=== PATIENT | male | born 1955 ===

== ENCOUNTER → 2020-08-15 14:14 | Outpatient (BNVA) | payer OTHER, SELFPAY | PROVIDERS: PCP Physician Assistant; Referring Provider Physician Assistant; Visit Provider Internal Medicine | DX: E11.65 Type 2 diabetes mellitus with hyperglycemia (principal); E78.5 Hyperlipidemia, unspecified; I10 Essential (primary) hypertension; Z88.6 Allergy status to analgesic agent; Z91.013 Allergy to seafood; Z91.018 Allergy to other foods; Z79.4 Long term (current) use of insulin; Z79.899 Other long term (current) drug therapy | CPT/HCPCS: 82947; 99212 ==

== ENCOUNTER 2020-09-03 14:00 | Outpatient (RCR) | payer OTHER, SELFPAY | END 2020-10-11 09:14 | disposition home or self-care (01) | LOC: HO.OT 14:00 | PROVIDERS: Visit Provider Physician Assistant | DX: M19.041 Primary osteoarthritis, right hand (principal) | CPT/HCPCS: 97110; 97140; 97165; 97530 ==

== ENCOUNTER 2020-09-25 10:14 | Outpatient (REF) | payer OTHER, SELFPAY ==
[2020-09-26 07:47] LABS: Syphilis Screen Nonreactive (Nonreactive)
[2020-09-26 08:18] LABS: HBc Num1 2.31 S/CO (0.00-0.79); Hepatitis B Surface Antigen Negative (Negative)
[2020-09-26 08:35] LABS: HBS Num1 11.41 mIU/mL (0-7.99); HIV AB/AG Nonreactive (Nonreactive); HIV Num 1 0.15 S/CO (0.00-0.99); ~HepC Num1 14.37 S/CO (0.00-0.79); ~Hepatitis C Antibody Reactive (Nonreactive)
[2020-09-26 11:20] LABS: HBS Num2 10.88 mIU/mL (0-7.99); HBS Num3 10.42 mIU/mL (0-7.99); ~Hepatitis B Surface Antibody GRAYZONE (Nonreactive)
[2020-09-26 11:31] LABS: HBc Num2 2.27 S/CO; HBc Num3 2.52 S/CO; Hepatitis B Core Antibody Reactive (Nonreactive)
[2020-09-27 03:27] LABS: Herpes Simplex Type 1 IgG >58.00 index; Herpes Simplex Type 2 IgG >23.00 index
[2020-09-27 17:08] LABS: Hepatitis B Core Antibody IgM NON-REACTIVE (NON-REACTIVE)
[2020-10-01 15:33] LABS: Chlamydia Pneumoniae IgA <1:16 titer (<1:16); Chlamydia Pneumoniae IgG <1:64 titer (<1:64); Chlamydia Pneumoniae IgM <1:10 titer (<1:10); Chlamydia Psittaci IgA <1:16 titer (<1:16); Chlamydia Psittaci IgG <1:64 titer (<1:64); Chlamydia Psittaci IgM <1:10 titer (<1:10); Chlamydia Trachomatis IgA <1:16 titer (<1:16); Chlamydia Trachomatis IgG <1:64 titer (<1:64); Chlamydia Trachomatis IgM <1:10 titer (<1:10)
== END 2020-09-25 10:15 | disposition home or self-care (01) ==
LOC: HO.LAB 10:14
PROVIDERS: PCP Physician Assistant; Visit Provider Physician Assistant
DX: Z11.3 Encounter for screening for infections with a predominantly sexual mode of transmission (principal); Z87.19 Personal history of other diseases of the digestive system
CPT/HCPCS: 86631; 86632; 86695; 86696; 86704; 86705; 86706; 86780; 86803; 87340; 87389

== ENCOUNTER 2020-11-10 10:25 | Outpatient (REF) | payer OTHER, SELFPAY | END 2020-11-10 10:26 | disposition home or self-care (01) | LOC: HO.LAB 10:25 | PROVIDERS: PCP Physician Assistant; Visit Provider Internal Medicine | DX: Z20.822 Contact with and (suspected) exposure to COVID-19 (principal) | CPT/HCPCS: 36415; C9803; U0003 ==

== ENCOUNTER 2020-11-14 15:19 | Outpatient (REF) | payer OTHER, SELFPAY ==
[2020-11-14 16:33] LABS: Estimated Average Glucose 140 mg/dL; Hemoglobin A1c % 6.5 %
[2020-11-14 16:52] LABS: Alanine Aminotransferase 45 U/L (0-40); Albumin Level 4.6 g/dL (3.5-5.0); Alkaline Phosphatase 94 U/L (39-117); Anion Gap 11 (12-20); Aspartate Amino Transferase 28 U/L (5-37); Bilirubin Total 0.7 mg/dL (0.0-1.0); Blood Urea Nitrogen 21 mg/dL (9-16); Calcium 9.6 mg/dL (8.4-10.2); Carbon Dioxide 34 mmol/L (22-29); Chloride 100 mmol/L (96-108); Cholesterol 141 mg/dL; Estimated Glomerular Filt Rate > 60; Glucose Random 118 mg/dL (60-115); HDL Cholesterol 40 mg/dL; LDL Cholesterol Calculated 80 mg/dl; Potassium 4.8 mmol/l (3.3-5.1); Sodium 140 mmol/L (135-145); Total Protein 7.3 g/dL (6.5-8.0); Triglycerides 105 mg/dL
[2020-11-14 16:53] LABS: Creatinine Urine 124.08 mg/dL; Microalbumin Urine < 5.0 mg/L
[2020-11-14 17:17] LABS: Vitamin D 25-OH Total 40.3 ng/mL (>30)
[2020-11-15 02:13] LABS: LDL Cholesterol Direct 83 mg/dL (<100)
== END 2020-11-14 15:20 | disposition home or self-care (01) ==
LOC: HO.LAB 15:19
PROVIDERS: PCP Physician Assistant; Visit Provider Internal Medicine
DX: E11.65 Type 2 diabetes mellitus with hyperglycemia (principal); Z79.4 Long term (current) use of insulin; E78.5 Hyperlipidemia, unspecified; I10 Essential (primary) hypertension; Z79.899 Other long term (current) drug therapy
CPT/HCPCS: 36415; 80053; 80061; 82043; 82306; 82947; 83036; 83721; 99212

== ENCOUNTER → 2021-02-14 12:58 | Outpatient (BNVA) | payer OTHER, SELFPAY | PROVIDERS: PCP Physician Assistant; Visit Provider Internal Medicine | DX: Z13.89 Encounter for screening for other disorder (principal) | CPT/HCPCS: Q3014 ==

== ENCOUNTER 2021-05-27 13:14 | Outpatient (REF) | payer OTHER, SELFPAY ==
[2021-05-27 15:40] LABS: Estimated Average Glucose 194 mg/dL; Hemoglobin A1c % 8.4 %
[2021-05-27 15:57] LABS: Alanine Aminotransferase 45 U/L (0-40); Albumin Level 4.7 g/dL (3.5-5.0); Alkaline Phosphatase 102 U/L (39-117); Anion Gap 10 (12-20); Aspartate Amino Transferase 32 U/L (5-37); Bilirubin Total 0.6 mg/dL (0.0-1.0); Blood Urea Nitrogen 15 mg/dL (9-16); Calcium 9.8 mg/dL (8.4-10.2); Carbon Dioxide 34 mmol/L (22-29); Chloride 104 mmol/L (96-108); Estimated Glomerular Filt Rate > 60; Glucose Random 135 mg/dL (60-115); Sodium 143 mmol/L (135-145); Total Protein 7.6 g/dL (6.5-8.0)
[2021-05-27 16:20] LABS: Vitamin D 25-OH Total 26.7 ng/mL (>30)
[2021-05-28 16:51] LABS: LDL Cholesterol Direct 120 mg/dL (<100)
== END 2021-05-27 13:15 | disposition home or self-care (01) ==
LOC: HO.LAB 13:14
PROVIDERS: PCP Physician Assistant; Visit Provider Internal Medicine
DX: E11.65 Type 2 diabetes mellitus with hyperglycemia (principal); E78.5 Hyperlipidemia, unspecified; E55.9 Vitamin D deficiency, unspecified; I10 Essential (primary) hypertension; Z79.4 Long term (current) use of insulin; Z71.3 Dietary counseling and surveillance
CPT/HCPCS: 36415; 80053; 82306; 82947; 83036; 83721; 99212

== ENCOUNTER 2021-06-03 15:54 | Outpatient (REF) | payer OTHER, SELFPAY ==
--- NOTE | ~2021-06-03 | XR_ITS ---
EXAMINATION: XR KNEE, RIGHT CLINICAL INFORMATION: Right knee pain. COMPARISON: Most recent bilateral knee radiographs dated 11/03/2019. TECHNIQUE: Four views of the right knee. FINDINGS: Mild medial compartment joint space narrowing. Tiny tricompartmental marginal osteophytes. Patellofemoral subchondral cystic change. Trace joint effusion. No acute fracture. No abnormal soft tissue calcification. XR/XR knee RT 3V IMPRESSION: Mild tricompartmental osteoarthritis, similar when compared to the most recent radiographs. Trace joint effusion.
== END 2021-06-03 15:55 | disposition home or self-care (01) ==
LOC: HO.XRAY 15:54
PROVIDERS: PCP Physician Assistant; Visit Provider Physician Assistant
DX: M25.561 Pain in right knee (principal)
CPT/HCPCS: 73562

== ENCOUNTER → 2021-06-10 09:45 | Outpatient (BNVA) | payer OTHER, SELFPAY | PROVIDERS: PCP Physician Assistant; Visit Provider Orthopaedic Surgery | DX: M70.41 Prepatellar bursitis, right knee (principal) | CPT/HCPCS: 20610; 99212; J1100 ==

== ENCOUNTER → 2021-10-21 13:00 | Outpatient (BNVA) | payer OTHER, SELFPAY | PROVIDERS: PCP Physician Assistant; Visit Provider Nurse Practitioner Gerontology | DX: E11.65 Type 2 diabetes mellitus with hyperglycemia (principal); E78.5 Hyperlipidemia, unspecified; I10 Essential (primary) hypertension; Z79.4 Long term (current) use of insulin | CPT/HCPCS: 82947; 83036; 99212 ==

== ENCOUNTER 2021-12-24 13:10 | Outpatient (REF) | payer MEDICARE, SELFPAY ==
[2021-12-24 14:13] LABS: Hematocrit 44.8 % (42.0-52.0); Hemoglobin 14.8 g/dl (14.0-18.0); Mean Corpuscular Hemoglobin 29.5 pg (27.0-33.0); Mean Corpuscular Volume 89.4 fL (80.0-98.0); Mean Platelet Volume 9.6 fL (9.4-12.4); Platelet Count 210 X10*3/uL (160-400); Red Blood Count 5.01 X10*6/uL (4.60-5.80); Red Cell Distribution Width 12.2 % (11.0-16.0); White Blood Count 8.8 X10*3/uL (4.8-10.8)
[2021-12-24 14:45] LABS: Alanine Aminotransferase 31 U/L (0-40); Albumin Level 4.3 g/dL (3.5-5.0); Alkaline Phosphatase 102 U/L (39-117); Anion Gap 13 (12-20); Aspartate Amino Transferase 22 U/L (5-37); Bilirubin Total 0.8 mg/dL (0.0-1.0); Blood Urea Nitrogen 13 mg/dL (9-16); Calcium 9.9 mg/dL (8.4-10.2); Carbon Dioxide 30 mmol/L (22-29); Chloride 102 mmol/L (96-108); Cholesterol 162 mg/dL; Estimated Glomerular Filt Rate > 60; Glucose Fasting 116 mg/dL (60-99); HDL Cholesterol 44 mg/dL; LDL Cholesterol Calculated 98 mg/dl; Potassium 4.9 mmol/L (3.3-5.1); Sodium 140 mmol/L (135-145); Total Protein 7.1 g/dL (6.5-8.0); Triglycerides 101 mg/dL
[2021-12-24 14:57] LABS: Creatinine Urine 167.58 mg/dL; Microalbum/Creatinine Ratio Ur 6.5 ug/mg cr
[2021-12-24 15:07] LABS: Prostate Specific Antigen Scr 0.98 ng/mL (<0.05-4.0)
== END 2021-12-24 13:11 | disposition home or self-care (01) ==
LOC: HO.LAB 13:10
PROVIDERS: PCP Physician Assistant; Visit Provider Physician Assistant
DX: Z12.5 Encounter for screening for malignant neoplasm of prostate (principal); E11.65 Type 2 diabetes mellitus with hyperglycemia; I10 Essential (primary) hypertension; Z79.4 Long term (current) use of insulin
CPT/HCPCS: 36415; 80053; 80061; 82043; 84153; 84443; 85027

== ENCOUNTER → 2022-01-21 12:05 | Outpatient (BNVA) | payer OTHER, SELFPAY | PROVIDERS: PCP Physician Assistant; Visit Provider Nurse Practitioner Gerontology | DX: E11.65 Type 2 diabetes mellitus with hyperglycemia (principal); E78.5 Hyperlipidemia, unspecified; I10 Essential (primary) hypertension; L60.0 Ingrowing nail; Z79.4 Long term (current) use of insulin | CPT/HCPCS: 82947; Q3014 ==

== ENCOUNTER 2022-04-17 12:31 | Outpatient (REF) | payer OTHER, SELFPAY ==
--- NOTE | ~2022-04-17 | XR_ITS ---
EXAMINATION: XR FOOT, LEFT CLINICAL INFORMATION: Pain in left toe(s). COMPARISON: Radiographs left foot 11/03/2019, 07/25/2019. TECHNIQUE: AP, lateral, and oblique views of the left foot. FINDINGS: There are dorsal plates again seen dorsal aspect 2nd and 3rd toes crossing the PIP joints. The 2nd toe hardware is intact. The hardware 3rd toe has fractured distal medial and lateral limbs, lateral limb hardware fracture new since 11/03/2019. There is no PIP bony ankylosis. No destructive process or osteolysis around the hardware. Again, there is osteoarthritis 1st MTP with joint narrowing and subchondral sclerosis and spurring. There is a hallux valgus of approximately 30 degrees, increased from prior study. There are bulky posterior and plantar calcaneal spurs. Retrocalcaneal recess is preserved. Mild dorsal spurring distal talus again seen. Bony mineralization normal. No fracture or dislocation or destructive process. XR/XR foot LT min 3V IMPRESSION: -Prominent osteoarthritis 1st MTP. Increased hallux valgus. -Postsurgical changes 2nd and 3rd toe. Hardware 3rd toe fractured, lateral limb fracture new from prior imaging, medial limb fracture present previously. -Bulky posterior and plantar calcaneal spurs. -No bony fracture, dislocation, or destructive process.
== END 2022-04-17 12:32 | disposition home or self-care (01) ==
LOC: HO.XRAY 12:31
PROVIDERS: PCP Physician Assistant; Visit Provider Physician Assistant
DX: M79.675 Pain in left toe(s) (principal)
CPT/HCPCS: 73630

== ENCOUNTER 2022-07-10 16:05 | Outpatient (REF) | payer OTHER, SELFPAY ==
[2022-07-10 17:50] LABS: Hematocrit 41.2 % (42.0-52.0); Hemoglobin 14.2 g/dl (14.0-18.0); Mean Corpuscular HGB Conc 34.5 g/dl (31.0-36.0); Mean Corpuscular Hemoglobin 30.5 pg (27.0-33.0); Mean Corpuscular Volume 88.4 fL (80.0-98.0); Mean Platelet Volume 10.5 fL (9.4-12.4); Platelet Count 191 X10*3/uL (160-400); Red Blood Count 4.66 X10*6/uL (4.60-5.80); Red Cell Distribution Width 12.5 % (11.0-16.0); White Blood Count 8.2 X10*3/uL (4.8-10.8)
[2022-07-10 18:03] LABS: Estimated Average Glucose 163 mg/dL; Hemoglobin A1c % 7.3 %
[2022-07-10 18:07] LABS: Creatinine Urine 48.88 mg/dL; Microalbumin Urine < 5.0 mg/L
[2022-07-10 18:08] LABS: Cholesterol 153 mg/dL; HDL Cholesterol 39 mg/dL; LDL Cholesterol Calculated 69 mg/dl; Triglycerides 228 mg/dL
[2022-07-10 18:28] LABS: TSH reflex Free T4 1.28 uIU/mL (0.32-4.0)
== END 2022-07-10 16:06 | disposition home or self-care (01) ==
LOC: HO.LAB 16:05
PROVIDERS: PCP Physician Assistant; Visit Provider Physician Assistant
DX: Z12.5 Encounter for screening for malignant neoplasm of prostate (principal); E11.65 Type 2 diabetes mellitus with hyperglycemia; E78.5 Hyperlipidemia, unspecified; I10 Essential (primary) hypertension; Z79.4 Long term (current) use of insulin
CPT/HCPCS: 36415; 80061; 82043; 83036; 84153; 84443; 85027

== ENCOUNTER 2022-07-21 05:50 | Emergency (ER) | payer OTHER, SELFPAY ==
--- NOTE | ~2022-07-21 | XR_ITS ---
EXAMINATION: XR LUMBOSACRAL SPINE CLINICAL INFORMATION: Lower back pain COMPARISON: None TECHNIQUE: Three views of the lumbosacral spine. FINDINGS: No acute fracture or subluxation. Grade 1 retrolisthesis of L2 on L3. Grade 1 anterolisthesis of L4 on L5. Vertebral body heights are maintained. Diffuse disc space narrowing greatest at L2-L3 and L5-S1. Diffuse facet arthropathy. The sacroiliac joints are symmetric. The visualized portion of the sacrum is intact. XR/XR lumbar spine 2-3V IMPRESSION: No acute abnormality. Moderate degenerative changes of the lumbar spine.
[2022-07-21 05:54] VITALS: BP 137/87; PULSE 84; RESP 18; TEMP 36.1; O2SAT 99; BMI 26.9
[2022-07-21 06:33] VITALS: BP 122/72; PULSE 73; RESP 20; TEMP 36.8; O2SAT 94
--- NOTE | 2022-07-21 06:36 | ED.BACK ---
HPI - Back Pain/Injury General Chief Complaint: Back Pain/Injury Stated Complaint: Back pain radiating down leg Time Seen by Provider: 07/21/22 06:36 Source: patient Mode of arrival: ambulatory Limitations: no limitations History of Present Illness HPI Narrative: 66 yo male with hx of DM, HTN, HLD, arthritis here with 8 days of R sided low back pain radiating into R leg denies trauma. No response to tylenol or motrin. Woke up like this one AM. He denies b/b incontinense, saddle anesthesia, AC therapy, IVDA. MD elicited complaint: back pain Onset (ago): day(s) (8) Timing: constant Severity: moderate Similar Symptoms Previously: No Quality: sharp Location: lumbar spine Radiation: buttocks and right upper leg Exacerbating factors: movement and walking Relieving factors: immobilization Context: unknown Associated symptoms: denies other symptoms Treatments prior to arrival: NSAIDS and acetaminophen Work related injury: No Related Data Previous Rx's Medication Instructions Recorded cholecalciferol (vitamin D3) 50 50 mcg PO BEDTIME #30 caps 11/15/21 mcg (2,000 unit) capsule dulaglutide 3 mg/0.5 mL 3 mg (0.5 mL) subcut QWEEK 28 days 01/21/22 [facility] lisinopril 20 mg tablet 20 mg PO DAILY #30 caps 03/19/22 atorvastatin 80 mg tablet 80 mg PO DAILY 30 days #30 tabs 06/20/22 blood sugar diagnostic (FreeStyle #60 ea 07/10/22 Lite Strips) lancets 28 gauge (FreeStyle #100 ea 07/10/22 Lancets) pen needle, diabetic 32 gauge x #50 ea 07/10/2232 insulin glargine 100 unit/mL (3 10 unit (0.1 mL) subcut QPM 30 07/18/22 mL) subcutaneous pen ( days #15 mL Solostar U-100 Insulin) diazepam 5 mg tablet (Valium) 5 mg PO TID PRN muscle spasm #10 07/21/22 tabs hydrocodone 5 mg-acetaminophen 325 1 tab PO Q6H PRN pain #10 tabs 07/21/22 mg tablet lidocaine 5 % topical patch 1 patch topical DAILY #30 ea 07/21/22 ondansetron 4 mg disintegrating 4 mg PO Q8H PRN nausea and 07/21/22 tablet vomiting #20 tabs Allergies Allergy/AdvReac Type Severity Reaction Status Date / Time shrimp [SHRIMP] Allergy Severe SWELLING/SEVERE Verified 07/10/22 15:36 VOMITING oxycodone [OXYCODONE] Allergy Intermediate GI UPSET, Verified 07/10/22 15:36 upset stomach Fresh fruit and nuts Allergy Unknown hives Uncoded 04/16/22 15:46 Review of Systems Review of Systems: Constitutional : No Weight loss, No Fever, No Chills, ENT/Mouth : No Hearing loss, No Ear Pain, No Nasal Congestion, No Sinus Pain, No Hoarseness, No sore throat, No Rhinorrhea, No Swallowing Difficulty Cardiovascular : No Chest Pain, No SOB Respiratory : No Cough, No Dyspnea Gastrointestinal : No Nausea, No Vomiting, No Diarrhea, No abdominal Pain, No Hematochezia, No Melena Genitourinary : No Dysuria, No Urinary Frequency, No Hematuria, No Urinary Incontinence, Musculoskeletal : positive back pain Skin : No Skin Lesions, No rash Neuro : No Weakness, No Numbness, No Paresthesias, no loss of bowel or bladder incontinence, no saddle anesthesia All other systems reviewed and are negative PMFSH Past Medical History Attestation statement: The following information was validated with the patient. Medical History HLD (hyperlipidemia) HTN (hypertension) T2DM (type 2 diabetes mellitus) Type 2 diabetes mellitus Vitamin D deficiency Surgical History History of bunionectomy History of hand surgery Hx of arthroscopy of left knee Hx of colonoscopy Family History Family History Father Cancer Mother Diabetes mellitus Social History Social History Household Members: None Housing: Apartment Alcohol intake: former Patient Tobacco Use Status: Never used Tobacco e-Cigarette/Vaping Use: Never Used Second Hand Smoke Exposure: No Advance Directives: No service: No Current occupational status: disabled Cognitive needs: No Hearing needs: No Vision needs: Yes (glasses) Physical Exam Vital Signs: Vital Signs: Last Vital Signs Temp 98.2 F 07/21/22 06:33 Pulse 73 07/21/22 06:33 Resp 20 07/21/22 06:33 BP 122/72 07/21/22 06:33 Pulse Ox 94 07/21/22 06:33 O2 Del Method 07/21/22 06:33 BMI result Body Mass Index 26.9 Appearance: Alert. Oriented X3. No acute distress. Eyes: Pupils equal, round and reactive to light. ENT: Pharynx normal. Neck: Normal inspection. Neck supple. CVS: Normal heart rate and rhythm. Pulses normal. Respiratory: No respiratory distress. Breath sounds normal. Abdomen: Soft and nontender. Back: ttp along R lower lumbar spine Skin: Skin warm and dry. Normal skin color. Normal skin turgor. Extremities: No lower extremity edema. No calf ttp Neuro: Oriented X 3. No motor deficit. No sensory deficit. SILT grossly intact, 2+ DTR in patella and achilles, L5 strength intact Course Course Course Narrative: patient feels much better, given precautions to return plan is to follow up with PCP this AM MDM - Back Pain/Injury MDM Narrative Medical decision making narrative: 66 yo male with hx of DM, HTN, HLD, arthritis here with atraumatic back pain without b/b incontinence or saddle anesthesia. No neuro deficits at this time. Will need UA, xray, PO pain control. Symptoms concerning for herniated disc but no CE symptoms. Lab Data Labs: Lab Results 07/21/22 Range/Units 07:13 Urine Color Yellow Urine Appearance Clear Urine pH 6.0 (5.0-9.0) Ur Specific [place] 1.020 (1.005-1.025) Urine Protein Negative (Neg-Trace) mg/dL Urine Glucose (UA) Negative (Negative) mg/dL Urine Ketones Negative (Negative) mg/dL Urine Blood Negative (Negative) Urine Nitrite Negative (Negative) Ur Leukocyte Esterase Negative (Negative) Discharge Plan Discharge Clinical Impression: Lumbar radiculopathy Strain of lumbar region Qualifiers: Encounter type: initial encounter Qualified Code(s): S39.012A - Strain of muscle, fascia and tendon of lower back, initial encounter Patient Disposition: Home, Self-Care Instructions: Low Back Strain (ED), Lumbar Radiculopathy (ED) Additional Instructions: return to ED for any worsening symptoms or concerns urine study was normal please see your doctor this week for physical therapy and possible MRI if this does not improve FINDINGS: No acute fracture or subluxation. Grade 1 retrolisthesis of L2 on L3. Grade 1 anterolisthesis of L4 on L5. Vertebral body heights are maintained. Diffuse disc space narrowing greatest at L2-L3 and L5-S1. Diffuse facet arthropathy. The sacroiliac joints are symmetric. The visualized portion of the sacrum is intact. XR/XR lumbar spine 2-3V IMPRESSION: No acute abnormality. Moderate degenerative changes of the lumbar spine. Prescriptions: New hydrocodone-acetaminophen 5-325 mg tablet 1 tab PO Q6H PRN (Reason: pain) Qty: 10 0RF Rx Instructions: partial fill okay; Partial Fill upon patient request. lidocaine 5 % adhesive patch,medicated 1 patch topical DAILY Qty: 30 0RF Rx Instructions: leave on most painful area for up to 12 hrs ondansetron 4 mg tablet,disintegrating 4 mg PO Q8H PRN (Reason: nausea and vomiting) Qty: 20 0RF diazepam [Valium] 5 mg tablet 5 mg PO TID PRN (Reason: muscle spasm) Qty: 10 0RF Rx Instructions: partial fill is okay No Action cholecalciferol (vitamin D3) 50 mcg (2,000 unit) capsule 50 mcg PO BEDTIME Qty: 30 11RF lisinopril 20 mg tablet 20 mg PO DAILY Qty: 30 4RF atorvastatin 80 mg tablet 80 mg PO DAILY 30 Days Qty: 30 4RF insulin glargine [Lantus Solostar U-100 Insulin] 100 unit/mL (3 mL) insulin pen 10 unit subcut QPM 30 Days Qty: 15 0RF (DME) FreeStyle Lite Strips Strip See Rx Instructions .Route Qty: 60 11RF Rx Instructions: As directed test blood sugar at least 2 times a day (DME) lancets [FreeStyle Lancets] 28 gauge misc See Rx Instructions .ROUTE .MEDSUPPLY Qty: 100 11RF Rx Instructions: Three times a day testing (DME) pen needle, diabetic 32 gauge x 5/32 needle See Rx Instructions subcut DAILY Qty: 50 3RF Rx Instructions: As directed Trulicity 3 mg/0.5 mL pen injector 3 mg subcut QWEEK 28 Days Qty: 2 6RF Referrals: Jean-Claude Anaya PA-C [Primary Care Provider] - 3 days
[2022-07-21] MEDS: diazePAM 2 MG TABLET 5 MG PO (07:09)
[2022-07-21] MEDS: Ondansetron ODT 4 MG TAB.RAPDIS TRANSLINGU (07:09)
[2022-07-21] MEDS: HYDROcodone Bit/Acetam 5/325 TABLET 1 TAB PO (07:09)
[2022-07-21] MEDS: Ketorolac Tromethamine 30 MG/ML VIAL IM (07:09)
[2022-07-21] MEDS: Famotidine 20 MG TABLET PO (07:10)
[2022-07-21 07:21] LABS: Appearance Urine Clear; Color Urine Yellow; Glucose Urine UA Negative (Negative); Leukocyte Esterase Urine Negative (Negative); Nitrite Urine Negative (Negative); Urine Blood Negative (Negative); Urine Ketones Negative (Negative); Urine Protein Negative (Neg-Trace)
== END 2022-07-21 09:49 | disposition home or self-care (01) ==
PROVIDERS: Emergency Provider Emergency Medicine; PCP Physician Assistant
DX: M54.16 Radiculopathy, lumbar region (principal); S39.012A Strain of muscle, fascia and tendon of lower back, initial encounter; X58.XXXA Exposure to other specified factors, initial encounter; E11.9 Type 2 diabetes mellitus without complications; I10 Essential (primary) hypertension; E78.5 Hyperlipidemia, unspecified; Z79.02 Long term (current) use of antithrombotics/antiplatelets; Z79.899 Other long term (current) drug therapy; Z79.4 Long term (current) use of insulin; Y93.9 Activity, unspecified; Y92.9 Unspecified place or not applicable; Y99.9 Unspecified external cause status
CPT/HCPCS: 72100; 81003; 96372; 99283; 99284; J1885

== ENCOUNTER 2022-07-27 11:22 | Emergency (ER) | payer OTHER, SELFPAY ==
[2022-07-27 11:32] VITALS: BP 122/72; BP 148/88; PULSE 107; PULSE 96; RESP 22; TEMP 36.6; O2SAT 97; O2SAT 99; BMI 26.2
[2022-07-27] MEDS: Ketorolac Tromethamine 30 MG/ML VIAL IM (12:08)
[2022-07-27] MEDS: predniSONE 20 MG TABLET 60 MG PO (12:09)
[2022-07-27] MEDS: Cyclobenzaprine HCl 10 MG TABLET PO (12:09)
--- NOTE | 2022-07-27 12:25 | ED_ITS ---
HPI - General Adult General Chief complaint: Back Pain/Injury Stated complaint: LEG AND BACK PAIN,-TRAUMA Time Seen by Provider: 07/27/22 11:26 Source: patient Mode of arrival: ambulatory Limitations: no limitations History of Present Illness HPI narrative: 66-year-old male presents to ED for chronic back pain exacerbation going down right leg. Patient denies any recent trauma, nausea, vomiting, fever, chills, a bdominal pain, dysuria, hematuria, or any urinary/bowel incontinence. Patient denies any IV drug use or immunocompromised diseases. patient states no improvement with pain meds. Related Data Previous Rx's Medication Instructions Recorded cholecalciferol (vitamin D3) 50 50 mcg PO BEDTIME #30 caps 11/15/21 mcg (2,000 unit) capsule dulaglutide 3 mg/0.5 mL 3 mg (0.5 mL) subcut QWEEK 28 days 01/21/22 subcutaneous pen injector #2 mL (Trulicity) lisinopril 20 mg tablet 20 mg PO DAILY #30 caps 03/19/22 atorvastatin 80 mg tablet 80 mg PO DAILY 30 days #30 tabs 06/20/22 blood sugar diagnostic (FreeStyle #60 ea 07/10/22 Lite Strips) lancets 28 gauge (FreeStyle #100 ea 07/10/22 Lancets) pen needle, diabetic 32 gauge x #50 ea 07/10/22 insulin glargine 100 unit/mL (3 10 unit (0.1 mL) subcut QPM 30 07/18/22 mL) subcutaneous pen (us days #15 mL Solostar U-100 Insulin) hydrocodone 5 mg-acetaminophen 325 1 tab PO Q6H PRN pain #10 tabs 07/21/22 mg tablet lidocaine 5 % topical patch 1 patch topical DAILY #30 ea 07/21/22 ondansetron 4 mg disintegrating 4 mg PO Q8H PRN nausea and 07/21/22 tablet vomiting #20 tabs cyclobenzaprine 10 mg tablet 10 mg PO TID PRN muscle spasm #14 07/22/22 tabs diclofenac sodium 1 % topical gel 2 g topical QID PRN pain #100 grams 07/22/22 (Arthritis Pain (diclofenac)) meloxicam 15 mg tablet 15 mg PO DAILY #10 tabs 07/22/22 prednisone 20 mg tablet 40 mg PO DAILY 5 days #10 tabs 07/22/22 morphine 15 mg immediate release 15 mg PO Q6H PRN pain 3 days #12 07/27/22 tablet tabs Allergies Allergy/AdvReac Type Severity Reaction Status Date / Time shrimp [SHRIMP] Allergy Severe SWELLING/SEVERE Verified 07/22/22 10:47 VOMITING oxycodone [OXYCODONE] Allergy Intermediate GI UPSET, Verified 07/22/22 10:47 upset stomach Fresh fruit and nuts Allergy Unknown hives Uncoded 07/22/22 10:47 Review of Systems Review of Systems: Back pain. Yes all other systems are reviewed and are ne [facility] Past Medical History Medical History HLD (hyperlipidemia) HTN (hypertension) T2DM (type 2 diabetes mellitus) Type 2 diabetes mellitus Vitamin D deficiency Surgical History History of bunionectomy History of hand surgery Hx of arthroscopy of left knee Hx of colonoscopy Family History Family History Father Cancer Mother Diabetes mellitus Social History Social History Household Members: None Housing: Apartment Alcohol intake: never Patient Tobacco Use Status: Never used Tobacco Smoked in Last 30 Days: No e-Cigarette/Vaping Use: Never Used Second Hand Smoke Exposure: No Use of substances other than those prescribed or required for medical reasons: No Advance Directives: No Advance Directives Information Provided: Yes service: No Current occupational status: disabled Cognitive needs: No Hearing needs: No Vision needs: Yes (glasses) Physical Exam ED Vital Signs: Vital Signs - 24 hr 07/27/22 11:32 07/27/22 13:37 Temperature 97.8 F 97.8 F Pulse Rate 96 89 Respiratory Rate 22 H 16 Blood Pressure 122/72 110/75 Pulse Oximetry 97 97 Oxygen Delivery Method Room Air Room Air BMI result Body Mass Index 26.2 Const General: cooperative, healthy appearing, comfortable, no acute distress, well developed, alert, awake and Physically active Orientation/consciousness: oriented to time and patient oriented x3 HENMT Head: Yes normal to inspection, Yes No palpable skull fracture present, Yes normocephalic, Yes atraumatic and No abrasion Eyes General: appearance normal, both eyes and all related structures Neck Neck: Yes normal visual inspection, Yes full ROM, Yes no lymphadenopathy, Yes no meningeal signs, Yes trachea midline, Yes supple, No anterior neck swelling and No tender Chest Chest palpation & inspection: normal inspection of the chest and normal palpation of entire chest wall Resp Effort & Inspection: normal respiratory effort and able to speak in complete sentences Auscultation: clear to auscultation bilaterally Cardio Jugular venous distension: no JVD Heart sounds: S1 normal heart sound present and S2 normal heart sound present GI Inspection: Yes normal to inspection and No abdominal wall ecchymosis Palpation (GI): Soft to palpation, not firm, nontender, no guarding and not rigid General: Yes CVA tenderness Back/Spine/Pelvis Back: CVA tenderness and back tenderness (lumbar) Skin General skin exam: no rashes or lesions noted and elasticity normal Neuro General: oriented to time, patient oriented x3, gait normal, no meningeal signs and CN's II-XI intact bilaterally Cranial nerves: Yes CN's II-XII intact bilaterally Extrem General: Yes normal to inspection and Yes full ROM Psych Appearance: grossly normal, well kempt and not disheveled Course Course Course Narrative: Patient had x-ray which showed severe lumbar radiculopathy on the 21 of July. Patient has seen primary care on the given pain vicodin. Presently not suspecting cauda equina syndrome or epidural abscess Reevaluation(s) Reevaluation #1: No need for repeat x-ray. Patient had x-ray on July 21 which showed lumbar radiculopathy. Patient received Toradol and steroid and pain did not improve. Patient then was given morphine and then pain resolved. Patient at baseline ambulates with a crutches. Patient able to ambulate with crutches around the ER which is baseline gait. patient moved both lower extremities ( walking). patient just used crutches for support. Patient states he finished hydrocodone prescription and it did not help his pain. Will discharge with morphine. Presently not suspecting caudina equinal or epidural abscess. Time: 16:03 Medical Decision Making [facility] Narrative Medical decision making narrative: Lumbar radiculopathy Discharge Plan Discharge Clinical Impression: Chronic lumbar radiculopathy Patient Disposition: Home, Self-Care Instructions: Lumbar Radiculopathy (ED) Additional Instructions: Return to the ED immediately for any urinary/bowel incontinence, numbness of lower extremities, paralysis of extremities, inability to walk, fever, chills, abdominal pain, nausea, vomiting, hematuria, dysuria, testicular pain, or any other concerning symptoms. Please follow the primary care provider Prescriptions: New morphine 15 mg tablet 15 mg PO Q6H PRN (Reason: pain) 3 Days Qty: 12 0RF Rx Instructions: Partial Fill upon patient request. No Action cholecalciferol (vitamin D3) 50 mcg (2,000 unit) capsule 50 mcg PO BEDTIME Qty: 30 11RF lisinopril 20 mg tablet 20 mg PO DAILY Qty: 30 4RF atorvastatin 80 mg tablet 80 mg PO DAILY 30 Days Qty: 30 4RF insulin glargine [Lantus Solostar U-100 Insulin] 100 unit/mL (3 mL) insulin pen 10 unit subcut QPM 30 Days Qty: 15 0RF hydrocodone-acetaminophen 5-325 mg tablet 1 tab PO Q6H PRN (Reason: pain) Qty: 10 0RF Rx Instructions: partial fill okay; Partial Fill upon patient request. lidocaine 5 % adhesive patch,medicated 1 patch topical DAILY Qty: 30 0RF Rx Instructions: leave on most painful area for up to 12 hrs ondansetron 4 mg tablet,disintegrating 4 mg PO Q8H PRN (Reason: nausea and vomiting) Qty: 20 0RF (DME) FreeStyle Lite Strips Strip See Rx Instructions .Route Qty: 60 11RF Rx Instructions: As directed test blood sugar at least 2 times a day (DME) lancets [FreeStyle Lancets] 28 gauge misc See Rx Instructions .ROUTE .MEDSUPPLY Qty: 100 11RF Rx Instructions: Three times a day testing (DME) pen needle, diabetic 32 gauge x 5/32 needle See Rx Instructions subcut DAILY Qty: 50 3RF Rx Instructions: As directed prednisone 20 mg tablet 40 mg PO DAILY 5 Days Qty: 10 0RF meloxicam 15 mg tablet 15 mg PO DAILY Qty: 10 0RF cyclobenzaprine 10 mg tablet 10 mg PO TID PRN (Reason: muscle spasm) Qty: 14 0RF diclofenac sodium [Arthritis Pain (diclofenac)] 1 % gel 2 g topical QID PRN (Reason: pain) Qty: 100 0RF Rx Instructions: apply to single elbow, wrist or hand; for hand includes palm/fingers/back of hand Trulicity 3 mg/0.5 mL pen injector 3 mg subcut QWEEK 28 Days Qty: 2 6RF Stand Alone Forms: Work/School Release Discharge Date/Time: 07/27/22 17:13 Print Language: [place]
[2022-07-27 13:37] VITALS: BP 110/75; PULSE 89; RESP 16; TEMP 36.6; O2SAT 97
[2022-07-27] MEDS: Morphine Sulfate 4 MG/ML CARTRIDGE IM (13:43)
== END 2022-07-27 17:13 | disposition home or self-care (01) ==
PROVIDERS: Emergency Provider Emergency Medicine; PCP Physician Assistant
DX: M54.16 Radiculopathy, lumbar region (principal); M54.50 Low back pain, unspecified; Z79.899 Other long term (current) drug therapy
CPT/HCPCS: 96372; 99284; J1885; J2270

== ENCOUNTER → 2022-08-26 12:29 | Outpatient (BNVA) | payer OTHER, SELFPAY | PROVIDERS: PCP Physician Assistant; Visit Provider Nurse Practitioner Family | DX: M47.816 Spondylosis without myelopathy or radiculopathy, lumbar region (principal); M54.16 Radiculopathy, lumbar region; M51.36 Other intervertebral disc degeneration, lumbar region; E11.42 Type 2 diabetes mellitus with diabetic polyneuropathy | CPT/HCPCS: 99202 ==

== ENCOUNTER 2022-08-27 12:52 | Outpatient (REF) | payer OTHER, SELFPAY ==
--- NOTE | ~2022-08-27 | MR_ITS ---
EXAMINATION: MR LUMBAR SPINE WITHOUT CONTRAST CLINICAL INFORMATION: Radiculopathy, lumbar region. COMPARISON: Plain films of the lumbar spine 07/21/2022. TECHNIQUE: MRI of the lumbar spine was obtained using routine sequences without contrast. FINDINGS: VERTEBRAL BODIES AND PARASPINAL STRUCTURES: There is a mild levoscoliosis. There is a grade 1 anterolisthesis of L4 on L5. There is marked narrowing of intervertebral disc height at L5-S1 milder narrowing at L2-L3. There are degenerative endplate contour changes with predominantly fatty signal at L2-L3 and L5-S1. Vertebral body heights are maintained and no fractures are demonstrated. Overall, marrow signal is homogenous. The visualized retroperitoneal and pelvic structures are unremarkable. CONUS MEDULLARIS AND CAUDA EQUINA: Normal, terminating at the level of L1. The lower thoracic spinal cord appears normal. The cauda equina nerve roots and filum terminale appear normal. SPINAL LEVELS: T11-T12: There is mild bilateral facet arthropathy. There is mild diffuse disc bulge but there is no central stenosis or foraminal narrowing. T12-L1: There is mild bilateral facet arthropathy. There is a small disc protrusion posteriorly with an annular fissure but there is no central stenosis and the neural foramina patent bilaterally. L1-L2: There is moderate bilateral facet arthropathy. Disc contour is normal. There is no central stenosis or foraminal narrowing. L2-L3: There is moderate bilateral facet arthropathy. There is a posterior disc protrusion with mild flattening of the ventral thecal sac which is most prominent to the right of midline and there is mild narrowing of the right subarticular recess. There is a right foraminal disc protrusion with impingement on the exiting right L2 nerve root. There is no central stenosis. L3-L4: There is markedly severe right and severe left facet arthropathy with ligamenta flava hypertrophy and facet joint effusions. There is a broad-based posterior disc protrusion extending into the neural foramina bilaterally, more prominently on the right and extending far laterally with impingement on the extraforaminal right L3 nerve root. There is narrowing of the bilateral subarticular recesses, more severe on the right and there is moderate to severe central stenosis. L4-L5: There is markedly severe right and severe left facet arthropathy. There is unroofing of the disc is a result of the anterolisthesis. There are bilateral foraminal disc protrusions, more prominent on the right with mass effect on the exiting L4 nerve roots bilaterally. There is narrowing of the bilateral subarticular recesses. There is no central stenosis. L5-S1: There is severe bilateral facet arthropathy. There are equivocal nondisplaced pars defects bilaterally. There is a right foraminal disc protrusion with impingement on the exiting right L5 nerve root. This protrusion also extends into the right subarticular recess with impingement on the traversing right S1 nerve root and with mild distortion of the thecal sac. There is no central stenosis. MR/MR lumbar spine wo con IMPRESSION: 1. There is markedly severe facet arthropathy at L4-L5 with a grade 1 anterolisthesis. There are bilateral foraminal disc protrusions with mass effect on the exiting L4 nerve roots. There is no central stenosis. 2. At L5-S1 there is severe facet arthropathy. There are equivocal nondisplaced pars defects. There is a right foraminal disc protrusion with impingement on the exiting right L5 nerve root, and there is also narrowing of the right subarticular recess with impingement on the traversing right S1 nerve root. There is no central stenosis. 3. At L3-L4 there is severe facet arthropathy and there is a posterior disc protrusion extending far laterally on the right with impingement on the extraforaminal right L3 nerve root. There is moderate to severe central stenosis. 4. At L2-L3 there is moderate bilateral facet arthropathy. There is a posterior disc protrusion extending into the right neural foramen with impingement on the exiting right L2 nerve root. There is no central stenosis.
== END 2022-08-27 12:53 | disposition home or self-care (01) ==
LOC: HO.MRI 12:52
PROVIDERS: Visit Provider Physician Assistant
DX: M54.16 Radiculopathy, lumbar region (principal)
CPT/HCPCS: 72148

== ENCOUNTER → 2022-09-01 15:10 | Outpatient (BNVA) | payer OTHER, SELFPAY | PROVIDERS: PCP Physician Assistant; Visit Provider Nurse Practitioner Family | DX: M54.16 Radiculopathy, lumbar region (principal); M47.816 Spondylosis without myelopathy or radiculopathy, lumbar region; M51.36 Other intervertebral disc degeneration, lumbar region; M48.061 Spinal stenosis, lumbar region without neurogenic claudication | CPT/HCPCS: Q3014 ==

== ENCOUNTER 2023-03-27 08:08 | Outpatient (REF) | payer OTHER, SELFPAY ==
--- NOTE | ~2023-03-27 | XR_ITS ---
EXAMINATION: XR KNEE, RIGHT CLINICAL INFORMATION: Reason for Exam M25.561 - Pain in right knee COMPARISON: Knee radiographs 06/03/2021 TECHNIQUE: 3 views of the knee FINDINGS: No acute fracture or dislocation. Mild degenerative changes of the knee with spurring of the tibial spines, small medial and patellofemoral compartment osteophytes and quadriceps tendon enthesopathy. Question of a small possible osseous fragment in the medial tibiofemoral compartment joint space possibly reflective of a loose body. Trace suprapatellar joint effusion. Soft tissues are unremarkable. XR/XR knee RT 3V IMPRESSION: * No acute osseous abnormality. * Mild degenerative changes of the knee similar to prior. Trace suprapatellar joint effusion. Question of a small possible osseous fragment in the medial tibiofemoral compartment joint space possibly reflective of a loose body.
[2023-03-27 09:26] LABS: Hemoglobin 14.5 g/dl (14.0-18.0); Mean Corpuscular HGB Conc 33.7 g/dl (31.0-36.0); Mean Corpuscular Hemoglobin 29.8 pg (27.0-33.0); Mean Corpuscular Volume 88.3 fL (80.0-98.0); Mean Platelet Volume 9.4 fL (9.4-12.4); Platelet Count 215 X10*3/uL (160-400); Red Blood Count 4.87 X10*6/uL (4.60-5.80); Red Cell Distribution Width 12.1 % (11.0-16.0)
[2023-03-27 10:08] LABS: Creatinine Urine 257.34 mg/dL; Microalbum/Creatinine Ratio Ur 3.1 ug/mg cr
[2023-03-27 10:19] LABS: Alanine Aminotransferase 32 U/L (0-40); Albumin Level 4.2 g/dL (3.5-5.0); Alkaline Phosphatase 117 U/L (39-117); Anion Gap 12 (12-20); Aspartate Amino Transferase 21 U/L (5-37); Bilirubin Total 0.8 mg/dL (0.0-1.0); Blood Urea Nitrogen 18 mg/dL (9-16); Calcium 9.4 mg/dL (8.4-10.2); Carbon Dioxide 30 mmol/L (22-29); Chloride 101 mmol/L (96-108); Cholesterol 131 mg/dL; Estimated Glomerular Filt Rate > 60; Glucose Fasting 210 mg/dL (60-99); HDL Cholesterol 41 mg/dL; LDL Cholesterol Calculated 76 mg/dl; Potassium 4.6 mmol/L (3.3-5.1); Sodium 138 mmol/L (135-145); Total Protein 6.6 g/dL (6.5-8.0); Triglycerides 70 mg/dL
[2023-03-27 10:21] LABS: TSH reflex Free T4 1.38 uIU/mL (0.32-4.0)
== END 2023-03-27 08:09 | disposition home or self-care (01) ==
LOC: HO.XRAY 08:08
PROVIDERS: PCP Physician Assistant; Visit Provider Physician Assistant
DX: M25.561 Pain in right knee (principal); E11.65 Type 2 diabetes mellitus with hyperglycemia; I10 Essential (primary) hypertension; E78.5 Hyperlipidemia, unspecified; Z79.4 Long term (current) use of insulin
CPT/HCPCS: 36415; 73562; 80053; 80061; 82043; 84443; 85027

== ENCOUNTER 2023-06-01 12:56 | Outpatient (AMB) | payer OTHER, SELFPAY ==
--- NOTE | 2023-06-01 13:00 | MHC.PC.OV ---
Vital Signs 06/01/23 13:01 Height 5 ft 10 in Weight 179 lb 2 oz BMI 25.7 BP 114/74 Blood Pressure Location Lt brachial Position Sitting Pulse 79 Pulse Source Pulse Oximeter Pulse Oximetry (%) 95 Oxygen Delivery Method Room Air Intake Visit Reasons: Hardware removal 1,2,3 digits etc.-06/05 Allergies shrimp [SHRIMP] Allergy (Severe, Verified 06/01/23 13:25) SWELLING/SEVERE VOMITING oxycodone [OXYCODONE] Allergy (Intermediate, Verified 06/01/23 13:25) GI UPSET, upset stomach Fresh fruit and nuts Allergy (Unknown, Uncoded 06/01/23 13:04) hives Medication List - Last Reconciled 06/01/23 by OLMAN Almonte atorvastatin 80 mg PO DAILY 30 days blood sugar diagnostic (FreeStyle Lite Strips) As directed test blood sugar at least 2 times a day cholecalciferol (vitamin D3) 50 mcg PO BEDTIME dulaglutide (Trulicity) 3 mg (0.5 mL) subcut QWEEK 28 days insulin glargine (Lantus Solostar U-100 Insulin) 14 units (0.14 mL) subcut QPM 30 days lancets (FreeStyle Lancets) Three times a day testing lisinopril 20 mg PO DAILY pen needle, diabetic As directed Tobacco use date assessed: 03/26/23 HPI HPI Comments History of Present Illness Details 67-year-old male past medical history significant for lumbar spinal stenosis, hyperlipidemia, hypertension type 2 diabetes mellitus.Patient of [place] presents today for pre-op. Patient for left foot hardware removal with Dr. Colin under general anesthesia. Denies previous complications anesthesia. Denies CP, palpitations, shortness of breath and syncope. EKG in office shows normal sinus rhythm, left axis deviation, ECG without significant abnormalities Hemoglobin A1C: 8.4%, Goal < 8.0% to under go scheduled surgery. Laboratory Tests 03/27/23 03/27/23 08:35 08:35 WBC 8.0 RBC 4.87 Hgb 14.5 Hct 43.0 MCV 88.3 MCH 29.8 MCHC 33.7 RDW 12.1 Plt Count 215 MPV 9.4 Sodium 138 Potassium 4.6 Chloride 101 Carbon Dioxide 30 H Anion Gap 12 BUN 18 H Creatinine 0.97 Estimated GFR > 60 Calcium 9.4 Total Bilirubin 0.8 AST 21 ALT 32 Alkaline Phosphata se 117 Total Protein 6.6 Albumin 4.2 Triglycerides 70 Cholesterol 131 LDL Cholesterol, C alc 76 HDL Cholesterol 41 TSH 1.38 PFSH Medical History H/O chronic hepatitis HLD (hyperlipidemia) HTN (hypertension) T2DM (type 2 diabetes mellitus) Type 2 diabetes mellitus Vitamin D deficiency Surgical History History of bunionectomy History of hand surgery Hx of arthroscopy of left knee Hx of colonoscopy Family History Father Cancer Mother Diabetes mellitus Social History Household Members: None Housing: Apartment Alcohol intake: never Patient Tobacco Use Status: Never used Tobacco e-Cigarette/Vaping Use: Never Used Second Hand Smoke Exposure: No service: No Current occupational status: disabled Cognitive needs: No Hearing needs: No Vision needs: Yes (glasses) Questionnaire PHQ-9 Over the last 2 weeks, how often have you been bothered by any of the following problems? 1. Little interest or pleasure in doing things: not at all 2. Feeling down, depressed, or hopeless: not at all 3. Trouble falling or staying asleep, or sleeping too much: not at all 4. Feeling tired or having little energy: not at all 5. Poor appetite or overeating: not at all 6. Feeling bad about yourself - or that you are a failure or have let yourself or your family down: not at all 7. Trouble concentrating on things, such as reading the newspaper or watching television: not at all 8. Moving or speaking so slowly that other people could have noticed. Or the opposite - being so fidgety or restless that you have been moving around a lot more than usual: not at all 9. Thoughts that you would be better off or of hurting yourself in some way: not at all Total score: 0 Depression Screening Interpretation: Negative Source: Developed by Drs. Waldo Dominguez, Leonor Lima, Fredy Hammer and colleagues, with an educational jazzy from [employer]. Thrive Questionnaire Date Thrive assessed: 06/01/23 I am a: Patient What is your living situation today?: I have a steady place to live Within the past 12 months, did the food you bought not last and you didn't have the money to get more?: Never true Within the past 12 months, did you worry whether your food would run out before you got money to buy more?: Never true Do you have trouble paying for medicines?: No Do you have trouble getting transportation to medical appointments?: No Do you have trouble paying your heating and electricity bill?: No Do you have trouble taking care of your child, family member or friend?: No Do you have trouble with day-to-day activities such as bathing, preparing meals, shopping, managing finances, etc.?: No Are you currently unemployed and looking for a job?: No Are you interested in more education?: No AUDIT C Alcohol Use Questionnaire (AUDIT-C) 1. How often do you have a drink containing alcohol?: Never 3. How often do you have six or more drinks on one occasion?: Never Total Score: 0 CHARO-7 AMB Questionnaire CHARO-7 Date CHARO - 7 assessed: 06/01/23 Feeling nervous, anxious, or on edge: 0 = Not at all Not being able to stop or control worryin = Not at all Worrying too much about different things: 0 = Not at all Trouble relaxin = Not at all Being so restless that it is hard to sit still: 0 = Not at all Becoming easily annoyed or irritable: 0 = Not at all Feeling afraid as if something awful might happen: 0 = Not at all Total CHARO-7 score (0-4 normal; 5-9 mild; 10-14 moderate; 15-21 severe): 0 Source: Developed by Drs. Waldo Dominguez, Leonor Lima, Fredy Hammer and colleagues, with an educational jazzy from [employer]. Review of Systems Const Denies chills, Denies fatigue, Denies fever(s) and Denies poor appetite Eyes Denies no additional complaints ENT Reports Normal hearing present Card Denies chest pain, Denies syncope, Denies rapid heart rate and Denies dyspnea Resp Denies cough and Denies dyspnea GI Denies change in stool character, Denies constipation, Denies diarrhea, Denies nausea and Denies vomiting Denies dysuria, Denies urinary frequency and Denies urinary urgency Neuro Reports Normal hearing present, Denies confusion and Denies syncope Psych Denies confusion Endo Denies fatigue Physical exam (Primary Care) Vital Signs: Last Vital Signs Pulse 79 06/01/23 13:01 BP 114/74 06/01/23 13:01 Pulse Ox 95 06/01/23 13:01 Oxygen Delivery Method Room Air 06/01/23 13:01 BMI result Body Mass Index 25.7 Tobacco/Smoking Status: Tobacco use Status Tobacco use date assessed 03/26/23 06/01/23 13:02 Patient Tobacco Use Status Never used Tobacco 06/01/23 13:02 e-Cigarette/Vaping Use Never Used 06/01/23 13:02 PHQ-9: PHQ-9 Score PHQ-9: Total score 0 06/01/23 13:58 Depression Screening Interpretation: Negative Thrive Assessment: Date of Thrive Assessment Date Thrive assessed 06/01/23 06/01/23 13:06 Const General: No confusion Orientation/consciousness: No confusion HENMT Head: Yes normocephalic and Yes atraumatic Eyes Conjunctivae: conjunctivae normal Chest Chest palpation & inspection: normal inspection of the chest Resp Effort & Inspection: normal respiratory effort Auscultation: clear to auscultation bilaterally, no crackles, no rhonchi and no wheezes Cardio Rate: regular rate Rhythm: regular rhythm Heart sounds: S1 normal heart sound present and S2 normal heart sound present GI Inspection: Yes normal to inspection Neuro General: No confusion Cranial nerves: Yes Normal hearing present Extrem General: No edema Results AMB Hemoglobin A1c AMB Hemoglobin A1c 8.4 % Last Edit by GOLDIE Toledo on 06/01/23 13:59 Results Reviewed Results Reviewed: Laboratory Last Values Hgb A1c (Clinic) 8.4 % (4.0-6.0) H 06/01/23 13:47 Assessment and Plan Assessment & Plan (1) Preop examination: Code(s): Z01.818 - Encounter for other preprocedural examination Plan: Give elevated Hgb A1C 8.4%, patient unable to proceed with scheduled surgery until hemoglobin A1c less than 8%. Patient made aware of above. Orders: Orders AMB Hemoglobin A1c 06/01/23 E11.9 - Type 2 diabetes mellitus without complications Coding Level of Care Code Est Pt Level 3 (64409) Diagnoses Preop examination Z01.818 Additional Codes PHQ-9 - 68726 - PHQ-9 Billing: Y ([id number])
[2023-06-01 13:01] VITALS: BP 114/74; PULSE 79; O2SAT 95; BMI 25.7
== END 2023-06-01 14:14 | disposition home or self-care (01) ==
PROVIDERS: PCP Physician Assistant; Visit Provider Nurse Practitioner Family
DX: Z01.818 Encounter for other preprocedural examination (principal)
CPT/HCPCS: 83036; 99213

== ENCOUNTER 2023-07-20 15:20 | Outpatient (AMB) | payer OTHER, SELFPAY ==
[2023-07-20 15:54] VITALS: BP 126/80; PULSE 79; RESP 16; O2SAT 98; BMI 25.9
--- NOTE | 2023-07-20 15:54 | MHC.PC.OV ---
Vital Signs 07/20/23 15:54 Height 5 ft 10 in Weight 180 lb 6 oz BMI 25.9 BP 126/80 Blood Pressure Location Lt brachial Position Sitting Respiration 16 Pulse 79 Pulse Source Pulse Oximeter Pulse Oximetry (%) 98 Oxygen Delivery Method Room Air Intake Visit Reasons: PE Intake Note: Patient is here today for a physical. Csw Required: No Accompanied by: Self / Same As Patient Allergies shrimp [SHRIMP] Allergy (Severe, Verified 07/20/23 16:02) SWELLING/SEVERE VOMITING oxycodone [OXYCODONE] Allergy (Intermediate, Verified 07/20/23 16:02) GI UPSET, upset stomach Fresh fruit and nuts Allergy (Unknown, Uncoded 07/20/23 15:55) hives Medication List - Last Reconciled 07/20/23 by Jean-Claude Anaya PA-C atorvastatin 80 mg PO DAILY 30 days blood sugar diagnostic (FreeStyle Lite Strips) As directed test blood sugar at least 2 times a day cholecalciferol (vitamin D3) 50 mcg PO BEDTIME dulaglutide (Trulicity) 3 mg (0.5 mL) subcut QWEEK 28 days insulin glargine (Lantus Solostar U-100 Insulin) 14 units (0.14 mL) subcut QPM 30 days lancets (FreeStyle Lancets) Three times a day testing lisinopril 20 mg PO DAILY pen needle, diabetic As directed Tobacco use date assessed: 03/26/23 Fall risk assessment: No Falls in past year Last assessed Fall Risk: 07/20/23 Dental Screening Dental Screen Date: 07/20/23 Did you have a dental visit in the last 12 months?: No Did you have a dental problem in the last 6 months where you did not have access to dental care?: No Was dental information given to patient?: Yes HPI PE HPI Details Patient is a 67-year-old male here for routine annual physical. ? Patient has a past medical history significant for type 2 diabetes, hyperlipidemia, hypertension, lumbar stenosis. Concern--> is anticipating foot surgery due to his feet pain. Needs A1c below 8 though most recent A1c at 8.4 was not clear for surgery. Has been making adjustments in his diet and sugars have been much better controlled. Type 2 Diabetes:? Most recent A1c at 8.4. He reports he has changed his diet and now is sugars are better controlled..? He has lost his follow-up with endocrinology as his provider left practice..? He has had his Trulicity increased to 3 mg weekly. Continues to use Lantus 10 units daily. .. Hypertension:? Blood pressure today in office acceptable.? Has been compliant with his lisinopril.? Denies any headaches, chest discomfort or shortness of breath. .. Hyperlipidemia:? Most recent LDL 69, will continue his current statin dose..? Of note triglycerides at 220 and will work on lifestyle modifications to help reduce triglycerides.? Colon cancer screening: Up-to-date with colonoscopy Vaccine: Up-to-date with COVID vaccine, up-to-date with flu vaccine tetanus vaccine, needs new pneumonia vaccine Laboratory Tests 09/24/22 03/26/23 03/27/23 15:21 13:45 08:31 RBC Hgb A1c (Clinic) 7.6 H 9.4 H Urine Microalbumin 8.0 03/27/23 06/01/23 08:35 13:47 RBC 4.87 Hgb A1c (Clinic) 8.4 H Urine Microalbumin PFSH Medical History Vitamin D deficiency H/O chronic hepatitis HLD (hyperlipidemia) HTN (hypertension) T2DM (type 2 diabetes mellitus) Type 2 diabetes mellitus Surgical History History of hand surgery History of bunionectomy Hx of colonoscopy Hx of arthroscopy of left knee Family History Father Cancer Mother Diabetes mellitus Social History Household Members: None Housing: Apartment Alcohol intake: never Patient Tobacco Use Status: Never used Tobacco e-Cigarette/Vaping Use: Never Used Second Hand Smoke Exposure: No service: No Current occupational status: disabled Cognitive needs: No Hearing needs: No Vision needs: Yes (glasses) Questionnaire Thrive Questionnaire Date Thrive assessed: 06/01/23 CHARO-7 AMB Questionnaire CHARO-7 Date CHARO - 7 assessed: 06/01/23 Source: Developed by Drs. Waldo Dominguez, Leonor BFredy Wynne and colleagues, with an educational jazzy from [employer]. Review of Systems Const Denies body aches, Denies chills, Denies excessive sweating, Denies fatigue, Denies fever(s) and Denies headache(s) Eyes Denies blurry vision ENT Denies dysphagia, Denies vertigo, Denies dizziness, Denies headache(s), Denies hearing loss and Denies tinnitus Card Denies chest pain, Denies chest pain with activity, Denies syncope, Denies irregular heart rhythm and Denies dyspnea Resp Denies chest congestion, Denies cough, Denies hemoptysis, Denies dyspnea and Denies wheezing GI Denies abdominal pain, Denies melena, Denies hematochezia, Denies coffee ground emesis, Denies dysphagia, Denies diarrhea, Denies nausea and Denies vomiting Denies difficulty urinating, Denies dysuria, Denies urinary frequency, Denies urinary hesitancy and Denies urinary urgency Musc Denies arthralgias, Denies limited range of motion, Denies muscle cramps and Denies muscle weakness Skin/Breast Denies rash and Denies skin ulcer Neuro Denies Abnormal speech present, Denies confusion, Denies vertigo, Denies dizziness, Denies syncope, Denies headache(s), Denies memory loss and Denies seizure-like activity Psych Denies anxiety, Denies confusion, Denies depression, Denies memory loss, Denies panic attacks and Denies paranoia Endo Denies excessive sweating, Denies fatigue, Denies flushing, Denies polydipsia and Denies polyuria Aller/Immun Denies wheezing Physical exam (Primary Care) Vital Signs: Last Vital Signs Pulse 79 07/20/23 15:54 Resp 16 07/20/23 15:54 BP 126/80 07/20/23 15:54 Pulse Ox 98 07/20/23 15:54 Oxygen Delivery Method Room Air 07/20/23 15:54 BMI result Body Mass Index 25.9 Tobacco/Smoking Status: Tobacco use Status Tobacco use date assessed 03/26/23 07/20/23 15:58 Patient Tobacco Use Status Never used Tobacco 07/20/23 15:58 e-Cigarette/Vaping Use Never Used 07/20/23 15:58 Thrive Assessment: Date of Thrive Assessment Date Thrive assessed 06/01/23 07/20/23 15:58 Const General: cooperative, comfortable, no acute distress, alert and awake; No confusion Orientation/consciousness: oriented to person, oriented to place, patient oriented x3 and No confusion HENMT Head: Yes normocephalic Ears: external ears normal and TM's normal bilaterally Face and sinus: No sinus tenderness Mouth: Normal oral and palatal mucosa present and tongue normal Teeth and gingiva: dentition normal and gingiva normal Throat: Yes posterior oropharynx normal, Yes tonsils normal and Yes uvula midline Eyes Conjunctivae: conjunctivae normal Sclerae: sclerae normal Pupils: Equal, round and reactive pupils present EOM: EOMs intact bilaterally Direct Ophthalmoscopy: No no photophobia Neck Neck: Yes no lymphadenopathy, No tender and Yes no JVD Thyroid: Thyroid normal Carotids: no bruits Chest Chest palpation & inspection: no tenderness Resp Effort & Inspection: normal respiratory effort, no audible wheezes, not labored and no stridor Auscultation: no crackles, no rales, no rhonchi and no wheezes Cardio Jugular venous distension: no JVD Rate: regular rate, not bradycardic and not tachycardic Rhythm: regular rhythm Bruits: no carotid bruits Peripheral pulses: Peripheral pulses 2+ throughout GI Inspection: Yes normal to inspection, No abdominal wall ecchymosis and No visible herniation Palpation (GI): Soft to palpation, nontender, no guarding, not rigid and No hepatosplenomegaly present Auscultation: normoactive bowel sounds General: Yes no CVA tenderness Back/Spine/Pelvis Back: no CVA tenderness and No back tenderness Cervical Spine: cervical ROM normal Thoracic/Lumbar Spine: thoracic and lumbar spine normal to inspection, straight leg raise negative bilaterally, No thoraco-lumbar ROM limited and No lumbar spinal tenderness Skin Lesions: no lesions Rashes: no rashes Wounds: no wounds Neuro General: oriented to person, oriented to place, patient oriented x3, CN's II-XI intact bilaterally and No confusion Cranial nerves: Yes Equal, round and reactive pupils present and Yes Normal accommodation reflex present Cognition (Neuro): normal cognition Speech: No Abnormal speech present Gait exam (Neuro): Normal gait present Motor exam (neuro): 5/5 motor strength present throughout Extrem Right upper extremity: full ROM; no cyanosis Left upper extremity: full ROM; no cyanosis Right lower extremity: no edema Left lower extremity: no edema Psych Appearance: grossly normal Mental Status: mental status grossly normal Affect: normal affect Attitude: cooperative Thought process: Normal thought process present Office Procedures Flu Questionnaire Does the patient have a severe egg allergy?: No Does the patient have severe life threatening allergies?: No Does the patient have a fever or illness today?: No Has the patient ever had Guillain-Belford Syndrome?: No Has the patient ever had any past reaction to a flu shot?: No Immunizations flu vacc [id number] 6mos up(PF) 60 mcg(15 mcgx4)/0.5 mL IM syringe Performing Provider: Jean-Claude Anaya PA-C [facility] Administered by: ALYSIA Brown on 07/20/23 15:58 Dose Route Admin Location Dispensed Lot Number Expiration Date NDC [employer] 0.5 mL IM Left Deltoid 0.5 mL [id number] 04/17/24 58271-625-65 [employer] VIS Given Date VIS Provided VIS Publication Date 07/20/23 Single Vaccine 21 Eligibility Eligibility Date Funding Source Not VFC Eligible 07/20/23 Private Assessment and Plan Assessment & Plan (1) Annual physical exam: Code(s): Z00.00 - Encounter for general adult medical examination without abnormal findings (2) T2DM (type 2 diabetes mellitus): Code(s): E11.9 - Type 2 diabetes mellitus without complications Qualifiers: Diabetes mellitus mcc insulin use: with mcc use Diabetes mellitus complication status: with hyperglycemia Qualified Code(s): E11.65 - Type 2 diabetes mellitus with hyperglycemia; Z79.4 - [employer] (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 Continues on weekly Trulicity 3 mg. We have increased his Lantus to 14 units. He has been making better lifestyle diabetic diet choices and blood sugars have been better. He is trying to get feet surgery and needs his A1c below 8. Advised on following a diabetic diet. Goal A1c to be below 7.0 (3) HTN (hypertension): Code(s): I10 - Essential (primary) hypertension Qualifiers: Hypertension type: unspecified Qualified Code(s): I10 - Essential (primary) hypertension Plan: Patient's blood pressure acceptable today in office. Will continue his current dose of antihypertensive medication with goal blood pressure be below 140/90 (4) HLD (hyperlipidemia): Code(s): E78.5 - Hyperlipidemia, unspecified Qualifiers: Hyperlipidemia type: unspecified Qualified Code(s): E78.5 - Hyperlipidemia, unspecified Plan: Patient continues on statin therapy without side effect. Most recent lipid panel showing appropriate LDL. Goal LDL to be below 100. Orders: Orders Influenza [id number] Immunization Today Z23 - Encounter for immunization Hemoglobin A1c 9 Weeks E11.65 - Type 2 diabetes mellitus with hyperglycemia, Z79.4 - [employer] (current) use of insulin Comprehensive [place]. Panel Fast Today I10 - Essential (primary) hypertension Lipid Panel Today E78.5 - Hyperlipidemia, unspecified Complete Blood Count no Diff Today E78.5 - Hyperlipidemia, unspecified Medications: Refilled pen needle, diabetic As directed 50 ea 3RF E11.65 - Type 2 diabetes mellitus with hyperglycemia, Z79.4 - [employer] (current) use of insulin lancets (FreeStyle Lancets) Three times a day testing 100 ea 11RF E11.65 - Type 2 diabetes mellitus with hyperglycemia, Z79.4 - nursing home (current) use of insulin Coding Level of Care Code Est Pt Prev Care >65y(00580) Diagnoses Annual physical exam Z00.00 Type 2 diabetes mellitus with hyperglycemia, with long-term current use of insulin E11.65; Z79.4 Diabetes mellitus mcc insulin use: with intermediate accountant use Diabetes mellitus complication status: with hyperglycemia Hypertension, unspecified type I10 Hypertension type: unspecified Hyperlipidemia, unspecified hyperlipidemia type E78.5 Hyperlipidemia type: unspecified
== END 2023-07-20 16:22 | disposition home or self-care (01) ==
PROVIDERS: Visit Provider Physician Assistant
DX: Z00.00 Encounter for general adult medical examination without abnormal findings (principal); E11.65 Type 2 diabetes mellitus with hyperglycemia; Z79.4 Long term (current) use of insulin; Z23 Encounter for immunization; I10 Essential (primary) hypertension; E78.5 Hyperlipidemia, unspecified
CPT/HCPCS: 90471; 90686; 99397

== ENCOUNTER 2023-09-22 09:48 | Outpatient (AMB) | payer OTHER, SELFPAY ==
[2023-09-22 10:48] VITALS: BP 128/78; PULSE 77; TEMP 36.6; O2SAT 98; BMI 25.8
--- NOTE | 2023-09-22 10:48 | MHC.OFFWIV ---
Intake Vital Signs 09/22/23 10:48 Height 5 ft 10 in Weight 81.647 kg BMI 25.8 BP 128/78 Blood Pressure Location Rt brachial Position Sitting Pulse 77 Pulse Source Pulse Oximeter Temp 97.8 F Temp Source Temporal Artery Scan Pulse Oximetry (%) 98 Oxygen Delivery Method Room Air Intake Visit Reasons: EP lifted/back pain on thursday Intake Note: pt is here for c/o back pain due to lifting mother up due to her falling on thursday Patient Tobacco Use Status: Never used Tobacco Allergies shrimp [SHRIMP] Allergy (Severe, Verified 09/22/23 10:48) SWELLING/SEVERE VOMITING oxycodone [OXYCODONE] Allergy (Intermediate, Verified 09/22/23 10:48) GI UPSET, upset stomach Fresh fruit and nuts Allergy (Unknown, Uncoded 07/20/23 15:55) hives Do you need a note to return to daycare/school/sports/work: Yes HPI HPI Comments History of Present Illness Details [id number] 67-year-old male history of chronic hepatitis, type 2 diabetes, hypertension, hyperlipidemia, lumbar radiculopathy presenting to the clinic for sick visit complaining of back pain since Thursday, patient reports on Thursday his mother fell, he helped her up from the ground, since then has been experiencing lower back pain worse with movement better at rest. Reports a constant aching pain to the lower back sparing the midline. Has had lower back issues in the past. Denies numbness, tingling, saddle anesthesias, urinary/bowel incontinence/retention, weakness, fevers, chills, chest pain, shortness of breath, nausea, vomiting abdominal pain will blunt trauma. Physical exam positive straight leg raise bilaterally and bilateral lumbar paraspinous tenderness. No midline tenderness. Ambulating steady gait normal coordination. No saddle paresthesias. No footdrop Concerns for herniated disc versus lumbar paraspinous spasms versus lumbago. Unlikely cauda equina, epidural abscess, cord compression. Plan will send him home on NSAID, steroids, Lidoderm patch and muscle relaxer. Educated patient on diagnosis and treatment plan, answered all question, patient verbalizes understanding. At this time patient will be discharged home, advised to return with new or worsening symptoms. Educated on worrisome signs and symptoms and when to return. At this time I feel comfortable discharge home. [facility] Medical History Vitamin D deficiency H/O chronic hepatitis HLD (hyperlipidemia) HTN (hypertension) T2DM (type 2 diabetes mellitus) Type 2 diabetes mellitus Surgical History History of hand surgery History of bunionectomy Hx of colonoscopy Hx of arthroscopy of left knee Family History Father Cancer Mother Diabetes mellitus Social History Household Members: None Housing: Apartment Alcohol intake: never Patient Tobacco Use Status: Never used Tobacco e-Cigarette/Vaping Use: Never Used Second Hand Smoke Exposure: No service: No Current occupational status: disabled Cognitive needs: No Hearing needs: No Vision needs: Yes (glasses) Review of Systems Const Details: Constitutional : No Weight loss, No Fever, No Chills, ENT/Mouth : No Hearing loss, No Ear Pain, No Nasal Congestion, No Sinus Pain, No Hoarseness, No sore throat, No Rhinorrhea, No Swallowing Difficulty Cardiovascular : No Chest Pain, No SOB Respiratory : No Cough, No Dyspnea Gastrointestinal : No Nausea, No Vomiting, No Diarrhea, No abdominal Pain, No Hematochezia, No Melena Genitourinary : No Dysuria, No Urinary Frequency, No Hematuria, No Urinary Incontinence, Musculoskeletal : positive back pain Skin : No Skin Lesions, No rash Neuro : No Weakness, No Numbness, No Paresthesias, no loss of bowel or bladder incontinence, no saddle anesthesia All systems reviewed & are unremarkable except as noted in HPI and below Physical Exam Vital Signs: Last Vital Signs Temp 97.8 F 09/22/23 10:48 Pulse 77 09/22/23 10:48 BP 128/78 09/22/23 10:48 Pulse Ox 98 09/22/23 10:48 Oxygen Delivery Method Room Air 09/22/23 10:48 BMI result Body Mass Index 25.8 vss Appearance: Alert.? Oriented X3.? No acute distress.? Head: Normocephalic, atraumatic, no step-offs or deformities Eyes: Pupils equal, round and reactive to light.? CVS: Normal heart rate and rhythm.? Pulses normal.? Respiratory: No respiratory distress.? Breath sounds normal.? Abdomen: Soft and nontender.? Skin: Skin warm and dry.? Normal skin color.? Normal skin turgor.? Extremities: No lower extremity edema.? No calf ttp. 5/5 strength to bilateral upper and lower extremities Back: No midline tenderness, no C-spine tenderness, full range of motion, no CVA tenderness bilaterally + positive straight leg raise bilaterally and bilateral lumbar paraspinous tenderness R>L No midline tenderness. Ambulating steady gait normal coordination. No saddle paresthesias. No footdrop Neuro: Oriented X 3.? No motor deficit.? No sensory deficit. CN 2-12 intact no saddle paresthesias. Assessment & Plan Assessment & Plan (1) Lumbar radiculopathy: Code(s): M54.16 - Radiculopathy, lumbar region Plan Take your medications as prescribed. If you were prescribed antibiotics today, it is important that you take your medication to their entirety, do not skip any doses, do not finish them early. Follow-up with your primary care provider this week. Return to the emergency department with new or worsening symptoms. Such as fevers, chills, chest pain, shortness of breath, nausea, vomiting, dizziness, headache, vision changes, lethargy In case of emergency call 911 Medications: New cyclobenzaprine 10 mg PO BEDTIME PRN 14 tabs 0RF muscle spasm prednisone 40 mg (2 x 20 mg) PO DAILY 10 tabs 0RF 5 days lidocaine 4% (AsperFlex (lidocaine)) 1 patch topical DAILY PRN 15 ea 0RF pain naproxen 500 mg PO BID PRN 14 tabs 0RF pain Coding Level of Care Code Est Pt Level 3 (29187) Diagnoses Lumbar radiculopathy M54.16
== END 2023-09-22 11:24 | disposition home or self-care (01) ==
PROVIDERS: PCP Physician Assistant; Visit Provider Physician Assistant
DX: M54.16 Radiculopathy, lumbar region (principal)
CPT/HCPCS: 99213

== ENCOUNTER 2023-09-29 15:31 | Outpatient (AMB) | payer OTHER, SELFPAY ==
[2023-09-29 15:51] VITALS: BP 102/80; PULSE 91; O2SAT 97; BMI 26.5
--- NOTE | 2023-09-29 15:51 | A.OFFPC_ITS ---
Vital Signs 09/29/23 15:51 Height 5 ft 10 in Weight 184 lb 8 oz BMI 26.5 BP 102/80 Blood Pressure Location Lt brachial Position Sitting Pulse 91 Pulse Source Pulse Oximeter Pulse Oximetry (%) 97 Oxygen Delivery Method Room Air Intake Visit Reasons: Sciatica pain [employer] Required: No Accompanied by: Self / Same As Patient Allergies shrimp [SHRIMP] Allergy (Severe, Verified 09/29/23 16:22) SWELLING/SEVERE VOMITING oxycodone [OXYCODONE] Allergy (Intermediate, Verified 09/29/23 16:22) GI UPSET, upset stomach Fresh fruit and nuts Allergy (Unknown, Uncoded 09/29/23 16:22) hives Medication List - Last Reconciled 09/29/23 by Jean-Claude Anaya PA-C atorvastatin 80 mg PO DAILY 30 days blood sugar diagnostic (FreeStyle Lite Strips) As directed test blood sugar at least 2 times a day cholecalciferol (vitamin D3) 50 mcg PO BEDTIME cyclobenzaprine 10 mg PO BEDTIME PRN dulaglutide (Trulicity) 3 mg (0.5 mL) subcut QWEEK 28 days insulin glargine (Lantus Solostar U-100 Insulin) 14 units (0.14 mL) subcut QPM 30 days lancets (FreeStyle Lancets) Three times a day testing lidocaine 4% (AsperFlex (lidocaine)) 1 patch topical DAILY PRN lisinopril 20 mg PO DAILY naproxen 500 mg PO BID PRN pen needle, diabetic As directed prednisone 40 mg (2 x 20 mg) PO DAILY 5 days Tobacco use date assessed: 03/26/23 Fall risk assessment: 2 + Falls in past year Last assessed Fall Risk: 09/29/23 Dental Screening Dental Screen Date: 09/29/23 Did you have a dental visit in the last 12 months?: Yes Did you have a dental problem in the last 6 months where you did not have access to dental care?: No Was dental information given to patient?: Patient has dentist HPI Sciatica pain HPI Details Patient is a 67-year-old male here today for problem visit. Patient has a past medical history significant for lumbar disc disease and is status post lumbar surgery October 2022. He reports September 13 he had suffered a fall slightly injuring his lower lumbar spine. He was somewhat fine afterwards though had a little bit of tightness in his back. He reports last week while taking care of his mother whom fell on the ground trying to pick her up he re-injured his lower lumbar spine now has a lot of pain in his lumbar spine in the area of his surgery and radiculopathy symptoms down right lower leg. He has had the symptoms before his lower lumbar spine surgery. Otherwise denies any saddle amnesia or difficulties with urination or defecation. [facility] Medical History Vitamin D deficiency H/O chronic hepatitis HLD (hyperlipidemia) HTN (hypertension) T2DM (type 2 diabetes mellitus) Type 2 diabetes mellitus Surgical History History of hand surgery History of bunionectomy Hx of colonoscopy Hx of arthroscopy of left knee Family History Father Cancer Mother Diabetes mellitus Social History Household Members: None Housing: Apartment Alcohol intake: never Patient Tobacco Use Status: Never used Tobacco e-Cigarette/Vaping Use: Never Used Second Hand Smoke Exposure: No service: No Current occupational status: disabled Cognitive needs: No Hearing needs: No Vision needs: Yes (glasses) Questionnaire Thrive Questionnaire Date Thrive assessed: 06/01/23 CHARO-7 AMB Questionnaire CHARO-7 Date CHARO - 7 assessed: 06/01/23 Source: Developed by Drs. Waldo Dominguez, Leonor Lima, Fredy Hammer and colleagues, with an educational jazzy from [employer]. Review of Systems Const Denies headache(s) Eyes Denies loss of vision ENT Denies vertigo, Denies dizziness, Denies headache(s) and Denies sore throat Card Denies chest pain, Denies leg edema and Denies lightheadedness Resp Denies cough, Denies hemoptysis and Denies wheezing GI Denies abdominal pain, Denies melena, Denies constipation, Denies diarrhea and Denies vomiting Denies dysuria, Denies urinary frequency and Denies urinary urgency Musc Denies arthralgias, Denies joint swelling, Denies numbness and Denies tingling Neuro Denies Abnormal speech present, Denies behavioral changes, Denies vertigo, Denies dizziness, Denies headache(s), Denies loss of vision, Denies memory loss, Denies numbness and Denies tingling Psych Denies anxiety, Denies behavioral changes, Denies depression, Denies memory loss and Denies panic attacks Jose/Lymph Denies easy bleeding and Denies easy bruising Aller/Immun Denies wheezing Physical exam (Primary Care) Vital Signs: Last Vital Signs Pulse 91 09/29/23 15:51 BP 102/80 09/29/23 15:51 Pulse Ox 97 09/29/23 15:51 Oxygen Delivery Method Room Air 09/29/23 15:51 BMI result Body Mass Index 26.5 Tobacco/Smoking Status: Tobacco use Status Tobacco use date assessed 03/26/23 09/29/23 15:52 Patient Tobacco Use Status Never used Tobacco 09/29/23 15:52 e-Cigarette/Vaping Use Never Used 09/29/23 15:52 Thrive Assessment: Date of Thrive Assessment Date Thrive assessed 06/01/23 09/29/23 15:52 Const General: healthy appearing, no acute distress, alert and awake Nutritional Appearance: well nourished Orientation/consciousness: oriented to person, oriented to place and oriented to time HENMT Ears: TM's normal bilaterally General nose exam: Normal nasal mucous membranes and turbinates present Eyes Conjunctivae: conjunctivae normal Sclerae: sclerae normal Pupils: Equal, round and reactive pupils present Neck Neck: Yes no lymphadenopathy and Yes no JVD Thyroid: Thyroid normal Carotids: no bruits Resp Effort & Inspection: normal respiratory effort and not tachypneic Auscultation: no crackles, no rales, no rhonchi and no wheezes Cardio Rate: regular rate Rhythm: regular rhythm Heart sounds: no murmurs and normal S1 and S2 GI Palpation (GI): Soft to palpation, nontender, no hepatomegaly and no splenomegaly Auscultation: normal bowel sounds Back/Spine/Pelvis Other: AMBULATING WITH AN ANTALGIC GAIT, LIMITED RANGE OF MOTION OF LUMBAR SPINE DUE TO PAIN AND STIFFNESS. NO NOTABLE WEAKNESS OF THE RIGHT LOWER EXTREMITY COMPARED TO LEFT Skin General skin exam: no rashes or lesions noted and dry skin Neuro General: oriented to person, oriented to place and oriented to time Cranial nerves: Yes Equal, round and reactive pupils present Speech: No Abnormal speech present Gait exam (Neuro): Normal gait present Motor exam (neuro): no tremor noted Extrem Right upper extremity: full ROM Left upper extremity: full ROM Right lower extremity: full ROM; no edema Left lower extremity: full ROM; no edema Psych Mental Status: mental status grossly normal Speech and movement: Normal speech and movement present Affect: normal affect Attitude: cooperative Thought process: Normal thought process present Results AMB Hemoglobin A1c AMB Hemoglobin A1c 8.8 % Last Edit by Lala Marlow on 09/29/23 16:26 Results Reviewed Results Reviewed: Laboratory Last Values Hgb A1c (Clinic) 8.8 % (4.0-6.0) H 09/29/23 16:05 Assessment and Plan Assessment & Plan (1) Lumbar radiculopathy, right: Code(s): M54.16 - Radiculopathy, lumbar region Plan: Patient has acute lumbar radiculopathy down right lower extremity. He is status post lumbar disc surgery in October 2022. There was some concern here for disruption of the surgery due to acute injury. Will send for repeat MRI to evaluate surgical site. Advised to reestablish care with neurosurgeon in case he needed a surgical fix. Was seen at urgent care and was given prednisone and cyclobenzaprine which have not been effective on reducing his pain.. Has done physical therapy in the past which was not helpful. Will supply patient with pain medication to help alleviate his pain due to severe lumbar disc disease. Orders: Orders AMB Hemoglobin A1c 09/29/23 E11.9 - Type 2 diabetes mellitus without complications XR lumbar spine 2-3V 09/29/23 M54.16 - Radiculopathy, lumbar region MR lumbar spine w con 09/29/23 M54.16 - Radiculopathy, lumbar region Referrals Neurosurgery Referral M54.16 - Radiculopathy, lumbar region Medications: New hydrocodone-acetaminophen 5-325 mg Partial Fill upon patient request. 1 tab PO BID 7 days 14 tabs 0RF pain M54.16 - Radiculopathy, lumbar region Discontinued cyclobenzaprine Discontinued Reason: Doctor's Order 10 mg PO BEDTIME PRN 14 tabs 0RF muscle spasm prednisone Discontinued Reason: Doctor's Order 40 mg (2 x 20 mg) PO DAILY 5 days 10 tabs 0RF Coding Level of Care Code Est Pt Level 4 (12617) Diagnoses Lumbar radiculopathy, right M54.16
== END 2023-09-29 16:35 | disposition home or self-care (01) ==
PROVIDERS: PCP Physician Assistant; Visit Provider Physician Assistant
DX: E11.9 Type 2 diabetes mellitus without complications (principal)
CPT/HCPCS: 83036; 99214

== ENCOUNTER 2023-09-30 13:07 | Outpatient (REF) | payer OTHER, SELFPAY ==
--- NOTE | ~2023-09-30 | XR_ITS ---
EXAMINATION: XR LUMBOSACRAL SPINE CLINICAL INFORMATION: Radiculopathy, lumbar region COMPARISON: None available. TECHNIQUE: Three views of the lumbosacral spine. FINDINGS: There 5 nonrib-bearing lumbar-type vertebral bodies. The height of the vertebral bodies is well-maintained. There is disc space narrowing with marginal osteophyte formation at L2-L3, L3-L4, L4-L5 and marked disc space narrowing at L5-S1. There is multilevel degenerative facet joint disease from L3 through S1. There is grade 1 anterolisthesis of L4 with respect to L5. There is mild retrolisthesis of L2 with respect to L3. XR/XR lumbar spine 2-3V IMPRESSION: 1. Degenerative disc disease from L2 through S1. 2. Multilevel degenerative facet joint disease from L3 through S1. 3. Multilevel spondylolisthesis.
[2023-09-30 13:35] LABS: Hematocrit 46.9 % (42.0-52.0); Mean Corpuscular HGB Conc 34.1 g/dl (31.0-36.0); Mean Platelet Volume 9.2 fL (9.4-12.4); Platelet Count 249 X10*3/uL (160-400); Red Blood Count 5.33 X10*6/uL (4.60-5.80); Red Cell Distribution Width 12.1 % (11.0-16.0); White Blood Count 11.1 X10*3/uL (4.8-10.8)
[2023-09-30 13:50] LABS: Estimated Average Glucose 171 mg/dL; Hemoglobin A1c % 7.6 % (<6.0)
[2023-09-30 14:13] LABS: Alanine Aminotransferase 41 U/L (0-40); Albumin Level 4.1 g/dL (3.5-5.0); Alkaline Phosphatase 109 U/L (39-117); Anion Gap 16 (12-20); Aspartate Amino Transferase 20 U/L (5-37); Bilirubin Total 0.7 mg/dL (0.0-1.0); Blood Urea Nitrogen 23 mg/dL (9-16); Calcium 9.5 mg/dL (8.4-10.2); Carbon Dioxide 31 mmol/L (22-29); Chloride 96 mmol/L (96-108); Cholesterol 134 mg/dL (<200); Estimated Glomerular Filt Rate > 60; Glucose Fasting 297 mg/dL (60-99); HDL Cholesterol 46 mg/dL (>40); LDL Cholesterol Calculated 49 mg/dL (<100); Sodium 139 mmol/L (135-145); Total Protein 7.1 g/dL (6.5-8.0); Triglycerides 196 mg/dL (<150)
== END 2023-09-30 13:08 | disposition home or self-care (01) ==
LOC: HO.XRAY 13:07
PROVIDERS: PCP Physician Assistant; Visit Provider Physician Assistant
DX: M54.16 Radiculopathy, lumbar region (principal); I10 Essential (primary) hypertension; E78.5 Hyperlipidemia, unspecified; E11.65 Type 2 diabetes mellitus with hyperglycemia; Z79.4 Long term (current) use of insulin
CPT/HCPCS: 36415; 72100; 80053; 80061; 83036; 85027

== ENCOUNTER 2023-11-10 15:23 | Outpatient (AMB) | payer OTHER, SELFPAY ==
--- NOTE | 2023-11-10 15:26 | MHC.PC.OV ---
Vital Signs 11/10/23 15:27 Height 5 ft 10 in Weight 183 lb BMI 26.3 BP 122/76 Blood Pressure Location Lt brachial Position Sitting Pulse 82 Pulse Source Pulse Oximeter Pulse Oximetry (%) 98 Oxygen Delivery Method Room Air Intake Visit Reasons: dm Director Clinical Information Services Required: No Aged Or Disabled Care Worker: Not Required per policy Accompanied by: Self / Same As Patient Allergies shrimp [SHRIMP] Allergy (Severe, Verified 11/10/23 15:50) SWELLING/SEVERE VOMITING oxycodone [OXYCODONE] Allergy (Intermediate, Verified 11/10/23 15:50) GI UPSET, upset stomach Fresh fruit and nuts Allergy (Unknown, Uncoded 11/10/23 15:27) hives Medication List - Last Reconciled 11/10/23 by Jean-Claude Anaya PA-C albuterol sulfate 90 mcg/actuation 1 inh inhalation QID PRN 30 days atorvastatin 80 mg PO DAILY 30 days blood sugar diagnostic (FreeStyle Lite Strips) As directed test blood sugar at least 2 times a day cholecalciferol (vitamin D3) 50 mcg PO BEDTIME dulaglutide (Trulicity) 3 mg (0.5 mL) subcut QWEEK 28 days hydrocodone-acetaminophen 5-325 mg 1 tab PO BID 7 days insulin glargine (Lantus Solostar U-100 Insulin) 14 units (0.14 mL) subcut QPM 30 days lancets (FreeStyle Lancets) Three times a day testing lidocaine 4% (AsperFlex (lidocaine)) 1 patch topical DAILY PRN lisinopril 20 mg PO DAILY naproxen 500 mg PO BID PRN pen needle, diabetic As directed Tobacco use date assessed: 11/10/23 Fall risk assessment: 2 + Falls in past year Last assessed Fall Risk: 11/10/23 Dental Screening Dental Screen Date: 11/10/23 Did you have a dental visit in the last 12 months?: No Did you have a dental problem in the last 6 months where you did not have access to dental care?: No Was dental information given to patient?: Patient has dentist HPI dm HPI Details Patient is a 68-year-old male here today for follow-up visit ? Patient has a past medical history significant for type 2 diabetes, hyperlipidemia, hypertension, lumbar stenosis. Concern--> lumbar spine pain. Does have a history of lumbar disc herniation status post surgical repair in 2022. Unfortunately re-injured his back trying to help his family member up from the floor. He now has lumbar spine pain higher on his lumbar spine than his surgery. Does have numbness over his lateral aspect of his right lower extremity. He has an upcoming MRI lumbar spine to evaluate for another disc herniation. At this time he does use hydrocodone on a p.r.n. basis for pain which has been effective. Type 2 Diabetes:? Most recent A1c at 7.6. He reports he has changed his diet and now is sugars are better controlled..? He has lost his follow-up with endocrinology as his provider left practice..? He continues on Trulicity 3 mg weekly. PLAN: Will plan to increase his Lantus to 16 units for better glucose control. .. Hypertension:? Blood pressure today in office acceptable.? Has been compliant with his lisinopril.? Denies any headaches, chest discomfort or shortness of breath. .. Hyperlipidemia:? Most recent LDL 69, will continue his current statin dose..? Of note triglycerides at 220 and will work on lifestyle modifications to help reduce triglycerides.? Laboratory Tests 09/29/23 09/30/23 16:05 13:18 BUN 23 H Creatinine 1.09 Fasting Glucose 297 H Hgb A1c (Clinic) 8.8 H Hemoglobin A1c % 7.6 H Cholesterol 134 PFSH Medical History Vitamin D deficiency H/O chronic hepatitis HLD (hyperlipidemia) HTN (hypertension) T2DM (type 2 diabetes mellitus) Type 2 diabetes mellitus Surgical History History of hand surgery History of bunionectomy Hx of colonoscopy Hx of arthroscopy of left knee Family History Father Cancer Mother Diabetes mellitus Social History Household Members: None Housing: Apartment Alcohol intake: never Patient Tobacco Use Status: Never used Tobacco e-Cigarette/Vaping Use: Never Used Second Hand Smoke Exposure: No service: No Current occupational status: disabled Cognitive needs: No Hearing needs: No Vision needs: Yes (glasses) Questionnaire PHQ-9 Over the last 2 weeks, how often have you been bothered by any of the following problems? 1. Little interest or pleasure in doing things: not at all 2. Feeling down, depressed, or hopeless: not at all 3. Trouble falling or staying asleep, or sleeping too much: not at all 4. Feeling tired or having little energy: not at all 5. Poor appetite or overeating: not at all 6. Feeling bad about yourself - or that you are a failure or have let yourself or your family down: not at all 7. Trouble concentrating on things, such as reading the newspaper or watching television: not at all 8. Moving or speaking so slowly that other people could have noticed. Or the opposite - being so fidgety or restless that you have been moving around a lot more than usual: not at all 9. Thoughts that you would be better off or of hurting yourself in some way: not at all Total score: 0 Depression Screening Interpretation: Negative Depression Screening Done: Yes 15911 - PHQ-9 Billing: Yes Source: Developed by Drs. Waldo Dominguez, Leonor Lima, Fredy Hammer and colleagues, with an educational jazzy from [employer]. Thrive Questionnaire Date Thrive assessed: 11/10/23 I am a: Patient Within the past 12 months, did the food you bought not last and you didn't have the money to get more?: Never true Within the past 12 months, did you worry whether your food would run out before you got money to buy more?: Never true Do you have trouble paying for medicines?: No Do you have trouble getting transportation to medical appointments?: No Do you have trouble paying your heating and electricity bill?: No Do you have trouble taking care of your child, family member or friend?: No Do you have trouble with day-to-day activities such as bathing, preparing meals, shopping, managing finances, etc.?: No Are you currently unemployed and looking for a job?: No Are you interested in more education?: No Please select the resources that you would like help with: None THRIVE Score: 0 AUDIT C Alcohol Use Questionnaire (AUDIT-C) 1. How often do you have a drink containing alcohol?: Never 3. How often do you have six or more drinks on one occasion?: Never Total Score: 0 CHARO-7 AMB Questionnaire CHARO-7 Date CHARO - 7 assessed: 11/10/23 Feeling nervous, anxious, or on edge: 0 = Not at all Not being able to stop or control worryin = Not at all Worrying too much about different things: 0 = Not at all Trouble relaxin = Not at all Being so restless that it is hard to sit still: 0 = Not at all Becoming easily annoyed or irritable: 0 = Not at all Feeling afraid as if something awful might happen: 0 = Not at all Total CHARO-7 score (0-4 normal; 5-9 mild; 10-14 moderate; 15-21 severe): 0 Source: Developed by Drs. Waldo Dominguez, Leonor Lima, Fredy Hammer and colleagues, with an educational jazzy from [employer]. CHARO-7 Assessment Billing CHARO-7 Assessment Tool: CHARO-7 Assessment 01051 Review of Systems Const Denies headache(s) Eyes Denies loss of vision ENT Denies vertigo, Denies dizziness, Denies headache(s) and Denies sore throat Card Denies chest pain, Denies leg edema and Denies lightheadedness Resp Denies cough, Denies hemoptysis and Denies wheezing GI Denies abdominal pain, Denies melena, Denies constipation, Denies diarrhea and Denies vomiting Denies dysuria, Denies urinary frequency and Denies urinary urgency Musc Denies arthralgias, Denies joint swelling, Denies numbness and Denies tingling Neuro Denies Abnormal speech present, Denies behavioral changes, Denies vertigo, Denies dizziness, Denies headache(s), Denies loss of vision, Denies memory loss, Denies numbness and Denies tingling Psych Denies anxiety, Denies behavioral changes, Denies depression, Denies memory loss and Denies panic attacks Jose/Lymph Denies easy bleeding and Denies easy bruising Aller/Immun Denies wheezing Physical exam (Primary Care) Vital Signs: Last Vital Signs Pulse 82 11/10/23 15:27 BP 122/76 11/10/23 15:27 Pulse Ox 98 11/10/23 15:27 Oxygen Delivery Method Room Air 11/10/23 15:27 BMI result Body Mass Index 26.3 Tobacco/Smoking Status: Tobacco use Status Tobacco use date assessed 11/10/23 11/10/23 15:28 Patient Tobacco Use Status Never used Tobacco 11/10/23 15:28 e-Cigarette/Vaping Use Never Used 11/10/23 15:28 PHQ-9: PHQ-9 Score PHQ-9: Total score 0 11/10/23 15:51 Depression Screening Interpretation: Negative Thrive Assessment: Date of Thrive Assessment Date Thrive assessed 11/10/23 11/10/23 15:28 Const General: healthy appearing, no acute distress, alert and awake Nutritional Appearance: well nourished Orientation/consciousness: oriented to person, oriented to place and oriented to time HENMT Ears: TM's normal bilaterally General nose exam: Normal nasal mucous membranes and turbinates present Eyes Conjunctivae: conjunctivae normal Sclerae: sclerae normal Pupils: Equal, round and reactive pupils present Neck Neck: Yes no lymphadenopathy and Yes no JVD Thyroid: Thyroid normal Carotids: no bruits Resp Effort & Inspection: normal respiratory effort and not tachypneic Auscultation: no crackles, no rales, no rhonchi and no wheezes Cardio Rate: regular rate Rhythm: regular rhythm Heart sounds: no murmurs and normal S1 and S2 GI Palpation (GI): Soft to palpation, nontender, no hepatomegaly and no splenomegaly Auscultation: normal bowel sounds Skin General skin exam: no rashes or lesions noted and dry skin Neuro General: oriented to person, oriented to place and oriented to time Cranial nerves: Yes Equal, round and reactive pupils present Speech: No Abnormal speech present Gait exam (Neuro): Normal gait present Motor exam (neuro): no tremor noted Extrem Right upper extremity: full ROM Left upper extremity: full ROM Right lower extremity: full ROM; no edema Left lower extremity: full ROM; no edema Psych Mental Status: mental status grossly normal Speech and movement: Normal speech and movement present Affect: normal affect Attitude: cooperative Thought process: Normal thought process present Assessment and Plan Assessment & Plan (1) T2DM (type 2 diabetes mellitus): Code(s): E11.9 - Type 2 diabetes mellitus without complications Qualifiers: Diabetes mellitus complication status: with hyperglycemia Diabetes mellitus group home insulin use: with termite treater use Qualified Code(s): E11.65 - Type 2 diabetes mellitus with hyperglycemia; Z79.4 - exterminator termite (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 Continues on weekly Trulicity 3 mg. We will increase his Lantus to 16 units. He has been making better lifestyle diabetic diet choices and blood sugars have been better. He is trying to get feet surgery and needs his A1c below 8. Advised on following a diabetic diet. Goal A1c to be below 7.0 (2) Lumbar degenerative disc disease: Code(s): M51.36 - Other intervertebral disc degeneration, lumbar region Plan: Patient recently fell injuring his back. He feels like his injuries above his recent surgery. Will waiting MRI for evaluation. Continues to have numbness in his right extremity. He is in contact with his neurosurgeon and is awaiting MRI results. Does use hydrocodone on as needed basis which does relieve his pain temporarily. (3) HTN (hypertension): Code(s): I10 - Essential (primary) hypertension Qualifiers: Hypertension type: unspecified Qualified Code(s): I10 - Essential (primary) hypertension Plan: Patient's blood pressure acceptable today in office. Will continue his current dose of antihypertensive medication with goal blood pressure be below 140/90 (4) HLD (hyperlipidemia): Code(s): E78.5 - Hyperlipidemia, unspecified Qualifiers: Hyperlipidemia type: unspecified Qualified Code(s): E78.5 - Hyperlipidemia, unspecified Plan: Patient continues on statin therapy without side effect. Most recent lipid panel showing appropriate LDL. Goal LDL to be below 100. (5) Diabetic peripheral neuropathy: Code(s): E11.42 - Type 2 diabetes mellitus with diabetic polyneuropathy Plan: His neuropathies fairly well maintained with better control of his blood sugars. At this time no need for neuromodulation medication. Medications: Changed From insulin glargine (Lantus Solostar U-100 Insulin) 14 units (0.14 mL) subcut QPM 30 days 4.2 mL 4RF E11.65 - Type 2 diabetes mellitus with hyperglycemia, Z79.4 - exterminator termite (current) use of insulin To insulin glargine (Lantus Solostar U-100 Insulin) 16 units (0.16 mL) subcut QPM 30 days 4.8 mL 4RF E11.65 - Type 2 diabetes mellitus with hyperglycemia, Z79.4 - group home (current) use of insulin Coding Level of Care Code Est Pt Level 4 (92352) Diagnoses Type 2 diabetes mellitus with hyperglycemia, with long-term current use of insulin E11.65; Z79.4 Diabetes mellitus complication status: with hyperglycemia Diabetes mellitus group home insulin use: with termite treater use Lumbar degenerative disc disease M51.36 Hypertension, unspecified type I10 Hypertension type: unspecified Hyperlipidemia, unspecified hyperlipidemia type E78.5 Hyperlipidemia type: unspecified Diabetic peripheral neuropathy E11.42 Additional Codes CHARO-7 Assessment Billing - CHARO-7 Assessment Tool: CHARO-7 Assessment [id number] ([id number])
[2023-11-10 15:27] VITALS: BP 122/76; PULSE 82; O2SAT 98; BMI 26.3
== END 2023-11-10 16:11 | disposition home or self-care (01) ==
PROVIDERS: PCP Physician Assistant; Visit Provider Physician Assistant
DX: E11.65 Type 2 diabetes mellitus with hyperglycemia (principal); Z79.4 Long term (current) use of insulin; E11.42 Type 2 diabetes mellitus with diabetic polyneuropathy; M51.36 Other intervertebral disc degeneration, lumbar region; I10 Essential (primary) hypertension; E78.5 Hyperlipidemia, unspecified
CPT/HCPCS: 99214

== ENCOUNTER 2023-11-12 15:11 | Outpatient (REF) | payer OTHER, SELFPAY ==
--- NOTE | ~2023-11-12 | MR_ITS ---
EXAMINATION: MR LUMBAR SPINE WITHOUT AND WITH CONTRAST CLINICAL INFORMATION: Lumbar radiculopathy. Right lower extremity radicular pain. COMPARISON: Lumbar spine MRI from 08/27/2022. TECHNIQUE: MRI of the lumbar spine was obtained using routine sequences without and following the administration of 8.5 mL of Gadavist intravenous contrast. FINDINGS: Mild degenerative retrolisthesis of L2 on L3. Degenerative grade 1/2 anterolisthesis of L4 on L5. Advanced degenerative disc disease L5-S1. Moderate degenerative disc disease at T11-T12, L2-L3, and L4-L5. Mild degenerative disc disease at all additional levels. Associated mixed Modic type discogenic and plate changes including mild Modic type I discogenic edema at L2-L3 and L5-S1. No additional suspicious marrow edema. The vertebral body heights are largely maintained. The conus medullaris terminates at the level of L1-L2. The distal spinal cord is normal in appearance. No abnormal contrast enhancement. Changes of right-sided hemilaminectomy at L4-L5. Moderate subcutaneous edema within the posterior soft tissues of the back from L3-S2. No additional significant abnormalities of the paraspinal musculature. Limited evaluation of the intra-abdominal structures without significant abnormalities. The abdominal aorta is of normal contour and caliber. AXIAL SPINAL LEVELS: L1-L2: Shallow diffuse disc bulge. There is moderate bilateral facet joint arthropathy. There is mild right and no left neural foraminal stenosis. There is no spinal canal stenosis. L2-L3: Moderate diffuse disc bulge with posterior osseous ridging. There is moderate bilateral facet joint arthropathy. There is moderate right and mild left neural foraminal stenosis. There is stenosis of the right subarticular zone with no overt spinal canal stenosis centrally. L3-L4: Moderate diffuse disc bulge. There is severe bilateral facet joint arthropathy. There is moderate to severe bilateral neural foraminal stenosis. There is stenosis of the subarticular zones with moderate spinal canal stenosis centrally. L4-L5: Prominent diffuse disc bulge exacerbated by uncovering from anterolisthesis. There is severe bilateral facet joint arthropathy. There is moderate to severe bilateral neural foraminal stenosis. There is stenosis of the subarticular zones with no overt spinal canal stenosis centrally. L5-S1: Shallow diffuse disc bulge with posterior osseous ridging and superimposed right subarticular disc protrusion. There is moderate bilateral facet joint arthropathy. There is severe right and mild left neural foraminal stenosis. There is stenosis of the right subarticular zone with no overt spinal canal stenosis centrally. 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 Most notably, there is moderate spinal canal stenosis at L3-L4. Stenoses of the subarticular zones and moderate to severe neural foraminal stenoses from L2-S1.
[2023-11-12] MEDS: gadobutroL 10 ML VIAL IVPUSH (16:27)
== END 2023-11-12 15:12 | disposition home or self-care (01) ==
LOC: HO.MRI 15:11
PROVIDERS: PCP Physician Assistant; Visit Provider Physician Assistant
DX: M54.16 Radiculopathy, lumbar region (principal); Z91.81 History of falling
CPT/HCPCS: 72158; A9585

== ENCOUNTER 2024-02-08 14:31 | Outpatient (REF) | payer OTHER, SELFPAY ==
--- NOTE | ~2024-02-08 | XR_ITS ---
EXAMINATION: XR ABDOMEN COMPLETE CLINICAL INDICATION: Patient states unspecified abdominal pain for 1.5 weeks. COMPARISON: X-ray lumbar spine 09/30/2023, ultrasound abdomen 12/28/2018. TECHNIQUE: 4 views of the abdomen. FINDINGS: Nonobstructive bowel gas pattern. Moderate amount of stool in the colon. Posterior fixation hardware with bilateral rods and pedicular screws as well as disc device present, at what will be referred to as L4-L5. Moderate degenerative changes in the bilateral hips. Degenerative changes in the imaged thoracolumbar spine. Redemonstration of a 4 mm nodular density at the medial right lung base, possibly a vessel on end versus pulmonary nodule, which was not clearly appreciated on chest radiograph of 01/23/2020. Dedicated radiographs of the chest recommended for further evaluation. XR/XR abdomen 3V IMPRESSION: 1. Nonobstructive bowel gas pattern. Moderate amount of stool in the colon. 2. Redemonstration of a 4 mm nodular density at the medial right lung base, possibly a vessel on end versus pulmonary nodule, which was not clearly appreciated on chest radiograph of 01/23/2020. Dedicated radiographs of the chest recommended for further evaluation.
== END 2024-02-08 14:32 | disposition home or self-care (01) ==
LOC: HO.XRAY 14:31
PROVIDERS: PCP Physician Assistant; Visit Provider Physician Assistant
DX: R10.9 Unspecified abdominal pain (principal)
CPT/HCPCS: 74021

== ENCOUNTER 2024-02-10 14:58 | Outpatient (AMB) | payer OTHER, SELFPAY ==
[2024-02-10 15:04] VITALS: BP 120/78; PULSE 78; O2SAT 97; BMI 25.8
--- NOTE | 2024-02-10 15:04 | MHC.PC.OV ---
Vital Signs 02/10/24 15:04 Height 5 ft 10 in Weight 179 lb 8 oz BMI 25.8 BP 120/78 Blood Pressure Location Lt brachial Position Sitting Pulse 78 Pulse Source Pulse Oximeter Pulse Oximetry (%) 97 Oxygen Delivery Method Room Air Intake Visit Reasons: f/u DMII Allergies shrimp [SHRIMP] Allergy (Severe, Verified 02/10/24 15:36) SWELLING/SEVERE VOMITING oxycodone [OXYCODONE] Allergy (Intermediate, Verified 02/10/24 15:36) GI UPSET, upset stomach Fresh fruit and nuts Allergy (Unknown, Uncoded 11/10/23 15:27) hives Medication List - Last Reconciled 02/10/24 by Jean-Claude Anaya PA-C albuterol sulfate 90 mcg/actuation 1 inh inhalation QID PRN 30 days atorvastatin 80 mg PO DAILY 30 days blood sugar diagnostic (FreeStyle Lite Strips) As directed test blood sugar at least 2 times a day cholecalciferol (vitamin D3) 50 mcg PO BEDTIME crutches (pair of crutches) As directed dulaglutide (Trulicity) 3 mg (0.5 mL) subcut QWEEK 28 days hydrocodone-acetaminophen 5-325 mg 1 tab PO BID 7 days insulin glargine (Lantus Solostar U-100 Insulin) 16 units (0.16 mL) subcut QPM 30 days lancets (FreeStyle Lancets) Three times a day testing lidocaine 4% (AsperFlex (lidocaine)) 1 patch topical DAILY PRN lisinopril 20 mg PO DAILY naproxen 500 mg PO BID PRN pen needle, diabetic As directed Tobacco use date assessed: 11/10/23 Dental Screening Dental Screen Date: 11/10/23 HPI f/u DMII HPI Details Patient is a 68-year-old male here today for follow-up visit ? Patient has a past medical history significant for type 2 diabetes, hyperlipidemia, hypertension, lumbar stenosis. Concern--> lumbar spine pain. Does have a history of lumbar disc herniation status post surgical repair in 2022. Unfortunately re-injured his back trying to help his family member up from the floor. He now has lumbar spine pain higher on his lumbar spine than his surgery. Does have numbness over his lateral aspect of his right lower extremity. Type 2 Diabetes:? Today's A1c at 8.2 from 7.6.. He reports he has changed his diet and now is sugars are better Patient is a 68-year-old male here today for follow-up visit Patient has a past medical history significant for type 2 diabetes, hyperlipidemia, hypertension, lumbar stenosis. Lumbar disc disease: Recently underwent a 2nd lumbar disc surgery due to falling and disrupting his lower lumbar disc. He is doing better and making some better progress. He still has some right lower extremity weakness and muscle wasting. Type 2 Diabetes: Unfortunately patient's type 2 diabetes suboptimally controlled. Today's A1c at 8.2 from 7.6, This could be likely in the setting a recently having lumbar spine surgery in being more inactive. He reports he has changed his diet and now is sugars are better controlled.. He continues on Trulicity 3 mg weekly. We did discuss possibly increasing his Trulicity dose to maximal 4.5 mg dose though would like to work on lifestyle and dietary modifications. .. Hypertension: Blood pressure today in office acceptable. Has been compliant with his lisinopril. Denies any headaches, chest discomfort or shortness of breath. .. Hypertension:? Blood pressure today in office acceptable.? Has been compliant with his lisinopril.? Denies any headaches, chest discomfort or shortness of breath. .. Hyperlipidemia:? Most recent LDL 69, will continue his current statin dose..? Of note triglycerides at 220 and will work on lifestyle modifications to help reduce triglycerides. [facility] Medical History Vitamin D deficiency H/O chronic hepatitis HLD (hyperlipidemia) HTN (hypertension) T2DM (type 2 diabetes mellitus) Type 2 diabetes mellitus Surgical History History of hand surgery History of bunionectomy Hx of colonoscopy Hx of arthroscopy of left knee Family History Father Cancer Mother Diabetes mellitus Social History Household Members: None Housing: Apartment Alcohol intake: never Patient Tobacco Use Status: Never used Tobacco e-Cigarette/Vaping Use: Never Used Second Hand Smoke Exposure: No service: No Current occupational status: disabled Cognitive needs: No Hearing needs: No Vision needs: Yes (glasses) Questionnaire Thrive Questionnaire Date Thrive assessed: 11/10/23 CHARO-7 AMB Questionnaire CHARO-7 Date CHARO - 7 assessed: 11/10/23 Source: Developed by Drs. Waldo Dominguez, Leoonr Lima, Fredy Hammer and colleagues, with an educational jazzy from [employer]. Review of Systems Const Denies headache(s) Eyes Denies loss of vision ENT Denies vertigo, Denies dizziness, Denies headache(s) and Denies sore throat Card Denies chest pain, Denies leg edema and Denies lightheadedness Resp Denies cough, Denies hemoptysis and Denies wheezing GI Denies abdominal pain, Denies melena, Denies constipation, Denies diarrhea and Denies vomiting Denies dysuria, Denies urinary frequency and Denies urinary urgency Musc Denies arthralgias, Denies joint swelling, Denies numbness and Denies tingling Neuro Denies Abnormal speech present, Denies behavioral changes, Denies vertigo, Denies dizziness, Denies headache(s), Denies loss of vision, Denies memory loss, Denies numbness and Denies tingling Psych Denies anxiety, Denies behavioral changes, Denies depression, Denies memory loss and Denies panic attacks Jose/Lymph Denies easy bleeding and Denies easy bruising Aller/Immun Denies wheezing Physical exam (Primary Care) Vital Signs: Last Vital Signs Pulse 78 02/10/24 15:04 BP 120/78 02/10/24 15:04 Pulse Ox 97 02/10/24 15:04 Oxygen Delivery Method Room Air 02/10/24 15:04 BMI result Body Mass Index 25.8 Tobacco/Smoking Status: Tobacco use Status Tobacco use date assessed 11/10/23 02/10/24 15:04 Patient Tobacco Use Status Never used Tobacco 02/10/24 15:04 e-Cigarette/Vaping Use Never Used 02/10/24 15:04 Thrive Assessment: Date of Thrive Assessment Date Thrive assessed 11/10/23 02/10/24 15:04 Const General: healthy appearing, no acute distress, alert and awake Nutritional Appearance: well nourished Orientation/consciousness: oriented to person, oriented to place and oriented to time HENMT Ears: TM's normal bilaterally General nose exam: Normal nasal mucous membranes and turbinates present Eyes Conjunctivae: conjunctivae normal Sclerae: sclerae normal Pupils: Equal, round and reactive pupils present Neck Neck: Yes no lymphadenopathy and Yes no JVD Thyroid: Thyroid normal Carotids: no bruits Resp Effort & Inspection: normal respiratory effort and not tachypneic Auscultation: no crackles, no rales, no rhonchi and no wheezes Cardio Rate: regular rate Rhythm: regular rhythm Heart sounds: no murmurs and normal S1 and S2 GI Palpation (GI): Soft to palpation, nontender, no hepatomegaly and no splenomegaly Auscultation: normal bowel sounds Skin General skin exam: no rashes or lesions noted and dry skin Neuro General: oriented to person, oriented to place and oriented to time Cranial nerves: Yes Equal, round and reactive pupils present Speech: No Abnormal speech present Gait exam (Neuro): Normal gait present Motor exam (neuro): no tremor noted Extrem Right upper extremity: full ROM Left upper extremity: full ROM Right lower extremity: full ROM; no edema Left lower extremity: full ROM; no edema Psych Mental Status: mental status grossly normal Speech and movement: Normal speech and movement present Affect: normal affect Attitude: cooperative Thought process: Normal thought process present Results AMB Hemoglobin A1c AMB Hemoglobin A1c 8.2 % Last Edit by ALYSIA Brown on 02/10/24 15:26 Results Reviewed Results Reviewed: Laboratory Last Values Hgb A1c (Clinic) 8.2 % (4.0-6.0) H 02/10/24 15:04 Assessment and Plan Assessment & Plan (1) T2DM (type 2 diabetes mellitus): Code(s): E11.9 - Type 2 diabetes mellitus without complications Qualifiers: Diabetes mellitus complication status: with hyperglycemia Diabetes mellitus snf insulin use: with intermediate frame tender use Qualified Code(s): E11.65 - Type 2 diabetes mellitus with hyperglycemia; Z79.4 - custodial (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 A1c today 8.2. Continues on weekly Trulicity 3 mg and Lantus 16 units. He will work extensively on lifestyle and dietary modifications. Will recheck A1c in 3 months and if still above 8 will consider increasing Trulicity and or Lantus dose. Advised on following a diabetic diet. Goal A1c to be below 7.0 (2) Lumbar degenerative disc disease: Code(s): M51.36 - Other intervertebral disc degeneration, lumbar region Plan: Has recently underwent a 2nd lumbar disc surgery due to re-injuring his lower back due to a fall. He is making good progress though still has some right lower extremity weakness and muscle wasting. Now managing his pain with NSAID PRN. (3) HTN (hypertension): Code(s): I10 - Essential (primary) hypertension Qualifiers: Hypertension type: unspecified Qualified Code(s): I10 - Essential (primary) hypertension Plan: Patient's blood pressure acceptable today in office. Will continue his current dose of antihypertensive medication with goal blood pressure be below 140/90 (4) HLD (hyperlipidemia): Code(s): E78.5 - Hyperlipidemia, unspecified Qualifiers: Hyperlipidemia type: unspecified Qualified Code(s): E78.5 - Hyperlipidemia, unspecified Plan: Patient continues on statin therapy without side effect. Most recent lipid panel showing appropriate LDL. Goal LDL to be below 100. (5) Diabetic peripheral neuropathy: Code(s): E11.42 - Type 2 diabetes mellitus with diabetic polyneuropathy Plan: His neuropathies fairly well maintained with better control of his blood sugars. At this time no need for neuromodulation medication. 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 Complete Blood Count no Diff 02/10/24 I10 - Essential (primary) hypertension Prostate Specific Antigen Scr 02/10/24 I10 - Essential (primary) hypertension, Z12.5 - Encounter for screening for malignant neoplasm of prostate Microalbumin, Random (w Creat) 02/10/24 E11.65 - Type 2 diabetes mellitus with hyperglycemia, Z79.4 - custodial (current) use of insulin Lipid Panel 02/10/24 E78.5 - Hyperlipidemia, unspecified Patient Instructions: Goal: A1c below 7.0 Barriers: Adherence to healthy eating habits and physical activity Coding Level of Care Code Est Pt Level 4 (88492) Diagnoses Type 2 diabetes mellitus with hyperglycemia, with long-term current use of insulin E11.65; Z79.4 Diabetes mellitus complication status: with hyperglycemia Diabetes mellitus intermediate frame tender insulin use: with intermediate frame tender use Lumbar degenerative disc disease M51.36 Hypertension, unspecified type I10 Hypertension type: unspecified Hyperlipidemia, unspecified hyperlipidemia type E78.5 Hyperlipidemia type: unspecified Diabetic peripheral neuropathy E11.42
== END 2024-02-10 15:53 | disposition home or self-care (01) ==
PROVIDERS: PCP Physician Assistant; Visit Provider Physician Assistant
DX: E11.65 Type 2 diabetes mellitus with hyperglycemia (principal); Z79.4 Long term (current) use of insulin
CPT/HCPCS: 83036; 99214

== ENCOUNTER 2024-02-15 12:36 | Outpatient (REF) | payer OTHER, SELFPAY ==
--- NOTE | ~2024-02-15 | XR_ITS ---
EXAMINATION: XR CHEST CLINICAL INFORMATION: Solitary pulmonary nodule 01/23/2020 COMPARISON: None available. TECHNIQUE: 2 views of the chest were obtained. FINDINGS: No significant abnormality is noted involving the heart, lungs, mediastinum, bony thorax or soft tissues. XR/XR chest 2V IMPRESSION: Unremarkable examination.
== END 2024-02-15 12:37 | disposition home or self-care (01) ==
LOC: HO.XRAY 12:36
PROVIDERS: PCP Physician Assistant; Visit Provider Physician Assistant
DX: R91.1 Solitary pulmonary nodule (principal)
CPT/HCPCS: 71046

== ENCOUNTER 2024-03-07 09:09 | Emergency (ER) | payer OTHER, SELFPAY ==
[2024-03-07 09:40] VITALS: BP 141/84; PULSE 71; RESP 16; TEMP 36.4; O2SAT 96; BMI 25.3
--- NOTE | 2024-03-07 09:43 | ECG_ITS ---
Test Reason : dizzy Blood Pressure : / mmHG Vent. Rate : 069 BPM Atrial Rate : 069 BPM P-R Int : 160 ms QRS Dur : 098 ms QT Int : 392 ms P-R-T Axes : 037 -38 -08 degrees QTc Int : 420 ms Normal sinus rhythm Left axis deviation Minimal voltage criteria for LVH, may be normal variant ( R in aVL ) Nonspecific T wave changes Abnormal ECG When compared with ECG of 23-JAN-2020 12:38, Incomplete right bundle branch block is no longer Present Referred By: Generic ED Physician Electronically Signed By:Keaton Llanos
[2024-03-07 10:00] LABS: MANUAL DIFF FLAG NO
[2024-03-07 10:01] LABS: Basophils Percent Auto 0.2 % (0-2); Eosinophils Absolute Auto 0.1 X10*3/uL (0.0-0.4); Eosinophils Percent Auto 1.1 % (0-4); Hematocrit 41.7 % (42.0-52.0); Hemoglobin 14.3 g/dl (14.0-18.0); Imm Gran Abs Auto 0.02 X10*3/uL (0.00-0.03); Imm Gran Pct Auto 0.3 % (0.0-0.4); Lymphocytes Absolute Auto 1.5 X10*3/uL (1.2-4.9); Lymphocytes Percent Auto 22.2 % (20-40); Mean Corpuscular HGB Conc 34.3 g/dl (31.0-36.0); Mean Corpuscular Hemoglobin 30.4 pg (27.0-33.0); Mean Corpuscular Volume 88.7 fL (80.0-98.0); Mean Platelet Volume 9.3 fL (9.4-12.4); Monocytes Absolute Auto 0.6 X10*3/uL (0.1-1.2); Monocytes Percent Auto 8.9 % (2-11); Neutrophils Absolute Auto 4.5 x10*3/uL (2.0-8.3); Neutrophils Percent Auto 67.3 % (45-73); Platelet Count 207 X10*3/uL (160-400); Red Cell Distribution Width 12.5 % (11.0-16.0); White Blood Count 6.6 X10*3/uL (4.8-10.8)
[2024-03-07 10:18] LABS: Alanine Aminotransferase 17 U/L (0-40); Albumin Level 4.2 g/dL (3.5-5.0); Alkaline Phosphatase 125 U/L (39-117); Anion Gap 14 (12-20); Aspartate Amino Transferase 15 U/L (5-37); Bilirubin Total 0.8 mg/dL (0.0-1.0); Blood Urea Nitrogen 13 mg/dL (9-16); Calcium 9.4 mg/dL (8.4-10.2); Carbon Dioxide 28 mmol/L (22-29); Chloride 101 mmol/L (96-108); Estimated Glomerular Filt Rate > 60; Glucose Random 336 mg/dL (60-115); Potassium 4.8 mmol/L (3.3-5.1); Sodium 138 mmol/L (135-145); Total Protein 7.2 g/dL (6.5-8.0)
[2024-03-07 10:25] LABS: Troponin-I High Sensitivity < 2.7 ng/L (<3.5-35.0)
[2024-03-07 16:16] VITALS: BP 116/78; PULSE 76; RESP 16; TEMP 37; O2SAT 98
== END 2024-03-07 19:40 | disposition left against medical advice (07) ==
PROVIDERS: Emergency Provider Emergency Medicine; PCP Physician Assistant
DX: R42 Dizziness and giddiness (principal); Z53.21 Procedure and treatment not carried out due to patient leaving prior to being seen by health care provider
CPT/HCPCS: 36415; 80053; 84484; 85025; 93005; 99283

== ENCOUNTER → 2024-03-07 09:43 | Outpatient (BNV) | payer OTHER, SELFPAY | PROVIDERS: Emergency Provider Emergency Medicine; PCP Physician Assistant; Visit Provider Internal Medicine Cardiovascular Disease | DX: R94.31 Abnormal electrocardiogram [ECG] [EKG] (principal) | CPT/HCPCS: 93010 ==

== ENCOUNTER 2024-03-09 07:46 | Outpatient (AMB) | payer OTHER, SELFPAY ==
--- NOTE | 2024-03-09 07:49 | A.OFFPC_ITS ---
Vital Signs 03/09/24 07:50 Height 5 ft 10 in Weight 182 lb BMI 26.1 BP 128/86 Blood Pressure Location Lt brachial Position Sitting Pulse 74 Pulse Source Pulse Oximeter Pulse Oximetry (%) 96 Oxygen Delivery Method Room Air Intake Visit Reasons: dizzy spells Intake Note: Patient here for daily dizzy spells [employer] Required: No Accompanied by: Self / Same As Patient Allergies shrimp [SHRIMP] Allergy (Severe, Verified 03/09/24 08:02) SWELLING/SEVERE VOMITING acetaminophen [From Percocet] Adverse Reaction (Verified 03/09/24 08:02) Nausea and Vomiting oxycodone [From Percocet] Adverse Reaction (Verified 03/09/24 08:02) Nausea and Vomiting Fresh fruit and nuts Allergy (Unknown, Uncoded 03/09/24 08:02) hives Medication List - Last Reconciled 03/09/24 by Jean-Claude Anaya PA-C albuterol sulfate 90 mcg/actuation 1 inh inhalation QID PRN 30 days atorvastatin 80 mg PO DAILY 30 days blood sugar diagnostic (FreeStyle Lite Strips) As directed test blood sugar at least 2 times a day cholecalciferol (vitamin D3) 50 mcg PO BEDTIME crutches (pair of crutches) As directed dulaglutide (Trulicity) 3 mg (0.5 mL) subcut QWEEK 28 days hydrocodone-acetaminophen 5-325 mg 1 tab PO BID 7 days insulin glargine (Lantus Solostar U-100 Insulin) 16 units (0.16 mL) subcut QPM 30 days lancets (FreeStyle Lancets) Three times a day testing lidocaine 4% (AsperFlex (lidocaine)) 1 patch topical DAILY PRN lisinopril 20 mg PO DAILY naproxen 500 mg PO BID PRN pen needle, diabetic As directed Tobacco use date assessed: 11/10/23 Dental Screening Dental Screen Date: 11/10/23 HPI dizzy spells HPI Details Patient is a 68-year-old male here today for problem visit. ? Patient has a past medical history significant for controlled type 2 diabetes, hyperlipidemia, hypertension, lumbar stenosis Robin reports he has been experiencing intermittent dizzy spells over the last 4 days. He reports the dizziness is worse with rapid change in head movements and lying down. Today on physical exam dizziness fairly severe when lying down on exam table. [facility] Medical History Vitamin D deficiency H/O chronic hepatitis HLD (hyperlipidemia) HTN (hypertension) T2DM (type 2 diabetes mellitus) Type 2 diabetes mellitus Surgical History History of hand surgery History of bunionectomy Hx of colonoscopy Hx of arthroscopy of left knee Family History Father Cancer Mother Diabetes mellitus Social History Household Members: None Housing: Apartment Alcohol intake: never Patient Tobacco Use Status: Never used Tobacco e-Cigarette/Vaping Use: Never Used Second Hand Smoke Exposure: No service: No Current occupational status: disabled Cognitive needs: No Hearing needs: No Vision needs: Yes (glasses) Questionnaire Thrive Questionnaire Date Thrive assessed: 11/10/23 CHARO-7 AMB Questionnaire CHARO-7 Date CHARO - 7 assessed: 11/10/23 Source: Developed by Drs. Waldo Dominguez, Leonor Lima, Fredy Hammer and colleagues, with an educational jazzy from [employer] Review of Systems Const Denies headache(s) Eyes Denies loss of vision ENT Reports vertigo, Reports dizziness, Denies headache(s) and Denies sore throat Card Denies chest pain, Denies leg edema and Denies lightheadedness Resp Denies cough, Denies hemoptysis and Denies wheezing GI Denies abdominal pain, Denies melena, Denies constipation, Denies diarrhea and Denies vomiting Denies dysuria, Denies urinary frequency and Denies urinary urgency Musc Denies arthralgias, Denies joint swelling, Denies numbness and Denies tingling Neuro Denies Abnormal speech present, Denies behavioral changes, Reports vertigo, Reports dizziness, Denies headache(s), Denies loss of vision, Denies memory loss, Denies numbness and Denies tingling Psych Denies anxiety, Denies behavioral changes, Denies depression, Denies memory loss and Denies panic attacks Jose/Lymph Denies easy bleeding and Denies easy bruising Aller/Immun Denies wheezing Physical exam (Primary Care) Vital Signs: Last Vital Signs Pulse 74 03/09/24 07:50 BP 128/86 03/09/24 07:50 Pulse Ox 96 03/09/24 07:50 Oxygen Delivery Method Room Air 03/09/24 07:50 BMI result Body Mass Index 26.1 Tobacco/Smoking Status: Tobacco use Status Tobacco use date assessed 11/10/23 03/09/24 07:53 Patient Tobacco Use Status Never used Tobacco 03/09/24 07:53 e-Cigarette/Vaping Use Never Used 03/09/24 07:53 Thrive Assessment: Date of Thrive Assessment Date Thrive assessed 11/10/23 03/09/24 07:53 Const General: healthy appearing, no acute distress, alert and awake Nutritional Appearance: well nourished Orientation/consciousness: oriented to person, oriented to place and oriented to time HENMT Ears: TM's normal bilaterally General nose exam: Normal nasal mucous membranes and turbinates present Eyes Conjunctivae: conjunctivae normal Sclerae: sclerae normal Pupils: Equal, round and reactive pupils present Neck Neck: Yes no lymphadenopathy and Yes no JVD Thyroid: Thyroid normal Carotids: no bruits Resp Effort & Inspection: normal respiratory effort and not tachypneic Auscultation: no crackles, no rales, no rhonchi and no wheezes Cardio Rate: regular rate Rhythm: regular rhythm Heart sounds: no murmurs and normal S1 and S2 GI Palpation (GI): Soft to palpation, nontender, no hepatomegaly and no splenomegaly Auscultation: normal bowel sounds Skin General skin exam: no rashes or lesions noted and dry skin Neuro General: oriented to person, oriented to place and oriented to time Cranial nerves: Yes Equal, round and reactive pupils present Speech: No Abnormal speech present Gait exam (Neuro): Normal gait present Motor exam (neuro): no tremor noted Extrem Right upper extremity: full ROM Left upper extremity: full ROM Right lower extremity: full ROM; no edema Left lower extremity: full ROM; no edema Psych Mental Status: mental status grossly normal Speech and movement: Normal speech and movement present Affect: normal affect Attitude: cooperative Thought process: Normal thought process present Assessment and Plan Assessment & Plan (1) BPPV (benign paroxysmal positional vertigo): Code(s): H81.10 - Benign paroxysmal vertigo, unspecified ear Qualifiers: Laterality: bilateral Qualified Code(s): H81.13 - Benign paroxysmal vertigo, bilateral Plan: Patient's signs and symptoms most consistent with benign paroxysmal positional vertigo. We did discuss the etiology and treatment. He is willing to try medication as needed. He is also willing to try vestibular therapy. Did advise him to look up Uriah maneuvers to be done at home though he is concerned about doing these maneuvers at home. Advised not to drive at this time as his vertigo at times is unpredictable.. Orders: Orders PT Evaluation and Treatment Today H81.13 - Benign paroxysmal vertigo, bilateral Medications: New meclizine 25 mg PO DAILY 10 days 10 tabs 0RF motion sickness H81.13 - Benign paroxysmal vertigo, bilateral Coding Level of Care Code Est Pt Level 3 (11358) Diagnoses Benign paroxysmal positional vertigo due to bilateral vestibular disorder H81.13 Laterality: bilateral
[2024-03-09 07:50] VITALS: BP 128/86; PULSE 74; O2SAT 96; BMI 26.1
== END 2024-03-09 08:21 | disposition home or self-care (01) ==
PROVIDERS: PCP Physician Assistant; Visit Provider Physician Assistant
DX: H81.13 Benign paroxysmal vertigo, bilateral (principal)
CPT/HCPCS: 99213

== ENCOUNTER 2024-05-11 14:39 | Outpatient (AMB) | payer MEDICARE, MEDICAID, SELFPAY ==
[2024-05-11 14:53] VITALS: BP 134/86; PULSE 84; O2SAT 97; BMI 26.0
--- NOTE | 2024-05-11 14:53 | A.OFFPC_ITS ---
Vital Signs 05/11/24 14:53 Height 5 ft 10 in Weight 181 lb 6 oz BMI 26.0 BP 134/86 Blood Pressure Location Lt brachial Position Sitting Pulse 84 Pulse Source Pulse Oximeter Pulse Oximetry (%) 97 Oxygen Delivery Method Room Air Intake Visit Reasons: f/u DMII Temporary Help Agency Referral Clerk Required: No Accompanied by: Self / Same As Patient Allergies shrimp [SHRIMP] Allergy (Severe, Verified 05/11/24 15:03) SWELLING/SEVERE VOMITING acetaminophen [From Percocet] Adverse Reaction (Verified 05/11/24 15:03) Nausea and Vomiting oxycodone [From Percocet] Adverse Reaction (Verified 05/11/24 15:03) Nausea and Vomiting Fresh fruit and nuts Allergy (Unknown, Uncoded 05/11/24 15:03) hives Medication List - Last Reconciled 05/11/24 by Jean-Claude Anaya PA-C albuterol sulfate 90 mcg/actuation 1 inh inhalation QID PRN 30 days atorvastatin 80 mg PO DAILY 30 days blood sugar diagnostic (FreeStyle Lite Strips) As directed test blood sugar at least 2 times a day cholecalciferol (vitamin D3) 50 mcg PO BEDTIME crutches (pair of crutches) As directed dulaglutide (Trulicity) 3 mg (0.5 mL) subcut QWEEK 28 days hydrocodone-acetaminophen 5-325 mg 1 tab PO BID 7 days insulin glargine (Lantus Solostar U-100 Insulin) 16 units (0.16 mL) subcut QPM 30 days lancets (FreeStyle Lancets) Three times a day testing lidocaine 4% (AsperFlex (lidocaine)) 1 patch topical DAILY PRN lisinopril 20 mg PO DAILY meclizine 25 mg PO DAILY 10 days naproxen 500 mg PO BID PRN pen needle, diabetic As directed Tobacco use date assessed: 11/10/23 Fall risk assessment: No Falls in past year Last assessed Fall Risk: 05/11/24 Dental Screening Dental Screen Date: 11/10/23 HPI f/u DMII HPI Details Patient is a 68-year-old male here today for follow-up visit ? Patient has a past medical history significant for type 2 diabetes, hyperlipidemia, hypertension, lumbar stenosis. Concern--> Type 2 Diabetes: Unfortunately patient's type 2 diabetes suboptimally controlled. Today's A1c at 8.7 He informs me his sugars have been better PLAN: Will increase his Lantus dose to 20 units for better glycemic control .. Hypertension: Blood pressure today in office acceptable. Has been compliant with his lisinopril. Denies any headaches, chest discomfort or shortness of breath. .. Hyperlipidemia:? Most recent LDL 69, will continue his current statin dose..? Of note triglycerides at 220 and will work on lifestyle modifications to help reduce triglycerides. Laboratory Tests 09/29/23 09/30/23 02/10/24 16:05 13:18 15:04 Hgb Creatinine Random Glucose Hgb A1c (Clinic) 8.8 H 8.2 H Hemoglobin A1c % 7.6 H Cholesterol 134 03/07/24 09:54 Hgb 14.3 Creatinine 1.06 Random Glucose 336 H Hgb A1c (Clinic) Hemoglobin A1c % Cholesterol [facility] Medical History Vitamin D deficiency H/O chronic hepatitis HLD (hyperlipidemia) HTN (hypertension) T2DM (type 2 diabetes mellitus) Type 2 diabetes mellitus Surgical History History of hand surgery History of bunionectomy Hx of colonoscopy Hx of arthroscopy of left knee Family History Father Cancer Mother Diabetes mellitus Social History Household Members: None Housing: Apartment Alcohol intake: never Patient Tobacco Use Status: Never used Tobacco e-Cigarette/Vaping Use: Never Used Second Hand Smoke Exposure: No service: No Current occupational status: disabled Cognitive needs: No Hearing needs: No Vision needs: Yes (glasses) Questionnaire Thrive Questionnaire Date Thrive assessed: 11/10/23 CHARO-7 AMB Questionnaire CHARO-7 Date CHARO - 7 assessed: 11/10/23 Source: Developed by Drs. Waldo Dominguez, Leonor Lima, Fredy Hammer and colleagues, with an educational jazzy from [employer]. Review of Systems Const Denies headache(s) Eyes Denies loss of vision ENT Denies vertigo, Denies dizziness, Denies headache(s) and Denies sore throat Card Denies chest pain, Denies leg edema and Denies lightheadedness Resp Denies cough, Denies hemoptysis and Denies wheezing GI Denies abdominal pain, Denies melena, Denies constipation, Denies diarrhea and Denies vomiting Denies dysuria, Denies urinary frequency and Denies urinary urgency Musc Denies arthralgias, Denies joint swelling, Denies numbness and Denies tingling Neuro Denies Abnormal speech present, Denies behavioral changes, Denies vertigo, Denies dizziness, Denies headache(s), Denies loss of vision, Denies memory loss, Denies numbness and Denies tingling Psych Denies anxiety, Denies behavioral changes, Denies depression, Denies memory loss and Denies panic attacks Jose/Lymph Denies easy bleeding and Denies easy bruising Aller/Immun Denies wheezing Physical exam (Primary Care) Vital Signs: Last Vital Signs Pulse 84 05/11/24 14:53 BP 134/86 05/11/24 14:53 Pulse Ox 97 05/11/24 14:53 Oxygen Delivery Method Room Air 05/11/24 14:53 BMI result Body Mass Index 26.0 Tobacco/Smoking Status: Tobacco use Status Tobacco use date assessed 11/10/23 05/11/24 14:54 Patient Tobacco Use Status Never used Tobacco 05/11/24 14:54 e-Cigarette/Vaping Use Never Used 05/11/24 14:54 Thrive Assessment: Date of Thrive Assessment Date Thrive assessed 11/10/23 05/11/24 14:54 Const General: healthy appearing, no acute distress, alert and awake Nutritional Appearance: well nourished Orientation/consciousness: oriented to person, oriented to place and oriented to time [facility] Ears: TM's normal bilaterally General nose exam: Normal nasal mucous membranes and turbinates present Eyes Conjunctivae: conjunctivae normal Sclerae: sclerae normal Pupils: Equal, round and reactive pupils present Neck Neck: Yes no lymphadenopathy and Yes no JVD Thyroid: Thyroid normal Carotids: no bruits Resp Effort & Inspection: normal respiratory effort and not tachypneic Auscultation: no crackles, no rales, no rhonchi and no wheezes Cardio Rate: regular rate Rhythm: regular rhythm Heart sounds: no murmurs and normal S1 and S2 GI Palpation (GI): Soft to palpation, nontender, no hepatomegaly and no splenomegaly Auscultation: normal bowel sounds Skin General skin exam: no rashes or lesions noted and dry skin Neuro General: oriented to person, oriented to place and oriented to time Cranial nerves: Yes Equal, round and reactive pupils present Speech: No Abnormal speech present Gait exam (Neuro): Normal gait present Motor exam (neuro): no tremor noted Extrem Right upper extremity: full ROM Left upper extremity: full ROM Right lower extremity: full ROM; no edema Left lower extremity: full ROM; no edema Psych Mental Status: mental status grossly normal Speech and movement: Normal speech and movement present Affect: normal affect Attitude: cooperative Thought process: Normal thought process present Results AMB Hemoglobin A1c AMB Hemoglobin A1c 8.7 % Last Edit by ALYSIA Brown on 05/11/24 15:29 Results Reviewed Results Reviewed: Laboratory Last Values Hgb A1c (Clinic) 8.7 % (4.0-6.0) H 05/11/24 14:46 Assessment and Plan Assessment & Plan (1) T2DM (type 2 diabetes mellitus): Code(s): E11.9 - Type 2 diabetes mellitus without complications Qualifiers: Diabetes mellitus complication status: with hyperglycemia Diabetes mellitus technician terminal and repeater insulin use: with technician terminal and repeater use Qualified Code(s): E11.65 - Type 2 diabetes mellitus with hyperglycemia; Z79.4 - technician terminal and repeater (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 A1c today 8.7 Will increase his Lantus to 20 units daily. Will set patient up with faculty administrator Continues on weekly Trulicity 3 mg and Lantus 16 units. He will work extensively on lifestyle and dietary modifications. Will recheck Advised on following a diabetic diet. Goal A1c to be below 7.0 (2) Lumbar degenerative disc disease: Code(s): M51.36 - Other intervertebral disc degeneration, lumbar region Plan: Has recently underwent a 2nd lumbar disc surgery due to re-injuring his lower back due to a fall. He is making good progress though still has some right lower extremity weakness and muscle wasting. Now managing his pain with NSAID PRN. (3) HTN (hypertension): Code(s): I10 - Essential (primary) hypertension Qualifiers: Hypertension type: unspecified Qualified Code(s): I10 - Essential (primary) hypertension Plan: Patient's blood pressure acceptable today in office. Will continue his current dose of antihypertensive medication with goal blood pressure be below 140/90 (4) HLD (hyperlipidemia): Code(s): E78.5 - Hyperlipidemia, unspecified Qualifiers: Hyperlipidemia type: unspecified Qualified Code(s): E78.5 - Hyperlipidemia, unspecified Plan: Patient continues on statin therapy without side effect. Most recent lipid panel showing appropriate LDL. Goal LDL to be below 100. (5) Cervical pain: Code(s): M54.2 - Cervicalgia Plan: Reports having left-sided posterior neck pain over the last several months. He reports he has gotten better though still present. Will likely benefit from physical therapy. Will send for x-ray of cervical spine to evaluate for any disc issue arthritis. (6) Right knee pain: Code(s): M25.561 - Pain in right knee Qualifiers: Chronicity: chronic Qualified Code(s): M25.561 - Pain in right knee; G89.29 - Other chronic pain Plan: He reports having some right knee pain and some instability. He does report having worsening knee pain when he is going up and downstairs. Will send for x- ray of his right knee. Orders: Orders PT Evaluation and Treatment 05/11/24 M54.2 - Cervicalgia AMB Hemoglobin A1c 05/11/24 E11.42 - Type 2 diabetes mellitus with diabetic polyneuropathy XR knee RT 3V 05/11/24 M25.561 - Pain in right knee XR cervical spine 4V 05/11/24 M54.2 - Cervicalgia Referrals Diabetes Education Referral E11.65 - Type 2 diabetes mellitus with hyperglycemia, Z79.4 - technician terminal and repeater (current) use of insulin Medications: Changed From insulin glargine (Lantus Solostar U-100 Insulin) 16 units (0.16 mL) subcut QPM 30 days 4.8 mL 4RF E11.65 - Type 2 diabetes mellitus with hyperglycemia, Z79.4 - assisted (current) use of insulin To insulin glargine (Lantus Solostar U-100 Insulin) 20 units (0.2 mL) subcut QPM 6 mL 4RF 30 days E11.65 - Type 2 diabetes mellitus with hyperglycemia, Z79.4 - assisted (current) use of insulin Patient Instructions: Goal: A1c to be below 7.0, LDL to remain below 100 Barriers: Adherence to physical activity and healthy eating habits Coding Level of Care Code Est Pt Level 4 (41922) Diagnoses Type 2 diabetes mellitus with hyperglycemia, with long-term current use of insulin E11.65; Z79.4 Diabetes mellitus complication status: with hyperglycemia Diabetes mellitus technician terminal and repeater insulin use: with technician terminal and repeater use Lumbar degenerative disc disease M51.36 Hypertension, unspecified type I10 Hypertension type: unspecified Hyperlipidemia, unspecified hyperlipidemia type E78.5 Hyperlipidemia type: unspecified Cervical pain M54.2 Chronic pain of right knee M25.561; G89.29 Chronicity: chronic
== END 2024-05-11 15:21 | disposition home or self-care (01) ==
PROVIDERS: PCP Physician Assistant; Visit Provider Physician Assistant
DX: E11.42 Type 2 diabetes mellitus with diabetic polyneuropathy (principal)
CPT/HCPCS: 83036; 99214

== ENCOUNTER 2024-05-17 08:39 | Outpatient (REF) | payer MEDICARE, OTHER, SELFPAY ==
--- NOTE | ~2024-05-17 | XR_ITS ---
EXAMINATION: XR KNEE, RIGHT CLINICAL INFORMATION: Right knee pain. COMPARISON: 03/27/2023 TECHNIQUE: Three views of the right knee. FINDINGS: Mild tricompartmental osteoarthritis characterized by marginal osteophytes and mild joint space narrowing as well as subtle cortical irregularity at the trochlea. No joint effusion. No fracture. Enthesopathic spurring at the quadriceps tendon insertion on the patella. Bones are osteopenic. XR/XR knee RT 3V IMPRESSION: Mild tricompartmental osteoarthritis in the right knee. No acute osseous findings.
--- NOTE | ~2024-05-17 | XR_ITS ---
EXAMINATION: XR CERVICAL SPINE CLINICAL INFORMATION: Cervicalgia COMPARISON: None available. TECHNIQUE: 6 views of the cervical spine including obliques FINDINGS: Exam is slightly limited as the CT exam is slightly limited as the cervicothoracic junction is obscured on the lateral projection in the routine swimmer's lateral views by overlying tissues. This disc space is well visualized and AP oblique projections. Vertebral body alignment and height normal. Facets normal. There is multilevel mild to moderate degenerative disc changes with endplate osteophytes present at the C3-C4 through C6-C7 levels the facets are unremarkable. These degenerative changes result in bony encroachment on the left side from C3-C4 through C6-C7 and on the right side at the C3-C4 C4-C5 and C5-C6 levels Surrounding bone and soft tissues unremarkable. XR/XR cervical spine 4V IMPRESSION: Multilevel spondylosis of the cervical spine with degenerative disc changes and bony encroachment on the neural foramina bilaterally.
[2024-05-17 09:28] LABS: Hematocrit 41.5 % (42.0-52.0); Hemoglobin 14.5 g/dl (14.0-18.0); Mean Corpuscular HGB Conc 34.9 g/dl (31.0-36.0); Mean Corpuscular Volume 85.9 fL (80.0-98.0); Mean Platelet Volume 9.2 fL (9.4-12.4); Platelet Count 225 X10*3/uL (160-400); Red Blood Count 4.83 X10*6/uL (4.60-5.80); Red Cell Distribution Width 12.7 % (11.0-16.0); White Blood Count 6.8 X10*3/uL (4.8-10.8)
[2024-05-17 09:53] LABS: Alanine Aminotransferase 25 U/L (0-40); Albumin Level 4.3 g/dL (3.5-5.0); Alkaline Phosphatase 115 U/L (39-117); Anion Gap 9 (12-20); Aspartate Amino Transferase 21 U/L (5-37); Bilirubin Total 0.6 mg/dL (0.0-1.0); Blood Urea Nitrogen 11 mg/dL (9-16); Calcium 9.4 mg/dL (8.4-10.2); Carbon Dioxide 33 mmol/L (22-29); Chloride 102 mmol/L (96-108); Cholesterol 153 mg/dL (<200); Estimated Glomerular Filt Rate > 60; Glucose Fasting 181 mg/dL (60-99); HDL Cholesterol 44 mg/dL (>40); LDL Cholesterol Calculated 96 mg/dL (<100); Potassium 3.9 mmol/L (3.3-5.1); Sodium 140 mmol/L (135-145); Total Protein 7.1 g/dL (6.5-8.0); Triglycerides 65 mg/dL (<150)
[2024-05-17 09:59] LABS: Prostate Specific Antigen Scr 1.58 ng/mL (<0.05-4.0)
[2024-05-17 10:52] LABS: Microalbum/Creatinine Ratio Ur 4.6 ug/mg cr (<30)
== END 2024-05-17 08:40 | disposition home or self-care (01) ==
LOC: HO.LAB 08:39
PROVIDERS: PCP Physician Assistant; Visit Provider Physician Assistant
DX: M54.2 Cervicalgia (principal); M25.561 Pain in right knee; E11.65 Type 2 diabetes mellitus with hyperglycemia; Z79.4 Long term (current) use of insulin; I10 Essential (primary) hypertension; Z12.5 Encounter for screening for malignant neoplasm of prostate; E78.5 Hyperlipidemia, unspecified
CPT/HCPCS: 36415; 72050; 73562; 80053; 80061; 82043; 82570; 84153; 85027

== ENCOUNTER 2024-06-30 12:50 | Outpatient (AMB) | payer MEDICARE, MEDICAID, SELFPAY ==
--- NOTE | 2024-06-30 13:00 | A.OFFVIS_ITS ---
Vital Signs 06/30/24 13:08 Height 5 ft 10 in Weight 185 lb 8 oz BMI 26.6 BP 128/80 Blood Pressure Location Rt brachial Position Sitting Pulse 96 Pulse Source Pulse Oximeter Pulse Oximetry (%) 97 Oxygen Delivery Method Room Air Intake Visit Reasons: Cervicalgia Intake Note: Pain today 03/28 Altitude Chamber Technician Required: No Accompanied by: Self / Same As Patient Allergies shrimp [SHRIMP] Allergy (Severe, Verified 06/30/24 13:08) SWELLING/SEVERE VOMITING acetaminophen [From Percocet] Adverse Reaction (Verified 06/30/24 13:08) Nausea and Vomiting oxycodone [From Percocet] Adverse Reaction (Verified 06/30/24 13:08) Nausea and Vomiting Fresh fruit and nuts Allergy (Unknown, Uncoded 05/11/24 15:03) hives HPI Comments Details: Patient presents today for follow-up to address his chronic neck pain. Patient was initially seen in our office on 09/01/2022 for low back pain and underwent lumbar fusion in the fall 2021 and December [address] Caicedo at [facility]. Patient denies any back or leg pain today. Reports limited cervical spine range of motion, especially with prolonged sitting, standing or driving. Denies radiation into his upper extremities, denies burning, numbness or tingling. Recent cervical spine xray showed multilevel spondylosis of the cervical spine with degenerative disc changes and bony encroachment on the neural foramina bilaterally. 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 Right hand dominant. Denies any recent injury, trauma or falls. He has been performing home exercises and stretching exercises which increase his pain and cause muscle stiffness and tightness. Patient also tried acupuncture and PT in the past with minimal and temporary relief. He has been managing his symptoms with Tylenol, lidocaine patches, soreness patches, heat with continued symptoms. Patient denies any fe abelino or chills, infection, chest pain, visual disturbances, headache, weight loss, chest pain, shortness of breath, weakness, gait disturbance, bladder or bowel dysfunction or saddle anesthesia. Most recent A1C=8.7 as of April 2024. PRIOR: Patient is a pleasant 66 years old male who presents today for initial evaluation of chronic lower back pain that has been worsening over the past 2 months. Denies any recent trauma, injury or falls. Patient was recently seen at our ER on 07/21/22 and again on 07/27/22 with lower back pain radiating to his right leg and reports it felt like his ?right leg was paralyzed.? Patient is scheduled for a lumbar spine MRI test tomorrow. Patient reports his back pain radiates to his right lower extremity laterally just below the knee level with pins and needles and burning sensations at his right lateral knee. Pain is described as constant pounding, stabbing, sharp, cutting, aching, exhausting, tingling, stinging, piercing, and frightful. Patient states he is able to tolerate no longer than 3-4 minutes of walking with cane. Prolonged walking of 5 minutes or more causes him severe shooting and stabbing back pain with right sided radicular symptoms. Pain affects his daily activities and functioning, sleep, mood, social interactions and quality of life. Patient was treated during two ER visits with hydrocodone-acetaminophen, Toradol, steroids and morphine with resolution of pain for a short term. Previously, patient has tried acupuncture with good results. He has a pending PT order and is awaiting for an MRI to be completed prior to starting PT. Patient denies any fever, malaise, dizziness, abdominal or groin pain, bowel or bladder incontinence or saddle anesthesia. Reports weakness in the right lower extremity. Ambulates slowly with antalgic gait with the use of cane. Patient also reported diabetic peripheral neuropathy with decreased sensation in his feet, especially the dorsal area of his right big toe. His A1C was 7.3 on 07/10/22, managed on insulin and Trulicity. [facility] Medical History Vitamin D deficiency H/O chronic hepatitis HLD (hyperlipidemia) HTN (hypertension) T2DM (type 2 diabetes mellitus) Type 2 diabetes mellitus Surgical History History of hand surgery History of bunionectomy Hx of colonoscopy Hx of arthroscopy of left knee Family History Father Cancer Mother Diabetes mellitus Social History (Updated 06/30/24 @ 13:59 by OLMAN Domingo) Household Members: None Housing: Apartment Alcohol intake: never Patient Tobacco Use Status: Never used Tobacco e-Cigarette/Vaping Use: Never Used Second Hand Smoke Exposure: No service: No Current occupational status: disabled 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 Alert and oriented. Mood and affect appropriate. Follows and participates in conversation appropriately. Respiratory effort is unlabored. No cough. No nasal discharge. Able to transition from sit to stand unassisted. Ambulates with bilaterally normal heel strike and toe off. Neck Other: Patient with decreased cervical ROM in all planes/especially with right lateral rotation. Reports increased pain with cervical extension and minimal pain with flexion. Spurling compression test equivocal. Pain is unchanged by Spurling maneuver with retraction. Elvey's tension test negative bilaterally. Lhermitte's test was negative. DTR intact, diminished, symmetrical. Patient demonstrated 5/ 5 motor strength of bilateral upper extremities. 2 + radial pulses. Significant tightness throughout left upper trapezius as well as TTP throughout bilateral upper trapezius muscles. No paravertebral tenderness over facet joint on affected side. Multiple taut bands palpated throughout bilateral upper trapezius muscles. Neck: Yes normal visual inspection, Yes no lymphadenopathy, Yes supple, No anterior neck swelling, No torticollis, Yes no JVD, No prominent supraclavicular fat pad and No prominent dorsocervical fat pad Back/Spine/Pelvis Cervical Spine: cervical muscular tenderness, pain with cervical ROM, cervical spasm (left>right), Cervical spine tenderness and No step off deformity Thoracic/Lumbar Spine: thoracic and lumbar spine normal to inspection, Thoracic/lumbar spine scar(s), thoraco-lumbar ROM limited, No thoracic spinal tenderness and No lumbar spinal tenderness Results Reviewed Results Reviewed: XR CERVICAL SPINE 05/17/24 CLINICAL INFORMATION: Cervicalgia FINDINGS: Exam is slightly limited as the CT exam is slightly limited as the cervicothoracic junction is obscured on the lateral projection in the routine swimmer's lateral views by overlying tissues. This disc space is well visualized and AP oblique projections. Vertebral body alignment and height normal. Facets normal. There is multilevel mild to moderate degenerative disc changes with endplate osteophytes present at the C3-C4 through C6-C7 levels the facets are unremarkable. These degenerative changes result in bony encroachment on the left side from C3-C4 through C6-C7 and on the right side at the C3-C4 C4-C5 and C5-C6 levels Surrounding bone and soft tissues unremarkable. IMPRESSION: Multilevel spondylosis of the cervical spine with degenerative disc changes and bony encroachment on the neural foramina bilaterally. Assessment & Plan Assessment & Plan (1) Cervical spondylosis: Code(s): M47.812 - Spondylosis without myelopathy or radiculopathy, cervical region Category: Medical (2) Degenerative disc disease, cervical: Code(s): M50.30 - Other cervical disc degeneration, unspecified cervical region Category: Medical (3) Muscle spasms of neck: Code(s): M62.838 - Other muscle spasm Category: Medical Plan Discussed interventional treatments for cervical axial pain, including diagnostic injections for potential peripheral nerve stimulation or RFA procedure. Given elevated A1c levels, patient is not candidate for therapeutic injections at this time. Schedule bilateral diagnostic C3-C4-C5 MBB with local and fluoroscopy. Expectations, risks and benefits were reviewed. Patient is aware he will be contacted to schedule this procedure. Script provided for TENS unit. Patient understands that [employer] will contact him and that the device will delived to his home. Informational pamphlets provided to patient on its use and today's discussed procedures. All questions were answered and the patient is in agreement of plan. Follow-up after injections and sooner as needed. Medications: New methocarbamol 750 mg PO BID 30 days PRN 60 tabs 0RF muscle spasm M47.812 - Spondylosis without myelopathy or radiculopathy, cervical region, M50.30 - Other cervical disc degeneration, unspecified cervical region, M62.838 - Other muscle spasm diclofenac sodium 1% (Arthritis Pain (diclofenac)) 4 grams topical QID 100 grams 1RF pain M47.812 - Spondylosis without myelopathy or radiculopathy, cervical region, M50.30 - Other cervical disc degeneration, unspecified cervical region Coding Level of Care Code Est Pt Level 4 (84323) Complex EM visit Add On G2211 Diagnoses Cervical spondylosis M47.812 Degenerative disc disease, cervical M50.30 Muscle spasms of neck M62.838
[2024-06-30 13:08] VITALS: BP 128/80; PULSE 96; O2SAT 97; BMI 26.6
== END 2024-06-30 13:43 | disposition home or self-care (01) ==
PROVIDERS: PCP Physician Assistant; Visit Provider Nurse Practitioner Family
DX: M47.812 Spondylosis without myelopathy or radiculopathy, cervical region (principal); M50.30 Other cervical disc degeneration, unspecified cervical region; M62.838 Other muscle spasm
CPT/HCPCS: 99214; G2211

== ENCOUNTER → 2024-06-30 12:50 | Outpatient (BNVA) | payer MEDICARE, OTHER, SELFPAY | PROVIDERS: PCP Physician Assistant; Visit Provider Nurse Practitioner Family | DX: M47.812 Spondylosis without myelopathy or radiculopathy, cervical region (principal); M50.30 Other cervical disc degeneration, unspecified cervical region; M62.838 Other muscle spasm | CPT/HCPCS: 99212 ==

== ENCOUNTER 2024-08-11 14:43 | Outpatient (AMB) | payer MEDICARE, MEDICAID, SELFPAY ==
[2024-08-11 14:57] VITALS: BP 132/86; PULSE 80; O2SAT 95; BMI 26.4
--- NOTE | 2024-08-11 14:57 | A.OFFPC_ITS ---
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 Accompanied by: Self / Same As Patient Allergies shrimp [SHRIMP] Allergy (Severe, Verified 08/11/24 15:01) SWELLING/SEVERE VOMITING acetaminophen [From Percocet] Adverse Reaction (Verified 08/11/24 15:01) Nausea and Vomiting oxycodone [From Percocet] Adverse Reaction (Verified 08/11/24 15:01) Nausea and Vomiting Fresh fruit and nuts Allergy (Unknown, Uncoded 08/11/24 15:01) hives Medication List - Last Reconciled 08/11/24 by Jean-Claude Anaya PA-C albuterol sulfate 90 mcg/actuation 1 inh inhalation QID PRN 30 days atorvastatin 80 mg PO DAILY 30 days blood sugar diagnostic (FreeStyle Lite Strips) As directed test blood sugar at least 2 times a day cholecalciferol (vitamin D3) 50 mcg PO BEDTIME diclofenac sodium 1% (Arthritis Pain (diclofenac)) 4 grams topical QID dulaglutide (Trulicity) 3 mg (0.5 mL) subcut QWEEK 28 days hydrocodone-acetaminophen 5-325 mg 1 tab PO BID 7 days insulin glargine (Lantus Solostar U-100 Insulin) 20 units (0.2 mL) subcut QPM 30 days lancets (FreeStyle Lancets) Three times a day testing lidocaine 4% (AsperFlex (lidocaine)) 1 patch topical DAILY PRN lisinopril 20 mg PO DAILY meclizine 25 mg PO DAILY 10 days methocarbamol 750 mg PO BID PRN 30 days naproxen 500 mg PO BID PRN pen needle, diabetic As directed Tobacco use date assessed: 11/10/23 Fall risk assessment: No Falls in past year Last assessed Fall Risk: 08/11/24 Dental Screening Dental Screen Date: 11/10/23 HPI 3mth f/u HPI Details Patient is a 68-year-old male here today for follow-up visit ? Patient has a past medical history significant for type 2 diabetes, hyperlipidemia, hypertension, lumbar stenosis. Concern--> has yet another synovial cyst over his right middle finger. Has made an appointment with his orthopedic hand surgeon for evaluation and possible treatment. Type 2 Diabetes: Unfortunately patient's type 2 diabetes suboptimally controlled. Today's A1c at 9.3 PLAN: Will increase his Lantus dose to 26 units for better glycemic control . Will work on diabetic diet .. Hypertension: Blood pressure today in office acceptable. Has been compliant with his lisinopril. Denies any headaches, chest discomfort or shortness of breath. .. Hyperlipidemia:? Most recent LDL 69, will continue his current statin dose..? Of note triglycerides at 220 and will work on lifestyle modifications to help reduce triglycerides. 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 Waldo Dominguez, Leonor Lima, Fredy Hammer and colleagues, with an educational jazzy from [employer]. Review of Systems Const Denies headache(s) Eyes Denies loss of vision ENT Denies vertigo, Denies dizziness, Denies headache(s) and Denies sore throat Card Denies chest pain, Denies leg edema and Denies lightheadedness Resp Denies cough, Denies hemoptysis and Denies wheezing GI Denies abdominal pain, Denies melena, Denies constipation, Denies diarrhea and Denies vomiting Denies dysuria, Denies urinary frequency and Denies urinary urgency Musc Denies arthralgias, Denies joint swelling, Denies numbness and Denies tingling Neuro Denies Abnormal speech present, Denies behavioral changes, Denies vertigo, Denies dizziness, Denies headache(s), Denies loss of vision, Denies memory loss, Denies numbness and Denies tingling Psych Denies anxiety, Denies behavioral changes, Denies depression, Denies memory loss and Denies panic attacks Jose/Lymph Denies easy bleeding and Denies easy bruising Aller/Immun Denies wheezing Physical exam (Primary Care) Vital Signs: Last Vital Signs Pulse 80 08/11/24 14:57 BP 132/86 08/11/24 14:57 Pulse Ox 95 08/11/24 14:57 Oxygen Delivery Method Room Air 08/11/24 14:57 BMI result Body Mass Index 26.4 Tobacco/Smoking Status: Tobacco use Status Tobacco use date assessed 11/10/23 08/11/24 14:58 Patient Tobacco Use Status Never used Tobacco 08/11/24 14:58 e-Cigarette/Vaping Use Never Used 08/11/24 14:58 Thrive Assessment: Date of Thrive Assessment Date Thrive assessed 11/10/23 08/11/24 14:58 Const General: healthy appearing, no acute distress, alert and awake Nutritional Appearance: well nourished Orientation/consciousness: oriented to person, oriented to place and oriented to time HENMT Ears: TM's normal bilaterally General nose exam: Normal nasal mucous membranes and turbinates present Eyes Conjunctivae: conjunctivae normal Sclerae: sclerae normal Pupils: Equal, round and reactive pupils present Neck Neck: Yes no lymphadenopathy and Yes no JVD Thyroid: Thyroid normal Carotids: no bruits Resp Effort & Inspection: normal respiratory effort and not tachypneic Auscultation: no crackles, no rales, no rhonchi and no wheezes Cardio Rate: regular rate Rhythm: regular rhythm Heart sounds: no murmurs and normal S1 and S2 GI Palpation (GI): Soft to palpation, nontender, no hepatomegaly and no splenomegaly Auscultation: normal bowel sounds Skin General skin exam: no rashes or lesions noted and dry skin Neuro General: oriented to person, oriented to place and oriented to time Cranial nerves: Yes Equal, round and reactive pupils present Speech: No Abnormal speech present Gait exam (Neuro): Normal gait present Motor exam (neuro): no tremor noted Extrem Right upper extremity: full ROM Left upper extremity: full ROM Right lower extremity: full ROM; no edema Left lower extremity: full ROM; no edema Psych Mental Status: mental status grossly normal Speech and movement: Normal speech and movement present Affect: normal affect Attitude: cooperative Thought process: Normal thought process present Results AMB Hemoglobin A1c AMB Hemoglobin A1c 9.3 % Last Edit by ALYSIA Brown on 08/11/24 15:09 Coding Level of Care Code Est Pt Level 4 (71186) Diagnoses Type 2 diabetes mellitus with hyperglycemia, with long-term current use of insulin E11.65; Z79.4 Diabetes mellitus usp insulin use: with joint terminal attack controller use Diabetes mellitus complication status: with hyperglycemia Hypertension, unspecified type I10 Hypertension type: unspecified Hyperlipidemia, unspecified hyperlipidemia type E78.5 Hyperlipidemia type: unspecified Assessment & Plan Assessment & Plan (1) T2DM (type 2 diabetes mellitus): Code(s): E11.9 - Type 2 diabetes mellitus without complications Category: Medical Qualifiers: Diabetes mellitus usp insulin use: with usp use Diabetes mellitus complication status: with hyperglycemia Qualified Code(s): E11.65 - Type 2 diabetes mellitus with hyperglycemia; Z79.4 - computer terminal operator (current) use of insulin Plan: His type 2 diabetes suboptimally controlled with A1c above 8. He does report some dietary indiscretion though for the most part eats a a pretty good diet. He will increase his Lantus to 26 units daily. He will continue working strictly on a diabetic diet. Will consider increasing his Trulicity to highest maximal dose of 4.5 mg weekly. Goal A1c is to be below 7.0 (2) HTN (hypertension): Code(s): I10 - Essential (primary) hypertension Category: Medical Qualifiers: Hypertension type: unspecified Qualified Code(s): I10 - Essential (primary) hypertension Plan: Patient's blood pressure acceptable today in office. Will continue him on his current dose of antihypertensive medication with goal blood pressure to be below 140/90 (3) HLD (hyperlipidemia): Code(s): E78.5 - Hyperlipidemia, unspecified Category: Medical Qualifiers: Hyperlipidemia type: unspecified Qualified Code(s): E78.5 - Hyperlipidemia, unspecified Plan: Patient's most recent lipid panel showing excellent control of his total cholesterol and LDL. Will continue him in his current dose of atorvastatin with goal LDL to remain below 100 Orders: Orders Lipid Panel Today E78.5 - Hyperlipidemia, unspecified Microalbumin, Random (w Creat) Today I10 - Essential (primary) hypertension Comprehensive [place]. Panel Fast Today E11.65 - Type 2 diabetes mellitus with hyperglycemia, Z79.4 - computer terminal operator (current) use of insulin Complete Blood Count no Diff Today E11.65 - Type 2 diabetes mellitus with hyperglycemia, Z79.4 - group home (current) use of insulin AMB Hemoglobin A1c Today E11.42 - Type 2 diabetes mellitus with diabetic polyneuropathy Medications: New blood-glucose meter,continuous (FreeStyle Emily 3 [place]) As directed 1 ea 0RF E11.65 - Type 2 diabetes mellitus with hyperglycemia, Z79.4 - computer terminal operator (current) use of insulin blood-glucose sensor (FreeStyle Emily 3 Sensor device) As directed 1 ea 6RF E11.65 - Type 2 diabetes mellitus with hyperglycemia, Z79.4 - computer terminal operator (current) use of insulin Changed From insulin glargine (Lantus Solostar U-100 Insulin) 20 units (0.2 mL) subcut QPM 30 days 6 mL 4RF E11.65 - Type 2 diabetes mellitus with hyperglycemia, Z79.4 - computer terminal operator (current) use of insulin To insulin glargine (Lantus Solostar U-100 Insulin) 26 units (0.26 mL) subcut QPM 30 days 7.8 mL 4RF E11.65 - Type 2 diabetes mellitus with hyperglycemia, Z79.4 - computer terminal operator (current) use of insulin
== END 2024-08-11 15:24 | disposition home or self-care (01) ==
PROVIDERS: PCP Physician Assistant; Visit Provider Physician Assistant
DX: E11.65 Type 2 diabetes mellitus with hyperglycemia (principal); Z79.4 Long term (current) use of insulin; I10 Essential (primary) hypertension; E78.5 Hyperlipidemia, unspecified; E11.42 Type 2 diabetes mellitus with diabetic polyneuropathy

== ENCOUNTER → 2024-08-11 14:43 | Outpatient (BNVA) | payer MEDICARE, MEDICAID, SELFPAY | PROVIDERS: PCP Physician Assistant; Visit Provider Physician Assistant | DX: E11.65 Type 2 diabetes mellitus with hyperglycemia (principal); Z79.4 Long term (current) use of insulin; I10 Essential (primary) hypertension; E78.5 Hyperlipidemia, unspecified | CPT/HCPCS: 83036; 99212 ==

== ENCOUNTER 2024-11-22 15:24 | Outpatient (AMB) | payer MEDICARE, MEDICAID, SELFPAY ==
--- OUTSIDE RECORDS SUMMARY | 2024-11-22 15:27 | XMS_ITS | Data Portability ---
Author Organization [facility] Chris Anaya AONE Marlette Address [address] [facility] [address] [place] [address] Care Team Providers Care Supervisor Fine Grading Name Role Phone JUAN DIEGO PEREZ Primary Care Provider JUAN DIEGO PEREZ Primary Care Provider Assessment Encounter Date Assessment Date Assessment LastModified by Organization Details LastModified Time 05/07/2023 05/07/2023 Pleasant 67-year-old male with mild right knee arthritis for which she opted for cortisone injection. After verbal consent was granted by the patient. Procedure was carried out the right knee. He tolerated the procedure well. He waited 15 minutes in the waiting room without any untoward effect. Follow-up visit 3 months time for repeat clinical exam. Should his symptoms not improve or worsen he should contact my office. The patient agrees with the above-noted plan. Patient is a diabetic for which she does adjust with insulin however was explained to him he may have a blood glucose pump if this becomes notably high he needs to reach out to his diabetic treating provider or go to the emergency department. Patient agrees. Indirect care and treatment in conjunction with Dr. Pearl Additional treatment plan discussed with the patient in detail included the following; - Provider focused nonsteroidal anti-inflammator y regimen (discussed were the pros, cons, benefits and risks as well as any black box warnings) in patients over 60 years old they should be very cautious in taking these medications due to potential decreased kidney function and or elevated blood pressure. - Analgesic pain medication for pain suppression (discussed were the pros, cons, benefits and risks as well as any black box warnings) - The use of topical pain relieving medication were discussed - The use of ice to decrease inflammation and pain - The use of assistive ambulatory devices for ambulation and fall prevention - Formal specific guided physical therapy program I reviewed my findings at length with the patient today. ? ? ?We discussed the nature and etiology of this problem along with current treatment options. We discussed the expected course and outcomes and what to expect. We also discussed risks and benefits. ? ? ? All of their questions were answered today, and there was exhibited understanding and comprehension of all that was discussed. Time Spent: 10 minutes were spent reviewing previous imaging and charting. ? ? ?10 minutes were spent obtaining patient history. ? ? ?5 minutes were spent on physical exam. ? ? ?5? ? ?minutes were spent explaining diagnosis and assessment. Today's documentation was made using voice recognition software. This note may contain grammatical errors secondary to the software. Not available 05/07/2023 11:49:16 08/13/2023 08/13/2023 67-year-old male recurrent right knee pain with mild degenerative changes. He failed cortisone injection. He is tried [id number] pain medications with minimal relief. He is not amenable to formal physical therapy at this time. I will send him for an MRI for further work-up. I will follow-up shortly thereafter. Should his symptoms worsen he should contact my office. He agrees with above-noted plan. Pending upon the findings I may refer him to either Dr. Trinidad or Dr. Pearl. Patient was seen and evaluated by Fernando Santana PA-C in indirect conjuction with Documenting Provider: Saleem Pearl MD . He/She agrees with history, physical examination, tests/diagnostic imaging, and treatment plan. Additional treatment plan discussed with the patient (only initiated if in boldface font) otherwise not applicable. Treatment may include the following; - Provider focused nonsteroidal anti-inflammator y regimen (discussed were the pros, cons, benefits and risks as well as any black box warnings) in patients over 60 years old they should be very cautious in taking these medications due to potential decreased kidney function and or elevated blood pressure. - Analgesic pain medication for pain suppression (discussed were the pros, cons, benefits and risks as well as any black box warnings) - The use of topical pain relieving medication were discussed - The use of ice to decrease inflammation and pain - The use of assistive ambulatory devices for ambulation and fall prevention - Formal specific guided physical therapy program I reviewed my findings at length with the patient today. ? ? ?We discussed the nature and etiology of this problem along with current treatment options. We discussed the expected course and outcomes and what to expect. We also discussed risks and benefits. ? ? ? All of their questions were answered today, and there was exhibited understanding and comprehension of all that was discussed. Time Spent: 10 minutes were spent reviewing previous imaging and charting. ? ? ?10 minutes were spent obtaining patient history. ? ? ?5 minutes were spent on physical exam. ? ? ?5? ? ?minutes were spent explaining diagnosis and assessment. Today's documentation was made using voice recognition software. This note may contain grammatical errors secondary to the software. Not available 08/13/2023 09:19:44 Plan of Treatment Reminders Order Date Submit Date Provider Last Modified By Organization Details Last Modified Time Details Appointments None recorded. Lab None recorded. Referral None recorded. Procedures None recorded. Surgeries None recorded. Imaging MRI, knee, w/o contrast - Mild OA on xray. instability symptoms and pain w/o change after cortison inj. 3 months ago R/O meniscus tear 2022 023 [facility], [address], [place], [address], 3 08:41:44 Medication Orders Kenalog 40 mg/mL suspension for injection 2022 023 [email or web address] [address] [facility] [place], [address], 09:13:44 lidocaine (PF) 10 mg/mL (1 %) injection solution 2022 023 [email or web address] [address] [facility], [address] [place], [address], 09:13:49 Patient TargetsNo targets recorded. Patient Instructions Encounter Date Encounter Id Patient Instructions Last Modified By Organization Details Last Modified Time 05/07/2023 [id number] You have been provided with a cortisone injection in order to reduce the pain and inflammation that you are experiencing. The injection consists of two medications. Cortisone (an anti-inflammatory that will take 48-72 hours to take effect) and Lidocaine (a numbing agent that will last 2-3 hours). Please note that not everyone will have a lasting response following the injection. PATIENT INSTRUCTIONS Once the Lidocaine wears off, you may have an increase in your pain. I recommend icing the affected area for 20 minutes 3-4 times per day. It is recommended that you refrain from any high level activities using the joint or limb that was injected for approximately 24-48 hours. Normal day-to-day activities are generally not a problem. POSSIBLE SIDE EFFECTS Individuals with dark complexions may experience some skin discoloration locally at the site of the injection. There is the possibility of an increase in discomfort within 48 hours following the injection. This is called a ? f lare? . To help minimize the chances of this, please see the post-injection instructions above. There is a less than 1% chance of an infection. If you notice any signs of infection (redness, warmth, drainage, fever greater than 100 degrees) please call our office or contact us through the portal [facility]. Not available 05/07/2023 11:49:58 Reason for Referral None Reported. Results Created Date Observation Date Name Description Value Unit Range Abnormal Flag Note LastModifiedBy Organization Detail LastModifiedTime 09/29/20 23 MRI, knee, w/o contr ast No observ ation record ed. [email or web address] [facility] [address] [place], [address], 09/29/2023 08:41:44 Result Notes None recorded. Problems Name Problem SNOMED Code Status Onset Date Resolution Date Notes Provider Name and Address Organization Details Recorded Time Arthritis of right knee 8975645094103 102 Active 2022 FERNANDO SANTANA PA-C [address], [facility] [place], [address], [place] [facility], [facility] 3 11:49:26 Instability of joint of right knee 1436034478728 102 Active 2022 FERNANDO SANTANA PA-C [address], [facility] [place], [address], [place] [facility], [facility] 3 09:15:36 Problem Notes None recorded. Procedures Surgical History Date Name Laterality Status Provider Name and Address Organization Details Recorded Time Knee Joint/Bursa Asp & Inj completed FERNANDO SANTANA PA-C [address] [facility],[address], [place], [address], [place] [facility], [facility] 05/07/2023 11:50:23 Knee Surgery completed Odalis Garcia [facility], P 05/07/2023 12:10:32 Imaging Results Imaging Date Name Status LastModified by Organiz ation Details LastModified Time 09/29/2023 MRI, knee, w/o contrast completed [email or web address] [facility] [address] [facility], [place], [address], 09/29/2023 08:41:44 Procedure Notes None recorded. Medical Equipment None Reported. Allergies No known drug allergies Medications Name Sig Start Date Stop Date Status Note LastModified by Organization Details LastModified Time cyclobenzap rine 10 mg tablet TAKE ONE TABLET BY MOUTH THREE TIMES A DAY NEEDED FOR MUSCLE SPASM 05/07 completed Not Available Not Available Not Available atorvastati n 80 mg tablet TAKE ONE TABLET BY MOUTH EVERY DAY active Not Available Not Available No t Available hydrocodone 5 mg-acetamin ophen 325 mg tablet TAKE ONE TABLET BY MOUTH EVERY 6 HOURS NEEDED FOR PAIN 05/07 completed Not Available Not Available Not Available meloxicam 15 mg tablet TAKE ONE TABLET BY MOUTH EVERY DAY 05/07 completed Not Available Not Available Not Available FreeStyle Lancets 28 gauge TEST THREE TIMES A DAY. active Not Available Not Available No t Available lisinopril 20 mg tablet TAKE ONE TABLET BY MOUTH EVERY DAY active Not Available Not Available No t Available prednisone 20 mg tablet TAKE TWO TABLETS BY MOUTH EVERY DAY FOR 5 DAYS 05/07 completed Not Available Not Available Not Available Kenalog 40 mg/mL suspension for injection Take 1 mL by injection route. 08/13 completed Not Available Not Available Not Available hydromorpho ne 2 mg tablet TAKE 1-2 TABLETS BY MOUTH EVERY 4-6 HOURS NEEDED FOR MODERATE PAIN 08/13 completed Not Available Not Available Not Available gabapentin 300 mg capsule TAKE ONE CAPSULE BY MOUTH AT BEDTIME FOR PAIN. 05/07 completed Not Available Not Available Not Available omeprazole 20 mg capsule,del ayed release TAKE ONE CAPSULE BY MOUTH EVERY DAY 08/13 completed Not Available Not Available Not Available morphine 15 mg immediate release tablet TAKE 1 TABLET BY MOUTH EVERY 6 HOURS FOR 3 DAYS NEEDED FOR PAIN 05/07 completed Not Available Not Available Not Available ondansetron 4 mg disintegrat ing tablet DISSOLVE ONE TABLET BY MOUTH EVERY 8 HOURS NEEDED FOR NAUSEA AND VOMITING. 05/07 completed Not Available Not Available Not Available diazepam 5 mg tablet TAKE ONE TABLET BY MOUTH THREE TIMES A DAY NEEDED FOR MUSCLE SPASMS. 05/07 completed Not Available Not Available Not Available lidocaine (PF) 10 mg/mL (1 %) injection solution Take 2 mL by injection route. 08/13 completed Not Available Not Available Not Available FreeStyle Lite Strips USE TO TEST BLOOD SUGAR AT LEAST TWICE PER DAY active Not Available Not Available No t Available Lantus Solostar U-100 Insulin 100 unit/mL (3 mL) subcutaneou s pen INJECT 14 UNITS SUBCUTANE OUSLY EVERY EVENING. active Not Available Not Available No t Available diclofenac 1 % topical gel APPLY 2 GRAMS TOPICALLY FOUR TIMES A DAY NEEDED FOR PAIN; APPLY TO SINGLE ELBOW, WRIST OR HAND - FOR HAND INCLUDE PALM/FING ERS/BACK OF RENTERIA 05/07 completed Not Available Not Available Not Available Vitamin D3 50 mcg (2,000 unit) capsule TAKE 1 CAPSULE BY MOUTH AT BEDTIME active Not Available Not Available No t Available BD Joanne 2nd Gen Pen Needle 32 gauge x 5/32 USE DIRECTED ONCE PER DAY WITH LANTUS active Not Available Not Available No t Available Trulicity 3 mg/0.5 mL subcutaneou s pen injector INJECT 0.5 ML UNDER THE SKIN EVERY 28 DAYS active Not Available Not Available No t Available Vitals Date Recorded Body height Body mass index (BMI) Body weight Provider Name and Address Organization Details Last Updated DateTime 05/07/2023 177.8 cm 27.3 kg/m2 [address] [facility] 05/07/2023 12:10:58 Date Recorded Body height Body mass index (BMI) Body weight Provider Name and Address Organization Details Last Updated DateTime 08/13/2023 177.8 cm 27.3 kg/m2 [address]7633.[address] [facility], 08/13/2023 09:14:07 Social History Question Answer Notes LastModified by Organizat ion Details LastModified Time Tobacco Smoking Status Never Smoker Odalis rodas, [place] [facility], [facility] 05/07/2023 12:09:48 What Is Your Level Of Alcohol Consumption? None Information not available 05/07/2023 Do You Use Any Illicit Or Recreational Drugs? No Information not available 05/07/2023 Do You Or Have You Ever Used Any Other Forms Of Tobacco Or Nicotine? No Information not available 05/07/2023 Sex: Unknown Functional Status None recorded. Mental Status None recorded. Family History Relationship Description Onset Age of this Age Resolved Age Notes LastModified by Organization Details LastModified Time Mother Arthritis Not available 05/07/2023 12:09:23 Mother Diabetes mellitus Not available 2022 12:09:39 Brother Arthritis Not availabl e 05/07/2023 12:09:23 Brother Diabetes mellitus Not available 2022 12:09:39 Medical History Condition Response Diabetes Y Asthma Y Past Encounters Encounter ID Performer Location Encounter Start Date Encounter Closed Date Diagnosis/Indication Diagnosis SNOMED-CT Code Diagnosis ICD10 Code Diagnosis Note [id number] MD OZZIE Cavanaugh [facility] [address] [address] 05/07/2023 10:29:15 05/07/2023 11:23:45 Arthritis of right knee 6109811457 542136 M13.861 [id number] MD OZZIE Cavanaugh [facility] [address] [facility] [address] [place] [address] 08/13/2023 08:57:12 08/13/2023 09:17:48 Arthritis of right knee 6360417558 410335 M13.861 Instabilit y of joint of right knee 9639374955 445524 M25.361 Health Concerns Section Related Observation LastModified by Organization Detai ls LastModified Time None Recorded Concern Status LastModified by Organization Details LastModified Time None Recorded Advance Directives Directive None Recorded Payers Encounter Date Sequence Insurance Name Policy Number Policy Capellan Covered Member ID Capellan Member ID Guarantor Name 05/07/2023 1 [facility] - DOS ON OR AFTER 2023 - ONE CARE (MEDICARE REPLACEMENT/ADV ANTAGE - HMO) Robin Garza [id number] Robin Garza 08/13/2023 1 [facility] - DOS ON OR AFTER 2023 - ONE CARE (MEDICARE REPLACEMENT/ADV ANTAGE - HMO) Robin Garza [id number] oRbin Garza Notes Date Note Type Note Provider Name and Address Organization Details Recorded Time 05/07/2023 text/html Very pleasant 67-year-old male here for evaluation of chronic right knee pain managed by his primary care with Tylenol/therapy. Patient with history of left total knee arthroplasty by Dr. Kwadwo Zuleta at [facility] in 2017. Patient describes his right knee pain as medial and lateral in nature certain bending motions and weightbearing make it worse. He denies any instability symptoms. He denies any conservative treatments such as cortisone injections. He also denies any trauma. He is here for evaluation and treatment. He did have x-rays at an outside facility date of study 03/27/2023 3 views which reveal mild degenerative change to all 3 compartments without acute bony abnormality. Report was not present. FERNANDO SANTANA PA-C [address] [facility],[address] [address], [place], [address], [place] [facility] 05/07/2023 11:50:39 08/13/2023 text/html Pleasant 67-year-old male initially seen on 05/07/2023 with right knee pain for which she had a cortisone injection. This gave him little to no relief. Complain mechanical symptoms locking clicking catching of his right knee especially going up and down stairs. He states that it feels like it is going to give out on him. Here for follow-up evaluation treatment plan. FERNANDO SANTANA PA-C [address] [facility],[place] [address], [place], [address], [place] [facility] 08/13/2023 09:20:09
--- OUTSIDE RECORDS SUMMARY | 2024-11-22 15:27 | XMS_ITS | Clinical Summary ---
Author Organization [employer] Address [address] [place] [address] [address] [place] [address] Care Team Providers Care Parent Coach Name Role Phone Unavailable Primary Care Provider Unavailabl e Immunizations Name Administration Dates Next Due Influenza High-dose Quadriva lent Preservative Free 07/28/2022,08/03/2021 Influenza Injectable Quadriv alant Preservative Free IIV4 MDCK 08/02/2020 Influenza injectable quadriv alent IIV4 with preservative 08/15/2019,09/23/2016 Influenza injectable quadriv alent preservative free 07/20/2023 Influenza, seasonal, injecta ble, preservative free 07/06/2024,07/23/2018,07/22/2017 Pfizer Covid-19 Vaccine 12+ 07/06/2024, 4 Pneumococcal Polysaccharide PPSV23 09/23/2016 Tdap 03/24/2017 Social History Tobacco Use Types Packs/Day Years Used Date Smoking Tobacco: Never Assessed Sex and Gender Information Value Date Recorded Sex Assigned at Male 08/18/2022 10:37 AM EDT Legal Sex Male 10:37 AM EDT Gender Identity Male 08/18/2022 10:37 AM EDT Sexual Orientation Lesbian or Hicks 08/18/2022 10 :37 AM EDT Plan of Treatment Health Maintenance Due Date Last Done Comments CT Colonography 1955 Colonoscopy 1955 Colorectal Cancer Screening 1955 Depression Screening 1955 FIT DNA/Cologuard 1955 FIT 1955 FOBT 1955 Lipid Panel 1955 SDOH Screening 1955 Sigmoidoscopy 1955 Alcohol/Substance Use Screening 1967 Tobacco Screening 1967 Hepatitis C Screening 1973 Zoster Vaccines (1 of 2) 2005 Pneumococcal Vaccine: 50+ Years (2 of 2 - PCV) 09/23/2017 09/23/2016 DTaP/Tdap/Td Vaccines (2 - Td or Tdap) 03/24/2027 03/24/2017 RSV Patients and Patients Aged 60 years or older (1 - 1-dose 75+ series) 2030 COVID-19 Vaccine Completed 07/06/2024, , 09/06/2022, Additional history exists Influenza Vaccine Completed 07/06/2024, , 07/28/2022, Additional history exists HIB Vaccines Aged Out No longer eligi ble based on patient's age to complete this topic HPV Vaccines Aged Out No longer eligi ble based on patient's age to complete this topic Hepatitis A Vaccines Aged Out No long er eligible based on patient's age to complete this topic Hepatitis B Vaccines Aged Out No long er eligible based on patient's age to complete this topic IPV Vaccines Aged Out No longer eligi ble based on patient's age to complete this topic Meningococcal Vaccine Aged Out No [place]en [place] eligible based on patient's age to complete this topic RSV under 20 months Aged Out No longe r eligible based on patient's age to complete this topic Rotavirus Vaccines Aged Out No longer eligible based on patient's age to complete this topic Insurance ONE CARE
--- OUTSIDE RECORDS SUMMARY | 2024-11-22 15:27 | XMS_ITS | Clinical Summary ---
Author Organization [facility] Address [address] [place] [address] Phone Care Team Providers Care Third Rigger Name Role Phone Jean-Claude Anaya Primary Care Provider [phone] Allergies Active Allergy Reactions Criticality Noted Date Comments Oxycodone-Acetaminophen Nausea And Vomiting High 05/2022 Medications Medication Sig Dispensed Refills Start Date End Date Status atorvastatin (LIPITOR) 80 mg tablet Take 1 tablet (80 mg total) by mouth 1 (one) time each day. Active cholecalciferol (VITAMIN D-3) 1,250 mcg (50,000 unit) capsule Take by mouth. Active dulaglutide (Trulicity) 4.5 mg/0.5 mL pen injector injection Inject under the skin. Active insulin glargine (LANTUS) 100 unit/mL injection Inject under the skin at bedtime. Active lisinopriL (PRINIVIL,ZESTRIL) 10 mg tablet Take 1 tablet (10 mg total) by mouth 1 (one) time each day. 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 Garza is here for his second postop visit since a right L4-5 MIS TLIF on 01/11/2024 and says that he feels great. He denies back or leg pain, is not using crutches and is very active walking around the senior center or up and down stairs to visit his mother without difficulty. On exam, his incisions are well-healed, seated SLR is negative, strength 5/5, sensation light touch intact, gait is steady with no assistive device. Review of the AP/lateral and flexion/extension x-rays from today show all hardware to be in good position with maintenance of disc height around the graft. There is no instability. Mr. Garza has recovered quite well from surgery and is very pleased with his pain relief and activity level. There are no restrictions on his activity and we will plan on seeing him back at 1 year from surgery with a CT scan to assess the fusion. 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 02/17/2022 Ganglion cyst of finger 12/29/2021 Encounters Date Type Department Care Team Description 11/18/2024 Telephone Neurosurgery [facility] [address] [place] [address] Penny Ingramkatanjana [place] from Last 3 Months Immunizations Name Administration Dates Next Due Influenza Quadravalent, MDCK , 0.5ml, preservative free (Flucelvax) 6mo and older 08/02/2020 Influenza trivalent, 0.5mL, preservative free (Fluarix; FluLaval; Fluzone) ages 6mo and older (Afluria) 3 years and older 08/03/2021,08/15/2019,07/23/2018,07/22,09/23/2016 Pneumococcal polysaccharide 23 valent (Pneumovax 23) 2yo and older 09/23/2016 Tdap Tetanus diptheria acell ular pertussis (Boostrix; Adacel) 7yo and older 03/24/2017 Surgical History Surgery Date Site/Laterality Comments HAND SURGERY N/A PROCEDURE: HISTORICAL HAND SURGERY KNEE SURGERY Left PROCEDURE: HISTORICAL KNEE SURGERY; COMMENT: Arthroscopy of left knee FOOT SURGERY N/A PROCEDURE: HISTORICAL FOOT SURGERY; COMMENT: Bunionectomy COLONOSCOPY N/A PROCEDURE: HISTORICAL COLONOSCOPY BACK SURGERY 10/31/2022 PROCEDURE: HISTORICAL BACK SURGERY; COMMENT: L4-5 decompression, Dr. Caicedo BACK SURGERY 01/11/2024 PROCEDURE: HISTORICAL BACK SURGERY; COMMENT: Right L4-5 TLIF, Dr. Caicedo Medical History Medical History Date Comments Vitamin D deficiency DX:Vitamin D deficiency H/O chronic hepatitis DX:H/O chr onic hepatitis HTN (hypertension) DX:HTN (hyper tension) T2DM (type 2 diabetes mellit us) (CMS/HCC) DX:T2DM (type 2 diabetes eric litus) (HCC) Family History Medical History Relation Name Comments Other cancer Father Diabetes Mother Relation Name Status Comments Father Mother Social History Tobacco Use Types Packs/Day Years Used Date Smoking Tobacco: Never Smokeless Tobacco: Never Alcohol Use Standard Drinks/Week Comments Never 0 (1 standard drink = 0.6 oz pur e alcohol) Sex and Gender Information Value Date Recorded Sex Assigned at Not on file Gender Identity Not on file Sexual Orientation Not on file Obstetrics History Last Filed Vital Signs Vital Sign Reading Time Taken Comments Blood Pressure 112/80 04/07/2022 2:38 PM EDT Pulse 89 04/07/2022 2:38 PM EDT Temperature - - Respiratory Rate - - Oxygen Saturation - - Inhaled Oxygen Concentration - - Weight 85.3 kg (188 lb 0.1 oz) 01/21/2024 9:40 A M EDT Height 177.8 cm (5' 10 ) 01/21/2024 9:40 AM EDT Body Mass Index 26.98 01/21/2024 9:40 AM EDT Plan of Treatment Upcoming Encounters Date Type Department Care Team (Late st Contact Info) Description 01/10/2025 1:00 PM EDT Appointment [facility] CT Scan [address] [place] [address] 01/10/2025 1:30 PM EDT Office Visit Neurosurgery [facility] [address] [place] [phone] Cristal Caicedo MD [address] [place] [address] Health Maintenance Due Date Last Done Comments Zoster Vaccines (1 of 2) 2005 Pneumococcal Vaccine: 65+ Years (2 of 2 - PCV) 2020 09/23/2016 Cholesterol Screening (Lipid Panel) 09/21/2022 Colorectal Cancer Screening: Colonoscopy 09/21/2022 Depression Screening 09/21/2022 Falls Risk Assessment 09/21/2022 Hepatitis C Screening 09/21/2022 Medicare Annual Wellness Visit 09/21/2022 Social Influencers of Health Screening 09/21/2022 COVID-19 Vaccine ( season) 2024 08/16/2021, 01/17/2021, 12/24/2020 Influenza Vaccine (#1) 2024 , 08/02/2020, 08/15/2019, Additional history exists DTaP,Tdap,and Td Vaccines (2 - Td or Tdap) 03/24/2027 03/24/2017 RSV Immunization Patients 60+ Years Old (1 - 1-dose 75+ series) 2030 HIB Vaccines Aged Out No longer eligi [...] on patient's age to complete this topic MMR Vaccines Aged Out No longer eligi ble based on patient's age to complete this topic Meningococcal ACWY Vaccine Aged Out N o longer eligible based on patient's age to complete this topic RSV Immunization Patients Under 20 months Aged Out No longer eligible based on patient's age to complete this topic Varicella Vaccines Aged Out No longer eligible based on patient's age to complete this topic Care Teams Third Rigger Relationship Specialty Start Date End Date Jean-Claude Anaya PA [address] [place] [address] PCP - General Internal Medicine 10/16/21
--- OUTSIDE RECORDS SUMMARY | 2024-11-22 15:27 | XMS_ITS | Encounter Summary ---
Author Organization [facility] Address [address] [place] [address] Care Team Providers Care Pressing Machine Tender Name Role Phone Jean-Claude Aanya Primary Care Provider [phone] Encounter Details Date Type Department Care Team (Late st Contact Info) Description 11/18/[address] [address] Nicky Ingram [place] Social History Tobacco Use Types Packs/Day Years Used Date Smoking Tobacco: Never Smokeless Tobacco: Never Alcohol Use Standard Drinks/Week Comments Never 0 (1 standard drink = 0.6 oz pur e alcohol) Sex and Gender Information Value Date Recorded Sex Assigned at Not on file Gender Identity Not on file Sexual Orientation Not on file documented as of this encounter Progress Notes * Nicky Ingram [place] - 11/18/2024 11:21 AM EST Left message for patient to call re: CT and follow up appt. CT at [facility] 01/10/25 at 1:00, appt with Dr. Caicedo 01/10/25 at 1:30. documented in this encounter Plan of Treatment Upcoming Encounters Date Type Department Care Team (Late st Contact Info) Description 01/10/2025 1:00 PM EDT Appointment [facility] CT Scan [address] [place] [phone] 01/10/2025 1:30 PM EDT Office Visit [address] [place] [phone] Cristal Caicedo MD [address] [place] [address] documented as of this encounter Visit Diagnoses Not on filedocumented in this encounter Care Teams Pressing Machine Tender Relationship Specialty Start Date End Date Jean-Claude Anaya PA [address] [place] [address] [address] [place] [address] PCP - General Internal Medicine 10/16/21 documented as of this encounter
--- NOTE | 2024-11-22 16:06 | MHC.PC.OV ---
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 Accompanied by: Self / Same As Patient Allergies shrimp [SHRIMP] Allergy (Severe, Verified 11/22/24 16:26) SWELLING/SEVERE VOMITING acetaminophen [From Percocet] Adverse Reaction (Verified 11/22/24 16:26) Nausea and Vomiting oxycodone [From Percocet] Adverse Reaction (Verified 11/22/24 16:26) Nausea and Vomiting Fresh fruit and nuts Allergy (Unknown, Uncoded 11/22/24 16:26) hives Medication List - Last Reconciled 11/22/24 by Jean-Claude Anaya PA-C albuterol sulfate 90 mcg/actuation 1 inh inhalation QID PRN 30 days atorvastatin 80 mg PO DAILY 30 days blood sugar diagnostic (FreeStyle Lite Strips) As directed test blood sugar at least 2 times a day blood-glucose meter,continuous ([employer]Style Emily 3 Appling) As directed blood-glucose sensor (FreeStyle Emily 3 Sensor device) As directed cholecalciferol (vitamin D3) 50 mcg PO BEDTIME diclofenac sodium 1% (Arthritis Pain (diclofenac)) 4 grams topical QID dulaglutide (Trulicity) 3 mg (0.5 mL) subcut QWEEK 28 days hydrocodone-acetaminophen 5-325 mg 1 tab PO BID 7 days insulin glargine (Lantus Solostar U-100 Insulin) 26 units (0.26 mL) subcut QPM 30 days lancets (FreeStyle Lancets) Three times a day testing lidocaine 4% (AsperFlex (lidocaine)) 1 patch topical DAILY PRN lisinopril 20 mg PO DAILY meclizine 25 mg PO DAILY 10 days methocarbamol 750 mg PO BID PRN 30 days naproxen 500 mg PO BID PRN pen needle, diabetic As directed Tobacco use date assessed: 11/22/24 Fall risk assessment: No Falls in past year Last assessed Fall Risk: 11/22/24 Dental Screening Dental Screen Date: 11/22/24 Did you have a dental visit in the last 12 months?: Yes Did you have a dental problem in the last 6 months where you did not have access to dental care?: No Was dental information given to patient?: Patient has dentist HPI F/U HPI Details Patient is a 68-year-old male here today for follow-up visit ? Patient has a past medical history significant for type 2 diabetes, hyperlipidemia, hypertension, lumbar stenosis. Type 2 Diabetes: Unfortunately patient's type 2 diabetes suboptimally controlled. Today's A1c at 10.8 from 9.3. He does report reducing his Lantus to 16 units due to a miscommunication. Was supposed to increase his Lantus to 26 units for better glycemic control. He does report having a hypoglycemic event recently where his blood sugar was above 300 after eating cake .. Hypertension: Blood pressure today in office acceptable. Has been compliant with his lisinopril. Denies any headaches, chest discomfort or shortness of breath. .. Hyperlipidemia:? Most recent LDL 69, will continue his current statin dose..? Of note triglycerides at 220 and will work on lifestyle modifications to help reduce triglycerides. 300 after Laboratory Tests 05/11/24 05/17/24 08/11/24 14:46 08:50 15:09 RBC 4.83 Creatinine 0.90 Fasting Glucose 181 H Hgb A1c (Clinic) 8.7 H 9.3 H Cholesterol 153 LDL Cholesterol, C alc 96 11/22/24 16:05 RBC Creatinine Fasting Glucose Hgb A1c (Clinic) 10.6 H Cholesterol LDL Cholesterol, C alc PFSH Medical History Vitamin D deficiency H/O chronic hepatitis HLD (hyperlipidemia) HTN (hypertension) T2DM (type 2 diabetes mellitus) Type 2 diabetes mellitus Surgical History History of hand surgery History of bunionectomy Hx of colonoscopy Hx of arthroscopy of left knee Family History Father Cancer Mother Diabetes mellitus Social History Household Members: None Housing: Apartment Alcohol intake: never Patient Tobacco Use Status: Never used Tobacco e-Cigarette/Vaping Use: Never Used Second Hand Smoke Exposure: No service: No Current occupational status: disabled 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 1. Little interest or pleasure in doing things: not at all 2. Feeling down, depressed, or hopeless: not at all 3. Trouble falling or staying asleep, or sleeping too much: not at all 4. Feeling tired or having little energy: not at all 5. Poor appetite or overeating: not at all 6. Feeling bad about yourself - or that you are a failure or have let yourself or your family down: not at all 7. Trouble concentrating on things, such as reading the newspaper or watching television: not at all 8. Moving or speaking so slowly that other people could have noticed. Or the opposite - being so fidgety or restless that you have been moving around a lot more than usual: not at all 9. Thoughts that you would be better off or of hurting yourself in some way: not at all Total score: 0 Depression Screening Interpretation: Negative Depression Screening Done: Yes 89914 - PHQ-9 Billing: Yes Source: Developed by Drs. Waldo Dominguez, Leonor Lima, Fredy Hammer and colleagues, with an educational jazzy from [employer]. Thrive Questionnaire Date Thrive assessed: 11/22/24 I am a: Patient What is your living situation today?: I have a steady place to live Within the past 12 months, did the food you bought not last and you didn't have the money to get more?: Never true Within the past 12 months, did you worry whether your food would run out before you got money to buy more?: Never true Do you have trouble paying for medicines?: No Do you have trouble getting transportation to medical appointments?: No Do you have trouble paying your heating and electricity bill?: No Do you have trouble taking care of your child, family member or friend?: No Do you have trouble with day-to-day activities such as bathing, preparing meals, shopping, managing finances, etc.?: No Are you currently unemployed and looking for a job?: No Are you interested in more education?: No Please select the resources that you would like help with: None Currently or been in a relationship where the following occur: No concerns reported THRIVE Score: 0 AUDIT C Alcohol Use Questionnaire (AUDIT-C) 1. How often do you have a drink containing alcohol?: Never 3. How often do you have six or more drinks on one occasion?: Never Total Score: 0 CHARO-7 AMB Questionnaire CHARO-7 Date CHARO - 7 assessed: 11/22/24 Feeling nervous, anxious, or on edge: 0 = Not at all Not being able to stop or control worryin = Not at all Worrying too much about different things: 0 = Not at all Trouble relaxin = Not at all Being so restless that it is hard to sit still: 0 = Not at all Becoming easily annoyed or irritable: 0 = Not at all Feeling afraid as if something awful might happen: 0 = Not at all Total CHARO-7 score (0-4 normal; 5-9 mild; 10-14 moderate; 15-21 severe): 0 Source: Developed by Drs. Waldo Dominguez, Leonor Lima, Fredy Hammer and colleagues, with an educational jazzy from [employer]. CHARO-7 Assessment Billing CHARO-7 Assessment Tool: CHARO-7 Assessment 86396 Review of Systems Const Denies headache(s) Eyes Denies loss of vision ENT Denies vertigo, Denies dizziness, Denies headache(s) and Denies sore throat Card Denies chest pain, Denies leg edema and Denies lightheadedness Resp Denies cough, Denies hemoptysis and Denies wheezing GI Denies abdominal pain, Denies melena, Denies constipation, Denies diarrhea and Denies vomiting Denies dysuria, Denies urinary frequency and Denies urinary urgency Musc Denies arthralgias, Denies joint swelling, Denies numbness and Denies tingling Neuro Denies Abnormal speech present, Denies behavioral changes, Denies vertigo, Denies dizziness, Denies headache(s), Denies loss of vision, Denies memory loss, Denies numbness and Denies tingling Psych Denies anxiety, Denies behavioral changes, Denies depression, Denies memory loss and Denies panic attacks Jose/Lymph Denies easy bleeding and Denies easy bruising Aller/Immun Denies wheezing Physical exam (Primary Care) Vital Signs: Last Vital Signs Temp 96.9 F 11/22/24 16:07 Pulse 74 11/22/24 16:07 BP 128/84 11/22/24 16:07 Pulse Ox 96 11/22/24 16:07 Oxygen Delivery Method Room Air 11/22/24 16:07 BMI result Body Mass Index 26.2 Tobacco/Smoking Status: Tobacco use Status Tobacco use date assessed 11/22/24 11/22/24 16:12 Patient Tobacco Use Status Never used Tobacco 11/22/24 16:11 e-Cigarette/Vaping Use Never Used 11/22/24 16:11 PHQ-9: PHQ-9 Score PHQ-9: Total score 0 11/22/24 16:23 Depression Screening Interpretation: Negative Thrive Assessment: Date of Thrive Assessment Date Thrive assessed 11/22/24 11/22/24 16:11 Currently or been in a relationship where the following occur: No concerns reported Const General: healthy appearing, no acute distress, alert and awake Nutritional Appearance: well nourished Orientation/consciousness: oriented to person, oriented to place and oriented to time HENMT Ears: TM's normal bilaterally General nose exam: Normal nasal mucous membranes and turbinates present Eyes Conjunctivae: conjunctivae normal Sclerae: sclerae normal Pupils: Equal, round and reactive pupils present Neck Neck: Yes no lymphadenopathy and Yes no JVD Thyroid: Thyroid normal Carotids: no bruits Resp Effort & Inspection: normal respiratory effort and not tachypneic Auscultation: no crackles, no rales, no rhonchi and no wheezes Cardio Rate: regular rate Rhythm: regular rhythm Heart sounds: no murmurs and normal S1 and S2 GI Palpation (GI): Soft to palpation, nontender, no hepatomegaly and no splenomegaly Auscultation: normal bowel sounds Skin General skin exam: no rashes or lesions noted and dry skin Neuro General: oriented to person, oriented to place and oriented to time Cranial nerves: Yes Equal, round and reactive pupils present Speech: No Abnormal speech present Gait exam (Neuro): Normal gait present Motor exam (neuro): no tremor noted Extrem Right upper extremity: full ROM Left upper extremity: full ROM Right lower extremity: full ROM; no edema Left lower extremity: full ROM; no edema Psych Mental Status: mental status grossly normal Speech and movement: Normal speech and movement present Affect: normal affect Attitude: cooperative Thought process: Normal thought process present Results AMB Hemoglobin A1c AMB Hemoglobin A1c 10.6 % Last Edit by ALYSIA Brown on 11/22/24 16:23 Results Reviewed Results Reviewed: Laboratory Last Values Hgb A1c (Clinic) 10.6 % (4.0-6.0) H 11/22/24 16:05 Coding Level of Care Code Est Pt Level 4 (04991) Diagnoses Type 2 diabetes mellitus with hyperglycemia, with long-term current use of insulin E11.65; Z79.4 Diabetes mellitus shelter insulin use: with shelter use Diabetes mellitus complication status: with hyperglycemia Hypertension, unspecified type I10 Hypertension type: unspecified Hyperlipidemia, unspecified hyperlipidemia type E78.5 Hyperlipidemia type: unspecified Additional Codes CHARO-7 Assessment Billing - CHARO-7 Assessment Tool: CHARO-7 Assessment 65685 ([id number]) PHQ-9 - 87642 - PHQ-9 Billing: Yes ([id number]) Assessment & Plan Assessment & Plan (1) T2DM (type 2 diabetes mellitus): Code(s): E11.9 - Type 2 diabetes mellitus without complications Category: Medical Qualifiers: 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 Unfortunately there was some miscommunication and he reduced his Lantus to 16 units. ADVISED TO INCREASE HIS LANTUS TO 20 UNITS AND INCREASE BY 2 UNITS WEEKLY UNTIL HE RATES 26 UNITS. Goal A1c is to be below 7.0 (2) HTN (hypertension): Code(s): I10 - Essential (primary) hypertension Category: Medical Qualifiers: Hypertension type: unspecified Qualified Code(s): I10 - Essential (primary) hypertension Plan: Patient's blood pressure acceptable today in office. Will continue him on his current dose of antihypertensive medication with goal blood pressure to be below 140/90 (3) HLD (hyperlipidemia): Code(s): E78.5 - Hyperlipidemia, unspecified Category: Medical Qualifiers: Hyperlipidemia type: unspecified Qualified Code(s): E78.5 - Hyperlipidemia, unspecified Plan: Patient's most recent lipid panel showing excellent control of his total cholesterol and LDL. 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) use of insulin Medications: Refilled dulaglutide (Trulicity) 3 mg (0.5 mL) subcut QWEEK 28 days 2 mL 6RF E11.65 - Type 2 diabetes mellitus with hyperglycemia, Z79.4 - shift engineer (current) use of insulin blood-glucose meter,continuous (FreeStyle Emily 3 Appling) As directed 1 ea 0RF E11.65 - Type 2 diabetes mellitus with hyperglycemia, Z79.4 - shift engineer (current) use of insulin blood-glucose sensor (FreeStyle Emily 3 Sensor device) As directed 1 ea 6RF E11.65 - Type 2 diabetes mellitus with hyperglycemia, Z79.4 - shift engineer (current) use of insulin Patient Instructions: Goal: A1c to be below 7.0, LDL to be below 100 Barriers: Adherence to physical activity and healthy eating habits
[2024-11-22 16:07] VITALS: BP 128/84; PULSE 74; TEMP 36.1; O2SAT 96; BMI 26.2
== END 2024-11-22 16:45 | disposition home or self-care (01) ==
PROVIDERS: PCP Physician Assistant; Visit Provider Physician Assistant
DX: E11.65 Type 2 diabetes mellitus with hyperglycemia (principal); Z79.4 Long term (current) use of insulin; I10 Essential (primary) hypertension; E78.5 Hyperlipidemia, unspecified; E11.42 Type 2 diabetes mellitus with diabetic polyneuropathy

== ENCOUNTER → 2024-11-22 15:24 | Outpatient (BNVA) | payer MEDICARE, MEDICAID, SELFPAY | PROVIDERS: PCP Physician Assistant; Visit Provider Physician Assistant | DX: E11.65 Type 2 diabetes mellitus with hyperglycemia (principal); E78.5 Hyperlipidemia, unspecified; I10 Essential (primary) hypertension; Z79.4 Long term (current) use of insulin | CPT/HCPCS: 83036; 96127; 99212 ==

== ENCOUNTER 2024-12-22 13:53 | Outpatient (AMB) | payer MEDICARE, MEDICAID, SELFPAY ==
--- NOTE | 2024-12-22 13:54 | MHC.PC.OV ---
Vital Signs 12/22/24 13:56 Height 5 ft 10 in Weight 181 lb BMI 26.0 BP 110/84 Blood Pressure Location Lt brachial Position Sitting Pulse 85 Pulse Source Pulse Oximeter Pulse Oximetry (%) 96 Oxygen Delivery Method Room Air Intake Visit Reasons: Follow-up type 2 diabetes Intake Note: Patient here for a follow up DM Coke Inspector Required: No Accompanied by: Self / Same As Patient Allergies shrimp [SHRIMP] Allergy (Severe, Verified 12/22/24 14:07) SWELLING/SEVERE VOMITING acetaminophen [From Percocet] Adverse Reaction (Verified 12/22/24 14:07) Nausea and Vomiting oxycodone [From Percocet] Adverse Reaction (Verified 12/22/24 14:07) Nausea and Vomiting Fresh fruit and nuts Allergy (Unknown, Uncoded 12/22/24 14:07) hives Medication List - Last Reconciled 12/22/24 by Jean-Claude Anaya PA-C albuterol sulfate 90 mcg/actuation 1 inh inhalation QID PRN 30 days atorvastatin 80 mg PO DAILY 30 days blood sugar diagnostic (FreeStyle Lite Strips) As directed test blood sugar at least 2 times a day blood-glucose meter,continuous (TouchbaseStyle Emily 3 [place]) As directed blood-glucose sensor (FreeStyle Emily 3 Sensor device) As directed cholecalciferol (vitamin D3) 50 mcg PO BEDTIME diclofenac sodium 1% (Arthritis Pain (diclofenac)) 4 grams topical QID dulaglutide (Trulicity) 3 mg (0.5 mL) subcut QWEEK 28 days hydrocodone-acetaminophen 5-325 mg 1 tab PO BID 7 days insulin glargine (Lantus Solostar U-100 Insulin) 26 units (0.26 mL) subcut QPM 30 days lancets (FreeStyle Lancets) Three times a day testing lidocaine 4% (AsperFlex (lidocaine)) 1 patch topical DAILY PRN lisinopril 20 mg PO DAILY meclizine 25 mg PO DAILY 10 days methocarbamol 750 mg PO BID PRN 30 days naproxen 500 mg PO BID PRN pen needle, diabetic As directed Tobacco use date assessed: 12/22/24 Fall risk assessment: No Falls in past year Last assessed Fall Risk: 12/22/24 Dental Screening Dental Screen Date: 11/22/24 HPI Follow-up type 2 diabetes HPI Details Patient is a 69-year-old male here today for follow-up visit ? Patient has a past medical history significant for type 2 diabetes, hyperlipidemia, hypertension, lumbar stenosis. Type 2 Diabetes: Unfortunately patient's type 2 diabetes suboptimally controlled. Most recent A1c at 10.8 from 9.3. He does report reducing his Lantus to 16 units due to a miscommunication. Was supposed to increase his Lantus to 26 units for better glycemic control. He does report having a hypoglycemic event recently where his blood sugar was above 300 after eating cake .. Hypertension: Blood pressure today in office acceptable. Has been compliant with his lisinopril. Denies any headaches, chest discomfort or shortness of breath. .. Hyperlipidemia:? Most recent LDL 69, will continue his current statin dose..? Of note triglycerides at 220 and will work on lifestyle modifications to help reduce triglycerides. 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 Cognitive needs: No Hearing needs: No Vision needs: Yes (glasses) Questionnaire Thrive Questionnaire Date Thrive assessed: 11/22/24 CHARO-7 AMB Questionnaire CHARO-7 Date CHARO - 7 assessed: 11/22/24 Source: Developed by Drs. Waldo Dominguez, Leonor Lima, Fredy Hammer and colleagues, with an educational jazzy from [employer]. Review of Systems Const Denies headache(s) Eyes Denies loss of vision ENT Denies vertigo, Denies dizziness, Denies headache(s) and Denies sore throat Card Denies chest pain, Denies leg edema and Denies lightheadedness Resp Denies cough, Denies hemoptysis and Denies wheezing GI Denies abdominal pain, Denies melena, Denies constipation, Denies diarrhea and Denies vomiting Denies dysuria, Denies urinary frequency and Denies urinary urgency Musc Denies arthralgias, Denies joint swelling, Denies numbness and Denies tingling Neuro Denies Abnormal speech present, Denies behavioral changes, Denies vertigo, Denies dizziness, Denies headache(s), Denies loss of vision, Denies memory loss, Denies numbness and Denies tingling Psych Denies anxiety, Denies behavioral changes, Denies depression, Denies memory loss and Denies panic attacks Jose/Lymph Denies easy bleeding and Denies easy bruising Aller/Immun Denies wheezing Physical exam (Primary Care) Vital Signs: Last Vital Signs Pulse 85 12/22/24 13:56 BP 110/84 12/22/24 13:56 Pulse Ox 96 12/22/24 13:56 Oxygen Delivery Method Room Air 12/22/24 13:56 BMI result Body Mass Index 25.1 Tobacco/Smoking Status: Tobacco use Status Tobacco use date assessed 12/22/24 12/22/24 13:55 Patient Tobacco Use Status Never used Tobacco 12/22/24 13:55 e-Cigarette/Vaping Use Never Used 12/22/24 13:55 Thrive Assessment: Date of Thrive Assessment Date Thrive assessed 11/22/24 12/22/24 13:55 Const General: healthy appearing, no acute distress, alert and awake Nutritional Appearance: well nourished Orientation/consciousness: oriented to person, oriented to place and oriented to time [facility] Ears: TM's normal bilaterally General nose exam: Normal nasal mucous membranes and turbinates present Eyes Conjunctivae: conjunctivae normal Sclerae: sclerae normal Pupils: Equal, round and reactive pupils present Neck Neck: Yes no lymphadenopathy and Yes no JVD Thyroid: Thyroid normal Carotids: no bruits Resp Effort & Inspection: normal respiratory effort and not tachypneic Auscultation: no crackles, no rales, no rhonchi and no wheezes Cardio Rate: regular rate Rhythm: regular rhythm Heart sounds: no murmurs and normal S1 and S2 GI Palpation (GI): Soft to palpation, nontender, no hepatomegaly and no splenomegaly Auscultation: normal bowel sounds Skin General skin exam: no rashes or lesions noted and dry skin Neuro General: oriented to person, oriented to place and oriented to time Cranial nerves: Yes Equal, round and reactive pupils present Speech: No Abnormal speech present Gait exam (Neuro): Normal gait present Motor exam (neuro): no tremor noted Extrem Right upper extremity: full ROM Left upper extremity: full ROM Right lower extremity: full ROM; no edema Left lower extremity: full ROM; no edema Psych Mental Status: mental status grossly normal Speech and movement: Normal speech and movement present Affect: normal affect Attitude: cooperative Thought process: Normal thought process present Coding Level of Care Code Est Pt Level 4 (68287) Diagnoses Type 2 diabetes mellitus with hyperglycemia, with long-term current use of insulin E11.65; Z79.4 Diabetes mellitus half-way insulin use: with half-way use Diabetes mellitus complication status: with hyperglycemia Hypertension, unspecified type I10 Hypertension type: unspecified Hyperlipidemia, unspecified hyperlipidemia type E78.5 Hyperlipidemia type: unspecified Assessment & Plan Assessment & Plan (1) T2DM (type 2 diabetes mellitus): Code(s): E11.9 - Type 2 diabetes mellitus without complications Category: Medical Qualifiers: Diabetes mellitus oil heaterman insulin use: with half-way use Diabetes mellitus complication status: with hyperglycemia Qualified Code(s): E11.65 - Type 2 diabetes mellitus with hyperglycemia; Z79.4 - oil heaterman (current) use of insulin Plan: His type 2 diabetes suboptimally controlled with A1c above 10 He does report some dietary indiscretion though for the most part eats a a pretty good diet. Unfortunately there was some miscommunication and he reduced his Lantus to 16 units. ADVISED TO INCREASE HIS LANTUS TO 20 UNITS AND INCREASE BY 2 UNITS WEEKLY UNTIL HE RATES 26 UNITS. Goal A1c is to be below 7.0 (2) HTN (hypertension): Code(s): I10 - Essential (primary) hypertension Category: Medical Qualifiers: Hypertension type: unspecified Qualified Code(s): I10 - Essential (primary) hypertension Plan: Patient's blood pressure acceptable today in office. Will continue him on his current dose of antihypertensive medication with goal blood pressure to be below 140/90 (3) HLD (hyperlipidemia): Code(s): E78.5 - Hyperlipidemia, unspecified Category: Medical Qualifiers: Hyperlipidemia type: unspecified Qualified Code(s): E78.5 - Hyperlipidemia, unspecified Plan: Patient's most recent lipid panel showing excellent control of his total cholesterol and LDL. Will continue him in his current dose of atorvastatin with goal LDL to remain below 100 Medications: Changed From naproxen 500 mg PO BID PRN 14 tabs 0RF pain G89.29 - Other chronic pain, M25.561 - Pain in right knee To naproxen 500 mg PO BID 15 days PRN 30 tabs 0RF pain G89.29 - Other chronic pain, M25.561 - Pain in right knee Refilled pen needle, diabetic As directed 50 ea 3RF E11.65 - Type 2 diabetes mellitus with hyperglycemia, Z79.4 - oil heaterman (current) use of insulin
[2024-12-22 13:56] VITALS: BP 110/84; PULSE 85; O2SAT 96; BMI 26.0
--- OUTSIDE RECORDS SUMMARY | 2024-12-22 16:55 | XMS_ITS | Clinical Summary ---
Author Organization [employer] Address [address] [place] [address] [address] [place] [address] Care Team Providers Care Unit Clerk Name Role Phone Unavailable Primary Care Provider [...]
--- OUTSIDE RECORDS SUMMARY | 2024-12-22 16:55 | XMS_ITS | Clinical Summary ---
Author Organization [address] [facility] Address [address] [place] [address] Phone Care Team Providers Care Switch House Operator Name Role Phone Jean-Claude Anaya Primary Care Provider [phone] Allergies Active Allergy Reactions Criticality Noted Date Comments Oxycodone-Acetaminophen Nausea And Vomiting High 05/2022 Medications atorvastatin (LIPITOR) 80 mg tablet Take 1 tablet (80 mg total) by mouth 1 (one) time each day. Active cholecalciferol (VITAMIN D-3) 1,250 mcg (50,000 unit) capsule Take by mouth. Active dulaglutide (Trulicity) 4.5 mg/0.5 mL pen injector injection Inject under the skin. Active insulin glargine (LANTUS) 100 unit/mL injection Inject under the skin at bedtime. Active lisinopriL (PRINIVIL,ZESTRI L) 10 mg tablet Take 1 tablet (10 [...] Department Care Team Description 11/18/2024 Telephone [facility] [place] [address] [place] [address] Nicky Ingram [place] from Last 3 Months Immunizations Name Administration [...] Recorded Sex Assigned at Not on file Legal Sex Male 12:24 AM EST Gender Identity Not on file Sexual Orientation [...] Info) Description 01/10/2025 1:00 PM EDT Appointment [facility] CT Scan [address] [place] [id number] 01/10/2025 1:30 PM EDT Office Visit [facility] [place] [address] [phone] Cristal Caicedo MD [address] [place] [address] Health Maintenance Due Date Last Done Comments Zoster Vaccines (1 of 2) 2005 Pneumococcal Vaccine: 50+ Years (2 of 2 - PCV) 09/23/2017 09/23/2016 Cholesterol Screening (Lipid Panel) 09/21/2022 Colorectal [...] patient's age to complete this topic Meningococcal B Vacine Aged Out No lo nger eligible based on patient's age to complete this topic RSV Immunization Patients Under 20 months Aged Out No longer eligible based on patient's age to complete this topic Varicella Vaccines Aged Out No longer eligible based on patient's age to complete this topic Insurance MEDICARE MEDICAID - [place] Care Teams Switch House Operator Relationship Specialty Start Date End Date Jean-Claude Anaya PA PCP - General Internal Medicine 10/16/21
--- OUTSIDE RECORDS SUMMARY | 2024-12-22 16:55 | XMS_ITS ---
Author Name [facility] Organization Unknown History of Medication Use Medication Directions Dispensed Refills Start Date End Date Stat Kenalog 40 mg/mL suspension for injection Take 1 mL by injection route. 05/07/2023 3 active gabapentin 300 mg capsule TAKE ONE CAPSULE BY MOUTH AT BEDTIME FOR PAIN. 3 active lidocaine (PF) 10 mg/mL (1 %) injection solution Take 2 mL by injection route. 05/07/2023 3 completed morphine 15 mg immediate release tablet TAKE 1 TABLET BY MOUTH EVERY 6 HOURS FOR 3 DAYS NEEDED FOR PAIN 3 active atorvastatin 80 mg tablet TAKE ONE TABLET BY MOUTH EVERY DAY active diazepam 5 mg tablet TAKE ONE TABLET BY MOUTH THREE TIMES A DAY NEEDED FOR MUSCLE SPASMS. 3 completed hydrocodone 5 mg-acetaminophen 325 mg tablet TAKE ONE TABLET BY MOUTH EVERY 6 HOURS NEEDED FOR PAIN 3 active diclofenac 1 % topical gel APPLY 2 GRAMS TOPICALLY FOUR TIMES A DAY NEEDED FOR PAIN; APPLY TO SINGLE ELBOW, WRIST OR HAND - FOR HAND INCLUDE PALM/FINGERS/BACK OF RENTERIA 3 completed Lantus Solostar U-100 Insulin 100 unit/mL (3 mL) subcutaneous pen INJECT 14 UNITS SUBCUTANEOUSLY EVERY EVENING. 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
--- OUTSIDE RECORDS SUMMARY | 2024-12-22 16:56 | XMS_ITS | Data Portability ---
Author Organization [facility] Chris Anaya [facility] [place] Address [address] [facility] [address] [place] [address] Care Team Providers Care Chemistry Account Manager Name Role Phone JUAN DIEGO PEREZ Primary [...] He failed cortisone injection. He is tried slel-nfb-ddufigd pain medications with minimal relief. He is [...] months ago R/O meniscus tear 2022 023 [facility], [address], [place], [address], 3 08:41:44 Medication Orders Kenalog 40 mg/mL suspension for injection 2022 023 [place] [address] [facility], [address] [place], [address], 09:13:44 lidocaine (PF) 10 mg/mL (1 %) injection solution 2022 023 [place] [address] [facility], [address] [place], [address], 09:13:49 Patient TargetsNo targets recorded. Patient Instructions Encounter Date Encounter Id Patient Instructions Last Modified By Organization Details Last Modified Time 05/07/2023 [id number] You have been provided with a cortisone [...] office or contact us through the portal [facility]. Not available 05/07/2023 11:49:58 Reason for Referral None Reported. Results Created Date Observation Date Name Description Value Unit Range Abnormal Flag Note LastModifiedBy Organization Detail LastModifiedTime 09/29/20 23 MRI, knee, w/o contr ast No observ ation record ed. [email or web address] [facility] [address] [place], [address], 09/29/2023 08:41:44 Result Notes None recorded. Problems Name Problem SNOMED Code Status Onset Date Resolution Date Notes Provider Name and Address Organization Details Recorded Time Arthritis of right knee 2058196418423 102 Active 2022 FERNANDO SANTANA PA-C [address], [facility] [place], [address], [place] [facility] 3 11:49:26 Instability of joint of right knee 9556310703647 102 Active 2022 FERNANDO SANTANA PA-C [address], [facility] [place], [address], [place] [facility], [facility] 3 09:15:36 Problem Notes None recorded. Procedures Surgical History Date Name Laterality Status Provider Name and Address Organization Details Recorded Time Knee Joint/Bursa Asp & Inj completed FERNANDO SANTANA PA-C [address] [facility],[address], [place], [address], [place] [facility] [place], P 05/07/2023 11:50:23 Knee Surgery completed Odalis Garcia [facility] [place], P 05/07/2023 12:10:32 Imaging Results Imaging Date Name Status LastModified by Organiz ation Details LastModified Time 09/29/2023 MRI, knee, w/o contrast completed [email or web address] [facility] [address] [facility], [place], [address], 09/29/2023 08:41:44 Procedure Notes None recorded. Medical [...] Updated DateTime 05/07/2023 177.8 cm 27.3 kg/m2 20084.[address] [facility] [place], P 05/07/2023 12:10:58 Date Recorded Body height Body mass index (BMI) Body weight Provider Name and Address Organization Details Last Updated DateTime 08/13/2023 177.8 cm 27.3 kg/m2 59147.[address] [facility] [place], 08/13/2023 09:14:07 Social History Question Answer Notes LastModified by Organizat ion Details LastModified Time Tobacco Smoking Status Never Smoker Odalis rodas, [place] [facility] [place], P 05/07/2023 12:09:48 What Is Your Level [...] SNOMED-CT Code Diagnosis ICD10 Code Diagnosis Note [id number] MD OZZIE Cavanaugh [facility] [address] [address] 05/07/2023 10:29:15 05/07/2023 11:23:45 Arthritis of right knee 7764172035 498875 M13.861 [id number] MD OZZIE Cavanaugh [facility] [address] [facility] [address] [place] [address] 08/13/2023 08:57:12 08/13/2023 09:17:48 Arthritis of right knee 2336549238 706841 M13.861 Instabilit y of joint of right knee 8584013044 733365 M25.361 Health Concerns Section Related Observation LastModified by Organization Detai ls LastModified Time None Recorded Concern Status LastModified by Organization Details LastModified Time None Recorded Advance Directives Directive None Recorded Payers Encounter Date Sequence Insurance Name Policy Number Policy Capellan Covered Member ID Capellan Member ID Guarantor Name 05/07/2023 1 [facility] - DOS ON OR AFTER 2023 - ONE CARE (MEDICARE REPLACEMENT/ADV ANTAGE - HMO) Robin Garza [id number] Robin Garza 08/13/2023 1 [facility] - DOS ON OR AFTER 2023 - ONE CARE (MEDICARE REPLACEMENT/ADV ANTAGE - HMO) Robin Garza [id number] Robin Garza Notes Date Note Type Note Provider Name and Address Organization Details Recorded Time 05/07/2023 text/html Very pleasant 67-year-old male here for evaluation of chronic right knee pain managed by his primary care with Tylenol/therapy. Patient with history of left total knee arthroplasty by Dr. Kwadwo Zuleta at [facility] in 2017. Patient describes his right [...] was not present. FERNANDO SANTANA PA-C [address] [facility],[place] [address], [place], [address], [place] [facility] [place] 05/07/2023 11:50:39 08/13/2023 text/html Pleasant 67-year-old [...] evaluation treatment plan. FERNANDO SANTANA PA-C [address] [facility],[place] [address], [place], [address], [facility] [place] 08/13/2023 09:20:09
== END 2024-12-22 14:26 | disposition home or self-care (01) ==
PROVIDERS: PCP Physician Assistant; Visit Provider Physician Assistant
DX: E11.65 Type 2 diabetes mellitus with hyperglycemia (principal); Z79.4 Long term (current) use of insulin; I10 Essential (primary) hypertension; E78.5 Hyperlipidemia, unspecified

== ENCOUNTER → 2024-12-22 13:53 | Outpatient (BNVA) | payer MEDICARE, MEDICAID, SELFPAY | PROVIDERS: PCP Physician Assistant; Visit Provider Physician Assistant | DX: E11.65 Type 2 diabetes mellitus with hyperglycemia (principal); E78.5 Hyperlipidemia, unspecified; I10 Essential (primary) hypertension; Z79.4 Long term (current) use of insulin | CPT/HCPCS: 99212 ==

== ENCOUNTER 2025-02-22 14:59 | Outpatient (AMB) | payer MEDICARE, MEDICAID, SELFPAY ==
[2025-02-22 15:10] VITALS: BP 120/82; PULSE 80; TEMP 36.2; O2SAT 96; BMI 26.3
--- NOTE | 2025-02-22 15:10 | A.OFFPC_ITS ---
Vital Signs 02/22/25 15:10 Height 5 ft 10 in Weight 183 lb 4 oz BMI 26.3 BP 120/82 Blood Pressure Location Lt brachial Position Sitting Pulse 80 Pulse Source Pulse Oximeter Temp 97.1 F Temp Source Temporal Artery Scan Pulse Oximetry (%) 96 Oxygen Delivery Method Room Air Intake Visit Reasons: f/u DMII Car Hostler Required: No Accompanied by: Self / Same As Patient Allergies shrimp [SHRIMP] Allergy (Severe, Verified 02/22/25 15:26) SWELLING/SEVERE VOMITING acetaminophen [From Percocet] Adverse Reaction (Verified 02/22/25 15:26) Nausea and Vomiting oxycodone [From Percocet] Adverse Reaction (Verified 02/22/25 15:) Nausea and Vomiting Fresh fruit and nuts Allergy (Unknown, Uncoded 02/22/25 15:) hives Medication List - Last Reconciled 02/22/25 by Jean-Claude Anaya PA-C albuterol sulfate 90 mcg/actuation 1 inh inhalation QID PRN 30 days atorvastatin 80 mg PO DAILY 30 days blood sugar diagnostic (FreeStyle Lite Strips) As directed test blood sugar at least 2 times a day blood-glucose sensor (TradeshiftStyle Emily 3 Sensor device) As directed blood-glucose,retirement actuary,cont (FreeStyle Emily 3 [place]) As directed cholecalciferol (vitamin D3) 50 mcg PO BEDTIME diclofenac sodium 1% (Arthritis Pain (diclofenac)) 4 grams topical QID dulaglutide (Trulicity) 3 mg (0.5 mL) subcut QWEEK 28 days hydrocodone-acetaminophen 5-325 mg 1 tab PO BID 7 days insulin degludec (Tresiba FlexTouch U-100 insulin) 26 units (0.26 mL) subcut BEDTIME 30 days insulin glargine (Lantus Solostar U-100 Insulin) 26 units (0.26 mL) subcut QPM 30 days lancets (FreeStyle Lancets) Three times a day testing lidocaine 4% (AsperFlex (lidocaine)) 1 patch topical DAILY PRN lisinopril 20 mg PO DAILY meclizine 25 mg PO DAILY 10 days methocarbamol 750 mg PO BID PRN 30 days naproxen 500 mg PO BID PRN 15 days pen needle, diabetic As directed Tobacco use date assessed: 12/22/24 Dental Screening Dental Screen Date: 11/22/24 HPI f/u DMII HPI Details Patient is a 69-year-old male here today for follow-up visit ? Patient has a past medical history significant for type 2 diabetes, hyperlipidemia, hypertension, lumbar stenosis. Type 2 Diabetes: Unfortunately patient's type 2 diabetes suboptimally contro lled. Today's A1c much improved at 7.7 from 9.3. At last visit we increased his Lantus to 26 units which has offered him a bit more glycemic control, He admits to dietary indiscretion as of late. He has been having some insurance coverage issues for his insulin as of late. Had to make an alternative insulin switch. PLAN: Will continue 26 units of long-acting insulin .. Hypertension: Blood pressure today in office acceptable. Has been compliant with his lisinopril. Denies any headaches, chest discomfort or shortness of breath. .. Hyperlipidemia:? Most recent LDL 69, will continue his current statin dose..? Of note triglycerides at 220 and will work on lifestyle modifications to help reduce triglycerides. Laboratory Tests 08/11/24 11/22/24 02/22/25 15:09 16:05 15:14 Hgb A1c (Clinic) 9.3 H 10.6 H 7.7 H PFSH Medical History Vitamin D deficiency H/O chronic hepatitis HLD (hyperlipidemia) HTN (hypertension) T2DM (type 2 diabetes mellitus) Type 2 diabetes mellitus Surgical History History of hand surgery History of bunionectomy Hx of colonoscopy Hx of arthroscopy of left knee Family History Father Cancer Mother Diabetes mellitus Social History Household Members: None Housing: Apartment Alcohol intake: never Patient Tobacco Use Status: Never used Tobacco e-Cigarette/Vaping Use: Never Used Second Hand Smoke Exposure: No service: No Current occupational status: disabled 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 1. Little interest or pleasure in doing things: not at all 2. Feeling down, depressed, or hopeless: not at all 3. Trouble falling or staying asleep, or sleeping too much: not at all 4. Feeling tired or having little energy: not at all 5. Poor appetite or overeating: not at all 6. Feeling bad about yourself - or that you are a failure or have let yourself or your family down: not at all 7. Trouble concentrating on things, such as reading the newspaper or watching television: not at all 8. Moving or speaking so slowly that other people could have noticed. Or the opposite - being so fidgety or restless that you have been moving around a lot more than usual: not at all 9. Thoughts that you would be better off or of hurting yourself in some way: not at all Total score: 0 Source: Developed by Drs. Waldo Dominguez, Leonor Lima, Fredy Hammer and colleagues, with an educational jazzy from [employer]. Thrive Questionnaire Date Thrive assessed: 11/22/24 I am a: Patient What is your living situation today?: I have a steady place to live Within the past 12 months, did the food you bought not last and you didn't have the money to get more?: I choose not to answer this question Within the past 12 months, did you worry whether your food would run out before you got money to buy more?: I choose not to answer this question Do you have trouble paying for medicines?: Yes Do you have trouble getting transportation to medical appointments?: No Do you have trouble paying your heating and electricity bill?: I choose not to answer this question Do you have trouble taking care of your child, family member or friend?: I choose not to answer this question Do you have trouble with day-to-day activities such as bathing, preparing meals, shopping, managing finances, etc.?: I choose not to answer this question Are you currently unemployed and looking for a job?: I choose not to answer this question Are you interested in more education?: I choose not to answer this question Please select the resources that you would like help with: None Currently or been in a relationship where the following occur: No concerns reported THRIVE Score: 0 AUDIT C Alcohol Use Questionnaire (AUDIT-C) 1. How often do you have a drink containing alcohol?: Never Total Score: 0 CHARO-7 AMB Questionnaire CHARO-7 Date CHARO - 7 assessed: 11/22/24 Feeling nervous, anxious, or on edge: 0 = Not at all Not being able to stop or control worryin = Not at all Worrying too much about different things: 0 = Not at all Trouble relaxin = Not at all Being so restless that it is hard to sit still: 0 = Not at all Becoming easily annoyed or irritable: 0 = Not at all Feeling afraid as if something awful might happen: 0 = Not at all Total CHARO-7 score (0-4 normal; 5-9 mild; 10-14 moderate; 15-21 severe): 0 Source: Developed by Drs. Waldo Dominguez, Leonor Lima, Fredy Hammer and colleagues, with an educational jazzy from [employer]. Review of Systems Const Denies headache(s) Eyes Denies loss of vision ENT Denies vertigo, Denies dizziness, Denies headache(s) and Denies sore throat Card Denies chest pain, Denies leg edema and Denies lightheadedness Resp Denies cough, Denies hemoptysis and Denies wheezing GI Denies abdominal pain, Denies melena, Denies constipation, Denies diarrhea and Denies vomiting Denies dysuria, Denies urinary frequency and Denies urinary urgency Musc Denies arthralgias, Denies joint swelling, Denies numbness and Denies tingling Neuro Denies Abnormal speech present, Denies behavioral changes, Denies vertigo, Denies dizziness, Denies headache(s), Denies loss of vision, Denies memory loss, Denies numbness and Denies tingling Psych Denies anxiety, Denies behavioral changes, Denies depression, Denies memory loss and Denies panic attacks Jose/Lymph Denies easy bleeding and Denies easy bruising Aller/Immun Denies wheezing Physical exam (Primary Care) Vital Signs: Last Vital Signs Temp 97.1 F 02/22/25 15:10 Pulse 80 02/22/25 15:10 BP 120/82 02/22/25 15:10 Pulse Ox 96 02/22/25 15:10 Oxygen Delivery Method Room Air 02/22/25 15:10 BMI result Body Mass Index 26.3 Tobacco/Smoking Status: Tobacco use Status Tobacco use date assessed 12/22/24 02/22/25 15:11 Patient Tobacco Use Status Never used Tobacco 02/22/25 15:11 e-Cigarette/Vaping Use Never Used 02/22/25 15:11 PHQ-9: PHQ-9 Score PHQ-9: Total score 0 02/22/25 15:28 Thrive Assessment: Date of Thrive Assessment Date Thrive assessed 11/22/24 02/22/25 15:11 Currently or been in a relationship where the following occur: No concerns reported Const General: healthy appearing, no acute distress, alert and awake Nutritional Appearance: well nourished Orientation/consciousness: oriented to person, oriented to place and oriented to time HENMT Ears: TM's normal bilaterally General nose exam: Normal nasal mucous membranes and turbinates present Eyes Conjunctivae: conjunctivae normal Sclerae: sclerae normal Pupils: Equal, round and reactive pupils present Neck Neck: Yes no lymphadenopathy and Yes no JVD Thyroid: Thyroid normal Carotids: no bruits Resp Effort & Inspection: normal respiratory effort and not tachypneic Auscultation: no crackles, no rales, no rhonchi and no wheezes Cardio Rate: regular rate Rhythm: regular rhythm Heart sounds: no murmurs and normal S1 and S2 GI Palpation (GI): Soft to palpation, nontender, no hepatomegaly and no splenomegaly Auscultation: normal bowel sounds Skin General skin exam: no rashes or lesions noted and dry skin Neuro General: oriented to person, oriented to place and oriented to time Cranial nerves: Yes Equal, round and reactive pupils present Speech: No Abnormal speech present Gait exam (Neuro): Normal gait present Motor exam (neuro): no tremor noted Extrem Right upper extremity: full ROM Left upper extremity: full ROM Right lower extremity: full ROM; no edema Left lower extremity: full ROM; no edema Psych Mental Status: mental status grossly normal Speech and movement: Normal speech and movement present Affect: normal affect Attitude: cooperative Thought process: Normal thought process present Results AMB Hemoglobin A1c AMB Hemoglobin A1c 7.7 % Last Edit by ALYSIA Brown on 02/22/25 15:18 Results Reviewed Results Reviewed: Laboratory Last Values Hgb A1c (Clinic) 7.7 % (4.0-6.0) H 02/22/25 15:14 Coding Level of Care Code Est Pt Level 4 (07519) Diagnoses Type 2 diabetes mellitus with hyperglycemia, with long-term current use of insulin E11.65; Z79.4 Diabetes mellitus complication status: with hyperglycemia Diabetes mellitus intermediate insulin use: with intermediate use Hypertension, unspecified type I10 Hypertension type: unspecified Hyperlipidemia, unspecified hyperlipidemia type E78.5 Hyperlipidemia type: unspecified Primary osteoarthritis of both hands M19.041; M19.042 Laterality: bilateral Osteoarthritis type: primary Assessment & Plan Assessment & Plan (1) T2DM (type 2 diabetes mellitus): Code(s): E11.9 - Type 2 diabetes mellitus without complications Category: Medical Qualifiers: Diabetes mellitus complication status: with hyperglycemia 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 Of note has been having insurance coverage issues for his insulin. Had made a the alternative insulin switch to Tresiba. He does report some dietary indiscretion though for the most part eats a a pretty good diet. He will continue on 26 units daily of his long-acting insulin and continue his other antihyperglycemic medication. Will consider switching his GLP 1 to Ozempic or Mounjaro if glycemic control continues to be sub optimal. Goal A1c is to be below 7.0 (2) HTN (hypertension): Code(s): I10 - Essential (primary) hypertension Category: Medical Qualifiers: Hypertension type: unspecified Qualified Code(s): I10 - Essential (primary) hypertension Plan: Patient's blood pressure acceptable today in office. Will continue him on his current dose of antihypertensive medication with goal blood pressure to be below 140/90 (3) HLD (hyperlipidemia): Code(s): E78.5 - Hyperlipidemia, unspecified Category: Medical Qualifiers: Hyperlipidemia type: unspecified Qualified Code(s): E78.5 - Hyperlipidemia, unspecified Plan: Patient's most recent lipid panel showing excellent control of his total cholesterol and LDL. Will continue him in his current dose of atorvastatin with goal LDL to remain below 100 (4) Osteoarthritis, hand: Code(s): M19.049 - Primary osteoarthritis, unspecified hand Category: Medical Qualifiers: Laterality: bilateral Osteoarthritis type: primary Qualified Code(s): M19.041 - Primary osteoarthritis, right hand; M19.042 - Primary osteoarthritis, left hand Plan: Advised on use of topical anti arthritic cream. Orders: Orders AMB Hemoglobin A1c 02/22/25 E11.65 - Type 2 diabetes mellitus with hyperglycemia, Z79.4 - penitentiary (current) use of insulin Medications: Refilled diclofenac sodium 1% (Arthritis Pain (diclofenac)) 4 grams topical QID 100 grams 1RF pain M47.812 - Spondylosis without myelopathy or radiculopathy, cervical region, M50.30 - Other cervical disc degeneration, unspecified cervical region
--- OUTSIDE RECORDS SUMMARY | 2025-02-22 16:02 | XMS_ITS | Clinical Summary ---
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 Active cholecalciferol (VITAMIN D-3) 1,250 mcg (50,000 unit) capsule Take by mouth. Activ e dulaglutide (Trulicity) 4.5 mg/0.5 mL pen injector injection Inject under the skin. Active insulin glargine (LANTUS) 100 unit/mL injection Inject under the skin at bedtime. Active lisinopriL (PRINIVIL,ZESTR IL) 10 mg tablet Take 1 tablet (10 mg total) by mouth 1 (one) time each day. Active naproxen (NAPROSYN) 500 mg tablet TAKE ONE TABLET BY MOUTH TWICE A DAY NEEDED FOR PAIN FOR 15 DAYS 5 Active methocarbamoL (ROBAXIN) 750 mg tablet take one tablet by mouth twice a day as needed for muscle spasm 4 Active meclizine (ANTIVERT) 25 mg tablet TAKE 1 TABLET BY MOUTH DAILY FOR MOTION SICKNESS FOR 10 DAYS. 4 Active diclofenac (VOLTAREN) 1 % topical gel APPLY 4 GRAMS TOPICALLY FOUR TIMES A DAY NEEDED FOR PAIN 4 Active Active Problems Problem Noted Date Diagnosed [...] a CT scan to assess the fusion. Assessment & Plan (01/10/2025 1:44 PM EDT): I reviewed the CT findings in detail with Mr. Garza using a spine model. I am satisfied with his progress thus far and assured him that the degree of bone growth is quite enough to hold him in place though I anticipate there should be more growth over the next year. He is able to do all of his daily activities and does not feel limited by any back pain. No further surveillance images are necessary. He is welcome to contact us if he has any concerns in the future. 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 02/17/2022 Ganglion cyst of finger 12/29/2021 Encounters Date Type Department Care Team Description 01/10/2025 1:30 PM EDT Office Visit [facility] [address] [place] [address] Cristal Caicedo MD Spondylolisthesis of lumbar region (Primary Dx) 01/10/2025 12:24 PM EDT - 01/10/2025 11:59 PM EDT Hospital Encounter [facility] CT Scan [address] [place] [address] Spondylolisthesis of lumbar region Discharge Disposition: Home or Self Care from Last 3 Months Immunizations Name Administration [...] tension) T2DM (type 2 diabetes mellit us) (CMS/HCC V24, CMS/HCC V28) DX:T2DM (type 2 diabetes eric litus) (HCC) [...] 01/21/2024 9:40 AM EDT Plan of Treatment Health Maintenance Due Date Last Done Comments Zoster Vaccines (1 of 2) 2005 Pneumococcal Vaccine: 50+ Years (2 of 2 - PCV) 09/23/2017 09/23/2016 Abdominal Aortic Aneurysm (AAA) Screen 09/21/2022 Cholesterol Screening (Lipid Panel) 09/21/2022 Colorectal Cancer Screening: Colonoscopy 09/21/2022 Depression Screening 09/21/2022 Falls Risk Assessment 09/21/2022 Hepatitis C Screening 09/21/2022 Medicare Annual Wellness Visit 09/21/2022 Social Influencers of Health Screening 09/21/2022 COVID-19 Vaccine ( season) 2025 07/06/2024, 01/01/2024, 09/06/2022, Additional history exists DTaP,Tdap,and Td Vaccines (2 - Td or Tdap) 03/24/2027 03/24/2017 RSV Immunization Adult Patients (1 - 1-dose 75+ series) 2030 Influenza Vaccine Completed 07/06/2024, , 07/28/2022, Additional [...] age to complete this topic Meningococcal B Vaccine Aged Out No l onger eligible based on patient's age to complete this topic RSV Immunization Patients Under 20 months Aged Out No longer eligible based on patient's age to complete this topic Varicella Vaccines Aged Out No longer eligible based on patient's age to complete this topic Procedures Procedure Name Priority Date/Time Associated Diagnosis Comments CT LUMBAR SPINE WO CONTRAST Routine 01/10/2025 12:38 PM EDT Spondylolisthesis of lumbar region from Last 3 Months Results * CT Lumbar Spine wo Contrast (01/10/2025 12:38 PM EDT) Anatomical Region Laterality Modality Spine, L-spine Computed Tomogra phy 01/17/2025 8:03 AM EDT Impressions 01/17/2025 8:36 AM EDT Previous instrumentation with intact transpedicular screws at L4 and L5. There are intact bilateral posterior stabilizing rods. There is some foraminal narrowing. -------- FINAL REPORT -------- Dictated By: Jaime Oneil Dictated Date: 01/17/2025 08:03 ET Assigned Physician: Jaime Oneil Reviewed and Electronically Signed By: Jaime Oneil Signed Date: 01/17/2025 08:36 ET Workstation ID: [id number] Transcribed By: Self Edit Transcribed Date: 01/17/2025 08:03 ET Narrative 01/17/2025 8:36 AM EDT INDICATION: Previous lumbar instrumentation. Spondylolisthesis. TECHNIQUE: Noncontrast CT scan of the lumbar spine was obtained. Scanner: RoomsterpeShowMe 64 slice VCT Dose reduction technique: ASIR (Adaptive statistical iterative reconstruction) and/or AEC (automated exposure control) Dose: total exam DLP 701 mGY cm COMPARISON: Patient has had previous outside MRI performed prior to surgery 11/12/23. Numbering will assume the lowest rib is T12. There is a rudimentary disc at what is considered L5/S1 There has been instrumentation involving L4 and L5. FINDINGS: L1-L2: No focal disc abnormality. No significant canal narrowing. Minimal ligamentous thickening. No significant foraminal narrowing. L2-L3: There is copq-xh-joxxwpxw disc narrowing and vacuum phenomenon. There is posterior disc/osteophyte. There is ligamentous thickening with facet hypertrophy. There is circumferential disc bulging. No focal disc herniation. There is bilateral foraminal narrowing mild to moderate on the right and minimal on the left. L3-L4: There is no central canal stenosis. There is right-sided disc/osteophyte with facet hypertrophy including vacuum phenomenon. There is at least moderate right- sided foraminal narrowing. There is no left-sided nerve root displacement. L4-L5: Partially opaque disc spacer. Some inferior L4 endplate irregularity. Bilateral transpedicular screws terminate in the vertebral body on each side. The screws appear intact. Metallic artifact limits canal contents and assessment of the foramina. There is approximately 2 mm of anterolisthesis of L4 relative to L5. There is likely some bone graft material present. This appears probably integrated on the right. Detail on the left is obscured by metallic artifact. L5-S1: Rudimentary disc. Possible previous fusion. Bilateral transpedicular screws appear intact. The screws terminate in the L5 vertebra. Metallic artifact limits assessment of the foramina. There is some bony foraminal narrowing on the right. There is no retroperitoneal mass or collection. No enlarged lymph nodes demonstrated. Procedure Note Jaime Oneil MD - 01/17/2025 INDICATION: Previous lumbar instrumentation. Spondylolisthesis. TECHNIQUE: Noncontrast CT scan of the lumbar spine was obtained. Scanner: [employer] 64 slice VCT Dose reduction technique: ASIR (Adaptive statistical iterativereconstruction) and/or AEC (automated exposure control) Dose: total exam DLP 701 mGY cm COMPARISON: Patient has had previous outside MRI performed prior tosurgery 11/12/23. Numbering will assume the lowest rib is T12. There is a rudimentary discat what is considered L5/S1 There has been instrumentation involving L4 and L5. FINDINGS: L1-L2: No focal disc abnormality. No significant canal narrowing. Minimalligamentous thickening. No significant foraminal narrowing. L2-L3: There is fssg-bf-[id number] disc narrowing and vacuum phenomenon.There is posterior disc/osteophyte. There is ligamentous thickening withfacet hypertrophy. There is circumferential disc bulging. No focal discherniation. There is bilateral foraminal narrowing mild to moderate on theright and minimal on the left. L3-L4: There is no central canal stenosis. There is right-sideddisc/osteophyte with facet hypertrophy including vacuum phenomenon. Thereis at least moderate right- sided foraminal narrowing. There is noleft-sided nerve root displacement. L4-L5: Partially opaque disc spacer. Some inferior L4 endplateirregularity. Bilateral transpedicular screws terminate in the vertebralbody on each side. The screws appear intact. Metallic artifact limits canal contents and assessment of the foramina. There is approximately 2 mm of anterolisthesis of L4 relative to L5. Thereis likely some bone graft material present. This appears probablyintegrated on the right. Detail on the left is obscured by metallicartifact. L5-S1: Rudimentary disc. Possible previous fusion. Bilateraltranspedicular screws appear intact. The screws terminate in the [id number]. Metallic artifact limits assessment of the foramina. There issome bony foraminal narrowing on the right. There is no retroperitoneal mass or collection. No enlarged lymph nodesdemonstrated. IMPRESSION: Previous instrumentation with intact transpedicular screws at L4 and L5.There are intact bilateral posterior stabilizing rods. There is some foraminal narrowing. -------- FINAL REPORT -------- Dictated By: Jaime Oneil Dictated Date: 01/17/2025 08:03 ET Assigned Physician: Jaime Oneil Reviewed and Electronically Signed By: Jaime Oneil Signed Date: 01/17/2025 08:36 ET Workstation ID: [id number] Transcribed By: Self Edit Transcribed Date: 01/17/2025 08:03 ET Maynor RAMIREZ IM CT PROCEDURES Final Resul t from Last 3 Months Insurance #[address] [place] [address] MEDICARE MEDICAID - [place] Care Teams 4Th Grade Teacher Relationship Specialty Start Date End Date Jean-Claude Anaya PA PCP - General Physician Mathematical Sciences Professor 12/26/24
--- OUTSIDE RECORDS SUMMARY | 2025-02-22 16:03 | XMS_ITS | Data Portability ---
Author Organization [facility] Chris Anaya AONE [place] Address [address] [facility] [address] [place] [address] Care Team Providers Care Nurse Licensed Practical Name Role Phone JUAN DIEGO PEREZ Primary Care Provider [phone] JUAN DIEGO PEREZ Primary Care Provider Assessment [...] He failed cortisone injection. He is tried wisw-nqe-agipuyr pain medications with minimal relief. He is [...] months ago R/O meniscus tear 2022 023 [facility], [address], [place], [address], 3 08:41:44 Medication Orders Kenalog 40 mg/mL suspension for injection 2022 023 [place] [address] [facility], [address] [place], [address], 09:13:44 lidocaine (PF) 10 mg/mL (1 %) injection solution 2022 023 [place] [address] [facility], [address] [place], [address], 09:13:49 Patient TargetsNo targets recorded. Patient Instructions Encounter Date Encounter Id Patient Instructions Last Modified By Organization Details Last Modified Time 05/07/2023 [id number] You have been provided with a cortisone [...] office or contact us through the portal [facility]. Not available 05/07/2023 11:49:58 Reason for Referral None Reported. Results Created Date Observation Date Name Description Value Unit Range Abnormal Flag Note LastModifiedBy Organization Detail LastModifiedTime 09/29/20 23 MRI, knee, w/o contr ast No observ ation record ed. [email or web address] [facility] [address] [place], [address], 09/29/2023 08:41:44 Result Notes None recorded. Problems Name Problem SNOMED Code Status Onset Date Resolution Date Notes Provider Name and Address Organization Details Recorded Time Arthritis of right knee [id number] 102 Active 2022 FERNANDO SANTANA PA-C [address], [facility] [place], [address], [place] [facility] [place], P 3 11:49:26 Instability of joint of right knee [id number] 102 Active 2022 FERNANDO SANTANA PA-C [address], [facility] [place], [address], [place] [facility] [place], P 3 09:15:36 Problem Notes None recorded. Procedures Surgical History Date Name Laterality Status Provider Name and Address Organization Details Recorded Time Knee Joint/Bursa Asp & Inj completed FERNANDO SANTANA PA-C [address] [facility],[address], [place], [address], [place] [facility] [place], P 05/07/2023 11:50:23 Knee Surgery completed Odalis Garcia [facility] [place], P 05/07/2023 12:10:32 Imaging Results Imaging Date Name Status LastModified by Organiz ation Details LastModified Time 09/29/2023 MRI, knee, w/o contrast completed [email or web address] [facility] [address] [facility], [place], [address], 09/29/2023 08:41:44 Procedure Notes None recorded. Medical [...] Updated DateTime 05/07/2023 177.8 cm 27.3 kg/m2 45003.[address] [facility] [place], P 05/07/2023 12:10:58 Date Recorded Body height Body mass index (BMI) Body weight Provider Name and Address Organization Details Last Updated DateTime 08/13/2023 177.8 cm 27.3 kg/m2 42343.[address] [facility] [place], 08/13/2023 09:14:07 Social History Question Answer Notes LastModified by Organizat ion Details LastModified Time Tobacco Smoking Status Never Smoker Odalis rodas, [place] [facility] [place], P 05/07/2023 12:09:48 What Is Your Level [...] SNOMED-CT Code Diagnosis ICD10 Code Diagnosis Note 83098 LENKA COSTA [facility] [address] [facility] [address] [place] [address] 05/07/2023 10:29:15 05/07/2023 11:23:45 Arthritis of right knee [id number] 384784 M13.861 08881 LENKA COSTA [facility] [address] [facility] [address] [place] [address] 08/13/2023 08:57:12 08/13/2023 09:17:48 Arthritis of right knee [id number] 333433 M13.861 Instabilit y of joint of right knee [id number] 836708 M25.361 Health Concerns Section Related Observation LastModified by Organization Detai ls LastModified Time None Recorded Concern Status LastModified by Organization Details LastModified Time None Recorded Advance Directives Directive None Recorded Payers Encounter Date Sequence Insurance Name Policy Number Policy Capellan Covered Member ID Capellan Member ID Guarantor Name 05/07/2023 1 [facility] - DOS ON OR AFTER 2023 - ONE CARE (MEDICARE REPLACEMENT/ADV ANTAGE - HMO) Robin Garza [id number] Robin Garza 08/13/2023 1 [facility] - DOS ON OR AFTER 2023 - ONE CARE (MEDICARE REPLACEMENT/ADV ANTAGE - HMO) Robin Garza [id number] Robin Garza Notes Date Note Type Note Provider Name and Address Organization Details Recorded Time 05/07/2023 text/html Very pleasant 67-year-old male here for evaluation of chronic right knee pain managed by his primary care with Tylenol/therapy. Patient with history of left total knee arthroplasty by Dr. Kwadwo Zuleta at [facility] in 2017. Patient describes his right [...] was not present. FERNANDO SANTANA PA-C [address], [address], [place] [facility] [place], P 05/07/2023 11:50:39 08/13/2023 text/html Pleasant 67-year-old [...] evaluation treatment plan. FERNANDO SANTANA PA-C [address] [facility],[place] [address], [place], [address], [place] [facility] [place] P 08/13/2023 09:20:09
== END 2025-02-22 15:42 | disposition home or self-care (01) ==
LOC: HO.HMCH 15:00
PROVIDERS: PCP Physician Assistant; Visit Provider Physician Assistant
DX: E11.65 Type 2 diabetes mellitus with hyperglycemia (principal); Z79.4 Long term (current) use of insulin; I10 Essential (primary) hypertension; E78.5 Hyperlipidemia, unspecified; M19.041 Primary osteoarthritis, right hand; M19.042 Primary osteoarthritis, left hand

== ENCOUNTER → 2025-02-22 14:59 | Outpatient (BNVA) | payer MEDICARE, MEDICAID, SELFPAY | PROVIDERS: PCP Physician Assistant; Visit Provider Physician Assistant | DX: E11.65 Type 2 diabetes mellitus with hyperglycemia (principal); Z79.4 Long term (current) use of insulin; I10 Essential (primary) hypertension; E78.5 Hyperlipidemia, unspecified; M19.041 Primary osteoarthritis, right hand; M19.042 Primary osteoarthritis, left hand | CPT/HCPCS: 83036; 99212 ==

== ENCOUNTER 2025-02-23 10:33 | Outpatient (REF) | payer MEDICARE, OTHER, SELFPAY ==
--- OUTSIDE RECORDS SUMMARY | 2025-02-23 11:57 | XMS_ITS | Clinical Summary ---
Author Organization [employer] Address [address] [place] [address] [address] [place] [address] Care Team Providers Care Nurse Unit Manager Name Role Phone Unavailable Primary Care Provider [...] patient's age to complete this topic Insurance [facility] ONE CARE < 65 JAMES ESPINOZA [id number]
--- OUTSIDE RECORDS SUMMARY | 2025-02-23 11:57 | XMS_ITS | Clinical Summary ---
Author Organization 175 [facility] Address [address] [place] [address] Phone Care Team Providers Care Stereotyper Helper Name Role Phone Jean-Claude Anaya Primary Care Provider [phone] Allergies Active Allergy Reactions Criticality Noted Date [...] 01/10/2025 1:30 PM EDT Office Visit [facility] [place] [address] [place] [address] Cristal Caicedo MD Spondylolisthesis of lumbar region (Primary Dx) 01/10/2025 12:24 PM EDT - 01/10/2025 11:59 PM EDT Hospital Encounter [facility] CT Scan [address] [place] [address] Spondylolisthesis of lumbar region Discharge [...] Signed Date: 01/17/2025 08:36 ET Workstation ID: [id number] Transcribed By: Self Edit Transcribed Date: 01/17/2025 08:03 ET Narrative 01/17/2025 8:36 AM EDT INDICATION: Previous lumbar instrumentation. Spondylolisthesis. TECHNIQUE: Noncontrast CT scan of the lumbar spine was obtained. Scanner: [employer] 64 slice VCT Dose reduction technique: ASIR [...] No significant foraminal narrowing. L2-L3: There is ojgj-em-dlonbimp disc narrowing and vacuum phenomenon. There is [...] of the lumbar spine was obtained. Scanner: [employer] 64 slice VCT Dose reduction technique: ASIR [...] No significant foraminal narrowing. L2-L3: There is rtzf-ph-kewqaxis disc narrowing and vacuum phenomenon.There is posterior [...] appear intact. The screws terminate in the K7tdzvzsjw. Metallic artifact limits assessment of the foramina. [...] Signed Date: 01/17/2025 08:36 ET Workstation ID: [id number] Transcribed By: Self Edit Transcribed Date: 01/17/2025 08:03 ET Maynor RAMIREZ IM CT PROCEDURES Final Resul t from Last 3 Months Insurance #[address] [place] [address] MEDICARE MEDICAID - [place] Care Teams Stereotyper Helper Relationship Specialty Start Date End Date Jean-Claude Anaya PA PCP - General Physician Verification Engineer 12/26/24
[2025-02-23 11:58] LABS: Hematocrit 42.7 % (42.0-52.0); Hemoglobin 15.1 g/dl (14.0-18.0); Mean Corpuscular HGB Conc 35.4 g/dl (31.0-36.0); Mean Corpuscular Hemoglobin 30.1 pg (27.0-33.0); Mean Corpuscular Volume 85.2 fL (80.0-98.0); Mean Platelet Volume 9.6 fL (9.4-12.4); Platelet Count 252 X10*3/uL (160-400); Red Blood Count 5.01 X10*6/uL (4.60-5.80); Red Cell Distribution Width 12.1 % (11.0-16.0); White Blood Count 7.7 X10*3/uL (4.8-10.8)
[2025-02-23 12:31] LABS: Alanine Aminotransferase 37 U/L (0-40); Albumin Level 4.4 g/dL (3.5-5.0); Alkaline Phosphatase 122 U/L (39-117); Anion Gap 11 (12-20); Aspartate Amino Transferase 32 U/L (5-37); Blood Urea Nitrogen 15 mg/dL (9-16); Calcium 9.7 mg/dL (8.4-10.2); Carbon Dioxide 30 mmol/L (22-29); Chloride 101 mmol/L (96-108); Cholesterol 124 mg/dL (<200); Estimated Glomerular Filt Rate > 60; Glucose Fasting 195 mg/dL (60-99); HDL Cholesterol 39 mg/dL (>40); LDL Cholesterol Calculated 70 mg/dL (<100); Potassium 4.4 mmol/L (3.3-5.1); Sodium 138 mmol/L (135-145); Total Protein 7.2 g/dL (6.5-8.0); Triglycerides 76 mg/dL (<150)
[2025-02-23 12:50] LABS: Prostate Specific Antigen Scr 1.59 ng/mL (<0.05-4.0)
[2025-02-23 13:07] LABS: Creatinine Urine 151.62 mg/dL; Microalbumin Urine < 5.0 mg/L
== END 2025-02-23 10:34 | disposition home or self-care (01) ==
LOC: HO.LAB 10:33
PROVIDERS: PCP Physician Assistant; Visit Provider Physician Assistant
DX: E11.65 Type 2 diabetes mellitus with hyperglycemia (principal); I10 Essential (primary) hypertension; E78.5 Hyperlipidemia, unspecified; Z12.5 Encounter for screening for malignant neoplasm of prostate; Z79.4 Long term (current) use of insulin
CPT/HCPCS: 36415; 80053; 80061; 82043; 82570; 84153; 85027

== ENCOUNTER 2025-03-31 13:22 | Outpatient (AMB) | payer MEDICARE, MEDICAID, SELFPAY ==
--- OUTSIDE RECORDS SUMMARY | 2025-03-31 13:40 | XMS_ITS | Clinical Summary ---
Author Organization 175 [facility] Address [address] [place] [address] Phone Care Team Providers Care Digital Production Manager Name Role Phone Jean-Claude Anaya Primary Care Provider [phone] Allergies Active Allergy Reactions Criticality Noted Date [...] Overview (11/21/2024): Last Assessment & Plan: Mr. Sanchez is here for his second postop visit [...] the graft. There is no instability. Mr. Sanchez has recovered quite well from surgery and is very pleased with his pain relief and activity level. There are no restrictions on his activity and we will plan on seeing him back at 1 year from surgery with a CT scan to assess the fusion. Assessment & Plan (01/10/2025 1:44 PM EDT): I reviewed the CT findings in detail with Mr. Sanchez using a spine model. I am satisfied [...] 01/10/2025 1:30 PM EDT Office Visit Neurosurgery [place] [address] [place] [address] Cristal Caicedo MD Spondylolisthesis of lumbar region (Primary Dx) 01/10/2025 12:24 PM EDT - 01/10/2025 11:59 PM EDT Hospital Encounter [facility] CT Scan [address] [place] [address] Spondylolisthesis of lumbar region Discharge [...] Care Team (Late st Contact Info) Description 04/18/2025 3:00 PM EDT Office Visit Orthopedic Surgery - [place] [address] [facility] [address] [place] [address] Anne Valle MD 175 [facility] [address] [place] [address] Health Maintenance Due Date Last Done Comments [...] Signed Date: 01/17/2025 08:36 ET Workstation ID: [id number] Transcribed By: Self Edit Transcribed Date: 01/17/2025 08:03 ET Narrative 01/17/2025 8:36 AM EDT INDICATION: Previous lumbar instrumentation. Spondylolisthesis. TECHNIQUE: Noncontrast CT scan of the lumbar spine was obtained. Scanner: [employer] 64 slice VCT Dose reduction technique: ASIR [...] No significant foraminal narrowing. L2-L3: There is pesj-fg-ycqiizrp disc narrowing and vacuum phenomenon. There is [...] of the lumbar spine was obtained. Scanner: [employer] 64 slice VCT Dose reduction technique: ASIR [...] No significant foraminal narrowing. L2-L3: There is bwqu-jg-uvtakpwi disc narrowing and vacuum phenomenon.There is posterior [...] appear intact. The screws terminate in the G6yxfkyfky. Metallic artifact limits assessment of the foramina. [...] Signed Date: 01/17/2025 08:36 ET Workstation ID: [id number] Transcribed By: Self Edit Transcribed Date: 01/17/2025 08:03 ET Maynor RAMIREZ [facility] PROCEDURES Final Resul t from Last 3 Months Insurance MEDICARE MEDICAID - [place] Care Teams Digital Production Manager Relationship Specialty Start Date End Date Jean-Claude Anaya PA [address] [place] [address] PCP - General Physician Liquid Fertilizer Servicer 12/26/24
--- NOTE | 2025-03-31 13:49 | AM.OFFWIN_ITS ---
Intake Vital Signs 03/31/25 13:51 Weight 182 lb BP 120/78 Blood Pressure Location Rt brachial Position Sitting Pulse 72 Pulse Source Pulse Oximeter Temp 98.3 F Temp Source Oral Pulse Oximetry (%) 95 Oxygen Delivery Method Room Air Intake Visit Reasons: EP-diarrhea, stomach pain Intake Note: Patient here for diarrhea and stomach pain that started Thursday night. Patient Tobacco Use Status: Never used Tobacco Allergies shrimp [SHRIMP] Allergy (Severe, Verified 03/31/25 13:51) SWELLING/SEVERE VOMITING acetaminophen [From Percocet] Adverse Reaction (Verified 03/31/25 13:51) Nausea and Vomiting oxycodone [From Percocet] Adverse Reaction (Verified 03/31/25 13:51) Nausea and Vomiting Fresh fruit and nuts Allergy (Unknown, Uncoded 03/31/25 13:51) hives Do you need a note to return to daycare/school/sports/work: No HPI HPI Comments History of Present Illness Details This is a 69-year-old male with a past medical history of insulin- dependent diabetes, hypertension and hyperlipidemia presenting for evaluation of diarrhea and abdominal pain. Patient states that he started to have diarrhea on Thursday evening with mild abdominal pain and since that time the frequency of diarrhea has increased in his abdominal pain has worsened. Patient reports decreased p.o. intake and has had only a bagel and a banana since Thursday. Patient denies having any fevers, chills, dysuria, urinary frequency, dark or bloody stools. Patient states he has not been checking his blood glucose at home but reports intermittent dizziness. 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 [employer] Cognitive needs: No Hearing needs: No Vision needs: Yes (glasses) Review of Systems Const All systems reviewed & are unremarkable except as noted in HPI and below Denies chills and Denies fever(s) Eyes Reports no additional complaints ENT Reports no additional complaints Resp Reports no additional complaints GI Reports abdominal pain, Denies belching, Denies melena, Reports bloating, Denies hematochezia, Denies constipation, Reports GI cramping, Denies excessive flatus, Reports loose stools, Denies nausea and Denies vomiting Reports no additional complaints, Denies dysuria and Denies urinary frequency Musc Reports no additional complaints Skin/Breast Reports system reviewed and no additional complaints, except as documented Neuro Reports no additional complaints Psych Reports no additional complaints Endo Reports no additional complaints Jose/Lymph Reports no additional complaints Aller/Immun Reports no additional complaints Physical Exam Vital Signs: Last Vital Signs Temp 98.3 F 03/31/25 13:51 Pulse 72 03/31/25 13:51 BP 120/78 03/31/25 13:51 Pulse Ox 95 03/31/25 13:51 Oxygen Delivery Method Room Air 03/31/25 13:51 Const General: cooperative, alert, awake, Physically active and ill appearing; No comfortable or diaphoretic Orientation/consciousness: patient oriented x3 Limitations: no limitations HEENT Mouth: Normal oral and palatal mucosa present and moist mucous membranes Cardio Rate: regular rate Rhythm: regular rhythm GI Inspection: No Abdominal wall edema, Yes distended and No visible pulsation Palpation (GI): Soft to palpation and Tenderness to palpation present (GI) with rebound tenderness and other (diffuse tenderness, increased RLQ tenderness, no suprapubic tenderness) Auscultation: Hypoactive bowel sounds present Skin General skin exam: no rashes or lesions noted Neuro General: patient oriented x3 Psych Appearance: grossly normal Mental Status: mental status grossly normal Insight: Good insight present (Psych) Judgement: Good judgement present (Psych) Results AMB Random Glucose (hemocue) AMB Random Glucose (hemocue) 218 mg/dL Last Edit by ALYSIA Suero on 03/31/25 14:21 Results Reviewed Results Reviewed: Blood glucose 218. Assessment & Plan Assessment & Plan (1) Abdominal pain: Comment: Abdomen is diffusely tender and will require further imaging. Code(s): R10.9 - Unspecified abdominal pain Qualifiers: Abdominal location: generalized Qualified Code(s): R10.84 - Generalized abdominal pain Plan: Expect called to LENKA [facility] at the [facility]. Patient will go to the emergency department by private vehicle for further evaluation and care. (2) Diarrhea: Comment: Given this patient's history coupled with his examination, patient is referred to the emergency department. Code(s): R19.7 - Diarrhea, unspecified Qualifiers: Diarrhea type: unspecified type Qualified Code(s): R19.7 - Diarrhea, unspecified Plan: Expect called to LENKA Weller at the [facility]:21. Patient will go to the emergency department by private vehicle for further evaluation and care. Orders: Orders AMB Random Glucose (hemocue) Today Z13.9 - Encounter for screening, unspecified Coding Level of Care Code Est Pt Level 3 (43718) Diagnoses Generalized abdominal pain R10.84 Abdominal location: generalized Diarrhea, unspecified type R19.7 Diarrhea type: unspecified type Time Spent (min) 20
[2025-03-31 13:51] VITALS: BP 120/78; PULSE 72; TEMP 36.8; O2SAT 95
== END 2025-03-31 14:51 | disposition home or self-care (01) ==
PROVIDERS: PCP Physician Assistant; Visit Provider Physician Assistant
DX: R10.84 Generalized abdominal pain (principal); R19.7 Diarrhea, unspecified; Z13.9 Encounter for screening, unspecified

== ENCOUNTER → 2025-03-31 13:22 | Outpatient (BNVA) | payer MEDICARE, SELFPAY | PROVIDERS: PCP Physician Assistant ==

== ENCOUNTER 2025-03-31 14:46 | Emergency (ER) | payer MEDICARE, OTHER, SELFPAY ==
[2025-03-31 15:10] VITALS: BP 162/90; PULSE 102; RESP 17; TEMP 36.3; O2SAT 98; BMI 26.1
--- NOTE | 2025-03-31 15:10 | ED.NAVMDI ---
HPI - Nausea/Vomiting/Diarrhea General Chief complaint: Abdominal Pain Stated complaint: Abd pain, sent from clinic Related Data Previous Rx's ?Medication ?Instructions ?Recorded blood sugar diagnostic (FreeStyle #60 ea 09/24/22 Lite Strips) lancets 28 gauge (FreeStyle #100 ea 07/20/23 Lancets) lidocaine 4 % topical patch 1 patch topical DAILY PRN pain #15 09/22/23 (AsperFlex (lidocaine)) ea albuterol sulfate 90 mcg/actuation 1 inh inhalation QID PRN shortness 10/15/23 aerosol inhaler of breath or wheezing 30 days #8.5 grams hydrocodone 5 mg-acetaminophen 325 1 tab PO BID pain 7 days #14 tabs 11/08/23 mg tablet cholecalciferol (vitamin D3) 50 50 mcg PO BEDTIME #30 caps 11/22/23 mcg (2,000 unit) capsule meclizine 25 mg tablet 25 mg PO DAILY motion sickness 10 03/09/24 days #10 tabs methocarbamol 750 mg tablet 750 mg PO BID PRN muscle spasm 30 06/30/24 days #60 tabs atorvastatin 80 mg tablet 80 mg PO DAILY 30 days #30 tabs 07/19/24 lisinopril 20 mg tablet 20 mg PO DAILY #90 caps 08/08/24 blood-glucose sensor (FreeStyle #1 ea 11/22/24 Emily 3 Sensor device) blood-glucose,planishing press operator,cont #1 ea 11/22/24 (FreeStyle Emily 3 Mather) dulaglutide 3 mg/0.5 mL 3 mg (0.5 mL) subcut QWEEK 28 days 11/22/24 subcutaneous pen injector #2 [facility] naproxen 500 mg tablet 500 mg PO BID PRN pain 15 days #30 12/22/24 tabs insulin glargine 100 unit/mL (3 26 unit (0.26 mL) subcut QPM 30 02/15/25 mL) subcutaneous pen (Lant days #15 mL Solostar U-100 Insulin) insulin degludec 100 unit/mL (3 26 unit (0.26 mL) subcut BEDTIME 02/20/25 mL) subcutaneous pen (Tresiba 30 days #15 mL FlexTouch U-100 insulin) pen needle, diabetic 32 gauge x #50 ea 02/20/25 diclofenac sodium 1 % topical gel 4 g topical QID pain #100 grams 02/22/25 (Arthritis Pain (diclofenac)) Allergies Allergy/AdvReac Type Severity Reaction Status Date / Time shrimp [SHRIMP] Allergy Severe SWELLING/SEVERE Verified 03/31/25 15:11 VOMITING acetaminophen [From Percocet] AdvReac Nausea and Verified 03/31/25 15:11 Vomiting oxycodone [From Percocet] AdvReac Nausea and Verified 03/31/25 15:11 Vomiting Fresh fruit and nuts Allergy Unknown hives Uncoded 03/31/25 15:11 [facility] Past Medical History Medical History Vitamin D deficiency H/O chronic hepatitis HLD (hyperlipidemia) HTN (hypertension) T2DM (type 2 diabetes mellitus) Type 2 diabetes mellitus Surgical History History of hand surgery History of bunionectomy Hx of colonoscopy Hx of arthroscopy of left knee Family History Family History Father Cancer Mother Diabetes mellitus Social History Social History Household Members: None Housing: Apartment Alcohol intake: never Patient Tobacco Use Status: Never used Tobacco e-Cigarette/Vaping Use: Never Used Second Hand Smoke Exposure: No Advance Directives: No Advance Directives Information Provided: No Do you have a plan to hurt others: No Plan service: No Current occupational status: disabled 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 RME assessment and note performed by: Janee Ojeda PA-C This is a 64-yrkb-vsq-male, type 2 diabetes, hypertension, hyperlipidemia, lumbar radiculopathy who presents to the ER with complaints of abdominal pain, nausea and diarrhea. Patient with diffuse tenderness throughout, patient well-appearing does not appear to be under acute distress. Plan: Labs, UA, further ER evaluation needed. Reevaluation(s) Reevaluation #1: Patient left without completing treatment. Medical Decision Making Lab Data 03/31/25 15:24 03/31/25 15:24 Labs: Lab Results 03/31/25 Range/Units 15:24 WBC 13.5 H (4.8-10.8) X10*3/uL RBC 5.51 (4.60-5.80) X10*6/uL Hgb 16.7 (14.0-18.0) g/dl Hct 46.3 (42.0-52.0) % MCV 84.0 (80.0-98.0) fL MCH 30.3 (27.0-33.0) pg MCHC 36.1 H (31.0-36.0) g/dl RDW 12.0 (11.0-16.0) % Plt Count 236 (160-400) X10*3/uL MPV 9.2 L (9.4-12.4) fL Immature Gran % (Auto) 0.4 (0.0-0.4) % Neut % (Auto) 79.7 H (45-73) % Lymph % (Auto) 11.8 L (20-40) % Freestone % (Auto) 7.1 (2-11) % Eos % (Auto) 0.9 (0-4) % Baso % (Auto) 0.1 (0-2) % Lymph # (Auto) 1.6 (1.2-4.9) X10*3/uL Freestone # (Auto) 1.0 (0.1-1.2) X10*3/uL Eos # (Auto) 0.1 (0.0-0.4) X10*3/uL Baso # (Auto) 0.0 (0.0-0.2) X10*3/uL Abs Immat Gran (auto) 0.05 H (0.00-0.03) X10*3/uL Absolute Neuts (auto) 10.8 H (2.0-8.3) x10*3/uL Absolute Nucleated RBC 0.000 (0.0-0.012) X10*3/uL Nucleated RBC % (auto) 0.0 (0.0-0.2) /100WBC Sodium 131 L (135-145) mmol/L Potassium 4.6 (3.3-5.1) mmol/L Chloride 98 (96-108) mmol/L Carbon Dioxide 24 (22-29) mmol/L Anion Gap 14 (12-20) BUN 23 H (9-16) mg/dL Creatinine 1.15 (0.5-1.4) mg/dL Estim Creat Clear Calc 62.5 Estimated GFR > 60 Random Glucose 399 H* (60-115) mg/dL Calcium 9.5 (8.4-10.2) mg/dL Magnesium 1.5 L (1.6-2.6) mg/dL Total Bilirubin 1.3 H (0.0-1.0) mg/dL Direct Bilirubin 0.4 (0.0-0.5) mg/dL AST 16 (5-37) U/L ALT 15 (0-40) U/L Alkaline Phosphatase 204 H (39-117) U/L Total Protein 6.7 (6.5-8.0) g/dL Albumin 4.3 (3.5-5.0) g/dL Influenza Type A (PCR) NEGATIVE (Negative) Influenza Type B (PCR) NEGATIVE (Negative) RSV RNA Qual (PCR) NEGATIVE (Negative) SARS-CoV-2 RNA (RT-PCR) NEGATIVE (Negative) Discharge Plan Discharge Clinical Impression: Abdominal pain Patient Disposition: Left W/O Completing Treatment Prescriptions: No Action albuterol sulfate 90 mcg/actuation HFA aerosol inhaler 1 inh inhalation QID PRN (Reason: shortness of breath or wheezing) 30 Days Qty: 8.5 0RF hydrocodone-acetaminophen 5-325 mg tablet 1 tab PO BID 7 Days Qty: 14 0RF Rx Instructions: Partial Fill upon patient request. cholecalciferol (vitamin D3) 50 mcg (2,000 unit) capsule 50 mcg PO BEDTIME Qty: 30 11RF atorvastatin 80 mg tablet 80 mg PO DAILY 30 Days Qty: 30 6RF lisinopril 20 mg tablet 20 mg PO DAILY Qty: 90 1RF insulin glargine [Lantus Solostar U-100 Insulin] 100 unit/mL (3 mL) insulin pen 26 unit subcut QPM 30 Days Qty: 15 4RF insulin degludec [Tresiba FlexTouch U-100] 100 unit/mL (3 mL) insulin pen 26 unit subcut BEDTIME 30 Days Qty: 15 3RF (DME) pen needle, diabetic 32 gauge x 5/32 needle See Rx Instructions subcut DAILY Qty: 50 3RF Rx Instructions: As directed (DME) FreeStyle Lite Strips Strip See Rx Instructions .Route Qty: 60 11RF Rx Instructions: As directed test blood sugar at least 2 times a day (DME) lancets [FreeStyle Lancets] 28 gauge misc See Rx Instructions .ROUTE .MEDSUPPLY Qty: 100 11RF Rx Instructions: Three times a day testing lidocaine [AsperFlex (lidocaine)] 4 % adhesive patch,medicated 1 patch topical DAILY PRN (Reason: pain) Qty: 15 0RF meclizine 25 mg tablet 25 mg PO DAILY 10 Days Qty: 10 0RF naproxen 500 mg tablet 500 mg PO BID PRN (Reason: pain) 15 Days Qty: 30 0RF (DME) FreeStyle Emily 3 Mather Misc See Rx Instructions .Route Qty: 1 0RF Rx Instructions: As directed (DME) FreeStyle Emily 3 Sensor Device See Rx Instructions .Route Qty: 1 6RF Rx Instructions: As directed Trulicity 3 mg/0.5 mL pen injector 3 mg subcut QWEEK 28 Days Qty: 2 6RF methocarbamol 750 mg tablet 750 mg PO BID PRN (Reason: muscle spasm) 30 Days Qty: 60 0RF diclofenac sodium [Arthritis Pain (diclofenac)] 1 % gel 4 g topical QID Qty: 100 1RF Discharge Date/Time: 03/31/25 21:10
[2025-03-31 15:28] LABS: MANUAL DIFF FLAG NO
[2025-03-31 15:30] LABS: Basophils Percent Auto 0.1 % (0-2); Eosinophils Absolute Auto 0.1 X10*3/uL (0.0-0.4); Eosinophils Percent Auto 0.9 % (0-4); Hematocrit 46.3 % (42.0-52.0); Hemoglobin 16.7 g/dl (14.0-18.0); Imm Gran Abs Auto 0.05 X10*3/uL (0.00-0.03); Imm Gran Pct Auto 0.4 % (0.0-0.4); Lymphocytes Absolute Auto 1.6 X10*3/uL (1.2-4.9); Lymphocytes Percent Auto 11.8 % (20-40); Mean Corpuscular HGB Conc 36.1 g/dl (31.0-36.0); Mean Corpuscular Hemoglobin 30.3 pg (27.0-33.0); Mean Platelet Volume 9.2 fL (9.4-12.4); Monocytes Percent Auto 7.1 % (2-11); Neutrophils Absolute Auto 10.8 x10*3/uL (2.0-8.3); Neutrophils Percent Auto 79.7 % (45-73); Platelet Count 236 X10*3/uL (160-400); Red Blood Count 5.51 X10*6/uL (4.60-5.80); White Blood Count 13.5 X10*3/uL (4.8-10.8)
[2025-03-31 15:45] LABS: Alanine Aminotransferase 15 U/L (0-40); Albumin Level 4.3 g/dL (3.5-5.0); Alkaline Phosphatase 204 U/L (39-117); Anion Gap 14 (12-20); Aspartate Amino Transferase 16 U/L (5-37); Bilirubin Direct 0.4 mg/dL (0.0-0.5); Bilirubin Total 1.3 mg/dL (0.0-1.0); Blood Urea Nitrogen 23 mg/dL (9-16); Calcium 9.5 mg/dL (8.4-10.2); Carbon Dioxide 24 mmol/L (22-29); Chloride 98 mmol/L (96-108); Creatinine Clr Calc Pharmacy 62.5; Estimated Glomerular Filt Rate > 60; Glucose Random 399 mg/dL (60-115); Magnesium 1.5 mg/dL (1.6-2.6); Potassium 4.6 mmol/L (3.3-5.1); Sodium 131 mmol/L (135-145); Total Protein 6.7 g/dL (6.5-8.0)
[2025-03-31 16:46] LABS: Influenza A PCR NEGATIVE (Negative); Influenza B PCR NEGATIVE (Negative); Resp Syncy Virus RNA Qual PCR NEGATIVE (Negative); SARS COV2 PCR INHOUSE NEGATIVE (Negative)
== END 2025-03-31 21:10 | disposition left against medical advice (07) ==
LOC: HO.ED 20:20
PROVIDERS: Physician Assistant Medical; Emergency Provider Emergency Medicine Emergency Medical Services; PCP Physician Assistant
DX: R10.9 Unspecified abdominal pain (principal); E11.9 Type 2 diabetes mellitus without complications; Z03.818 Encounter for observation for suspected exposure to other biological agents ruled out
CPT/HCPCS: 0241U; 80048; 80076; 82948; 83735; 85025; 99212; 99281; 99283

== ENCOUNTER 2025-06-14 14:50 | Outpatient (AMB) | payer MEDICARE, MEDICAID, SELFPAY ==
[2025-06-14 15:15] VITALS: BP 124/90; PULSE 106; RESP 18; TEMP 36.3; O2SAT 96; BMI 26.0
--- NOTE | 2025-06-14 15:15 | MHC.PC.OV ---
Vital Signs 06/14/25 15:15 Height 5 ft 10 in Weight 181 lb 4 oz BMI 26.0 BP 124/90 H Blood Pressure Location Lt brachial Position Sitting Respiration 18 Pulse 106 H Pulse Source Pulse Oximeter Temp 97.3 F Temp Source Temporal Artery Scan Pulse Oximetry (%) 96 Oxygen Delivery Method Room Air Intake Visit Reasons: f/u dmii Slot Technician Required: No Accompanied by: Self / Same As Patient Allergies shrimp (SHRIMP) Allergy (Severe, Verified 06/14/25 15:22) SWELLING/SEVERE VOMITING acetaminophen (From Percocet) Adverse Reaction (Verified 06/14/25 15:22) Nausea and Vomiting oxycodone (From Percocet) Adverse Reaction (Verified 06/14/25 15:22) Nausea and Vomiting Fresh fruit and nuts Allergy (Unknown, Uncoded 03/31/25 15:11) hives Medication List - Last Reconciled 06/14/25 by Jean-Claude Anaya PA-C albuterol sulfate 90 mcg/actuation 1 inh inhalation QID PRN 30 days atorvastatin 80 mg PO DAILY 30 days blood sugar diagnostic (FreeStyle Lite Strips) As directed test blood sugar at least 2 times a day blood-glucose sensor (FreeStyle Emily 3 Sensor device) As directed blood-glucose,manager multimedia,cont (FreeStyle Emily 3 [place]) As directed cholecalciferol (vitamin D3) 50 mcg PO BEDTIME dulaglutide (Trulicity) 3 mg (0.5 mL) subcut QWEEK 28 days insulin degludec (Tresiba FlexTouch U-100 insulin) 26 units (0.26 mL) subcut BEDTIME 30 days insulin glargine (Lantus Solostar U-100 Insulin) 26 units (0.26 mL) subcut QPM 30 days Held on 02/20/25. Instructions: Doctor's Order lancets (FreeStyle Lancets) Three times a day testing lisinopril 20 mg PO DAILY pen needle, diabetic As directed Tobacco use date assessed: 06/14/25 Fall risk assessment: No Falls in past year Last assessed Fall Risk: 06/14/25 Dental Screening Dental Screen Date: 06/14/25 Did you have a dental visit in the last 12 months?: No Did you have a dental problem in the last 6 months where you did not have access to dental care?: No Was dental information given to patient?: No HPI f/u dmii HPI Details Patient is a 69-year-old male here today for follow-up visit ? Patient has a past medical history significant for type 2 diabetes, hyperlipidemia, hypertension, lumbar stenosis. --->Patient recently admitted to [facility] in March of 2025 for acute diarrhea and found to be very hyperglycemic and in DKA he was treated with IV regular insulin and fluids and anion gap closed. He underwent GI consultation with colonoscopy which was negative. Also did stool studies which were negative for C diff and infectious etiology. Patient's GI upset thought to be due to a ? virus. A1c at the time above 10 at the time. During his hospital stay his Lantus dose was reduced to 14 units Type 2 Diabetes: Unfortunately patient's type 2 diabetes suboptimally controlled. At last visit we increased his Lantus to 26 units which has offered him a bit more glycemic control, He admits to dietary indiscretion as of late. He has been having some insurance coverage issues for his insulin as of late. Had to make an alternative insulin switch. PLAN: Will add on preprandial insulin to capture better control of his blood sugars. It has been difficult to get CGM covered through insurance- Will try to set him up with a continues glucose monitor Concern--> right knee pain--> The patient reports knee pain, which has been persistent for the past week, significantly affecting mobility, especially when climbing stairs. The pain is described as sharp and localized to the side of the knee, similar to symptoms experienced before a previous knee replacement. The patient has a history of arthritis and has tried various pain medications with limited relief. .. Hypertension: Blood pressure today in office acceptable. Has been compliant with his lisinopril. Denies any headaches, chest discomfort or shortness of breath. .. Hyperlipidemia:? Most recent LDL 69, will continue his current statin dose..? Of note triglycerides at 220 and will work on lifestyle modifications to help reduce triglycerides. 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 1. Little interest or pleasure in doing things: not at all 2. Feeling down, depressed, or hopeless: not at all 3. Trouble falling or staying asleep, or sleeping too much: not at all 4. Feeling tired or having little energy: not at all 5. Poor appetite or overeating: not at all 6. Feeling bad about yourself - or that you are a failure or have let yourself or your family down: not at all 7. Trouble concentrating on things, such as reading the newspaper or watching television: not at all 8. Moving or speaking so slowly that other people could have noticed. Or the opposite - being so fidgety or restless that you have been moving around a lot more than usual: not at all 9. Thoughts that you would be better off or of hurting yourself in some way: not at all Total score: 0 Source: Developed by Drs. Waldo Dominguez, Leonor Lima, Fredy Hammer and colleagues, with an educational jazzy from [employer]. Thrive Questionnaire Date Thrive assessed: 06/14/25 I am a: Patient What is your living situation today?: I have a steady place to live Within the past 12 months, did the food you bought not last and you didn't have the money to get more?: I choose not to answer this question Within the past 12 months, did you worry whether your food would run out before you got money to buy more?: I choose not to answer this question Do you have trouble paying for medicines?: Yes Do you have trouble getting transportation to medical appointments?: No Do you have trouble paying your heating and electricity bill?: I choose not to answer this question Do you have trouble taking care of your child, family member or friend?: I choose not to answer this question Do you have trouble with day-to-day activities such as bathing, preparing meals, shopping, managing finances, etc.?: I choose not to answer this question Are you currently unemployed and looking for a job?: I choose not to answer this question Are you interested in more education?: I choose not to answer this question Please select the resources that you would like help with: None Currently or been in a relationship where the following occur: No concerns reported THRIVE Score: 0 AUDIT C Alcohol Use Questionnaire (AUDIT-C) 1. How often do you have a drink containing alcohol?: Never Total Score: 0 CHARO-7 AMB Questionnaire CHARO-7 Date CHARO - 7 assessed: 06/14/25 Feeling nervous, anxious, or on edge: 0 = Not at all Not being able to stop or control worryin = Not at all Worrying too much about different things: 0 = Not at all Trouble relaxin = Not at all Being so restless that it is hard to sit still: 0 = Not at all Becoming easily annoyed or irritable: 0 = Not at all Feeling afraid as if something awful might happen: 0 = Not at all Total CHARO-7 score (0-4 normal; 5-9 mild; 10-14 moderate; 15-21 severe): 0 Source: Developed by Drs. Waldo Dominguez, Leonor Lima, Fredy Hammer and colleagues, with an educational jazzy from [employer]. Review of Systems Const Denies headache(s) Eyes Denies loss of vision ENT Denies vertigo, Denies dizziness, Denies headache(s) and Denies sore throat Card Denies chest pain, Denies leg edema and Denies lightheadedness Resp Denies cough, Denies hemoptysis and Denies wheezing GI Denies abdominal pain, Denies melena, Denies constipation, Denies diarrhea and Denies vomiting Denies dysuria, Denies urinary frequency and Denies urinary urgency Musc Denies arthralgias, Denies joint swelling, Denies numbness and Denies tingling Neuro Denies Abnormal speech present, Denies behavioral changes, Denies vertigo, Denies dizziness, Denies headache(s), Denies loss of vision, Denies memory loss, Denies numbness and Denies tingling Psych Denies anxiety, Denies behavioral changes, Denies depression, Denies memory loss and Denies panic attacks Jose/Lymph Denies easy bleeding and Denies easy bruising Aller/Immun Denies wheezing Physical exam (Primary Care) Vital Signs: Last Vital Signs Temp 97.3 F 06/14/25 15:15 Pulse 106 H 06/14/25 15:15 Resp 18 06/14/25 15:15 BP 124/90 H 06/14/25 15:15 Pulse Ox 96 06/14/25 15:15 Oxygen Delivery Method Room Air 06/14/25 15:15 BMI result Body Mass Index 26.0 Tobacco/Smoking Status: Tobacco use Status Tobacco use date assessed 06/14/25 06/14/25 15:27 Patient Tobacco Use Status Never used Tobacco 06/14/25 15:27 e-Cigarette/Vaping Use Never Used 06/14/25 15:27 PHQ-9: PHQ-9 Score PHQ-9: Total score 0 06/14/25 15:27 Thrive Assessment: Date of Thrive Assessment Date Thrive assessed 06/14/25 06/14/25 15:27 Currently or been in a relationship where the following occur: No concerns reported Const General: healthy appearing, no acute distress, alert and awake Nutritional Appearance: well nourished Orientation/consciousness: oriented to person, oriented to place and oriented to time HENMT Ears: TM's normal bilaterally General nose exam: Normal nasal mucous membranes and turbinates present Eyes Conjunctivae: conjunctivae normal Sclerae: sclerae normal Pupils: Equal, round and reactive pupils present Neck Neck: Yes no lymphadenopathy and Yes no JVD Thyroid: Thyroid normal Carotids: no bruits Resp Effort & Inspection: normal respiratory effort and not tachypneic Auscultation: no crackles, no rales, no rhonchi and no wheezes Cardio Rate: regular rate Rhythm: regular rhythm Heart sounds: no murmurs and normal S1 and S2 GI Palpation (GI): Soft to palpation, nontender, no hepatomegaly and no splenomegaly Auscultation: normal bowel sounds Skin General skin exam: no rashes or lesions noted and dry skin Neuro General: oriented to person, oriented to place and oriented to time Cranial nerves: Yes Equal, round and reactive pupils present Speech: No Abnormal speech present Gait exam (Neuro): Normal gait present Motor exam (neuro): no tremor noted Extrem Right upper extremity: full ROM Left upper extremity: full ROM Right lower extremity: full ROM; no edema Left lower extremity: full ROM; no edema Knee images:  1. RIGHT KNEE PAIN MOSTLY LOCATED ON THE LATERAL ASPECT NO NOTABLE SWELLING AT THIS TIME Psych Mental Status: mental status grossly normal Speech and movement: Normal speech and movement present Affect: normal affect Attitude: cooperative Thought process: Normal thought process present Coding Level of Care Code Est Pt Level 4 (28535) Diagnoses Type 2 diabetes mellitus with hyperglycemia, with long-term current use of insulin E11.65; Z79.4 Diabetes mellitus longwall foreman insulin use: with longwall foreman use Diabetes mellitus complication status: with hyperglycemia Primary osteoarthritis of right knee M17.11 Osteoarthritis type: primary Assessment & Plan Assessment & Plan (1) T2DM (type 2 diabetes mellitus): Code(s): E11.9 - Type 2 diabetes mellitus without complications Category: Medical Qualifiers: Diabetes mellitus longwall foreman insulin use: with correction use Diabetes mellitus complication status: with hyperglycemia Qualified Code(s): E11.65 - Type 2 diabetes mellitus with hyperglycemia; Z79.4 - skilled nursing (current) use of insulin Plan: PATIENT'S TYPE 2 DIABETES CURRENTLY UNCONTROLLED. Previous A1c above 10 The patient will continue with insulin therapy, currently at 14 units, and [facility]. A sliding scale insulin regimen with Humalog is recommended to improve glycemic control, especially before meals. The patient is advised to monitor blood glucose levels regularly and adjust insulin doses accordingly. Again goal A1c is to be below 7.0 (2) Osteoarthritis of right knee: Code(s): M17.11 - Unilateral primary osteoarthritis, right knee Category: Medical Qualifiers: Osteoarthritis type: primary Qualified Code(s): M17.11 - Unilateral primary osteoarthritis, right knee Plan: An x-ray of the right knee is ordered to evaluate the cause of pain. Diclofenac is prescribed for pain management, with instructions to use as needed. The patient is advised to consider consulting an desktop publishing specialist for further evaluation and possible cortisone injection. Orders: Orders XR knee RT 3V 06/14/25 M17.11 - Unilateral primary osteoarthritis, right knee Lipid Panel 06/14/25 E78.5 - Hyperlipidemia, unspecified Complete Blood Count no Diff 06/14/25 I10 - Essential (primary) hypertension Comprehensive [place]. Panel Fast 06/14/25 I10 - Essential (primary) hypertension Hemoglobin A1c 06/14/25 E11.65 - Type 2 diabetes mellitus with hyperglycemia, Z79.4 - skilled nursing (current) use of insulin Vitamin D 25-OH Total 06/14/25 E55.9 - Vitamin D deficiency, unspecified Medications: New oxycodone Partial Fill upon patient request. 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 insulin lispro (Admelog SoloStar U-100 Insulin lispro) Sliding scale Blood sugar 70-130- take 0 units 131-180- take 4 units 181-240- take 8 units 241-300- take 10 units 301- 350- take 12 units 351-400- take 16 units 1 sliding scale dose subcut .Sliding scale 15 mL 0RF 30 days E11.65 - Type 2 diabetes mellitus with hyperglycemia, M17.11 - Unilateral primary osteoarthritis, right knee, Z79.4 - skilled nursing (current) use of insulin diclofenac sodium 50 mg PO BID 28 tabs 1RF 14 days M17.11 - Unilateral primary osteoarthritis, right knee Changed From atorvastatin 80 mg PO DAILY 30 days 30 tabs 6RF E78.5 - Hyperlipidemia, unspecified To atorvastatin 80 mg PO DAILY 90 tabs 2RF 90 days E78.5 - Hyperlipidemia, unspecified Refilled dulaglutide (Trulicity) 3 mg (0.5 mL) subcut QWEEK 2 mL 6RF 28 days E11.65 - Type 2 diabetes mellitus with hyperglycemia, Z79.4 - skilled nursing (current) use of insulin Discontinued blood-glucose,manager multimedia,cont (Enevo Emily 3 [place]) Discontinued Reason: Doctor's Order As directed 1 ea 0RF E11.65 - Type 2 diabetes mellitus with hyperglycemia, Z79.4 - skilled nursing (current) use of insulin blood-glucose sensor (FreeStyle Emily 3 Sensor device) Discontinued Reason: Doctor's Order As directed 1 ea 6RF E11.65 - Type 2 diabetes mellitus with hyperglycemia, Z79.4 - skilled nursing (current) use of insulin
--- OUTSIDE RECORDS SUMMARY | 2025-06-14 16:15 | XMS_ITS ---
Author Name [facility] Organization Unknown History of Medication Use Medication Directions Dispensed Refills Start Date End Date Stat Kenalog 40 mg/mL suspension for injection Take 1 mL by injection route. 05/07/2023 3 active lidocaine (PF) 10 mg/mL (1 %) injection solution Take 2 mL by injection route. 05/07/2023 3 completed diazepam 5 mg tablet TAKE ONE TABLET BY MOUTH THREE TIMES A DAY NEEDED FOR MUSCLE SPASMS. 3 completed diclofenac 1 % topical gel APPLY 2 GRAMS TOPICALLY FOUR TIMES A DAY NEEDED FOR PAIN; APPLY TO SINGLE ELBOW, WRIST OR HAND - FOR HAND INCLUDE PALM/FINGERS/BACK OF RENTERIA 3 completed gabapentin 300 mg capsule TAKE ONE CAPSULE BY MOUTH AT BEDTIME FOR PAIN. 3 active hydrocodone 5 mg-acetaminophen 325 mg tablet TAKE ONE TABLET BY MOUTH EVERY 6 HOURS NEEDED FOR PAIN 3 active morphine 15 mg immediate release tablet TAKE 1 TABLET BY MOUTH EVERY 6 HOURS FOR 3 DAYS NEEDED FOR PAIN 3 active atorvastatin 80 mg tablet TAKE ONE TABLET BY MOUTH EVERY DAY active Lantus Solostar U-100 Insulin 100 unit/mL (3 mL) subcutaneous pen INJECT 14 UNITS SUBCUTANEOUSLY EVERY EVENING. active Problems Problem Status Onset Date Problem Type Date of Resoluti on Source Instability of joint of right knee active 2023-08-13 ProblemAct [facility] Arthritis of right knee active 2023-05-07 ProblemAct [facility] Encounters Encounter Type Encounter Reason Primary Diagnosis Location Date Ambulatory [facility] [place] 05/08/2023 Ambulatory [facility] [place] 05/07/2023 Ambulatory [facility] [place] 05/07/2023 Ambulatory [facility] [place] 05/07/2023 Ambulatory [facility] [place] 05/07/2023 Ambulatory [facility] [place] 04/22/2023 Ambulatory [facility] [place] 04/20/2023
--- OUTSIDE RECORDS SUMMARY | 2025-06-14 16:15 | XMS_ITS | Clinical Summary ---
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 Active cholecalciferol (VITAMIN D-3) 1,250 mcg (50,000 unit) capsule Take by mouth. Active Trulicity 3 mg/0.5 mL pen injector injection Inject 0.5 mL (3 mg total) under the skin 1 (one) time per week. Thursday03/23/2025 Active Lantus Solostar U-100 Insulin 100 unit/mL (3 mL) injection pen Inject 20 Units under the skin 1 (one) time each day in the evening. 15 mL 11 04/06/2025 Active lisinopriL (PRINIVIL,ZESTRI L) 5 mg tablet Take 1 tablet (5 mg total) by mouth 1 (one) time each day. 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 Arthritis [...] hand 02/17/2022 Ganglion cyst of finger 12/29/2021 Resolved Problems Problem Noted Date Diagnosed Date Resolved Date Diabetic ketoacidosis withou t coma associated with type 1 diabetes mellitus ([facility] V24, [facility] V28) 04/03/2025 04/04/2025 Encounters Date Type Department Care Team Description 05/03/2025 Telephone Orthopedic Surgery [facility] [address] [phone] Phyllis Moss 04/24/2025 Telephone Orthopedic Surgery [facility] [address] [phone] Phyllis Moss 04/24/2025 Telephone Orthopedic Surgery - [place] 250 175 [facility] [address] [place] [phone] Phyllis Moss 04/18/2025 3:00 PM EDT Office Visit Orthopedic Surgery [facility] 175 [facility] [address] [place] [phone] Anne Valle MD Ganglion cyst of finger (Primary Dx) 04/07/2025 Telephone Gastroenterology - 299 [facility] 299 [facility] [address] [place] [phone] Hannah Bowman MA 04/06/2025 10:44 AM EDT Anesthesia Event [facility] Endoscopy [address] [place] [phone] Santos Reese MD 04/03/2025 10:21 AM EDT - 04/06/2025 1:02 PM EDT Hospital Encounter [facility] Medical Surgical Unit [address] [place] [phone] Saleem Lebron, Nico Hernandez MD Zipagan, James T, MD Rasul, Yar M, MD Bell, Alistair A, MD Diabetic ketoacidosis without coma associated with type 1 diabetes mellitus ([facility] V24, [facility] V28) (Primary Dx); Hypomagnesemia; Hypokalemia; Acute kidney injury (DAWSON) with acute tubular necrosis (ATN) ([facility] V24); Pseudohyponatremia Discharge Disposition: Home or Self Care 04/01/2025 2:19 PM EDT - 04/01/2025 6:45 PM EDT Emergency [facility] Emergency [address] [place] [address] Danie Ayala MD Abdominal pain, unspecified abdominal location (Primary Dx); Orthostasis Discharge Disposition: Home or Self Care from [...] H/O chronic hepatitis DX:H/O chr onic hepatitis T2DM (type 2 diabetes mellit us) (CMS/HCC V24, CMS/HCC V28) DX:T2DM (type 2 diabetes me llitus) (HCC) Diabetic ketoacidosis withou t coma associated with type 1 diabetes mellitus (CMS/HCC V24, CMS/HCC V28) 04/03/2025 Family History Medical History Relation Name Comments Other cancer Father Diabetes Mother Relation Name Status Comments Father Mother Social History Tobacco Use Types Packs/Day Years Used Date Smoking Tobacco: Never Smokeless Tobacco: Never Alcohol Use Standard Drinks/Week Comments Never 0 (1 standard drink = 0.6 oz pur e alcohol) history of Housing Instability Answer Date Recorde d Are you worried that in the next 2 months you may not have stable housing? No 04/03/2025 Food Access & Nutrition Answer Date Rec orded Do you have access to a vari ety of food including fruits and vegetables? Yes 04/03/2025 Access to Healthcare Answer Date Record ed Within the last 3 months, ho w many times did you visit the emergency department for your medical care? 2 04/03/2025 Health Literacy Answer Date Recorded How often do you need to hav e someone help you when you read instructions, pamphlets, or other written material from your doctor or pharmacy? Never 04/03/2025 Caregiver: How often do you need to have someone help you when you read instructions, pamphlets, or other written material from your doctor or pharmacy? Not on file 04/03/2025 Financial Risk Answer Date Recorded How hard is it for you to pa y for the very basics like food, housing, medical care, and air conditioning / heating? Not very hard 04/03/2025 Transportation Answer Date Recorded Has the lack of transportati on kept you from meetings, work, or from getting things needed for daily living? No Has the lack of transportati on kept you from medical appointments or from getting medications? No 04/03/2025 Social Isolation Answer Date Recorded How often do you feel lonely or isolated from th ose around you? Never 04/03/2025 Food Risk Answer Date Recorded Within the past 12 months we worried whether our food would run out before we got money to buy more. Never true 04/03/2025 Within the past 12 months th e food we bought just didn't last and we didn't have money to get more. Never true 04/03/2025 Dependent Care Answer Date Recorded Do you need help finding or paying for care for your loved ones. For example, child care sitter or elderly care for an older adult? No 04/03/2025 Education Answer Date Recorded Do you think completing more education or training, like finishing a GED, going to college, or learning a trade, would be helpful for you? No 04/03/2025 Employment and Income Answer Date Recor ded During the last four weeks, have you been actively looking for work? No 04/03/2025 Living Situation Answer Date Recorded What is your living situation? 0 04/03/2025 Interpersonal Safety Answer Date Record ed Physical Abuse 04/03/2025 Verbal Abuse 04/03/2025 Sex and Gender Information Value Date Recorded Sex Assigned at Not on file Legal Sex Male 12:24 AM EST Gender Identity Not on file Sexual Orientation Choose not to disclose 2024 5:16 PM EDT Obstetrics History Last Filed Vital Signs Vital Sign Reading Time Taken Comments Blood Pressure 135/77 04/06/2025 12:03 PM EDT Pulse 75 04/06/2025 12:03 PM EDT Temperature 36 C (96.8 F) 04/06/2025 11:00 AM EDT Respiratory Rate 20 04/06/2025 11:20 AM EDT Oxygen Saturation 96% 04/06/2025 12:03 PM EDT Inhaled Oxygen Concentration - - Weight 78.5 kg (173 lb) 04/18/2025 2:50 PM EDT Height 177.8 cm (5' 10 ) 04/18/2025 2:50 PM EDT Body Mass Index 24.82 04/18/2025 2:50 PM EDT Plan of Treatment Scheduled Procedures Name Priority Associated Diagnoses Date/Ti me EXCISION CYST GANGLION Ganglion cyst of finger Health Maintenance Due Date Last Done Comments Diabetes: Annual Foot Exam 1965 Diabetes: Annual Retina Eye Exam 1965 Zoster Vaccines (1 of 2) 2005 RSV Immunization Adult Patients (1 - Risk 60-74 years 1-dose series) 2015 Pneumococcal Vaccine: 50+ Years (2 of 2 - PCV) 09/23/2017 09/23/2016 Cholesterol Screening (Lipid Panel) 09/21/2022 Medicare Annual Wellness Visit 09/21/2022 Depression Screening 10/19/2024 COVID-19 Vaccine ( season) 2025 07/06/2024, 01/01/2024, 09/06/2022, Additional history exists Diabetes: Annual Urine Albumin-Creatinine Ratio (uACR) 04/03/2025 Influenza Vaccine (#1) 2025 , 07/20/2023, 07/28/2022, Additional history exists Diabetes: Blood Sugar Control Test (HGBA1C) 10/04/2025 04/04/2025 Social Influencers of Health Screening 04/03/2026 04/03/2025 Diabetes: Annual GFR (Glomerular Filtration Rate) 04/06/2026 04/06/2025, 04/05/2025, 04/04/2025, Additional history exists Falls Risk Assessment 04/06/2026 04/06/2025 DTaP,Tdap,and Td Vaccines (2 - Td or Tdap) 03/24/2027 03/24/2017 Colorectal Cancer Screening: Colonoscopy 04/07/2035 04/07/2025, 04/06/2025 Hepatitis C Screening Completed 04/03/2025, 025 HIB Vaccines Aged Out No longer eligi [...] Procedure Name Priority Date/Time Associated Diagnosis Comments XR FINGERS 2+ VIEWS RIGHT Routine 04/18/2025 3:06 PM EDT Pain EXTERNAL COLONOSCOPY REPORT 04/07/2025 POCT GLUCOSE BLOOD Routine 04/06/2025 12 :02 PM EDT COLONOSCOPY Routine 04/06/2025 10:59 AM EDT TISSUE EXAM Routine 04/06/2025 10:51 AM EDT Diabetic ketoacidosis without coma associated with type 1 diabetes mellitus (CMS/HCC V24, CMS/HCC V28) Hypomagnesemia Hypokalemia Acute kidney injury (DAWSON) with acute tubular necrosis (ATN) (CMS/HCC V24) Pseudohyponatremia POCT GLUCOSE BLOOD Routine 04/06/2025 8: 08 AM EDT BASIC METABOLIC PANEL Routine 04/06/2025 6:00 AM EDT COMPLETE BLOOD COUNT Routine 04/06/2025 6:00 AM EDT POCT GLUCOSE BLOOD Routine 04/05/2025 8: 19 PM EDT POCT GLUCOSE BLOOD Routine 04/05/2025 4: 17 PM EDT CALPROTECTIN, STOOL Routine 04/05/2025 3:40 PM EDT POCT GLUCOSE BLOOD Routine 04/05/2025 11 :06 AM EDT POCT GLUCOSE BLOOD Routine 04/05/2025 7: 49 AM EDT COMPLETE BLOOD COUNT Routine 04/05/2025 5:41 AM EDT PHOSPHORUS Routine 04/05/2025 5:41 AM EDT MAGNESIUM Routine 04/05/2025 5:41 AM EDT BASIC METABOLIC PANEL Routine 04/05/2025 5:41 AM EDT POCT GLUCOSE BLOOD Routine 04/04/2025 8: 19 PM EDT POCT GLUCOSE BLOOD Routine 04/04/2025 3: 18 PM EDT POCT GLUCOSE BLOOD Routine 04/04/2025 11 :47 AM EDT BASIC METABOLIC PANEL Timed 04/04/2025 10:13 AM EDT POCT GLUCOSE BLOOD Routine 04/04/2025 9: 34 AM EDT POCT GLUCOSE BLOOD Routine 04/04/2025 8: 48 AM EDT POCT GLUCOSE BLOOD Routine 04/04/2025 7: 46 AM EDT POCT GLUCOSE BLOOD Routine 04/04/2025 6: 39 AM EDT POCT GLUCOSE BLOOD Routine 04/04/2025 5: 47 AM EDT MANUAL DIFFERENTIAL - SYSMEX WAM Timed 04/04/2025 5:11 AM EDT HEMOGLOBIN A1C Add-On 04/04/2025 5:11 AM EDT CBC WITH AUTO DIFFERENTIAL Routine 04/04/2025 5:11 AM EDT COMPLETE BLOOD COUNT Timed 04/04/2025 5:11 AM EDT MAGNESIUM Routine 04/04/2025 5:11 AM EDT CBC AND DIFFERENTIAL Routine 04/04/2025 5:11 AM EDT BASIC METABOLIC PANEL Timed 04/04/2025 5:11 AM EDT POCT GLUCOSE BLOOD Routine 04/04/2025 4: 34 AM EDT POCT GLUCOSE BLOOD Routine 04/04/2025 3: 37 AM EDT POCT GLUCOSE BLOOD Routine 04/04/2025 2: 27 AM EDT BASIC METABOLIC PANEL Timed 04/04/2025 2:00 AM EDT POCT GLUCOSE BLOOD Routine 04/04/2025 1: 30 AM EDT POCT GLUCOSE BLOOD Routine 04/04/2025 12 :43 AM EDT POCT GLUCOSE BLOOD Routine 04/03/2025 11 :29 PM EDT BASIC METABOLIC PANEL Timed 04/03/2025 10:51 PM EDT POCT GLUCOSE BLOOD Routine 04/03/2025 10 :30 PM EDT NAVARRETE URINE CULTURE TUBE STAT 04/03/20 10:09 PM EDT URINALYSIS WITH REFLEX MICROSCOPIC AND CULTURE STAT 04/03/2025 10:09 PM EDT URINALYSIS WITH REFLEX MICROSCOPIC AND CULTURE STAT 04/03/2025 10:09 PM EDT CULTURE URINE STAT 04/03/2025 10:09 PM EDT POCT GLUCOSE BLOOD Routine 04/03/2025 9: 30 PM EDT CLOSTRIDIUM DIFFICILE TOXIN Routine 04/03/2025 9:02 PM EDT POCT GLUCOSE BLOOD Routine 04/03/2025 8: 32 PM EDT POCT GLUCOSE BLOOD Routine 04/03/2025 7: 01 PM EDT POCT GLUCOSE BLOOD Routine 04/03/2025 6: 34 PM EDT PHOSPHORUS STAT 04/03/2025 6:19 PM EDT MAGNESIUM Routine 04/03/2025 6:19 PM EDT BASIC METABOLIC PANEL Timed 04/03/2025 6:19 PM EDT POCT GLUCOSE BLOOD Routine 04/03/2025 5: 03 PM EDT POCT GLUCOSE BLOOD Routine 04/03/2025 3: 41 PM EDT LAVENDER - EDTA Routine 04/03/2025 3:00 PM EDT EXTRA TUBES Routine 04/03/2025 3:00 PM EDT VENOUS BLOOD GAS STAT 04/03/2025 2:45 PM EDT CULTURE BLOOD STAT 04/03/2025 2:45 PM EDT AST, ALT, BILIRUBIN ELR STATE REPORTABLES Routine 04/03/2025 2:44 PM EDT HEPATITIS PANEL, ACUTE WITH REFLEX TO CONFIRMATION Add-On 04/03/2025 2:44 PM EDT BASIC METABOLIC PANEL Timed 04/03/2025 2:44 PM EDT CULTURE BLOOD STAT 04/03/2025 2:44 PM EDT TROPONIN I HIGH SENSITIVITY STAT 04/03/2025 11:20 AM EDT XR CHEST 1 VIEW STAT 04/03/2025 10:59 AM EDT ECG 12-LEAD STAT 04/03/2025 10:51 AM EDT MANUAL DIFFERENTIAL - SYSMEX WAM STAT 04/03/2025 10:38 AM EDT LIPASE STAT Add-on 04/03/2025 10:38 AM EDT BETA HYDROXYBUTYRATE Add-On 04/03/2025 10:38 AM EDT MAGNESIUM Add-On 04/03/2025 10:38 AM EDT CBC WITH AUTO DIFFERENTIAL STAT 04/03/2025 10:38 AM EDT COMPREHENSIVE METABOLIC PANEL STAT 04/03/2025 10:38 AM EDT CBC AND DIFFERENTIAL STAT 04/03/2025 10:[address] ABDOMEN PELVIS W CONTRAST STAT 04/01/2025 4:36 PM EDT GASTROINTESTINAL PATHOGENS BY PCR STAT 04/01/2025 2:49 PM EDT MANUAL DIFFERENTIAL - SYSMEX WAM STAT 04/01/2025 2:13 PM EDT AST, ALT, BILIRUBIN ELR STATE REPORTABLES Routine 04/01/2025 2:13 PM EDT HEPATITIS PANEL, ACUTE WITH REFLEX TO CONFIRMATION Add-On 04/01/2025 2:13 PM EDT MAGNESIUM STAT Add-on 04/01/2025 2:13 PM EDT CBC WITH AUTO DIFFERENTIAL STAT 04/01/2025 2:13 PM EDT LIPASE STAT 04/01/2025 2:13 PM EDT TYPE AND SCREEN STAT 04/01/2025 2:13 PM EDT COMPREHENSIVE METABOLIC PANEL STAT 04/01/2025 2:13 PM EDT CBC AND DIFFERENTIAL STAT 04/01/2025 2:13 PM EDT from Last 3 Months Results * XR Fingers 2+ Views Right (04/18/2025 3:06 PM EDT) Anatomical Region Laterality Modality Upper Extremities, Fingers Right Compu melody Radiography Narrative 04/18/2025 3:32 PM EDT AP, lateral, oblique of the right long finger was obtained on 04/18/2025. There are no lytic lesions, obvious fractures, or unusual calcifications. Patient does have some arthritis evident with very small periarticular osteophytes. Joint spaces are maintained. Soft tissue shadow on the lateral consistent with likely having a cyst. us Anne Valle MD IMG XR PROCEDURES Final Resul t * External Colonoscopy Report (04/07/2025) Anatomical Region Laterality Modality Endoscopy us Provider Onbase GI~PROCEDURE ORDERABLES Final Result * (ABNORMAL) POCT Glucose, blood (04/06/2025 12:02 PM EDT) Only the most recent of27 resultswithin the time period is included. Pathologist [facility] Glucose POCT 106(H) 70 - 100 mg/dL 04/06/2025 12:03 PM EDT [facility] Blood Capillary blood specimen / Unknown 04/06/2025 12:02 PM EDT 04/06/2025 12:04 PM EDT us Brent Valle MD LAB POINT OF CARE TE ST DOCKED DEVICE UNSOLICITED RESULTS Final Result [facility] ([facility] [address] [place] [address], [place] [phone] * COLONOSCOPY Anesthesia - MAC; [facility] ENDOSCOPY (04/06/2025 10:59 AM EDT) Anatomical Region Laterality Modality Endoscopy 04/06/2025 10:4 5 AM EDT Impressions 04/06/2025 11:00 AM EDT - The examined portion of the ileum was normal. - Normal mucosa in the entire examined colon. Biopsied. - Internal hemorrhoids. Recommendation: - Repeat colonoscopy in 10 years for screening purposes. - Await pathology results. - Resume regular diet. Narrative 04/06/2025 11:00 AM EDT [facility] GI Patient Name: Wenceslao Sanchez Procedure Date: 04/06/2025 10:45 AM Date of : 1955 Age: 69 Gender: Male Note Status: Finalized Attending MD: Araceli Sprague MD, Procedure Date No Time: 04/06/2025 Procedure: Colonoscopy Indications: Diarrhea Providers: Araceli Sprague MD Referring MD: Araceli Sprague MD Medicines: Propofol per Anesthesia Complications: No immediate complications. Estimated Blood Loss: Estimated blood loss: none. Procedure: Pre-Anesthesia Assessment: - ASA Grade Assessment: III - A patient with severe systemic disease. After I obtained informed consent, the scope was passed under direct vision. Throughout the procedure, the patient's blood pressure, pulse, and oxygen saturations were monitored continuously.The Colonoscope was introduced through the anus and advanced to the terminal ileum. The colonoscopy was performed without difficulty. The patient tolerated the procedure well. The quality of the bowel preparation was good. Findings: The perianal and digital rectal examinations were normal. The terminal ileum appeared normal. Normal mucosa was found in the entire colon. Biopsies for histology were taken with a cold forceps for evaluation of microscopic colitis. Internal hemorrhoids were found during retroflexion. The hemorrhoids were Grade I (internal hemorrhoids that do not prolapse). Procedure Code(s): --- Professional --- 75476, Colonoscopy, flexible; with biopsy, single or multiple Diagnosis Code(s): --- Professional --- R19.7, Diarrhea, unspecified CPT copyright 2020 [employer]. All rights reserved. The codes documented in this report are preliminary and upon tenterer review may be revised to meet current compliance requirements. Araceli Sprague MD 04/06/2025 11:00:05 AM This report has been signed electronically.Araceli Sprague MD Number of Addenda: 0 Note Initiated On: 04/06/2025 10:45 AM Scope In: Scope Out: Endoscopy Department at [facility] - [address] [place] [id number] Procedure Note Araceli Sprague MD - 04/06/2025 [facility] GI Patient Name: Wenceslao Sanchez Procedure Date: 04/06/2025 10:45 AM Date of : 1955 Age: 69 Gender: Male Note Status: Finalized Attending MD: Araceli Spargue MD, Procedure Date No Time: 04/06/2025 Procedure: Colonoscopy Indications: Diarrhea Providers: Araceli Sprague MD Referring MD: Araceli Sprague MD Medicines: Propofol per Anesthesia Complications: No immediate complications. Estimated Blood Loss: Estimated blood loss: none. Procedure: Pre-Anesthesia Assessment: - ASA Grade Assessment: III - A patient with severe systemic disease. After I obtained informed consent, the scope was passed under direct vision. Throughout theprocedure, the patient's blood pressure, pulse, and oxygen saturations were monitored continuously.The Colonoscope was introduced through the anus and advanced to the terminal ileum. The colonoscopy was performed without difficulty. The patient tolerated the procedure well. The quality of the bowel preparation was good. Findings: The perianal and digital rectal examinations were normal. The terminal ileum appeared normal. Normal mucosa was found in the entire colon.Biopsies for histology were taken with a cold forceps for evaluation of microscopic colitis. Internal hemorrhoids were found duringretroflexion. The hemorrhoids were Grade I (internal hemorrhoids that do not prolapse). Procedure Code(s): --- Professional --- 31984, Colonoscopy, flexible; with biopsy, singleor multiple Diagnosis Code(s): --- Professional --- R19.7, Diarrhea, unspecified CPT copyright 2020 [employer]. All rights reserved. The codes documented in this report are preliminary and upon tenterer reviewmay be revised to meet current compliance requirements. Araceli Sprague MD 04/06/2025 11:00:05 AM This report has been signed electronically.Araceli Sprague MD Number of Addenda: 0 Note Initiated On: 04/06/2025 10:45 AM Scope In: Scope Out: Endoscopy Department at [facility] - [address] [place] [phone] IMPRESSION: - The examined portion of the ileum was normal. - Normal mucosa in the entire examined colon.Biopsied. - Internal hemorrhoids. Recommendation: - Repeat colonoscopy in 10 years for screening purposes. - Await pathology results. - Resume regular diet. Araceli Sprague MD GI~PROCEDURE ORDERABLES Final Result * Tissue exam (04/06/2025 10:51 AM EDT) Final Diagnosis Colon, random biopsies: Benign colonic mucosa with mild increase in intraepithelial lymphocytes and mucosal damage, see comment. Not diagnostic of microscopic colitis. 04/07/2025 10:50 AM EDT [facility] Comment The changes are patchy in nature, and while there is some evidence of mucosal injury, there are insufficient intraepithelial lymphocytes to support a diagnosis of microscopic colitis and the basement membrane remains intact. The differential diagnosis includes medication effect, viral infections, and emerging lymphocytic colitis. 04/07/2025 10:50 AM EDT [facility] Gross Description A. Colon, random biopsies: Labeled random colon . Received in formalin, are multiple irregular soft to rubbery, baker-pink tissue fragments, approximately ranging from 0.1 cm to 0.8 cm in greatest diameters and aggregating to 1.8 x 0.6 x 0.4 cm. The specimen is wrapped in paper and submitted in toto in one cassette, multiple pieces, multiple levels. Please note: Small tissue fragments may not survive processing. hs/DG 04/07/2025 10:50 AM EDT [facility] Disclaimer Unless otherwise specified, all tissue is 10% NB formalin fixed and paraffin embedded. 04/07/2025 10:50 AM EDT [facility] Tissue Colon structure / Unknown 04/06/2025 10:51 AM EDT 04/06/2025 11:40 AM EDT Araceli Sprague MD LAB PATHOLOGY ORDERABLES Final Result [facility] [address] [place] [address], [place] [phone] * (ABNORMAL) Complete blood count (04/06/2025 6:00 AM EDT) Only the most recent of3 resultswithin the time period is included. WBC 19.8(H) 4.8 - 10.8 K/mcL LAB HEMETOLOGY METHOD 04/06/2025 7:07 AM EDT [facility] RBC 5.50 4.50 - 5.50 M/mcL LAB HEMETOLOGY METHOD 04/06/2025 7:07 AM EDT [facility] Hemoglobin 16.4 13.5 - 17.5 g/dL LAB HEMETOLOGY METHOD 04/06/2025 7:[address] [facility] Hematocrit 45.7 42.0 - 54.0 % LAB HEMETOLOGY METHOD 04/06/2025 7:07 AM EDT [facility] MCV 83.2 79.0 - 98.0 FL LAB HEMETOLOGY METHOD 04/06/2025 7:07 AM EDT [facility] MCH 29.9 27.0 - 32.0 pcg LAB HEMETOLOGY METHOD 04/06/2025 7:07 AM EDT [facility] MCHC 35.9 32.0 - 37.0 g/dL LAB HEMETOLOGY METHOD 04/06/2025 7:07 AM EDT [facility] RDW 12.5 11.0 - 15.0 % LAB HEMETOLOGY METHOD 04/06/2025 7:07 AM EDT [facility] Platelets 311 130 - 400 K/mcL LAB HEMETOLOGY METHOD 04/06/2025 7:07 AM EDT [facility] MPV 9.9 7.0 - 11.0 FL LAB HEMETOLOGY METHOD 04/06/2025 7:07 AM EDT [facility] NRBC 0.0 <1.0 % LAB HEMETOLOGY METHOD 04/06/2025 7:07 AM EDT [facility] NRBC Absolute 0.00 <0.10 K/mcL LAB HEMETOLOGY METHOD 04/06/2025 7:07 AM EDT [facility] Blood Venous blood specimen / Unknown Venipuncture / Unknown 04/06/2025 6:00 AM EDT 04/06/2025 6:52 AM EDT us Brent Valle MD LAB BLOOD ORDERABLES Final Re sult [facility] [address] [place] [address], * (ABNORMAL) Basic metabolic panel (04/06/2025 6:00 AM EDT) Only the most recent of8 resultswithin the time period is included. [facility] Sodium 135 133 - 145 mmol/L LAB CHEMISTRY METHOD 04/06/2025 8:[address] [facility] Potassium 3.3(L) 3.5 - 5.5 mmol/L LAB CHEMISTRY METHOD 04/06/2025 8:[address] [facility] Chloride 98 96 - 110 mmol/L LAB CHEMISTRY METHOD 04/06/2025 8:[address] [facility] CO2 24 21 - 32 mmol/L LAB CHEMISTRY METHOD 04/06/2025 8:[address] [facility] Anion Gap 13(H) 3 - 11 LAB CHEMISTRY METHOD 04/06/2025 8:[address] [facility] Glucose 97 70 - 100 mg/dL LAB CHEMISTRY METHOD 04/06/2025 8:[address] [facility] BUN 30(H) 5 - 25 mg/dL LAB CHEMISTRY METHOD 04/06/2025 8:[address] [facility] Creatinine 1.29 0.70 - 1.30 mg/dL LAB CHEMISTRY METHOD 04/06/2025 8:[address] [facility] eGFR 60 >=60 mL/min/1. 73m2 LAB CHEMISTRY METHOD 04/06/2025 8:[address] [facility] Comment:Calculation based on the Chronic Kidney Disease Epidemiology Collaboration (CKD-EPI) equation refit without adjustment for race. BUN/Creatinine Ratio 23.3 LAB CHEMISTRY METHOD 04/06/2025 8:[address] [facility] Calcium 8.8 8.5 - 10.5 mg/dL LAB CHEMISTRY METHOD 04/06/2025 8:[address] [facility] Blood Venous blood specimen / Unknown Venipuncture / Unknown 04/06/2025 6:00 AM EDT 04/06/2025 6:51 AM EDT us Brent Valle MD LAB BLOOD ORDERABLES Final Re sult [facility] [address] [place] [address], [place] [phone] * (ABNORMAL) Calprotectin, stool (04/05/2025 3:40 PM EDT) Calprotectin, Fecal 378.0(H) <50 mcg/g 04/10/2025 4:26 PM EDT [facility] Comment: <50 mcg/g Normal 50 - 120 mcg/g Borderline >120 mcg/g Abnormal Borderline results suggest repeat testing in 4 to 6 weeks. Test performed at [facility], [address], [place] [address] Ericka Mahoney MD, PhD - Lawyer [employer]ate Stool Rectum structure / Unknown Non-blood Collection / Unknown 04/05/2025 3:40 PM EDT 04/05/2025 3:46 PM EDT us Brent Valle MD LAB BODY FLUIDS AND STOOLS OR DERABLES Final Result Performing Organization Address [facility] de Phone Number [facility] [address] [place] [address] * (ABNORMAL) Phosphorus (04/05/2025 5:41 AM EDT) Only the most recent of2 resultswithin the time period is included. Phosphorus 4.6(H) 2.5 - 4.5 mg/dL LAB CHEMISTRY METHOD 04/05/2025 7:35 AM EDT [facility] Blood Venous blood specimen / Unknown Venipuncture / Unknown 04/05/2025 5:41 AM EDT 04/05/2025 6:31 AM EDT us Brent Valle MD LAB BLOOD ORDERABLES Final Re sult Performing Organization Address [facility] Co de Phone Number [facility] [address] [place] [address], [place] [phone] * Magnesium (04/05/2025 5:41 AM EDT) Only the most recent of5 resultswithin the time period is included. Pathologist [facility] Magnesium 2.0 1.9 - 2.6 mg/dL LAB CHEMISTRY METHOD 04/05/2025 7:35 AM EDT [facility] Blood Venous blood specimen / Unknown Venipuncture / Unknown 04/05/2025 5:41 AM EDT 04/05/2025 6:31 AM EDT us Brent Valle MD LAB BLOOD ORDERABLES Final Re sult [facility] [address] [place] [address], * (ABNORMAL) Manual differential (04/04/2025 5:11 AM EDT) Only the most recent of3 resultswithin the time period is included. Pathologist [facility] Neutrophils % 65.0 % LAB HEMETOLOGY METHOD 04/04/2025 8:20 AM EDT [facility] Bands % 1.0 % LAB HEMETOLOGY METHOD 04/04/2025 8:[address] [facility] Lymphocytes % 15.0 % LAB HEMETOLOGY METHOD 04/04/2025 8:20 AM EDT [facility] Monocytes % 9.0 % LAB HEMETOLOGY METHOD 04/04/2025 8:20 AM T [facility] Eosinophils % 10.0 % LAB HEMETOLOGY METHOD 04/04/2025 8:20 AM EDT [facility] Basophils % 0.0 % LAB HEMETOLOGY METHOD 04/04/2025 8:[address] [facility] Neutrophils Absolute Manual 10.92(H) 1.50 - 7.00 K/mcL LAB HEMETOLOGY [facility] Bands Absolute Manual 0.17(H) 0.00 - 0.00 K/[facility] LAB HEMETOLOGY METHOD 04/04/2025 8:20 AM EDT [facility] Lymphocytes Absolute 2.52 1.00 - 5.00 K/mcL LAB HEMETOLOGY METHOD 04/04/2025 8:20 AM EDT [facility] Monocytes Absolute Manual 1.51(H) 0.20 - 1.00 K/[facility] LAB HEMETOLOGY METHOD 04/04/2025 8:20 AM EDT [facility] Eosinophils Absolute Manual 1.68(H) 0.00 - 0.50 K/[facility] LAB HEMETOLOGY METHOD 04/04/2025 8:20 AM EDT [facility] Basophils Absolute Manual 0.00 0.00 - 0.20 K/[facility] LAB HEMETOLOGY METHOD 04/04/2025 8:20 AM EDT [facility] Rbc Morphology Consistent with indices Consistent with indices, Normal for LAB HEMETOLOGY METHOD 04/04/2025 8:20 AM EDT [facility] Platelet Morphology - WAM Normal Normal LAB HEMETOLOGY METHOD 04/04/2025 8:20 AM EDT [facility] Blood Venous blood specimen / Unknown Venipuncture / Unknown 04/04/2025 5:11 AM EDT 04/04/2025 5:54 AM EDT us Zhanna Ryan [employer] LAB BLOOD ORDERABLES Fin al Result [facility] [address] [place] [address], * (ABNORMAL) CBC auto differential (04/04/2025 5:11 AM EDT) Only the most recent of3 resultswithin the time period is included. WBC 16.8(H) 4.8 - 10.8 K/mcL LAB HEMETOLOGY METHOD 04/04/2025 8:[address] [facility] RBC 5.50 4.50 - 5.50 M/mcL LAB HEMETOLOGY METHOD 04/04/2025 8:[address] [facility] Hemoglobin 15.9 13.5 - 17.5 g/dL LAB HEMETOLOGY METHOD 04/04/2025 8:[address] [facility] Hematocrit 45.0 42.0 - 54.0 % LAB HEMETOLOGY METHOD 04/04/2025 8:[address] [facility] MCV 82.3 79.0 - 98.0 FL LAB HEMETOLOGY METHOD 04/04/2025 8:[address] [facility] MCH 29.1 27.0 - 32.0 pcg LAB HEMETOLOGY METHOD 04/04/2025 8:[address] [facility] MCHC 35.3 32.0 - 37.0 g/dL LAB HEMETOLOGY METHOD 04/04/2025 8:[address] [facility] RDW 12.3 11.0 - 15.0 % LAB HEMETOLOGY METHOD 04/04/2025 8:[address] [facility] Platelets 299 130 - 400 K/mcL LAB HEMETOLOGY METHOD 04/04/2025 8:[address] [facility] MPV 9.8 7.0 - 11.0 FL LAB HEMETOLOGY METHOD 04/04/2025 8:[address] [facility] NRBC 0.0 <1.0 % LAB HEMETOLOGY METHOD 04/04/2025 8:[address] [facility] NRBC Absolute 0.00 <0.10 K/mcL LAB HEMETOLOGY METHOD 04/04/2025 8:[address] [facility] Blood Venous blood specimen / Unknown Venipuncture / Unknown 04/04/2025 5:11 AM EDT 04/04/2025 5:54 AM EDT Zhanna Ryan NP LAB BLOOD ORDERABLES Fin al Result Performing Organization Address [facility]/ZIP Co de Phone Number [facility] [address] [place] [address], [place] [phone] * (ABNORMAL) Hemoglobin A1c (04/04/2025 5:11 AM EDT) [facility] Hemoglobin A1C 10.1(H) <6.5 % LAB CHEMISTRY METHOD 04/04/2025 10:44 AM EDT [facility] Mean Bld Glu Estim. 243 mg/dL LAB CHEMISTRY METHOD 04/04/2025 10:44 AM EDT [facility] Blood Venous blood specimen / Unknown Venipuncture / Unknown 04/04/2025 5:11 AM EDT 04/04/2025 5:54 AM EDT Brent Valle MD LAB BLOOD ORDERABLES Final Re sult Performing Organization Address [facility]/ZIP Co de Phone Number [facility] [address] [place] [address], [place] [phone] * (ABNORMAL) Urinalysis with reflex microscopic and culture (04/03/2025 10:09 PM EDT) [facility] Specific [place] Urine 1.031(H) 1.003 - 1.030 LAB URINALYSIS - AUTOMATED METHOD 04/03/2025 10:46 PM EDT [facility] pH, Urine 5.5 5.0 - 8.0 pH LAB URINALYSIS - AUTOMATED METHOD 04/03/2025 10:46 PM EDT [facility] Leukocytes, Urine Trace(A) Negative LAB URINALYSIS - AUTOMATED METHOD 04/03/2025 10:46 PM EDT [facility] Nitrite, Urine Negative Negative LAB URINALYSIS - AUTOMATED METHOD 04/03/2025 10:[address] [facility] Protein, Urine 30(A) <=Trace mg/dL LAB URINALYSIS - AUTOMATED METHOD 04/03/2025 10:[address] [facility] Glucose, Urine 250(A) Negative mg/dL LAB URINALYSIS - AUTOMATED METHOD 04/03/2025 10:[address] [facility] Ketones, Urine 15(A) Negative mg/dL LAB URINALYSIS - AUTOMATED METHOD 04/03/2025 10:[address] [facility] Urobilinogen , Urine 1.0 0.2 - 1.0 mg/dL LAB URINALYSIS - AUTOMATED METHOD 04/03/2025 10:[address] [facility] Bilirubin, Urine Negative Negative LAB URINALYSIS - AUTOMATED METHOD 04/03/2025 10:[address] [facility] Blood, Urine Negative Negative LAB URINALYSIS - AUTOMATED METHOD 04/03/2025 10:[address] [facility] RBC, Urine 1.3 0 - 4 /HPF LAB URINALYSIS - AUTOMATED METHOD 04/03/2025 10:[address] [facility] WBC, Urine 14.9(H) 0 - 4 /HPF LAB URINALYSIS - AUTOMATED METHOD 04/03/2025 10:[address] [facility] Squamous Epithelial, Urine 60 0 - 60 /LPF LAB URINALYSIS - AUTOMATED METHOD 04/03/2025 10:[address] [facility] Crystals, Urine Heavy Amorphous Urate crystals. /LPF LAB URINALYSIS - AUTOMATED METHOD 04/03/2025 10:[address] [facility] Bacteria, Urine Negative Negative /HPF LAB URINALYSIS - AUTOMATED METHOD 04/03/2025 10:[address] [facility] Hyaline Casts, Urine 12.4(H) 0 - 3 /LPF LAB URINALYSIS - AUTOMATED METHOD 04/03/2025 10:46 PM EDT [facility] Urine Urine specimen obtained by clean catch procedure / Unknown Non-blood Collection / Unknown 04/03/2025 10:09 PM EDT 04/03/2025 10:16 PM EDT us Saleem Lebron DO LAB URINE ORDERABLES Final Result Performing Organization Address [facility]/ZIP Co de Phone Number [facility] [address] [place] [address], [place] [phone] * Navarrete urine culture tube (04/03/2025 10:09 PM EDT) Extra Tube Hold for add-ons. 04/04/2025 12:01 AM EDT [facility] Comment:Auto resulted. Urine Urine specimen obtained by clean catch procedure / Unknown Non-blood Collection / Unknown 04/03/2025 10:09 PM EDT 04/03/2025 10:17 PM EDT us Saleem Lebron DO [facility] URINE ORDERABLES Final Result Performing Organization Address [facility] de Phone Number [facility] [address] [place] [address], [place] [phone] * Culture urine (04/03/2025 10:09 PM EDT) Culture, Urine >100,000 CFU/mL Mixed urogenital melva, no uropathogens present. Suggest repeat specimen if clinically indicated. 04/05/2025 8:55 AM EDT [facility] Urine Urine specimen obtained by clean catch procedure / Unknown Non-blood Collection / Unknown 04/03/2025 10:09 PM EDT 04/03/2025 10:46 PM EDT us Saleem Lebron DO LAB MICROBIOLOGY - GENERAL ORDERABLES Final Result [facility] [address] [place] [address], [place] [phone] * Clostridium difficile toxin (04/03/2025 9:02 PM EDT) [facility] Clostridium difficile GDH Antigen Negative Negative 04/03/2025 9:47 PM EDT [facility] C difficile Toxins A+B, EIA Negative Negative 04/03/2025 9:47 PM EDT [facility] Comment:NEGATIVE FOR TOXIN P RODUCING CLOSTRIDIOIDES DIFFICILE, NO ADDITIONAL TESTING IS NECESSARY. Stool Rectum structure / Unknown Non-blood Collection / Unknown 04/03/2025 9:02 PM EDT 04/03/2025 9:10 PM EDT Zhanna Ryan [employer] LAB MICROBIOLOGY - GENER AL ORDERABLES Final Result Performing Organization Address [facility]/ZIP Co de Phone Number [facility] [address] [place] [address], [place] [phone] * Lavender tube (04/03/2025 3:00 PM EDT) [facility] Extra Tube Hold for add-ons. 04/03/2025 5:01 PM EDT [facility] Comment:Auto resulted. Blood Venous blood specimen / Unknown 04/03/2025 3:00 PM EDT 04/03/2025 3:17 PM EDT us Saleem Lebron DO LAB BLOOD ORDERABLES Final Result [facility] [address] [place] [address], [place] [phone] * Blood Culture, Peripheral #2 (04/03/2025 2:45 PM EDT) Only the most recent of2 resultswithin the time period is included. [facility] Culture, Blood No growth at 5 days 04/08/2025 4:01 PM EDT [facility] Blood Venous blood specimen / Unknown Venipuncture / Unknown 04/03/2025 2:45 PM EDT 04/03/2025 2:58 PM EDT us Nico Read MD LAB MICROBIOLOGY - GENERAL ORD ERABLES Final Result Performing Organization Address City/[facility]/ZIP Co de Phone Number [facility] [address] [place] [address], [place] [phone] * (ABNORMAL) Venous blood gas (04/03/2025 2:45 PM EDT) pH, Marvin 7.35 7.32 - 7.42 pH 04/03/2025 3:01 PM EDT [facility] pCO2, Marvin 36(L) 41 - 51 mmHg 04/03/2025 3:01 PM EDT [facility] pO2, Marvin 52(H) 25 - 40 mmHg 04/03/2025 3:01 PM EDT [facility] HCO3, Venous 20.6(L) 22.0 - 26.0 mmol/L 04/03/2025 3:01 PM EDT [facility] O2 Sat, Marvin 84.0 % 04/03/2025 3:01 PM EDT [facility] Base Excess, Marvin -4.9(L) -2.0 - 2.0 mmol/L 04/03/2025 3:01 PM EDT [facility] Blood Venous blood specimen / Unknown Venipuncture / Unknown 04/03/2025 2:45 PM EDT 04/03/2025 2:57 PM EDT us Saleem Lebron DO LAB BLOOD ORDERABLES Final Result [facility] [address] [place] [address], [place] [phone] * AST, ALT, Bilirubin ELR state reportables (04/03/2025 2:44 PM EDT) Only the most recent of2 resultswithin the time period is included. ALT (SGPT) 19 10 - 60 unit/L LAB CHEMISTRY METHOD 04/03/2025 7:49 PM EDT [facility] AST (SGOT) 19 10 - 42 unit/L LAB CHEMISTRY METHOD 04/03/2025 7:49 PM EDT [facility] Total Bilirubin 0.7 0.0 - 1.4 mg/dL LAB CHEMISTRY METHOD 04/03/2025 7:49 PM EDT [facility] Platelets 320 K/mcL LAB HEMETOLOGY METHOD 04/03/2025 7:49 PM EDT [facility] Blood Venous blood specimen / Unknown Venipuncture / Unknown 04/03/2025 2:44 PM EDT 04/03/2025 3:10 PM EDT Zhanna Ryan NP LAB BLOOD ORDERABLES Fin al Result [facility] [address] [place] [address], [place] [phone] * (ABNORMAL) Hepatitis panel, acute with reflex to confirmation (04/03/2025 2:44 PM EDT) Only the most recent of2 resultswithin the time period is included. Pathologist [facility] Hepatitis B Surface Ag Negative Negative LAB CHEMISTRY METHOD 04/03/2025 7:47 PM EDT [facility] Hepatitis A Antibody IgM Negative Negative LAB CHEMISTRY METHOD 04/03/2025 7:47 PM EDT [facility] Hep B Core IgM Negative Negative LAB CHEMISTRY METHOD 04/03/2025 7:47 PM EDT [facility] Hepatitis C Antibody Positive(A) Negative LAB CHEMISTRY METHOD 04/03/2025 7:47 PM EDT [facility] Comment:If confirmation of t his positive HCV Ab screening test is needed, please redraw and order HCV Viral Load. Note--> This test may not be added on due to different specimen requirements. Blood Venous blood specimen / Unknown Venipuncture / Unknown 04/03/2025 2:44 PM EDT 04/03/2025 3:10 PM EDT Zhanna Ryan [employer] LAB BLOOD ORDERABLES Fin al Result Performing Organization Address [facility]/ZIP Co de Phone Number [facility] [address] [place] [address], * Troponin I high sensitivity (04/03/2025 11:20 AM EDT) [facility] High Sensitivity Troponin I 11 <=79 ng/L LAB CHEMISTRY METHOD 04/03/2025 12:22 PM EDT [facility] Blood Venous blood specimen / Unknown Venipuncture / Unknown 04/03/2025 11:20 AM EDT 04/03/2025 11:36 AM EDT Narrative [facility] - 04/03/2025 12:22 PM EDT High levels of biotin in samples may falsely decrease hsTroponin values. Use caution when interpreting hsTroponin results in patients taking biotin who exhibit renal impairment (eGFR <60) or in patients taking more than 20 mg/day of biotin. Saleem Lebron DO LAB BLOOD ORDERABLES Final Result Performing Organization Address [facility]/ZIP Co de Phone Number [facility] [address] [place] [address], * XR Chest 1 View (04/03/2025 10:59 AM EDT) Anatomical Region Laterality Modality Body Radiographic Madonna ging 04/03/2025 11:0 4 AM EDT Impressions 04/03/2025 11:04 AM EDT No evidence of active pulmonary disease. -------- FINAL REPORT -------- Dictated By: Quique Sanford Dictated Date: 04/03/2025 11:04 ET Assigned Physician: Quique Sanford Reviewed and Electronically Signed By: Quique Sanford Signed Date: 04/03/2025 11:04 ET Workstation ID: [id number] Transcribed By: Self Edit Transcribed Date: 04/03/2025 11:04 ET Narrative 04/03/2025 11:04 AM EDT INDICATION: Chest pain FINDINGS: Single portable AP view of the chest obtained. No prior studies available for comparison. Lung coates are clear. Heart normal in size and shape. Bony structures are grossly intact and normal for the patient's age. Procedure Note Quique Sanford MD - 04/03/2025 INDICATION: Chest pain FINDINGS: Single portable AP view of the chest obtained. No prior studiesavailable for comparison. Lung coates are clear. Heart normal in size and shape. Bony structures are grossly intact and normal for the patient's age. IMPRESSION: No evidence of active pulmonary disease. -------- FINAL REPORT -------- Dictated By: Quique Sanford Dictated Date: 04/03/2025 11:04 ET Assigned Physician: Quique Sanford Reviewed and Electronically Signed By: Quique Sanford Signed Date: 04/03/2025 11:04 ET Workstation ID: [id number] Transcribed By: Self Edit Transcribed Date: 04/03/2025 11:04 ET us Saleem Lebron DO IMG XR PROCEDURES Final Res ult * ECG 12 lead (04/03/2025 10:51 AM EDT) Ventricular Rate ECG 110 BPM GEMUSE Atrial Rate 110 BPM GEMUSE P-R Interval 156 ms GEMUSE QRS Duration 106 ms GEMUSE Q-T Interval 366 ms GEMUSE QTc 495 ms GEMUSE P Wave [place] 53 degrees GEMUSE R [place] -47 degrees GEMUSE T [place] 44 degrees GEMUSE ECG Interpretation Sinus tachycardia Left axis deviation Incomplete right bundle branch block Minimal voltage criteria for LVH, may be normal variant ( R in aVL ) Prolongation of QT interval Abnormal ECG When compared with ECG of 04-JAN-2024 13:49, No significant change was found Confirmed by Mei TUCKER YUFENG ([id number]) on 04/03/2025 1:28:45 PM GEMUSE 04/03/2025 10:5 1 AM EDT 04/03/2025 1:28 PM EDT Saleem Lebron DO ECG ORDERABLES Final Resul t GEMUSE * (ABNORMAL) Beta hydroxybutyrate (04/03/2025 10:38 AM EDT) Beta-Hydroxyb utyrate 22.2(H) 0.2 - 2.8 mg/dL LAB CHEMISTRY METHOD 04/03/2025 12:14 PM EDT [facility] Blood Venous blood specimen / Unknown Venipuncture / Unknown 04/03/2025 10:38 AM EDT 04/03/2025 11:14 AM EDT Saleem Lebron DO LAB BLOOD ORDERABLES Final Result Performing Organization Address City/[facility]/ZIP Co de Phone Number [facility] [address] [place] [address], [place] [phone] * Lipase (04/03/2025 10:38 AM EDT) Only the most recent of2 resultswithin the time period is included. Lipase 19 13 - 75 unit/L LAB CHEMISTRY METHOD 04/03/2025 2:12 PM EDT [facility] Blood Venous blood specimen / Unknown Venipuncture / Unknown 04/03/2025 10:38 AM EDT 04/03/2025 11:14 AM EDT Nico Read MD LAB BLOOD ORDERABLES Final Res ult [facility] [address] [place] [address], * (ABNORMAL) Comprehensive metabolic panel (04/03/2025 10:38 AM EDT) Only the most recent of2 resultswithin the time period is included. Sodium 127(L) 133 - 145 mmol/L LAB CHEMISTRY METHOD 04/03/2025 12:[address] [facility] Potassium 3.3(L) 3.5 - 5.5 mmol/L LAB CHEMISTRY METHOD 04/03/2025 12:[address] [facility] Chloride 93(L) 96 - 110 mmol/L LAB CHEMISTRY METHOD 04/03/2025 12:[address] [facility] CO2 18(L) 21 - 32 mmol/L LAB CHEMISTRY METHOD 04/03/2025 12:[address] [facility] Anion Gap 16(H) 3 - 11 LAB CHEMISTRY METHOD 04/03/2025 12:[address] [facility] Glucose 477(HH) 70 - 100 mg/dL LAB CHEMISTRY METHOD 04/03/2025 12:[address] [facility] BUN 26(H) 5 - 25 mg/dL LAB CHEMISTRY METHOD 04/03/2025 12:[address] [facility] Creatinine 1.86(H) 0.70 - 1.30 mg/dL LAB CHEMISTRY METHOD 04/03/2025 12:[address] [facility] eGFR 39(L) >=60 mL/min/1. 73m2 LAB CHEMISTRY METHOD 04/03/2025 12:[address] [facility] Comment:Calculation based on the Chronic Kidney Disease Epidemiology Collaboration (CKD-EPI) equation refit without adjustment for race. BUN/Creatinine Ratio 14.0 LAB CHEMISTRY METHOD 04/03/2025 12:[address] [facility] Calcium 8.9 8.5 - 10.5 mg/dL LAB CHEMISTRY METHOD 04/03/2025 12:[address] [facility] AST (SGOT) 19 10 - 42 unit/L LAB CHEMISTRY METHOD 04/03/2025 12:[address] [facility] ALT (SGPT) 19 10 - 60 unit/L LAB CHEMISTRY METHOD 04/03/2025 12:[address] [facility] Alkaline Phosphatase 198(H) 42 - 121 unit/L LAB CHEMISTRY METHOD 04/03/2025 12:[address] [facility] Total Protein 6.4 6.0 - 8.0 g/dL LAB CHEMISTRY METHOD 04/03/2025 12:[address] [facility] Albumin 3.4 3.2 - 5.0 g/dL LAB CHEMISTRY METHOD 04/03/2025 12:[address] [facility] Total Bilirubin 0.7 0.0 - 1.4 mg/dL LAB CHEMISTRY METHOD 04/03/2025 12:[address] [facility] Blood Venous blood specimen / Unknown Venipuncture / Unknown 04/03/2025 10:38 AM EDT 04/03/2025 11:14 AM EDT us Saleem Lebron DO LAB BLOOD ORDERABLES Final Result [facility] [address] [place] [address], * CT Abdomen Pelvis w Contrast (04/01/2025 4:36 PM EDT) Anatomical Region Laterality Modality Body Computed Tomogra phy 04/01/2025 5:58 PM EDT Impressions 04/01/2025 5:58 PM EDT Fluid throughout the colon compatible with a diarrheal illness. No evidence of colitis. This document has been electronically signed by: Anthony Goldstein MD on 04/01/2025 17:58:49 Narrative 04/01/2025 5:58 PM EDT INDICATION: Diverticulitis suspected CT abdomen and pelvis with contrast Comparison: None Findings: There is minimal bibasilar atelectasis. The liver, gallbladder, pancreas, spleen, adrenal glands, and kidneys are unremarkable. There is fluid throughout the colon including the rectum compatible with diarrhea. There is no pericolonic fat stranding or wall thickening to suggest colitis. There is no diverticulosis or diverticulitis. Stomach and small bowel are unremarkable. There is a small amount of free fluid in the pelvis. There is no free air. The aorta is normal in diameter. There are no enlarged lymph nodes. There is a small fat containing left inguinal hernia. The prostate is mildly enlarged. Bladder is not distended. Patient is status post instrumented posterior fusion of L4-5. There are degenerative changes of the lumbar spine. There is no fracture or suspicious lytic or sclerotic lesion. Procedure Note Anthony Goldstein MD - 04/01/2025 INDICATION: Diverticulitis suspected CT abdomen and pelvis with contrast Comparison: None Findings: There is minimal bibasilar atelectasis. The liver, gallbladder, pancreas, spleen, adrenal glands, and kidneysare unremarkable. There is fluid throughout the colon including the rectum compatible with diarrhea. There is no pericolonic fat stranding or wall thickening to suggest colitis. There is no diverticulosis or diverticulitis. Stomachand small bowel are unremarkable. There is a small amount of free fluid inthe pelvis. There is no free air. The aorta is normal in diameter. There are no enlarged lymph nodes.There is a small fat containing left inguinal hernia. The prostate is mildly enlarged. Bladder is not distended. Patient is status post instrumented posterior fusion of L4-5. There are degenerative changes of the lumbar spine. There is no fracture or suspicious lytic or sclerotic lesion. IMPRESSION: Fluid throughout the colon compatible with a diarrheal illness. No evidence of colitis. This document has been electronically signed by: Anthony Goldstein MD on 04/01/2025 17:58:49 Danie Ayala MD [facility] PROCEDURES Final Result * Gastrointestinal pathogens molecular study (04/01/2025 2:49 PM EDT) [facility] Campylobacter Detection by PCR Not Detected Not Detected LAB MICROBIOLOGY METHOD 5 4:46 PM EDT [facility] Plesiomonas shigelloides Detection by PCR Not Detected Not Detected LAB MICROBIOLOGY METHOD 5 4:46 PM EDT [facility] Salmonella Detection by PCR Not Detected Not Detected LAB MICROBIOLOGY METHOD 5 4:46 PM EDT [facility] Vibrio Detection by PCR Not Detected Not Detected LAB MICROBIOLOGY METHOD 5 4:46 PM EDT [facility] Vibrio cholerae Detection by PCR Not Detected Not Detected LAB MICROBIOLOGY METHOD 5 4:46 PM EDT [facility] Yersinia enterocolitica Detection by PCR Not Detected Not Detected LAB MICROBIOLOGY METHOD 5 4:46 PM EDT [facility] Enteroaggregative E coli EAEC Detection by PCR Not Detected Not Detected LAB MICROBIOLOGY METHOD 5 4:46 PM EDT [facility] Enteropathogenic E coli EPEC Detection Not Detected Not Detected LAB MICROBIOLOGY METHOD 5 4:46 PM EDT [facility] Enterotoxigenic E coli ETEC LTST Detection Not Detected Not Detected LAB MICROBIOLOGY METHOD 5 4:46 PM EDT [facility] Shiga-like toxin producing E coli STEC STX1 STX2 Det Not Detected Not Detected LAB MICROBIOLOGY METHOD 5 4:46 PM EDT [facility] Shigella Enteroinvasive E coli EIEC Detection Not Detected Not Detected LAB MICROBIOLOGY METHOD 5 4:46 PM EDT [facility] Cryptosporidium Detection by PCR Not Detected Not Detected LAB MICROBIOLOGY METHOD 5 4:46 PM EDT [facility] Cyclospora cayetanensis Detection by PCR Not Detected Not Detected LAB MICROBIOLOGY METHOD 5 4:46 PM EDT [facility] Entamoeba histolytica Detection by PCR Not Detected Not Detected LAB MICROBIOLOGY METHOD 5 4:46 PM EDT [facility] Giardia lamblia Detection by PCR Not Detected Not Detected LAB MICROBIOLOGY METHOD 5 4:46 PM EDT [facility] Adenovirus F 40 41 Detection by PCR Not Detected Not Detected LAB MICROBIOLOGY METHOD 5 4:46 PM EDT [facility] Astrovirus Detection by PCR Not Detected Not Detected LAB MICROBIOLOGY METHOD 5 4:46 PM EDT [facility] Norovirus GI GII Detection by PCR Not Detected LAB MICROBIOLOGY METHOD 5 4:46 PM EDT [facility] Sapovirus Detection by PCR Not Detected Not Detected LAB MICROBIOLOGY METHOD 5 4:46 PM EDT [facility] Rotavirus A Detection by PCR Not Detected Not Detected LAB MICROBIOLOGY METHOD 5 4:46 PM EDT [facility] Stool Rectum structure / Unknown Non-blood Collection / Unknown 04/01/2025 2:49 PM EDT 04/01/2025 3:18 PM EDT [facility] - 04/01/2025 4:46 PM EDT PCR testing is much more sensitive than traditional techniques and allows for the detection of low numbers of stool pathogens. The clinical correlation of PCR results with the need for treatment and clinical outcomes has not been established. Therefore the results of PCR testing for stool pathogens must be taken into clinical context when making treatment decisions. This is a diagnostic test only, repeat testing for cure is not advised. You may consider infectious disease consult for additional guidance. Testing Performed by [facility] us Danie Ayala MD LAB MICROBIOLOGY - [facility]AL [place] [facility] Final Result [facility] [address] [place] [address], * Type and screen (04/01/2025 2:13 PM EDT) ABO Group A 04/01/2025 3:16 PM EDT [facility] Rh Type Positive 04/01/2025 3:16 PM EDT [facility] Antibody Screen Negative 04/01/2025 3:16 PM EDT [facility] Blood Venous blood specimen / Unknown Venipuncture / Unknown 04/01/2025 2:13 PM EDT 04/01/2025 2:27 PM EDT us Danie Ayala MD LAB BLOOD BANK TEST ORDERABLES Final Result [facility] [address] [place] [address], [place] [phone] from Last 3 Months Insurance MEDICARE MEDICAID - [place] Advance Directives * Full Code - Confirmed (Latest Code Status on File) Date Activated Date Inactivated Comments 04/03/2025 5:59 PM 04/06/2025 3:[address] [facility] was ascertained in the following way: Code status discussion: discussion with patient To update the patient's code status, place a code status order. Do not modify or discontinue any currently active code status orders. * Full Code - Default Date Activated Date Inactivated Comments 04/03/2025 1:30 PM 04/03/2025 5:59 PM This is orde r is used when code status has not been discussed with the patient, or code status is otherwise unknown/unconfirmed To update the patient's code status, place a code status order. Do not modify or discontinue any currently active code status orders. 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
== END 2025-06-14 15:59 | disposition home or self-care (01) ==
LOC: HO.HMCH 14:51
PROVIDERS: PCP Physician Assistant; Visit Provider Physician Assistant
DX: E11.65 Type 2 diabetes mellitus with hyperglycemia (principal); Z79.4 Long term (current) use of insulin; M17.11 Unilateral primary osteoarthritis, right knee

== ENCOUNTER → 2025-06-14 14:50 | Outpatient (BNVA) | payer MEDICARE, MEDICAID, SELFPAY | PROVIDERS: PCP Physician Assistant; Visit Provider Physician Assistant | DX: E11.65 Type 2 diabetes mellitus with hyperglycemia (principal); M17.11 Unilateral primary osteoarthritis, right knee; Z79.4 Long term (current) use of insulin | CPT/HCPCS: 99212 ==

== ENCOUNTER 2025-06-22 10:39 | Outpatient (REF) | payer MEDICARE, SELFPAY ==
--- NOTE | ~2025-06-22 | XR_ITS ---
EXAMINATION: XR KNEE, RIGHT CLINICAL INFORMATION: M17.11 - Unilateral primary osteoarthritis, right knee COMPARISON: None available. TECHNIQUE: Three views of the right knee. FINDINGS: No fracture, dislocation, or suspicious bone lesion. There is normal alignment. There is mild tricompartmental joint space narrowing with mild marginal osteophytic spurring, and spurring of the tibial spines. There is a small suprapatellar joint effusion. No soft tissue abnormalities. XR/XR knee RT 3V IMPRESSION: No acute findings of the right knee. Mild tricompartmental osteoarthrosis. Small suprapatellar joint effusion. Electronically signed by: Gilbert Mcintosh MD 06/22/2025 11:30 AM EDT
[2025-06-22 11:41] LABS: Hemoglobin A1C 339.2345 umol/L; Total Hemoglobin (HGBA1C) 3768.3032 umol/L
[2025-06-22 11:44] LABS: Hematocrit 41.6 % (42.0-52.0); Hemoglobin 14.7 g/dl (14.0-18.0); Mean Corpuscular HGB Conc 35.3 g/dl (31.0-36.0); Mean Corpuscular Hemoglobin 30.8 pg (27.0-33.0); Mean Corpuscular Volume 87.0 fL (80.0-98.0); NRBC Abs Auto 0.000 X10*3/uL (0.0-0.012); NRBC Pct Auto 0.0 /100WBC (0.0-0.2); Platelet Count 230 X10*3/uL (160-400); Red Blood Count 4.78 X10*6/uL (4.60-5.80); White Blood Count 6.9 X10*3/uL (4.8-10.8)
--- OUTSIDE RECORDS SUMMARY | 2025-06-22 12:10 | XMS_ITS | Clinical Summary ---
Author Organization 175 [facility] Address [address] [place] [address] Phone Care Team Providers Care Courseware Developer Name Role Phone Jean-Claude Anaya Primary Care Provider [phone] Allergies Active Allergy Reactions Criticality Noted Date [...] coma associated with type 1 diabetes mellitus ([facility] V24, [facility] V28) 04/03/2025 04/04/2025 Encounters Date Type Department Care Team Description 05/03/2025 Telephone Orthopedic Surgery [facility] [address] [phone] Phyllis Moss 04/24/2025 Telephone Orthopedic Surgery [facility] [address] [phone] Phyllis Moss 04/24/2025 Telephone Orthopedic Surgery - [place] 250 175 [facility] [address] [place] [phone] Phyllis Moss 04/18/2025 3:00 PM EDT Office Visit Orthopedic Surgery [facility] 175 [facility] [address] [place] [phone] Anne Valle MD Ganglion cyst of finger (Primary Dx) 04/07/2025 Telephone Gastroenterology - 299 [facility] 299 [facility] [address] [place] [phone] Hannah Bowman MA 04/06/2025 10:44 AM EDT Anesthesia Event [facility] Endoscopy [address] [place] [phone] Santos Reese MD 04/03/2025 10:21 AM EDT - 04/06/2025 1:02 PM EDT Hospital Encounter [facility] Medical Surgical Unit [address] [place] [phone] Saleem Lebron, Nico Hernandez MD Zipagan, James T, MD Rasul, Yar M, MD Bell, Alistair A, MD Diabetic ketoacidosis without coma associated with type 1 diabetes mellitus ([facility] V24, [facility] V28) (Primary Dx); Hypomagnesemia; Hypokalemia; Acute kidney injury (DAWSON) with acute tubular necrosis (ATN) ([facility] V24); Pseudohyponatremia Discharge Disposition: Home or Self Care 04/01/2025 2:19 PM EDT - 04/01/2025 6:45 PM EDT Emergency [facility] Emergency [address] [place] [address] Danie Ayala MD Abdominal pain, [...] care for your loved ones. For example, exceptional children teacher or elderly care for an older adult? [...] Annual Wellness Visit 09/21/2022 Depression Screening 10/19/2024 Diabetes: Annual Urine Albumin-Creatinine Ratio (uACR) 04/03/2025 COVID-19 Vaccine ( season) 2025 07/06/2024, 01/01/2024, 09/06/2022, Additional history exists Influenza Vaccine (#1) 2025 , 07/20/2023, 07/28/2022, [...] 17 PM EDT CALPROTECTIN, STOOL Routine 04/05/2025 3 :40 PM EDT POCT GLUCOSE BLOOD Routine 04/05/2025 [...] resultswithin the time period is included. Pathologist [facility] Glucose POCT 106(H) 70 - 100 mg/dL 04/06/2025 12:03 PM EDT [facility] Blood Capillary blood specimen / Unknown 04/06/2025 12:02 PM EDT 04/06/2025 12:04 PM EDT us Brent Valle MD LAB POINT OF CARE TE ST DOCKED DEVICE UNSOLICITED RESULTS Final Result [facility] [address] [place] [address], [place] [phone] * COLONOSCOPY Anesthesia - MAC; [facility] ENDOSCOPY (04/06/2025 10:59 AM EDT) Anatomical Region [...] regular diet. Narrative 04/06/2025 11:00 AM EDT [facility] GI Patient Name: Wenceslao Sanchez Procedure [...] not prolapse). Procedure Code(s): --- Professional --- 09156, Colonoscopy, flexible; with biopsy, single or multiple Diagnosis Code(s): --- Professional --- R19.7, Diarrhea, unspecified CPT copyright 2020 [employer]. All rights reserved. The codes documented in this report are preliminary and upon tool machinist review may be revised to meet current compliance requirements. Araceli Sprague MD 04/06/2025 11:00:05 AM This report has been signed electronically.Araceli Sprague MD Number of Addenda: 0 Note Initiated On: 04/06/2025 10:45 AM Scope In: Scope Out: Endoscopy Department at [facility] - [address] [place] [phone] Procedure Note Araceli Sprague MD - 04/06/2025 [facility] GI Patient Name: Wenceslao Sanchez Procedure [...] not prolapse). Procedure Code(s): --- Professional --- 75470, Colonoscopy, flexible; with biopsy, singleor multiple Diagnosis Code(s): --- Professional --- R19.7, Diarrhea, unspecified CPT copyright 2020 [employer]. All rights reserved. The codes documented in this report are preliminary and upon tool machinist reviewmay be revised to meet current compliance requirements. Araceli Sprague MD 04/06/2025 11:00:05 AM This report has been signed electronically.Araceli Sprague MD Number of Addenda: 0 Note Initiated On: 04/06/2025 10:45 AM Scope In: Scope Out: Endoscopy Department at [facility] - [address] [place] [phone] IMPRESSION: - The examined portion of the [...] of microscopic colitis. 04/07/2025 10:50 AM EDT [facility] Comment The changes are patchy in nature, and while there is some evidence of mucosal injury, there are insufficient intraepithelial lymphocytes to support a diagnosis of microscopic colitis and the basement membrane remains intact. The differential diagnosis includes medication effect, viral infections, and emerging lymphocytic colitis. 04/07/2025 10:50 AM EDT [facility] Gross Description A. Colon, [...] survive processing. hs/DG 04/07/2025 10:50 AM EDT [facility] Disclaimer Unless otherwise specified, all tissue is 10% NB formalin fixed and paraffin embedded. 04/07/2025 10:50 AM EDT [facility] Tissue Colon structure / Unknown 04/06/2025 10:51 AM EDT 04/06/2025 11:40 AM EDT Araceli Sprague MD LAB PATHOLOGY ORDERABLES Final Result [facility] [address] [place] [address], [place] [phone] * (ABNORMAL) Complete blood count (04/06/2025 6:00 AM EDT) Only the most recent of3 resultswithin the time period is included. WBC 19.8(H) 4.8 - 10.8 K/mcL LAB HEMETOLOGY METHOD 04/06/2025 7:07 AM EDT [facility] RBC 5.50 4.50 - 5.50 M/mcL LAB HEMETOLOGY METHOD 04/06/2025 7:07 AM EDT [facility] Hemoglobin 16.4 13.5 - 17.5 g/dL LAB HEMETOLOGY METHOD 04/06/2025 7:07 AM [facility] Hematocrit 45.7 42.0 - 54.0 % LAB HEMETOLOGY METHOD 04/06/2025 7:07 AM EDT [facility] MCV 83.2 79.0 - 98.0 FL LAB HEMETOLOGY METHOD 04/06/2025 7:07 AM EDT [facility] MCH 29.9 27.0 - 32.0 pcg LAB HEMETOLOGY METHOD 04/06/2025 7:07 AM EDT [facility] MCHC 35.9 32.0 - 37.0 g/dL LAB HEMETOLOGY METHOD 04/06/2025 7:07 AM EDT [facility] RDW 12.5 11.0 - 15.0 % LAB HEMETOLOGY METHOD 04/06/2025 7:07 AM EDT [facility] Platelets 311 130 - 400 K/mcL LAB HEMETOLOGY METHOD 04/06/2025 7:07 AM EDT [facility] MPV 9.9 7.0 - 11.0 FL LAB HEMETOLOGY METHOD 04/06/2025 7:07 AM EDT [facility] NRBC 0.0 <1.0 % LAB HEMETOLOGY METHOD 04/06/2025 7:07 AM EDT [facility] NRBC Absolute 0.00 <0.10 K/mcL LAB HEMETOLOGY METHOD 04/06/2025 7:07 AM EDT [facility] Blood Venous blood specimen / Unknown Venipuncture / Unknown 04/06/2025 6:00 AM EDT 04/06/2025 6:52 AM EDT us Brent Valle MD LAB BLOOD ORDERABLES Final Re sult [facility] [address] [place] [address], * (ABNORMAL) Basic metabolic panel (04/06/2025 6:00 AM EDT) Only the most recent of8 resultswithin the time period is included. [facility] Sodium 135 133 - 145 mmol/L LAB CHEMISTRY METHOD 04/06/2025 8:08 AM [facility] Potassium 3.3(L) 3.5 - 5.5 mmol/L LAB CHEMISTRY METHOD 04/06/2025 8:08 AM [facility] Chloride 98 96 - 110 mmol/L LAB CHEMISTRY METHOD 04/06/2025 8:08 AM [facility] CO2 24 21 - 32 mmol/L LAB CHEMISTRY METHOD 04/06/2025 8:08 AM [facility] Anion Gap 13(H) 3 - 11 LAB CHEMISTRY METHOD 04/06/2025 8:08 AM [facility] Glucose 97 70 - 100 mg/dL LAB CHEMISTRY METHOD 04/06/2025 8:08 AM [facility] BUN 30(H) 5 - 25 mg/dL LAB CHEMISTRY METHOD 04/06/2025 8:08 AM [facility] Creatinine 1.29 0.70 - 1.30 mg/dL LAB CHEMISTRY METHOD 04/06/2025 8:08 AM [facility] eGFR 60 >=60 mL/min/1. 73m2 LAB CHEMISTRY METHOD 04/06/2025 8:08 AM [facility] Comment:Calculation based on the Chronic Kidney Disease Epidemiology Collaboration (CKD-EPI) equation refit without adjustment for race. BUN/Creatinine Ratio 23.3 LAB CHEMISTRY METHOD 04/06/2025 8:08 AM [facility] Calcium 8.8 8.5 - 10.5 mg/dL LAB CHEMISTRY METHOD 04/06/2025 8:08 AM [facility] Blood Venous blood specimen / Unknown Venipuncture / Unknown 04/06/2025 6:00 AM EDT 04/06/2025 6:51 AM EDT us Brent Valle MD LAB BLOOD ORDERABLES Final Re sult [facility] [address] [place] [address], [place] [phone] * (ABNORMAL) Calprotectin, stool (04/05/2025 3:40 PM EDT) Calprotectin, Fecal 378.0(H) <50 mcg/g 04/10/2025 4:26 PM EDT [facility] Comment: <50 mcg/g Normal 50 - 120 mcg/g Borderline >120 mcg/g Abnormal Borderline results suggest repeat testing in 4 to 6 weeks. Test performed at [facility], [address], [place] [address] Ericka Mahoney MD, PhD - Thermostat Maker Stool Rectum structure / Unknown Non-blood Collection / Unknown 04/05/2025 3:40 PM EDT 04/05/2025 3:46 PM EDT us Brent Valle MD LAB BODY FLUIDS AND STOOLS OR DERABLES Final Result Performing Organization Address [facility] de Phone Number [facility] [address] [place] [address] * (ABNORMAL) Phosphorus (04/05/2025 5:41 AM EDT) Only the most recent of2 resultswithin the time period is included. Phosphorus 4.6(H) 2.5 - 4.5 mg/dL LAB CHEMISTRY METHOD 04/05/2025 7:35 AM EDT [facility] Blood Venous blood specimen / Unknown Venipuncture / Unknown 04/05/2025 5:41 AM EDT 04/05/2025 6:31 AM EDT us Brent Valle MD LAB BLOOD ORDERABLES Final Re sult Performing Organization Address [facility] Co de Phone Number [facility] [address] [place] [address], [place] [phone] * Magnesium (04/05/2025 5:41 AM EDT) Only the most recent of5 resultswithin the time period is included. Pathologist [facility] Magnesium 2.0 1.9 - 2.6 mg/dL LAB CHEMISTRY METHOD 04/05/2025 7:35 AM EDT [facility] Blood Venous blood specimen / Unknown Venipuncture / Unknown 04/05/2025 5:41 AM EDT 04/05/2025 6:31 AM EDT us Brent Valle MD LAB BLOOD ORDERABLES Final Re sult [facility] [address] [place] [address], * (ABNORMAL) Manual differential (04/04/2025 5:11 AM EDT) Only the most recent of3 resultswithin the time period is included. Pathologist [facility] Neutrophils % 65.0 % LAB HEMETOLOGY METHOD 04/04/2025 8:20 AM EDT [facility] Bands % 1.0 % LAB HEMETOLOGY METHOD 04/04/2025 8:20 AM [facility] Lymphocytes % 15.0 % LAB HEMETOLOGY METHOD 04/04/2025 8:20 AM EDT [facility] Monocytes % 9.0 % LAB HEMETOLOGY METHOD 04/04/2025 8:20 AM T [facility] Eosinophils % 10.0 % LAB HEMETOLOGY METHOD 04/04/2025 8:20 AM EDT [facility] Basophils % 0.0 % LAB HEMETOLOGY METHOD 04/04/2025 8:20 AM [facility] Neutrophils Absolute Manual 10.92(H) 1.50 - 7.00 K/mcL LAB HEMETOLOGY METHOD 04/04[facility]2025 8[facility] Bands Absolute Manual 0.17(H) 0.00 - 0.00 K/[facility] LAB HEMETOLOGY METHOD 04/04/2025 8:20 AM EDT [facility] Lymphocytes Absolute 2.52 1.00 - 5.00 K/mcL LAB HEMETOLOGY METHOD 04/04/2025 8:20 AM EDT [facility] Monocytes Absolute Manual 1.51(H) 0.20 - 1.00 K/[facility] LAB HEMETOLOGY METHOD 04/04/2025 8:20 AM EDT [facility] Eosinophils Absolute Manual 1.68(H) 0.00 - 0.50 K/[facility] LAB HEMETOLOGY METHOD 04/04/2025 8:20 AM EDT [facility] Basophils Absolute Manual 0.00 0.00 - 0.20 K/[facility] LAB HEMETOLOGY METHOD 04/04/2025 8:20 AM EDT [facility] Rbc Morphology Consistent with indices Consistent with indices, Normal for [place] LAB HEMETOLOGY METHOD 04/04/2025 8:20 AM EDT [facility] Platelet Morphology - WAM Normal Normal LAB HEMETOLOGY METHOD 04/04/2025 8:20 AM EDT [facility] Blood Venous blood specimen / Unknown Venipuncture / Unknown 04/04/2025 5:11 AM EDT 04/04/2025 5:54 AM EDT us Zhanna Ryan OBIEE ARCHITECT LAB BLOOD ORDERABLES Fin al Result [facility]) [facility] [address] [place] [address], * (ABNORMAL) CBC auto differential (04/04/2025 5:11 AM EDT) Only the most recent of3 resultswithin the time period is included. WBC 16.8(H) 4.8 - 10.8 K/mcL LAB HEMETOLOGY METHOD 04/04/2025 8:20 AM [facility] RBC 5.50 4.50 - 5.50 M/mcL LAB HEMETOLOGY METHOD 04/04/2025 8:20 AM [facility] Hemoglobin 15.9 13.5 - 17.5 g/dL LAB HEMETOLOGY METHOD 04/04/2025 8:20 AM [facility] Hematocrit 45.0 42.0 - 54.0 % LAB HEMETOLOGY METHOD 04/04/2025 8:20 AM [facility] MCV 82.3 79.0 - 98.0 FL LAB HEMETOLOGY METHOD 04/04/2025 8:20 AM [facility] MCH 29.1 27.0 - 32.0 pcg LAB HEMETOLOGY METHOD 04/04/2025 8:20 AM [facility] MCHC 35.3 32.0 - 37.0 g/dL LAB HEMETOLOGY METHOD 04/04/2025 8:20 AM [facility] RDW 12.3 11.0 - 15.0 % LAB HEMETOLOGY METHOD 04/04/2025 8:20 AM [facility] Platelets 299 130 - 400 K/mcL LAB HEMETOLOGY METHOD 04/04/2025 8:20 AM [facility] MPV 9.8 7.0 - 11.0 FL LAB HEMETOLOGY METHOD 04/04/2025 8:20 AM [facility] NRBC 0.0 <1.0 % LAB HEMETOLOGY METHOD 04/04/2025 8:20 AM [facility] NRBC Absolute 0.00 <0.10 K/mcL LAB HEMETOLOGY METHOD 04/04/2025 8:20 AM [facility] Blood Venous blood specimen / Unknown Venipuncture / Unknown 04/04/2025 5:11 AM EDT 04/04/2025 5:54 AM EDT Zhanna Ryan NP LAB BLOOD ORDERABLES Fin al Result Performing Organization Address [facility]/ZIP Co de Phone Number [facility] [address] [place] [address], [place] [phone] * (ABNORMAL) Hemoglobin A1c (04/04/2025 5:11 AM EDT) [facility] Hemoglobin A1C 10.1(H) <6.5 % LAB CHEMISTRY METHOD 04/04/2025 10:44 AM EDT [facility] Mean Bld Glu Estim. 243 mg/dL LAB CHEMISTRY METHOD 04/04/2025 10:44 AM EDT [facility] Blood Venous blood specimen / Unknown Venipuncture / Unknown 04/04/2025 5:11 AM EDT 04/04/2025 5:54 AM EDT Brent Valle MD LAB BLOOD ORDERABLES Final Re sult Performing Organization Address [facility]/ZIP Co de Phone Number [facility] [address] [place] [address], [place] [phone] * (ABNORMAL) Urinalysis with reflex microscopic and culture (04/03/2025 10:09 PM EDT) [facility] Specific [place] Urine 1.031(H) 1.003 - 1.030 LAB URINALYSIS - AUTOMATED METHOD 04/03/2025 10:46 PM EDT [facility] pH, Urine 5.5 5.0 - 8.0 pH LAB URINALYSIS - AUTOMATED METHOD 04/03/2025 10:46 PM EDT [facility] Leukocytes, Urine Trace(A) Negative LAB URINALYSIS - AUTOMATED METHOD 04/03/2025 10:46 PM EDT [facility] Nitrite, Urine Negative Negative LAB URINALYSIS - AUTOMATED METHOD 04/03/2025 10:46 PM [facility] Protein, Urine 30(A) <=Trace mg/dL LAB URINALYSIS - AUTOMATED METHOD 04/03/2025 10:46 PM [facility] Glucose, Urine 250(A) Negative mg/dL LAB URINALYSIS - AUTOMATED METHOD 04/03/2025 10:46 PM [facility] Ketones, Urine 15(A) Negative mg/dL LAB URINALYSIS - AUTOMATED METHOD 04/03/2025 10:46 PM [facility] Urobilinogen , Urine 1.0 0.2 - 1.0 mg/dL LAB URINALYSIS - AUTOMATED METHOD 04/03/2025 10:46 PM [facility] Bilirubin, Urine Negative Negative LAB URINALYSIS - AUTOMATED METHOD 04/03/2025 10:46 PM [facility] Blood, Urine Negative Negative LAB URINALYSIS - AUTOMATED METHOD 04/03/2025 10:46 PM [facility] RBC, Urine 1.3 0 - 4 /HPF LAB URINALYSIS - AUTOMATED METHOD 04/03/2025 10:46 PM [facility] WBC, Urine 14.9(H) 0 - 4 /HPF LAB URINALYSIS - AUTOMATED METHOD 04/03/2025 10:46 PM [facility] Squamous Epithelial, Urine 60 0 - 60 /LPF LAB URINALYSIS - AUTOMATED METHOD 04/03/2025 10:46 PM [facility] Crystals, Urine Heavy Amorphous Urate crystals. /LPF LAB URINALYSIS - AUTOMATED METHOD 04/03/2025 10:46 PM [facility] Bacteria, Urine Negative Negative /HPF LAB URINALYSIS - AUTOMATED METHOD 04/03/2025 10:46 PM [facility] Hyaline Casts, Urine 12.4(H) 0 - 3 /LPF LAB URINALYSIS - AUTOMATED METHOD 04/03/2025 10:46 PM EDT [facility] Urine Urine specimen obtained by clean catch procedure / Unknown Non-blood Collection / Unknown 04/03/2025 10:09 PM EDT 04/03/2025 10:16 PM EDT us Saleem Lebron DO LAB URINE ORDERABLES Final Result Performing Organization Address [facility]/ZIP Co de Phone Number [facility] [address] [place] [address], [place] [phone] * [place] urine culture tube (04/03/2025 10:09 PM EDT) Extra Tube Hold for add-ons. 04/04/2025 12:01 AM EDT [facility] Comment:Auto resulted. Urine Urine specimen obtained by clean catch procedure / Unknown Non-blood Collection / Unknown 04/03/2025 10:09 PM EDT 04/03/2025 10:17 PM EDT us Saleem Lebron DO [facility] URINE ORDERABLES Final Result Performing Organization Address [facility] de Phone Number [facility] [address] [place] [address], [place] [phone] * Culture urine (04/03/2025 10:09 PM EDT) Culture, Urine >100,000 CFU/mL Mixed urogenital melva, no uropathogens present. Suggest repeat specimen if clinically indicated. 04/05/2025 8:55 AM EDT [facility] Urine Urine specimen obtained by clean catch procedure / Unknown Non-blood Collection / Unknown 04/03/2025 10:09 PM EDT 04/03/2025 10:46 PM EDT us Saleem Lebron DO LAB MICROBIOLOGY - GENERAL ORDERABLES Final Result [facility] [address] [place] [address], [place] [phone] * Clostridium difficile toxin (04/03/2025 9:02 PM EDT) [facility] Clostridium difficile GDH Antigen Negative Negative 04/03/2025 9:47 PM EDT [facility] C difficile Toxins A+B, EIA Negative Negative 04/03/2025 9:47 PM EDT [facility] Comment:NEGATIVE FOR TOXIN P RODUCING CLOSTRIDIOIDES DIFFICILE, NO ADDITIONAL TESTING IS NECESSARY. Stool Rectum structure / Unknown Non-blood Collection / Unknown 04/03/2025 9:02 PM EDT 04/03/2025 9:10 PM EDT Zhanna Ryan OBIEE ARCHITECT LAB MICROBIOLOGY - GENER AL ORDERABLES Final Result Performing Organization Address [facility]/ZIP Co de Phone Number [facility] [address] [place] [address], [place] [phone] * Lavender tube (04/03/2025 3:00 PM EDT) [facility] Extra Tube Hold for add-ons. 04/03/2025 5:01 PM EDT [facility] Comment:Auto resulted. Blood Venous blood specimen / Unknown 04/03/2025 3:00 PM EDT 04/03/2025 3:17 PM EDT us Saleem Lebron DO LAB BLOOD ORDERABLES Final Result [facility] [address] [place] [address], [place] [phone] * Blood Culture, Peripheral #2 (04/03/2025 2:45 PM EDT) Only the most recent of2 resultswithin the time period is included. [facility] Culture, Blood No growth at 5 days 04/08/2025 4:01 PM EDT [facility] Blood Venous blood specimen / Unknown Venipuncture / Unknown 04/03/2025 2:45 PM EDT 04/03/2025 2:58 PM EDT us Nico Read MD LAB MICROBIOLOGY - GENERAL ORD ERABLES Final Result Performing Organization Address City/[facility]/ZIP Co de Phone Number [facility] [address] [place] [address], [place] [phone] * (ABNORMAL) Venous blood gas (04/03/2025 2:45 PM EDT) pH, Marvin 7.35 7.32 - 7.42 pH 04/03/2025 3:01 PM EDT [facility] pCO2, Marvin 36(L) 41 - 51 mmHg 04/03/2025 3:01 PM EDT [facility] pO2, Marvin 52(H) 25 - 40 mmHg 04/03/2025 3:01 PM EDT [facility] HCO3, Venous 20.6(L) 22.0 - 26.0 mmol/L 04/03/2025 3:01 PM EDT [facility] O2 Sat, Marvin 84.0 % 04/03/2025 3:01 PM EDT [facility] Base Excess, Marvin -4.9(L) -2.0 - 2.0 mmol/L 04/03/2025 3:01 PM EDT [facility] Blood Venous blood specimen / Unknown Venipuncture / Unknown 04/03/2025 2:45 PM EDT 04/03/2025 2:57 PM EDT us Saleem Lebron DO LAB BLOOD ORDERABLES Final Result [facility] [address] [place] [address], [place] [phone] * AST, ALT, Bilirubin ELR state reportables (04/03/2025 2:44 PM EDT) Only the most recent of2 resultswithin the time period is included. ALT (SGPT) 19 10 - 60 unit/L LAB CHEMISTRY METHOD 04/03/2025 7:49 PM EDT [facility] AST (SGOT) 19 10 - 42 unit/L LAB CHEMISTRY METHOD 04/03/2025 7:49 PM EDT [facility] Total Bilirubin 0.7 0.0 - 1.4 mg/dL LAB CHEMISTRY METHOD 04/03/2025 7:49 PM EDT [facility] Platelets 320 K/mcL LAB HEMETOLOGY METHOD 04/03/2025 7:49 PM EDT [facility] Blood Venous blood specimen / Unknown Venipuncture / Unknown 04/03/2025 2:44 PM EDT 04/03/2025 3:10 PM EDT Zhanna Ryan NP LAB BLOOD ORDERABLES Fin al Result [facility] [address] [place] [address], [place] [phone] * (ABNORMAL) Hepatitis panel, acute with reflex to confirmation (04/03/2025 2:44 PM EDT) Only the most recent of2 resultswithin the time period is included. Pathologist [facility] Hepatitis B Surface Ag Negative Negative LAB CHEMISTRY METHOD 04/03/2025 7:47 PM EDT [facility] Hepatitis A Antibody IgM Negative Negative LAB CHEMISTRY METHOD 04/03/2025 7:47 PM EDT [facility] Hep B Core IgM Negative Negative LAB CHEMISTRY METHOD 04/03/2025 7:47 PM EDT [facility] Hepatitis C Antibody Positive(A) Negative LAB CHEMISTRY METHOD 04/03/2025 7:47 PM EDT [facility] Comment:If confirmation of t his positive HCV Ab screening test is needed, please redraw and order HCV Viral Load. Note--> This test may not be added on due to different specimen requirements. Blood Venous blood specimen / Unknown Venipuncture / Unknown 04/03/2025 2:44 PM EDT 04/03/2025 3:10 PM EDT Zhanna Ryan OBIEE ARCHITECT LAB BLOOD ORDERABLES Fin al Result Performing Organization Address [facility]/ZIP Co de Phone Number [facility] [address] [place] [address], * Troponin I high sensitivity (04/03/2025 11:20 AM EDT) [facility] High Sensitivity Troponin I 11 <=79 ng/L LAB CHEMISTRY METHOD 04/03/2025 12:22 PM EDT [facility] Blood Venous blood specimen / Unknown Venipuncture / Unknown 04/03/2025 11:20 AM EDT 04/03/2025 11:36 AM EDT Narrative [facility] - 04/03/2025 12:22 PM EDT High levels of biotin in samples may falsely decrease hsTroponin values. Use caution when interpreting hsTroponin results in patients taking biotin who exhibit renal impairment (eGFR <60) or in patients taking more than 20 mg/day of biotin. Saleem Lebron DO LAB BLOOD ORDERABLES Final Result Performing Organization Address [facility]/ZIP Co de Phone Number [facility] [address] [place] [address], * XR Chest 1 View (04/03/2025 10:59 [...] Signed Date: 04/03/2025 11:04 ET Workstation ID: [id number] Transcribed By: Self Edit Transcribed Date: 04/03/2025 [...] Signed Date: 04/03/2025 11:04 ET Workstation ID: [id number] Transcribed By: Self Edit Transcribed Date: 04/03/2025 11:04 ET us Saleem Lebron DO IMG XR PROCEDURES Final Res ult * ECG 12 lead (04/03/2025 10:51 AM EDT) Ventricular Rate ECG 110 BPM GEMUSE Atrial Rate 110 BPM GEMUSE P-R Interval 156 ms GEMUSE QRS Duration 106 ms GEMUSE Q-T Interval 366 ms GEMUSE QTc 495 ms GEMUSE P Wave [place] 53 degrees GEMUSE R [place] -47 degrees GEMUSE T [place] 44 degrees GEMUSE ECG Interpretation Sinus tachycardia [...] LAB CHEMISTRY METHOD 04/03/2025 12:14 PM EDT [facility] Blood Venous blood specimen / Unknown Venipuncture / Unknown 04/03/2025 10:38 AM EDT 04/03/2025 11:14 AM EDT Saleem Lebron DO LAB BLOOD ORDERABLES Final Result Performing Organization Address City/[facility]/ZIP Co de Phone Number [facility] [address] [place] [address], [place] [phone] * Lipase (04/03/2025 10:38 AM EDT) Only the most recent of2 resultswithin the time period is included. Lipase 19 13 - 75 unit/L LAB CHEMISTRY METHOD 04/03/2025 2:12 PM EDT [facility] Blood Venous blood specimen / Unknown Venipuncture / Unknown 04/03/2025 10:38 AM EDT 04/03/2025 11:14 AM EDT Nico Read MD LAB BLOOD ORDERABLES Final Res ult [facility] [address] [place] [address], * (ABNORMAL) Comprehensive metabolic panel (04/03/2025 10:38 AM EDT) Only the most recent of2 resultswithin the time period is included. Sodium 127(L) 133 - 145 mmol/L LAB CHEMISTRY METHOD 04/03/2025 12:21 PM [facility] Potassium 3.3(L) 3.5 - 5.5 mmol/L LAB CHEMISTRY METHOD 04/03/2025 12:21 PM [facility] Chloride 93(L) 96 - 110 mmol/L LAB CHEMISTRY METHOD 04/03/2025 12:21 PM [facility] CO2 18(L) 21 - 32 mmol/L LAB CHEMISTRY METHOD 04/03/2025 12:21 PM [facility] Anion Gap 16(H) 3 - 11 LAB CHEMISTRY METHOD 04/03/2025 12:21 PM [facility] Glucose 477(HH) 70 - 100 mg/dL LAB CHEMISTRY METHOD 04/03/2025 12:21 PM [facility] BUN 26(H) 5 - 25 mg/dL LAB CHEMISTRY METHOD 04/03/2025 12:21 PM [facility] Creatinine 1.86(H) 0.70 - 1.30 mg/dL LAB CHEMISTRY METHOD 04/03/2025 12:21 PM [facility] eGFR 39(L) >=60 mL/min/1. 73m2 LAB CHEMISTRY METHOD 04/03/2025 12:21 PM [facility] Comment:Calculation based on the Chronic Kidney Disease Epidemiology Collaboration (CKD-EPI) equation refit without adjustment for race. BUN/Creatinine Ratio 14.0 LAB CHEMISTRY METHOD 04/03/2025 12:21 PM [facility] Calcium 8.9 8.5 - 10.5 mg/dL LAB CHEMISTRY METHOD 04/03/2025 12:21 PM [facility] AST (SGOT) 19 10 - 42 unit/L LAB CHEMISTRY METHOD 04/03/2025 12:21 PM [facility] ALT (SGPT) 19 10 - 60 unit/L LAB CHEMISTRY METHOD 04/03/2025 12:21 PM [facility] Alkaline Phosphatase 198(H) 42 - 121 unit/L LAB CHEMISTRY METHOD 04/03/2025 12:21 PM [facility] Total Protein 6.4 6.0 - 8.0 g/dL LAB CHEMISTRY METHOD 04/03/2025 12:21 PM [facility] Albumin 3.4 3.2 - 5.0 g/dL LAB CHEMISTRY METHOD 04/03/2025 12:21 PM [facility] Total Bilirubin 0.7 0.0 - 1.4 mg/dL LAB CHEMISTRY METHOD 04/03/2025 12:21 PM [facility] Blood Venous blood specimen / Unknown Venipuncture / Unknown 04/03/2025 10:38 AM EDT 04/03/2025 11:14 AM EDT us Saleem Lebron DO LAB BLOOD ORDERABLES Final Result [facility] [address] [place] [address], * CT Abdomen Pelvis w Contrast (04/01/2025 [...] MD on 04/01/2025 17:58:49 Danie Ayala MD [facility] PROCEDURES Final Result * Gastrointestinal pathogens molecular study (04/01/2025 2:49 PM EDT) [facility] Campylobacter Detection by PCR Not Detected Not Detected LAB MICROBIOLOGY METHOD 5 4:46 PM EDT [facility] Plesiomonas shigelloides Detection by PCR Not Detected Not Detected LAB MICROBIOLOGY METHOD 5 4:46 PM EDT [facility] Salmonella Detection by PCR Not Detected Not Detected LAB MICROBIOLOGY METHOD 5 4:46 PM EDT [facility] Vibrio Detection by PCR Not Detected Not Detected LAB MICROBIOLOGY METHOD 5 4:46 PM EDT [facility] Vibrio cholerae Detection by PCR Not Detected Not Detected LAB MICROBIOLOGY METHOD 5 4:46 PM EDT [facility] Yersinia enterocolitica Detection by PCR Not Detected Not Detected LAB MICROBIOLOGY METHOD 5 4:46 PM EDT [facility] Enteroaggregative E coli EAEC Detection by PCR Not Detected Not Detected LAB MICROBIOLOGY METHOD 5 4:46 PM EDT [facility] Enteropathogenic E coli EPEC Detection Not Detected Not Detected LAB MICROBIOLOGY METHOD 5 4:46 PM EDT [facility] Enterotoxigenic E coli ETEC LTST Detection Not Detected Not Detected LAB MICROBIOLOGY METHOD 5 4:46 PM EDT [facility] Shiga-like toxin producing E coli STEC STX1 STX2 Det Not Detected Not Detected LAB MICROBIOLOGY METHOD 5 4:46 PM EDT [facility] Shigella Enteroinvasive E coli EIEC Detection Not Detected Not Detected LAB MICROBIOLOGY METHOD 5 4:46 PM EDT [facility] Cryptosporidium Detection by PCR Not Detected Not Detected LAB MICROBIOLOGY METHOD 5 4:46 PM EDT [facility] Cyclospora cayetanensis Detection by PCR Not Detected Not Detected LAB MICROBIOLOGY METHOD 5 4:46 PM EDT [facility] Entamoeba histolytica Detection by PCR Not Detected Not Detected LAB MICROBIOLOGY METHOD 5 4:46 PM EDT [facility] Giardia lamblia Detection by PCR Not Detected Not Detected LAB MICROBIOLOGY METHOD 5 4:46 PM EDT [facility] Adenovirus F 40 41 Detection by PCR Not Detected Not Detected LAB MICROBIOLOGY METHOD 5 4:46 PM EDT [facility] Astrovirus Detection by PCR Not Detected Not Detected LAB MICROBIOLOGY METHOD 5 4:46 PM EDT [facility] Norovirus GI GII Detection by PCR Not Detected LAB MICROBIOLOGY METHOD 5 4:46 PM EDT [facility] Sapovirus Detection by PCR Not Detected Not Detected LAB MICROBIOLOGY METHOD 5 4:46 PM EDT [facility] Rotavirus A Detection by PCR Not Detected Not Detected LAB MICROBIOLOGY METHOD 5 4:46 PM EDT [facility] Stool Rectum structure / Unknown Non-blood Collection / Unknown 04/01/2025 2:49 PM EDT 04/01/2025 3:18 PM EDT [facility] - 04/01/2025 4:46 PM EDT [...] MICROBIOLOGY - GENERAL HOLLY MCLAIN Final Result [facility] [address] [place] [address], * Type and screen (04/01/2025 2:13 PM EDT) ABO Group A 04/01/2025 3:16 PM EDT [facility] Rh Type Positive 04/01/2025 3:16 PM EDT [facility] Antibody Screen Negative 04/01/2025 3:16 PM EDT [facility] Blood Venous blood specimen / Unknown Venipuncture / Unknown 04/01/2025 2:13 PM EDT 04/01/2025 2:27 PM EDT us Danie Ayala MD LAB BLOOD BANK TEST ORDERABLES Final Result [facility] [address] [place] [address], [place] [phone] from Last 3 Months Insurance MEDICARE MEDICAID [...] currently active code status orders. Care Teams Courseware Developer Relationship Specialty Start Date End Date Jean-Claude Anaya PA [address] [place] [address] PCP - General Physician Underwater Trapper 12/26/24
--- OUTSIDE RECORDS SUMMARY | 2025-06-22 12:10 | XMS_ITS | Clinical Summary ---
Author Organization [employer] Address [address] [place] [address] [address] [place] [address] Care Team Providers Care Working Supervisor Name Role Phone Unavailable Primary Care Provider Unavailabl e Immunizations Immunization Administration Dates Next Due Influenza High-dose Quadriva lent Preservative Free 07/28/2022,08/03/2021 Influenza Injectable Quadriv alant Preservative Free IIV4 MDCK 08/02/2020 Influenza injectable quadriv alent IIV4 with preservative 08/15/2019,09/23/2016 Influenza injectable quadriv alent preservative free 07/20/2023 Influenza, seasonal, injecta ble, preservative free 07/06/2024,07/23/2018,07/22/2017 Pfizer Covid-19 Vaccine 12+ 07/06/2024, Pneumococcal Polysaccharide PPSV23 09/23/2016 Tdap 03/24/2017 Social [...] (2 of 2 - PCV) 09/23/2017 09/23/2016 COVID-19 Vaccine ( season) 2025 07/06/2024, 01/01/2024, 09/06/2022, Additional history exists Influenza Vaccine (#1) 2025 , 07/20/2023, 07/28/2022, Additional history exists DTaP/Tdap/Td Vaccines (2 - Td or Tdap) 03/24/2027 03/24/2017 RSV Patients and Patients Aged 60 years or older (1 - 1-dose 75+ series) 2030 HIB [...] patient's age to complete this topic Insurance [facility] ONE CARE < 65 [place] [id number]
[2025-06-22 13:01] LABS: Alanine Aminotransferase 49 U/L (0-40); Albumin Level 4.6 g/dL (3.5-5.0); Alkaline Phosphatase 139 U/L (39-117); Anion Gap 15 (12-20); Aspartate Amino Transferase 28 U/L (5-37); Blood Urea Nitrogen 19 mg/dL (9-16); Calcium 9.1 mg/dL (8.4-10.2); Carbon Dioxide 29 mmol/L (22-29); Chloride 99 mmol/L (96-108); Cholesterol 149 mg/dL (<200); Estimated Glomerular Filt Rate 59; HDL Cholesterol 39 mg/dL (>40); Potassium 4.7 mmol/L (3.3-5.1); Sodium 138 mmol/L (135-145); Total Protein 7.2 g/dL (6.5-8.0); Triglycerides 127 mg/dL (<150)
== END 2025-06-22 10:40 | disposition home or self-care (01) ==
LOC: HO.LAB 10:39
PROVIDERS: Visit Provider Physician Assistant
DX: I10 Essential (primary) hypertension (principal); M17.11 Unilateral primary osteoarthritis, right knee; E11.65 Type 2 diabetes mellitus with hyperglycemia; E78.5 Hyperlipidemia, unspecified; E55.9 Vitamin D deficiency, unspecified; Z79.4 Long term (current) use of insulin
CPT/HCPCS: 36415; 73562; 80053; 80061; 82306; 83036; 85027

== ENCOUNTER → 2025-06-22 11:03 | Outpatient (BNV) | payer MEDICARE, SELFPAY | PROVIDERS: Visit Provider Radiology Diagnostic Radiology | DX: M25.461 Effusion, right knee (principal) | CPT/HCPCS: 73562 ==

== ENCOUNTER 2025-10-04 14:13 | Outpatient (REF) | payer MEDICARE, SELFPAY ==
[2025-10-04 14:46] LABS: Appearance Urine Cloudy; Glucose Urine UA >=1000 mg/dL (Negative); PH 5.0 (5.0-9.0); Specific Gravity - Urine >= 1.030 (1.005-1.025); UMIC TRIGGER UACC YES
[2025-10-04 14:51] LABS: UACC Culture Trigger YES
--- OUTSIDE RECORDS SUMMARY | 2025-10-04 19:04 | XMS_ITS | Clinical Summary ---
Author Organization [employer] Address [address] [place] [address] [address] [place] [address] Care Team Providers Care Chair And Couch Maker Name Role Phone Unavailable Primary Care Provider Unavailabl e Encounters Date Type Department Care Team Description 07/13/2025 Travel from Last 3 Months Immunizations Immunization Administration Dates Next Due Influenza [...] Date Last Done Comments CT Colonography 1955 Depression Screening 1955 FIT DNA/Cologuard 1955 [...] older (1 - 1-dose 75+ series) 2030 Colonoscopy 04/06/2035 04/06/2025, 04/06/2025 Colorectal Cancer Screening 04/06/2035 HIB Vaccines Aged Out No longer eligi [...] patient's age to complete this topic Insurance [facility] ONE CARE < 65 MEDICARE
--- OUTSIDE RECORDS SUMMARY | 2025-10-04 19:04 | XMS_ITS | Clinical Summary ---
Author Organization [address] [facility] Address [address] [place] [address] Phone Care Team Providers Care Field Machinist Name Role Phone Jean-Claude Anaya Primary Care Provider [phone] Allergies Active Allergy Reactions Criticality Noted Date Comments Oxycodone-Acetaminophen Nausea And Vomiting High 05/2022 Shellfish Derived Swelling High 10/21/2022 Medications atorvastatin (LIPITOR) 80 mg tablet Take 1 tablet (80 mg total) by mouth 1 (one) time each day. Active Trulicity 3 mg/0.5 mL pen injector injection Inject 0.5 mL (3 mg total) under the skin 1 (one) time per week. Thursday 5 Active Lantus Solostar U-100 Insulin 100 unit/mL (3 mL) injection pen Inject 20 Units under the skin 1 (one) time each day in the evening. 15 mL 11 5 Active lisinopriL (PRINIVIL,ZESTR IL) 5 mg tablet Take 1 tablet (5 mg total) by mouth 1 (one) time each day. 30 each 5 Active cholecalciferol (VITAMIN D-3) 1,250 mcg (50,000 unit) capsule Take by mouth. 09/08/20 25 Discontinu ed(Therapy completed) Active Problems Problem Noted Date Diagnosed Date Acute diarrhea 04/04/2025 Diabetes mellitus 04/04/2025 Instability of right knee joint 08/13/2023 Arthritis [...] coma associated with type 1 diabetes mellitus 04/03/2025 04/04/2025 Encounters Date Type Department Care Team Description 09/08/2025 11:30 AM EST Office Visit Orthopedic Surgery [facility] [address] [facility] [address] [place] [address] Anne Valle MD Ganglion cyst of finger (Primary Dx) 08/04/2025 Telephone Orthopedic Surgery [facility] [address] [facility] [address] [place] [address] Phyllis Moss from Last 3 Months Immunizations Immunization Administration Dates Next Due Influenza Quadravalent, MDCK [...] chr onic hepatitis T2DM (type 2 diabetes mell us) (CMS/HCC V24, CMS/HCC V28) DX:T2DM (type [...] care for your loved ones. For example, professor of early childhood education or elderly care for an older adult? [...] Date Recorded What is your living situation? Unrecognized valu e 04/03/2025 Interpersonal Safety Answer Date Record ed Physical Abuse Unrecognized value 04/03/2025 Verbal Abuse Unrecognized value 04/03/2025 Sex and Gender Information Value Date Recorded Sex Assigned at Not on file Legal Sex Male 12:24 AM EST Gender Identity Not on file Sexual Orientation Choose not to disclose 2024 5:16 PM EDT Last Filed Vital Signs Vital Sign Reading Time Taken Comments Blood Pressure 135/77 04/06/2025 12:03 PM EDT Pulse 75 04/06/2025 12:03 PM EDT Temperature 36 C (96.8 F) 04/06/2025 11:00 AM EDT Respiratory Rate 20 04/06/2025 11:20 AM EDT Oxygen Saturation 96% 04/06/2025 12:03 PM EDT Inhaled Oxygen Concentration - - Weight 83.5 kg (184 lb) 09/08/2025 11:14 AM EST Height 177.8 cm (5' 10 ) 09/08/2025 11:14 AM EST Body Mass Index 26.4 09/08/2025 11:14 AM EST Plan of Treatment Upcoming Encounters Date Type Department Care Team (Late st Contact Info) Description 11/07/2025 11:30 AM EST Office Visit Orthopedic Surgery - [place] [address] [phone] Anne Valle MD [address] [phone] Health Maintenance Due Date Last Done Comments Diabetes: Annual Foot Exam 1965 Diabetes: Annual Retina Eye Exam 1965 RSV Immunization Adult Patients (1 - Risk 50-74 years 1-dose series) 2005 Zoster Vaccines (1 of 2) 2005 Pneumococcal [...] Procedure Name Priority Date/Time Associated Diagnosis Comments EXTERNAL COLONOSCOPY REPORT 04/07/2025 BASIC METABOLIC PANEL Routine 04/06/2025 6:00 AM EDT HEMOGLOBIN A1C Add-On 04/04/2025 5:11 AM EDT HEPATITIS PANEL, ACUTE WITH REFLEX TO CONFIRMATION Add-On 04/03/2025 2:44 PM EDT from Last 3 Months or Most Recently Relevant to Health Maintenance Results * External Colonoscopy Report (04/07/2025) Anatomical Region Laterality Modality Endoscopy us Provider Onbase GI~PROCEDURE ORDERABLES Final Result * (ABNORMAL) Basic metabolic panel (04/06/2025 6:00 AM EDT) Sodium 135 133 - 145 mmol/L LAB CHEMISTRY METHOD 04/06/2025 8:08 AM [facility] Potassium 3.3(L) 3.5 - 5.5 mmol/L LAB CHEMISTRY METHOD 04/06/2025 8:08 AM [facility] Chloride 98 96 - 110 mmol/L LAB CHEMISTRY METHOD 04/06/2025 8:08 AM [facility] CO2 24 21 - 32 mmol/L LAB CHEMISTRY METHOD 04/06/2025 8:08 AM [facility] Anion Gap 13(H) 3 - 11 LAB CHEMISTRY METHOD 04/06/2025 8:08 AM [facility] Glucose 97 70 - 100 mg/dL LAB CHEMISTRY METHOD 04/06/2025 8:08 AM [facility] BUN 30(H) 5 - 25 mg/dL LAB CHEMISTRY METHOD 04/06/2025 8:08 AM [facility] Creatinine 1.29 0.70 - 1.30 mg/dL LAB CHEMISTRY METHOD 04/06/2025 8:08 AM [facility] eGFR 60 >=60 mL/min/1. 73m2 LAB CHEMISTRY METHOD 04/06/2025 8:08 AM [facility] Comment:Calculation based on the Chronic Kidney Disease Epidemiology Collaboration (CKD-EPI) equation refit without adjustment for race. BUN/Creatinine Ratio 23.3 LAB CHEMISTRY METHOD 04/06/2025 8:08 AM [facility] Calcium 8.8 8.5 - 10.5 mg/dL LAB CHEMISTRY METHOD 04/06/2025 8:08 AM [facility] Blood Venous blood specimen / Unknown Venipuncture / Unknown 04/06/2025 6:00 AM EDT 04/06/2025 6:51 AM EDT us Brent Valle MD LAB BLOOD ORDERABLES Final Re sult Performing Organization Address [facility]/ZIP Co de Phone Number [facility] [address] [place] [address], [place] [phone] * (ABNORMAL) Hemoglobin A1c (04/04/2025 5:11 AM EDT) [facility] Hemoglobin A1C 10.1(H) <6.5 % LAB CHEMISTRY METHOD 04/04/2025 10:44 AM EDT [facility] Mean Bld Glu Estim. 243 mg/dL LAB CHEMISTRY METHOD 04/04/2025 10:44 AM EDT [facility] Blood Venous blood specimen / Unknown Venipuncture / Unknown 04/04/2025 5:11 AM EDT 04/04/2025 5:54 AM EDT us Brent Valle MD LAB BLOOD ORDERABLES Final Re sult Performing Organization Address [facility]/ZIP Co de Phone Number [facility] [address] [place] [address], [place] [phone] * (ABNORMAL) Hepatitis panel, acute with reflex to confirmation (04/03/2025 2:44 PM EDT) [facility] Hepatitis B Surface Ag Negative Negative LAB CHEMISTRY METHOD 04/03/2025 7:47 PM EDT [facility] Hepatitis A Antibody IgM Negative Negative LAB CHEMISTRY METHOD 04/03/2025 7:47 PM EDT [facility] Hep B Core IgM Negative Negative LAB CHEMISTRY METHOD 04/03/2025 7:47 PM EDT [facility] Hepatitis C Antibody Positive(A) Negative LAB CHEMISTRY METHOD 04/03/2025 7:47 PM EDT [facility] Comment:If confirmation of t his positive HCV Ab screening test is needed, please redraw and order HCV Viral Load. Note--> This test may not be added on due to different specimen requirements. Blood Venous blood specimen / Unknown Venipuncture / Unknown 04/03/2025 2:44 PM EDT 04/03/2025 3:10 PM EDT us Zhanna Ryan HOME COORDINATOR LAB BLOOD ORDERABLES Fin al Result [facility] ([facility] [address] [place] [address], from Last 3 Months or Most Recently Relevant to Health Maintenance Insurance MEDICARE MEDICAID - [place] Advance Directives [...] currently active code status orders. Care Teams Field Machinist Relationship Specialty Start Date End Date Jean-Claude Anaya PA [address] [place] [address] PCP - General Physician Collar Padder Blindstitch 12/26/24
--- OUTSIDE RECORDS SUMMARY | 2025-10-04 19:05 | XMS_ITS | Data Portability ---
Author Organization [place] [facility] Chris Anaya AONE [place] Address [address] [facility] [address] [place] [address] Care Team Providers Care [facility] Program Coordinator Name Role Phone JUAN DIEGO PEREZ Primary Care Provider JUAN DIEGO PREEZ Primary Care Provider [phone] Assessment Encounter Date Assessment Date Assessment LastModified [...] findings at length with the patient today. We discussed the nature and etiology of this problem along with current treatment options. We discussed the expected course and outcomes and what to expect. We also discussed risks and benefits. All of their questions were answered today, and there was exhibited understanding and comprehension of all that was discussed. Time Spent: 10 minutes were spent reviewing previous imaging and charting. 10 minutes were spent obtaining patient history. 5 minutes were spent on physical exam. 5minutes were spent explaining diagnosis and assessment. Today's documentation was made using voice recognition software. This note may contain grammatical errors secondary to the software. Not available 05/07/2023 11:49:16 08/13/2023 08/13/2023 67-year-old male recurrent right knee pain with mild degenerative changes. He failed cortisone injection. He is tried spep-ysp-srrgseo pain medications with minimal relief. He is [...] findings at length with the patient today. We discussed the nature and etiology of this problem along with current treatment options. We discussed the expected course and outcomes and what to expect. We also discussed risks and benefits. All of their questions were answered today, and there was exhibited understanding and comprehension of all that was discussed. Time Spent: 10 minutes were spent reviewing previous imaging and charting. 10 minutes were spent obtaining patient history. 5 minutes were spent on physical exam. 5minutes were spent explaining diagnosis and assessment. Today's [...] months ago R/O meniscus tear 2022 023 [facility]ri, [address] [facility], [place], [address], 08:41:44 Medication Orders Kenalog 40 mg/mL suspension for injection 2022 023 [place] [id number] [facility], [address] [place], [address], 09:13:44 lidocaine (PF) 10 mg/mL (1 %) injection solution 2022 023 [place] [id number] [facility], [address] [place], [address], 09:13:49 Patient TargetsNo targets recorded. Patient Instructions Encounter Date Encounter Id Patient Instructions Last Modified By Organization Details Last Modified Time 05/07/2023 [id number] You have been provided with a cortisone [...] following the injection. This is called a kamla beckwith . To help minimize the chances of this, please see the post-injection instructions above. There is a less than 1% chance of an infection. If you notice any signs of infection (redness, warmth, drainage, fever greater than 100 degrees) please call our office or contact us through the portal [facility]. Not available 05/07/2023 11:49:58 Reason for Referral None Reported. Results Created Date Observation Date Name Description Value Unit Range Abnormal Flag Note LastModifiedBy Organization Detail LastModifiedTime 09/29/20 23 MRI, knee, w/o contr ast No observ ation record ed. [email or web address] [facility] [address] [place], [address], 09/29/2023 08:41:44 Result Notes None recorded. Problems Name Problem SNOMED Code Status Onset Date Resolution Date Notes Provider Name and Address Organization Details Recorded Time Arthritis of right knee joint 0678375076619 102 Active 2022 FERNANDO SANTANA PA-C [address] [address], [facility] [place], [address], [place] [facility] [place], P 3 11:49:26 Instability of joint of right knee 0016071698052 102 Active 2022 FERNANDO SANTANA PA-C [address] [facility] [address], [facility] [place], [address], [place] [facility] [place], P 3 09:15:36 Problem Notes None recorded. Procedures Surgical History Date Name Laterality Status Provider Name and Address Organization Details Recorded Time 3 Knee Joint/Bursa Asp & Inj completed FERNANDO SANTANA PA-C [address] [facility],[address], [place], [address], [place] [facility], P 05/07/2023 11:50:23 Knee Surgery completed Odalis Garcia [place] - [facility] [place], P 05/07/2023 12:10:32 Imaging Results None recorded. Procedure Notes None recorded. Medical Equipment None [...] Updated DateTime 05/07/2023 177.8 cm 27.3 kg/m2 41869.55 g [employer] [place] [facility] [place], 05/07/2023 12:10:58 Date Recorded Body height Body mass index (BMI) Body weight Provider Name and Address Organization Details Last Updated DateTime 08/13/2023 177.8 cm 27.3 kg/m2 26551.55 g [employer] [place] [facility] [place], 08/13/2023 09:14:07 Social History None recorded. Functional Status Question Answer Note LastModified by Organizat ion Details LastModified Time Do you use any illicit or recreational drugs? No Information not available 05/07/2023 Do you or have you ever used any other forms of tobacco or nicotine? No Information not available 05/07/2023 What is your level of alcohol consumption? None Information not available 05/07/2023 Mental Status None recorded. Family History Relationship [...] Diagnosis SNOMED-CT Code Diagnosis ICD10 Code Diagnosis IMO Codes Diagnosis Note [id number] LENKA COSTA [facility] [address] [facility] [address] [place] [place] [address] 05/07/2023 10:29:15 05/07/2023 11:23:45 Arthritis of right knee joint [id number] 691508 M13.861 [id number] LENKA COSTA [facility] [address] [facility] [address] [place] [place] [address] 08/13/2023 08:57:12 08/13/2023 09:17:48 Arthritis of right knee joint 1004123950 492150 M13.861 Instabilit y of joint of right knee 5494476339 605143 M25.361 Health Concerns Section Related Observation LastModified by Organization Detai ls LastModified Time None Recorded Concern Status LastModified by Organization Details LastModified Time None Recorded Advance Directives Directive None Recorded Payers Insurance Date Sequence Insurance Name Policy Number Policy Capellan Covered Member ID Capellan Member ID Guarantor Name 08/12/2023 1 [facility] - DOS ON OR AFTER 2023 - ONE CARE (MEDICARE REPLACEMENT/ADV ANTAGE - HMO) Robin Garza [id number] Robin Garza Notes Date Note Type Note Provider Name and Address Organization Details Recorded Time 05/07/2023 text/html Very pleasant 67-year-old male here for evaluation of chronic right knee pain managed by his primary care with Tylenol/therapy. Patient with history of left total knee arthroplasty by Dr. Kwadwo Zuleta at [facility] in 2017. Patient describes his right [...] was not present. FERNANDO SANTANA PA-C [address] [facility],[address] [address], [place], [address], [place] [facility] [place], P 05/07/2023 11:50:39 08/13/2023 text/html Pleasant 67-year-old [...] evaluation treatment plan. FERNANDO SANTANA PA-C [address] [facility],[address], [place], [address], [place] [facility] [place], P 08/13/2023 09:20:09
== END 2025-10-04 14:14 | disposition home or self-care (01) ==
LOC: HO.LAB 14:13
PROVIDERS: PCP Physician Assistant; Visit Provider Internal Medicine
DX: R39.9 Unspecified symptoms and signs involving the genitourinary system (principal)
CPT/HCPCS: 81001; 87086

== ENCOUNTER 2025-10-17 13:54 | Outpatient (AMB) | payer MEDICARE, MEDICAID, SELFPAY ==
--- NOTE | 2025-10-17 14:01 | MHC.PC.OV ---
Vital Signs 10/17/25 14:02 Height 5 ft 10 in Weight 179 lb 6 oz BMI 25.7 BP 130/90 H Blood Pressure Location Lt brachial Position Sitting Pulse 83 Pulse Source Pulse Oximeter Temp 96.8 F Temp Source Temporal Artery Scan Pulse Oximetry (%) 96 Oxygen Delivery Method Room Air Intake Visit Reasons: f/u dmii Intake Note: Patient is here to follow up on DMII. X Ray Equipment Servicer Required: No Telephone Station Installer: Not Required per policy Accompanied by: Self / Same As Patient Allergies shrimp (SHRIMP) Allergy (Severe, Verified 10/17/25 14:10) SWELLING/SEVERE VOMITING acetaminophen (From Percocet) Adverse Reaction (Verified 10/17/25 14:10) Nausea and Vomiting oxycodone (From Percocet) Adverse Reaction (Verified 10/17/25 14:10) Nausea and Vomiting Fresh fruit and nuts Allergy (Unknown, Uncoded 10/17/25 14:10) hives Medication List - Last Reconciled 10/17/25 by Jean-Claude Anaya PA-C albuterol sulfate 90 mcg/actuation 1 inh inhalation QID PRN 30 days atorvastatin 80 mg PO DAILY 90 days blood sugar diagnostic (FreeStyle Lite Strips) As directed test blood sugar at least 2 times a day blood-glucose sensor (DexWho is Undercover Spy G7 Sensor device) As directed blood-glucose,automotive collision repair instructor,cont (Dexcom G7 Health Care Attorney) As directed cholecalciferol (vitamin D3) 50 mcg PO BEDTIME diclofenac sodium 50 mg PO BID 14 days dulaglutide (Trulicity) 3 mg (0.5 mL) subcut QWEEK 28 days insulin aspart U-100 1 sliding scale dose subcut TID 30 days insulin glargine (Lantus Solostar U-100 Insulin) 26 units (0.26 mL) subcut QPM 30 days lancets (FreeStyle Lancets) Three times a day testing lisinopril 20 mg PO DAILY oxycodone 5 mg PO BID PRN 4 days pen needle, diabetic As directed Tobacco use date assessed: 10/17/25 Fall risk assessment: No Falls in past year Last assessed Fall Risk: 10/17/25 Dental Screening Dental Screen Date: 06/14/25 HPI f/u dmii HPI Details Patient is a 70-year-old male here today for follow-up visit ? Patient has a past medical history significant for type 2 diabetes, hyperlipidemia, hypertension, lumbar stenosis. Type 2 Diabetes: Unfortunately patient's type 2 diabetes suboptimally controlled. Today's A1c above 11 At last visit we increased his Lantus to 26 units which has offered him a bit more glycemic control, he continues with Trulicity 3 mg weekly. Try to prescribe preprandial insulin to capture better control of his blood sugars though has not been covered by insurance. --> PLAN: Will change his GLP 1 therapy to Mounjaro for better glycemic control. Also increase his Lantus dose to 36 units. Will refer to endocrinology as his A1c continues to be above 9 .. Hypertension: Blood pressure today in office acceptable. Has been compliant with his lisinopril. Denies any headaches, chest discomfort or shortness of breath. .. Hyperlipidemia:? Most recent LDL 69, will continue his current statin dose..? Of note triglycerides at 220 and will work on lifestyle modifications to help reduce triglycerides. Laboratory Tests 11/22/24 02/22/25 02/23/25 16:05 15:14 10:43 RBC Hgb Random Glucose Fasting Glucose Hgb A1c (Clinic) 10.6 H 7.7 H Hemoglobin A1c % ALT Alkaline Phosphata se LDL Cholesterol, C alc Urine Microalbumin < 5.0 02/23/25 03/31/25 06/22/25 10:46 15:24 11:02 RBC 5.51 Hgb 16.7 Random Glucose 399 H* Fasting Glucose 441 H* Hgb A1c (Clinic) Hemoglobin A1c % 10.4 H ALT 49 H Alkaline Phosphata se 139 H LDL Cholesterol, C alc 70 85 Urine Microalbumin PFSH Medical History Vitamin D deficiency H/O chronic hepatitis HLD (hyperlipidemia) HTN (hypertension) T2DM (type 2 diabetes mellitus) Type 2 diabetes mellitus Surgical History History of hand surgery History of bunionectomy Hx of colonoscopy Hx of arthroscopy of left knee Family History Father Cancer Mother Diabetes mellitus Social History Household Members: None Housing: Apartment Alcohol intake: never Patient Tobacco Use Status: Never used Tobacco e-Cigarette/Vaping Use: Never Used Second Hand Smoke Exposure: No service: No Current occupational status: disabled 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 [employer] Cognitive needs: No Hearing needs: No Vision needs: Yes (glasses) Questionnaire Thrive Questionnaire Date Thrive assessed: 02/22/25 I am a: Patient What is your living situation today?: I have a steady place to live Within the past 12 months, did the food you bought not last and you didn't have the money to get more?: I choose not to answer this question Within the past 12 months, did you worry whether your food would run out before you got money to buy more?: I choose not to answer this question Do you have trouble paying for medicines?: Yes Do you have trouble getting transportation to medical appointments?: No Do you have trouble paying your heating and electricity bill?: I choose not to answer this question Do you have trouble taking care of your child, family member or friend?: I choose not to answer this question Do you have trouble with day-to-day activities such as bathing, preparing meals, shopping, managing finances, etc.?: I choose not to answer this question Are you currently unemployed and looking for a job?: I choose not to answer this question Are you interested in more education?: I choose not to answer this question Currently or been in a relationship where the following occur: No concerns reported THRIVE Score: 0 CHARO-7 AMB Questionnaire CHARO-7 Date CHARO - 7 assessed: 06/14/25 Source: Developed by Drs. Waldo Dominguez, Leonor Lima, Fredy Hammer and colleagues, with an educational jazzy from [employer]. Review of Systems Const Denies headache(s) Eyes Denies loss of vision ENT Denies vertigo, Denies dizziness, Denies headache(s) and Denies sore throat Card Denies chest pain, Denies leg edema and Denies lightheadedness Resp Denies cough, Denies hemoptysis and Denies wheezing GI Denies abdominal pain, Denies melena, Denies constipation, Denies diarrhea and Denies vomiting Denies dysuria, Denies urinary frequency and Denies urinary urgency Musc Denies arthralgias, Denies joint swelling, Denies numbness and Denies tingling Neuro Denies Abnormal speech present, Denies behavioral changes, Denies vertigo, Denies dizziness, Denies headache(s), Denies loss of vision, Denies memory loss, Denies numbness and Denies tingling Psych Denies anxiety, Denies behavioral changes, Denies depression, Denies memory loss and Denies panic attacks Jose/Lymph Denies easy bleeding and Denies easy bruising Aller/Immun Denies wheezing Physical exam (Primary Care) Vital Signs: Last Vital Signs Temp 96.8 F 10/17/25 14:02 Pulse 83 10/17/25 14:02 BP 130/90 H 10/17/25 14:02 Pulse Ox 96 10/17/25 14:02 Oxygen Delivery Method Room Air 10/17/25 14:02 BMI result Body Mass Index 25.7 Tobacco/Smoking Status: Tobacco use Status Tobacco use date assessed 10/17/25 10/17/25 14:08 Patient Tobacco Use Status Never used Tobacco 10/17/25 14:08 e-Cigarette/Vaping Use Never Used 10/17/25 14:08 Thrive Assessment: Date of Thrive Assessment Date Thrive assessed 02/22/25 10/17/25 14:08 Currently or been in a relationship where the following occur: No concerns reported Const General: healthy appearing, no acute distress, alert and awake Nutritional Appearance: well nourished Orientation/consciousness: oriented to person, oriented to place and oriented to time HENMT Ears: TM's normal bilaterally General nose exam: Normal nasal mucous membranes and turbinates present Eyes Conjunctivae: conjunctivae normal Sclerae: sclerae normal Pupils: Equal, round and reactive pupils present Neck Neck: Yes no lymphadenopathy and Yes no JVD Thyroid: Thyroid normal Carotids: no bruits Resp Effort & Inspection: normal respiratory effort and not tachypneic Auscultation: no crackles, no rales, no rhonchi and no wheezes Cardio Rate: regular rate Rhythm: regular rhythm Heart sounds: no murmurs and normal S1 and S2 GI Palpation (GI): Soft to palpation, nontender, no hepatomegaly and no splenomegaly Auscultation: normal bowel sounds Skin General skin exam: no rashes or lesions noted and dry skin Neuro General: oriented to person, oriented to place and oriented to time Cranial nerves: Yes Equal, round and reactive pupils present Speech: No Abnormal speech present Gait exam (Neuro): Normal gait present Motor exam (neuro): no tremor noted Extrem Right upper extremity: full ROM Left upper extremity: full ROM Right lower extremity: full ROM; no edema Left lower extremity: full ROM; no edema Psych Mental Status: mental status grossly normal Speech and movement: Normal speech and movement present Affect: normal affect Attitude: cooperative Thought process: Normal thought process present Results AMB Hemoglobin A1c AMB Hemoglobin A1c 11.8 % Last Edit by GOLDIE Shaikh on 10/17/25 14:13 Results Reviewed Results Reviewed: Laboratory Last Values Hgb A1c (Clinic) 11.8 % (4.0-6.0) H 10/17/25 14:00 Coding Level of Care Code Est Pt Level 4 (19500) Diagnoses Type 2 diabetes mellitus with hyperglycemia, with long-term current use of insulin E11.65; Z79.4 Diabetes mellitus complication status: with hyperglycemia 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: with intermodal owner operator truck driver use Assessment & Plan Assessment & Plan (1) T2DM (type 2 diabetes mellitus): Code(s): E11.9 - Type 2 diabetes mellitus without complications Category: Medical Qualifiers: Diabetes mellitus complication status: with hyperglycemia Diabetes mellitus nursing home insulin use: with intermodal owner operator truck driver use Qualified Code(s): E11.65 - Type 2 diabetes mellitus with hyperglycemia; Z79.4 - terminal gauger supervisor (current) use of insulin Plan: To address the poorly controlled type 2 diabetes, as evidenced by an HgbA1c of 11.8%, the patient's insulin glargine (Lantus) dose will be increased from 26 to 36 units daily. He will also be switched from Trulicity to Mounjaro 5 mg once weekly, a medication in the same class that may provide better glycemic control and has the potential for weight loss. A referral will be placed to endocrinology for co-management due to the A1c being greater than 9%. A prescription for pen needles will be sent. Again goal A1c is to be below 7.0 Orders: Orders Complete Blood Count no Diff 10/17/25 E11.65 - Type 2 diabetes mellitus with hyperglycemia, Z79.4 - terminal gauger supervisor (current) use of insulin AMB Hemoglobin A1c 10/17/25 E11.65 - Type 2 diabetes mellitus with hyperglycemia, Z79.4 - skilled nursing (current) use of insulin Microalbumin, Random (w Creat) 10/17/25 E11.65 - Type 2 diabetes mellitus with hyperglycemia, Z79.4 - terminal gauger supervisor (current) use of insulin Comprehensive [place]. Panel Fast 10/17/25 E11.65 - Type 2 diabetes mellitus with hyperglycemia, Z79.4 - skilled nursing (current) use of insulin Lipid Panel 10/17/25 E78.5 - Hyperlipidemia, unspecified Prostate Specific Antigen Scr 10/17/25 E78.5 - Hyperlipidemia, unspecified, Z12.5 - Encounter for screening for malignant neoplasm of prostate Referrals Endocrinology Referral E11.65 - Type 2 diabetes mellitus with hyperglycemia, Z79.4 - skilled nursing (current) use of insulin Medications: New tirzepatide (Mounjaro) 5 mg (0.5 mL) subcut QWEEK 2 mL 3RF 4 weeks E11.65 - Type 2 diabetes mellitus with hyperglycemia, Z79.4 - skilled nursing (current) use of insulin Changed From insulin glargine (Lantus Solostar U-100 Insulin) 26 units (0.26 mL) subcut QPM 30 days 15 mL 4RF E11.65 - Type 2 diabetes mellitus with hyperglycemia, Z79.4 - terminal gauger supervisor (current) use of insulin To insulin glargine (Basaglar KwikPen U-100 Insulin) 36 units (0.36 mL) subcut QPM 15 mL 4RF 30 days E11.65 - Type 2 diabetes mellitus with hyperglycemia, Z79.4 - skilled nursing (current) use of insulin Refilled pen needle, diabetic As directed 50 ea 6RF E11.65 - Type 2 diabetes mellitus with hyperglycemia, Z79.4 - skilled nursing (current) use of insulin On Hold dulaglutide (Trulicity) Hold Comment: Doctor's Order 3 mg (0.5 mL) subcut QWEEK 28 days 2 mL 6RF E11.65 - Type 2 diabetes mellitus with hyperglycemia, Z79.4 - terminal gauger supervisor (current) use of insulin
[2025-10-17 14:02] VITALS: BP 130/90; PULSE 83; TEMP 36; O2SAT 96; BMI 25.7
--- OUTSIDE RECORDS SUMMARY | 2025-10-17 17:45 | XMS_ITS | Data Portability ---
Author Organization [place] [facility] Chris Anaya AONE [place] Address [address] [facility] [address] [place] [address] Care Team Providers Care Cheese Packer Name Role Phone JUAN DIEGO PEREZ Primary Care Provider [phone] JUAN DIEGO PEREZ Primary Care Provider Assessment [...] He failed cortisone injection. He is tried gups-dlr-enkotrs pain medications with minimal relief. He is [...] months ago R/O meniscus tear 2022 023 [facility]ri, [address] [facility], [place], [address], 08:41:44 Medication Orders Kenalog 40 mg/mL suspension for injection 2022 023 [place] [address] [facility], [address] [place], [address], 09:13:44 lidocaine (PF) 10 mg/mL (1 %) injection solution 2022 023 [place] [address] [facility], [address] [place], [address], 09:13:49 Patient TargetsNo targets recorded. Patient Instructions Encounter Date Encounter Id Patient Instructions Last Modified By Organization Details Last Modified Time 05/07/2023 [id number] You have been provided with a cortisone [...] ast No observ ation record ed. [email or web address] [facility] Mri [address] [place], [address], 09/29/2023 08:41:44 Result Notes None recorded. Problems Name Problem SNOMED Code Status Onset Date Resolution Date Notes Provider Name and Address Organization Details Recorded Time Arthritis of right knee joint 2127355961484 102 Active 2022 FERNANDO SANTANA PA-C [address] [address], [facility] [place], [address], [place] [facility], P 3 11:49:26 Instability of joint of right knee 8906330746515 102 Active 2022 FERNANDO SANTANA PA-C [address] [facility] [address], [facility] [place], [address], [place] [facility], P 3 09:15:36 Problem Notes None recorded. Procedures Surgical History Date Name Laterality Status Provider Name and Address Organization Details Recorded Time 3 Knee Joint/Bursa Asp & Inj completed FERNANDO ASNTANA PA-C [address] [facility],[address], [place], [address], [place] - [facility], P 05/07/2023 11:50:23 Knee Surgery completed Odalis Garcia [facility] - [facility], P 05/07/2023 12:10:32 Imaging Results None recorded. [...] Updated DateTime 05/07/2023 177.8 cm 27.3 kg/m2 80425.55 g [facility], 05/07/2023 12:10:58 Date Recorded Body height Body mass index (BMI) Body weight Provider Name and Address Organization Details Last Updated DateTime 08/13/2023 177.8 cm 27.3 kg/m2 47283.55 g [facility], 08/13/2023 09:14:07 Social History None recorded. Functional [...] ICD10 Code Diagnosis IMO Codes Diagnosis Note [id number] LENKA COSTA [facility] [address] [facility] [address] [place] [address] 05/07/2023 10:29:15 05/07/2023 11:23:45 Arthritis of right knee joint 6228526410 565632 M13.861 [id number] LENKA COSTA [facility] [address] [facility] [address] [place] [address] 08/13/2023 08:57:12 08/13/2023 09:17:48 Arthritis of right knee joint 9555019172 473370 M13.861 Instabilit y of joint of right knee 4503307625 705978 M25.361 Health Concerns Section Related Observation LastModified by Organization Detai ls LastModified Time None Recorded Concern Status LastModified by Organization Details LastModified Time None Recorded Advance Directives Directive None Recorded Payers Insurance Date Sequence Insurance Name Policy Number Policy Capellan Covered Member ID Capellan Member ID Guarantor Name 08/12/2023 1 [facility] - DOS ON OR AFTER 2023 - ONE CARE (MEDICARE REPLACEMENT/ADV ANTAGE - HMO) Robin Garza [id number] Robin Garza Notes Date Note Type Note Provider Name and Address Organization Details Recorded Time 05/07/2023 text/html Very pleasant 67-year-old male here for evaluation of chronic right knee pain managed by his primary care with Tylenol/therapy. Patient with history of left total knee arthroplasty by Dr. Kwadwo Zuleta at [facility] in 2017. Patient describes his right knee [...] was not present. FERNANDO SANTANA PA-C [address] [facility],[address] [address], [place], [address], [place] [facility], P 05/07/2023 11:50:39 08/13/2023 text/html Pleasant 67-year-old [...] evaluation treatment plan. FERNANDO SANTANA PA-C [address] [facility] [address], [place], [address], [place] [facility], P 08/13/2023 09:20:09
--- OUTSIDE RECORDS SUMMARY | 2025-10-17 17:45 | XMS_ITS | Clinical Summary ---
Author Organization [employer] Address [address] [place] [address] [address] [place] [address] Care Team Providers Care Clock And Watch Hands Mounter Name Role Phone Unavailable Primary Care Provider [...] patient's age to complete this topic Insurance [facility]ARE < 65 JAMES ESPINOZA [id number] MEDICARE
--- OUTSIDE RECORDS SUMMARY | 2025-10-17 17:45 | XMS_ITS | Clinical Summary ---
Author Organization [facility] Address [address] [place] [address] Phone Care Team Providers Care Harvesting Supervisor Name Role Phone Jean-Claude Anaya Primary Care Provider [phone] Allergies Active Allergy Reactions Criticality Noted Date [...] 11:30 AM EST Office Visit Orthopedic Surgery [facility] [address] [facility] [address] [place] [address] Anne Valle MD Ganglion cyst of finger (Primary Dx) 08/04/2025 Telephone Orthopedic Surgery [facility] [address] [facility] [address] [place] [address] Phyllis Moss from Last 3 Months Immunizations [...] Record ed Within the last 3 months, mikal smith many times did you visit the emergency [...] care for your loved ones. For example, early childhood education worker or elderly care for an older adult? [...] AM EST Office Visit Orthopedic Surgery - [place] [address] [facility] [address] [place] [address] Anne Valle MD [address] [facility] [address] [place] [phone] Health Maintenance Due Date Last Done Comments [...] mmol/L LAB CHEMISTRY METHOD 04/06/2025 8:08 AM [facility] Potassium 3.3(L) 3.5 - 5.5 mmol/L LAB CHEMISTRY METHOD 04/06/2025 8:08 AM [facility] Chloride 98 96 - 110 mmol/L LAB CHEMISTRY METHOD 04/06/2025 8:08 AM [facility] CO2 24 21 - 32 mmol/L LAB CHEMISTRY METHOD 04/06/2025 8:08 AM [facility] Anion Gap 13(H) 3 - 11 LAB CHEMISTRY METHOD 04/06/2025 8:08 AM [facility] Glucose 97 70 - 100 mg/dL LAB CHEMISTRY METHOD 04/06/2025 8:08 AM [facility] BUN 30(H) 5 - 25 mg/dL LAB CHEMISTRY METHOD 04/06/2025 8:08 AM [facility] Creatinine 1.29 0.70 - 1.30 mg/dL LAB CHEMISTRY METHOD 04/06/2025 8:08 AM [facility] eGFR 60 >=60 mL/min/1. 73m2 LAB CHEMISTRY METHOD 04/06/2025 8:08 AM [facility] Comment:Calculation based on the Chronic Kidney Disease Epidemiology Collaboration (CKD-EPI) equation refit without adjustment for race. BUN/Creatinine Ratio 23.3 LAB CHEMISTRY METHOD 04/06/2025 8:08 AM [facility] Calcium 8.8 8.5 - 10.5 mg/dL LAB CHEMISTRY METHOD 04/06/2025 8:08 AM [facility] Blood Venous blood specimen / Unknown Venipuncture / Unknown 04/06/2025 6:00 AM EDT 04/06/2025 6:51 AM EDT us Brent Valle MD LAB BLOOD ORDERABLES Final Re sult Performing Organization Address City/[facility]/ZIP Co de Phone Number [facility] [address] [place] [address], [place] [phone] * (ABNORMAL) Hemoglobin A1c (04/04/2025 5:11 AM EDT) Pathologist [facility] Hemoglobin A1C 10.1(H) <6.5 % LAB CHEMISTRY METHOD 04/04/2025 10:44 AM EDT [facility] Mean Bld Glu Estim. 243 mg/dL LAB CHEMISTRY METHOD 04/04/2025 10:44 AM EDT [facility] Blood Venous blood specimen / Unknown Venipuncture / Unknown 04/04/2025 5:11 AM EDT 04/04/2025 5:54 AM EDT us Brent Valle MD LAB BLOOD ORDERABLES Final Re sult Performing Organization Address [facility]/ZIP Co de Phone Number [facility] [address] [place] [address], [place] [phone] * (ABNORMAL) Hepatitis panel, acute with reflex to confirmation (04/03/2025 2:44 PM EDT) [facility] Hepatitis B Surface Ag Negative Negative LAB CHEMISTRY METHOD 04/03/2025 7:47 PM EDT [facility] Hepatitis A Antibody IgM Negative Negative LAB CHEMISTRY METHOD 04/03/2025 7:47 PM EDT [facility] Hep B Core IgM Negative Negative LAB CHEMISTRY METHOD 04/03/2025 7:47 PM EDT [facility] Hepatitis C Antibody Positive(A) Negative LAB CHEMISTRY METHOD 04/03/2025 7:47 PM EDT [facility] Comment:If confirmation of t his positive HCV Ab screening test is needed, please redraw and order HCV Viral Load. Note--> This test may not be added on due to different specimen requirements. Blood Venous blood specimen / Unknown Venipuncture / Unknown 04/03/2025 2:44 PM EDT 04/03/2025 3:10 PM EDT us Zhanna Sarah Ryan [employer] LAB BLOOD ORDERABLES Fin al Result [facility] [address] [place] [address], from Last 3 Months or Most Recently [...] currently active code status orders. Care Teams Harvesting Supervisor Relationship Specialty Start Date End Date Jean-Claude Anaya PA [address] [place] [address] PCP - General Physician Waste Oil Pumper 12/26/24
== END 2025-10-17 14:33 | disposition home or self-care (01) ==
LOC: HO.HMCH 13:55
PROVIDERS: PCP Physician Assistant; Visit Provider Physician Assistant
DX: E11.65 Type 2 diabetes mellitus with hyperglycemia (principal); Z79.4 Long term (current) use of insulin

== ENCOUNTER → 2025-10-17 13:54 | Outpatient (BNVA) | payer MEDICARE, MEDICAID, SELFPAY | PROVIDERS: PCP Physician Assistant; Visit Provider Physician Assistant | DX: E11.65 Type 2 diabetes mellitus with hyperglycemia (principal); I10 Essential (primary) hypertension; E78.5 Hyperlipidemia, unspecified; Z79.4 Long term (current) use of insulin; Z79.85 Long-term (current) use of injectable non-insulin antidiabetic drugs | CPT/HCPCS: 83036; 99212 ==